=== PATIENT | female | born 1945 | race Caucasian/White ===

== ENCOUNTER 2016-11-28 12:50 | Outpatient (CLI) | payer MEDICARE, OTHER ==
[~2016-11-28 12:50] MED LIST: ASP81CT PO; CALC-771 PO; HYDR-3454 PO; MULT-930 PO; OMG1KC PO; PRV20T PO
--- OUTSIDE RECORDS SUMMARY | 2016-11-28 13:52 | XMS REPORT | Continuity of Care Document ---
Author Author [facility] Organization [facility] Address Unknown Phone Unavailable Allergies Active Description Code Type Severity Reaction Onset Reported/Identified Relationship to Patient Clinical Status Yes No Known Drug Allergies [id number] Drug Allergy Unknown N/ A 08/12/2012 Medications Problems Date Dx Coded Attending Type Code Diagnosis Diagnosed By 08/12/2012 Ot 272.4 HYPERLIPIDEMIA NEC/NOS 08/12/2012 Ot 733.90 BONE CARTILAGE DIS NOS 08/12/2012 Ot 735.2 HALLUX RIGIDUS 08/12/2012 Ot V58.69 OTH MED,LT,CURRENT USE 08/18/2014 Ot V76.12 08/18/2014 Ot V76.12 08/18/2014 Ot 735.2 08/18/2014 Ot V72.83 08/18/2014 Ot V74.8 08/18/2014 RACQUEL MICHAELS MD Ot V76.12 09/09/2014 RACQUEL MICHAELS MD Ot V76.12 09/09/2014 Ot V76.12 09/09/2014 Ot V76.12 09/09/2014 Ot 735.2 09/09/2014 Ot V72.83 09/09/2014 Ot V74.8 09/09/2014 RACQUEL MICHAELS MD Ot V76.12 09/09/2014 RACQUEL MICHAELS MD Ot V76.12 10/01/2014 RACQUEL MICHAELS MD Ot V76.12 10/01/2014 RACQUEL MICHAELS MD Ot V76.12 10/01/2014 RACQUEL MICHAESL MD Ot V76.12 10/07/2015 CATHY GOMEZ APRN Ot Z12.31 09/14/2016 Ot V76.12 OTH SCREEN MAMMO-MALIGN NEOPLASM OF MIKEY 09/14/2016 Ot V76.12 OTH SCREEN MAMMO-MALIGN NEOPLASM OF MIKEY 09/14/2016 Ot 735.2 HALLUX RIGIDUS 09/14/2016 Ot V72.83 EXAM PRE-OPERATIVE NEC 09/14/2016 Ot V74.8 SCREEN-BACTERIAL DIS NEC 09/14/2016 RACQUEL MICHAELS MD Ot V76.12 OTH SCREEN MAMMO-MALIGN NEOPLASM OF MIKEY 09/14/2016 RACQUEL MICHAELS MD Ot V76.12 OTH SCREEN MAMMO-MALIGN NEOPLASM OF MIKEY 09/14/2016 CATHY GOMEZ VISUAL AID EXPERT Ot Z12.31 ENCNTR SCREEN MAMMOGRAM FOR MALIGNANT NE 09/14/2016 CATHY GOMEZ VISUAL AID EXPERT Ot Z12.31 ENCNTR SCREEN MAMMOGRAM FOR MALIGNANT NE 09/14/2016 CATHY GOMEZ VISUAL AID EXPERT Ot Z12.31 ENCNTR SCREEN MAMMOGRAM FOR MALIGNANT NE 09/15/2016 CATHY GOMEZ VISUAL AID EXPERT Ot Z12.31 ENCNTR SCREEN MAMMOGRAM FOR MALIGNANT NE 09/15/2016 CATHY GOMEZ VISUAL AID EXPERT Ot Z12.31 ENCNTR SCREEN MAMMOGRAM FOR MALIGNANT NE 10/05/2016 CATHY GOMEZ VISUAL AID EXPERT Ot Z12.31 ENCNTR SCREEN MAMMOGRAM FOR MALIGNANT NE Procedures Results Encounters ACCT No. Visit Date/Time Discharge Status Pt. Type Provider Facility Loc./Unit Complaint [id number] 09/07/2014 09:52:00 2013 23:59:59 CLS Outpatient RACQUEL MICHAELS MD [facility] RAD ROUTINE [id number] 09/04/2013 09:27:00 2012 23:59:59 CLS Outpatient RACQUEL MICHAELS MD [facility] RAD SCREENING [id number] 09/14/2016 10:49:00 ACT Outpatient CATHY GOMEZ APRN [facility] RAD SCREENING [id number] 09/14/2015 10:31:00 ACT Outpatient CATHY GOMEZ APRN [facility] RAD SCREENING [id number] 09/02/2012 09:33:00 Document Registration [id number] 08/12/2012 06:19:00 Document Registration [id number] 08/07/2012 12:15:00 Document Registration [id number] 08/08/2011 08:35:00 Document Registration
== END 2016-11-28 13:55 | disposition home or self-care (01) ==
LOC: SLEEP 12:50
PROVIDERS: ATTEND Family Medicine
DX: I10 Essential (primary) hypertension (principal); G47.36 Sleep related hypoventilation in conditions classified elsewhere

== ENCOUNTER 2017-01-30 19:50 | Outpatient (CLI) | payer MEDICARE, OTHER | END 2017-01-31 04:55 | disposition home or self-care (01) | LOC: SLEEP 19:50 | PROVIDERS: ATTEND Nurse Practitioner Family | DX: G47.33 Obstructive sleep apnea (adult) (pediatric) (principal); I10 Essential (primary) hypertension | CPT/HCPCS: 95811 ==

== ENCOUNTER → 2017-09-18 | Outpatient (CLI) | payer MEDICARE ==
--- NOTE | 2017-09-18 15:26 | Diagnostic Imaging Report ---
INDICATION: Screening. The current study was also evaluated with a Computer Aided Detection (CAD) system. Comparison made with prior examination from 09/14/2016, 09/14/15 and 09/07/2014. FINDINGS: There is moderately dense fibroglandular tissue bilaterally. There is unchanged nodular density in the upper outer right breast. There a few benign type calcifications. There is no new dominant mass lesion or suspicious calcification identified. The skin, nipples and axilla are unremarkable. IMPRESSION: Category 2 benign. ACR BI-RADS Category 2: Benign findings. Result letter will be mailed to the patient. Note: At least 10% of breast cancer is not imaged by mammography. Dictated by: Dictated on workstation # [id number]
== END ==
LOC: RAD 10:01
PROVIDERS: ATTEND Family Medicine
DX: Z12.31 Encounter for screening mammogram for malignant neoplasm of breast (principal)
CPT/HCPCS: 77067

== ENCOUNTER 2017-12-17 12:36 | Outpatient (CLI) | payer MEDICARE ==
[~2017-12-17] VITALS: Ht 154.9 cm; Wt 66.3 kg
[2017-12-17] MEDS ORDERED: MULT-1029 PO (12:54)
[2017-12-17] MEDS ORDERED: GLUC-144 PO (12:54)
[2017-12-17] MEDS ORDERED: PRAV20TA3 PO (12:54)
[2017-12-17] MEDS ORDERED: TRIA1TAB3 PO (12:54)
[2017-12-17] MEDS ORDERED: MV-M1TAB38 PO (12:54)
[2017-12-17] MEDS ORDERED: OMEG1CAP24 PO (12:54)
[2017-12-17 12:56] VITALS: BP 123/74
[2017-12-17 13:29] LABS: BASOPHILS # (AUTO) 0.1 10^3/uL (0.0-0.1); BASOPHILS % (AUTO) 1 % (0-10); EOSINOPHILS # (AUTO) 0.1 10^3/uL (0.0-0.3); EOSINOPHILS % (AUTO) 2 % (0-10); HEMATOCRIT 42 % (35-52); HEMOGLOBIN 13.9 G/DL (11.5-16.0); LYMPHOCYTES # (AUTO) 2.2 X 10^3 (1.0-4.0); LYMPHOCYTES % (AUTO) 23 % (12-44); MEAN CORPUSCULAR HEMOGLOBIN 30 PG (25-34); MEAN CORPUSCULAR HGB CONC 33 G/DL (32-36); MEAN CORPUSCULAR VOLUME 90 FL (80-99); MONOCYTES # (AUTO) 0.6 X 10^3 (0.0-1.0); MONOCYTES % (AUTO) 7 % (0-12); NEUTROPHILS # (AUTO) 6.3 X 10^3 (1.8-7.8); NEUTROPHILS % (AUTO) 68 % (42-75); PLATELET COUNT 240 10^3/uL (130-400); RED BLOOD COUNT 4.71 10^6/uL (4.35-5.85); RED CELL DISTRIBUTION WIDTH 13.5 % (10.0-14.5); WHITE BLOOD COUNT 9.2 10^3/uL (4.3-11.0)
[2017-12-17 13:50] LABS: CALCIUM 9.8 MG/DL (8.5-10.1); CREATININE SERUM 1.05 MG/DL (0.60-1.30); POTASSIUM 4.2 MMOL/L (3.6-5.0)
== END 2017-12-17 14:59 | disposition home or self-care (01) ==
LOC: PREOP 12:36
PROVIDERS: ATTEND Otolaryngology Otolaryngology/Facial Plastic Surgery
DX: Z01.810 Encounter for preprocedural cardiovascular examination (principal); Z01.812 Encounter for preprocedural laboratory examination; Z11.2 Encounter for screening for other bacterial diseases; C44.311 Basal cell carcinoma of skin of nose
CPT/HCPCS: 36415; 80048; 85025; 87081; 93005

== ENCOUNTER 2017-12-28 06:49 | Day surgery (SDC) | payer MEDICARE ==
[~2017-12-28] VITALS: Ht 154.9 cm; Wt 66.3 kg
[~2017-12-28 06:49] MED LIST changes: +GLUC-144 PO; +MULT-1029 PO; +MV-M1TAB38 PO; +OMEG1CAP24 PO; +PRAV20TA3 PO; +TRIA1TAB3 PO
[2017-12-28] MEDS ORDERED: BSS 15 ML ONE (07:34)
[2017-12-28] MEDS ORDERED: LIDOCAINE/EPI 1%-1:200,000 (XYLOCAINE) 10 ML VIAL ONE (07:34)
[2017-12-28] MEDS ORDERED: MUPIROCIN 2% OINT 22 GM (BACTROBAN) TUBE ONE (07:34)
[2017-12-28] MEDS: LACTATED RINGERS 1,000 ML IV PRN ×2 (07:34→09:44)
[2017-12-28 07:35] VITALS: BP 116/69
[2017-12-28] MEDS ORDERED: MIDAZOLAM 2 MG/2 ML (VERSED) VIAL ONE (08:38)
[2017-12-28] MEDS ORDERED: fentaNYL INJECTION 100 MCG/2 ML AMP ONE (08:38)
[2017-12-28] MEDS ORDERED: proPOfol 200 MG/20 ML (DIPRIVAN) VIAL IV ONE (08:43)
[2017-12-28] MEDS ORDERED: LIDOCAINE PF 2% 5 ML (XYLOCAINE) VIAL ONE (08:43)
[2017-12-28] MEDS ORDERED: DEXAMETHASONE 10 MG/ML (DECADRON) 1 ML VIAL ONE (08:43)
[2017-12-28] MEDS ORDERED: ONDANSETRON 4 MG/2 ML (SDV) Z0FRAN ONE (08:43)
--- NOTE | 2017-12-28 08:50 | Progress Note-Pre Operative ---
Pre-Operative Progress Note H&P Reviewed The H&P was reviewed, patient examined and no changes noted. Date Seen by Provider: Dec 28, 2017 Time Seen by Provider: 08: Date H&P Reviewed: Dec 28, 2017 Time H&P Reviewed: : Pre-Operative Diagnosis: Skin Cancer nasal tip VENKAT HULL MD Dec 28, 2017 8:50 am
[2017-12-28] MEDS ORDERED: SEVOFLURANE (ULTANE) 15 ML INHAL SOLN ONE (09:41)
--- NOTE | 2017-12-28 09:50 | Progress Note-Post Operative ---
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 Specimen(s) collected/removed Frozen Section Nose-basal cell VENKAT HULL MD Dec 28, 2017 9:50 am
[2017-12-28] MEDS ORDERED: PHENYLEPHRINE 100 MCG/ML 10 ML (ANESTHESIA) SYR ONE (09:52)
[2017-12-28] MEDS ORDERED: HYDROcodone/APAP 5 MG/325 MG (LORTAB) TAB PO PRN (10:00)
[2017-12-28] MEDS ORDERED: ACETAMINOPHEN 325 MG TABLET PO PRN (10:00)
[2017-12-28] MEDS ORDERED: ONDANSETRON 4 MG/2 ML (SDV) Z0FRAN IVP PRN (10:15)
[2017-12-28] MEDS ORDERED: HYDROmorphone 2 MG/ML VIAL (DILAUDID) IVP PRN (10:15)
[2017-12-28 10:50] VITALS: BP 118/62
[2017-12-28] MEDS ORDERED: HYDR-3812 PO (11:03)
[2017-12-28 11:20] VITALS: BP 136/48
--- NOTE | 2017-12-28 11:40 | Anesthesia-General Post-Op ---
General Patient Condition Mental Status/LOC: Same as Preop Cardiovascular: Satisfactory Nausea/Vomiting: Absent Respiratory: Satisfactory Pain: Controlled Complications: Absent Post Op Complications Complications None Follow Up Care/Instructions Patient Instructions None needed. Anesthesia/Patient Condition Patient Condition Patient is doing well, no complaints, stable vital signs, no apparent adverse anesthesia problems. No complications reported per nursing. SUE HAY CRNA Dec 28, 2017 11:40
[2017-12-28 11:50] VITALS: BP 119/66
[2017-12-28 12:15] VITALS: BP 119/66
--- OUTSIDE RECORDS SUMMARY | 2017-12-30 03:54 | XMS REPORT | CCD ---
Author Author [facility] Organization [facility] Address [address] [place] [address] Phone Care Team Providers Care [employer] Systems Administrator Name Role Phone PP Unavailable CCM Unavailable Summary Purpose Interface Exchange Insurance Providers Payer name Policy type / Coverage type Covered libertarian ID Effective Begin Date Effective End Date WPS Medicare Part B [id number] Unknown [facility] [id number] Unknown Family history Father Diagnosis Age At Onset Unknown Brother Diagnosis Age At Onset Diabetes mellitus Type 2 Unknown Mother Diagnosis Age At Onset car accident Unknown Social History Social History Element Codes Description Effective Dates Marital status Unknown for 16 years - for 16 years, then remarried 05/02/[address]: 732958981 Never smoker 05/02/[address]: 888122 Currently drinks alcohol 05/02/2016 Frequency of drinks SNOMED CT: 077695477 1-4 drinks per week 1 per week 05/02/2016 Has the patient ever used illegal drugs? Unknown Has never used illegal drugs 05/02/2016 Number of children Unknown 0 05/04/2015 Allergies, Adverse Reactions, Alerts Allergies, Adverse Reactions, Alerts data not found Past Medical History Illness Codes Condition Status Onset Date Resolved Date Essential (primary) hypertension ICD-9: 401.9 ICD-10: I10 Active 05/03/2015 Unknown Iron deficiency ICD-9 : 280.9 ICD-10: E61.1 Active 08/29/2017 Unknown Mixed hyperlipidemia ICD-9: 272.4 ICD-10: E78.2 Active 05/03/2015 Unknown Obstructive sleep apnea (adult) (pediatric) ICD-9: 327.23 ICD-10: G47.33 Active 02/27/2017 Unknown Cellulitis of face ICD -9: 682.0 ICD-10: L03.211 Active 02/02/2017 Unknown Other insomnia ICD-9: 327.09 ICD-10: G47.09 Active 11/22/2016 Unknown Acute laryngopharyngitis ICD-9: 465.0 ICD-10: J06.0 Active 07/27/2016 Unknown Cough ICD-9: 786.2 ICD-10: R05 Active 07/27/2016 Unknown Acute bronchitis, unspecified ICD-9: 466.0 ICD-10: J20.9 Active 07/02/2016 Unknown Snoring ICD-9: 786.09 ICD-10: R06.83 Active 05/01/2016 Unknown Encounter for immunization ICD-9: V05.9 ICD-10: Z23 Active 11/01/2015 Unknown Tick bite ICD-9: 919.4 Active 05/19/2015 Unknown Hyperlipidemia Unknown Active 05/04/2015 Unknown Hypertension Unknown Active 05/04/2015 Unknown ENCNTR LONG-RX USE NEC ICD-9: V58.69 Active 05/03/2015 Unknown ESSENTIAL HYPERTENSION ICD-9: 401.9 Active 05/03/2015 Unknown HYPERLIPIDEMIA ICD-9: 272.4 Active 05/03/2015 Unknown Problems Condition Codes Effective Dates Condition Status Essential (primary) hypertension ICD-9: 401.9 ICD-10: I10 05/03/2015 Active Iron deficiency ICD-9 : 280.9 ICD-10: E61.1 08/29/2017 Active Mixed hyperlipidemia ICD-9: 272.4 ICD-10: E78.2 05/03/2015 Active Obstructive sleep apnea (adult) (pediatric) ICD-9: 327.23 ICD-10: G47.33 02/27/2017 Active Cellulitis of face ICD -9: 682.0 ICD-10: L03.211 02/02/2017 Active Other insomnia ICD-9: 327.09 ICD-10: G47.09 11/22/2016 Active Acute laryngopharyngitis ICD-9: 465.0 ICD-10: J06.0 07/27/2016 Active Cough ICD-9: 786.2 ICD-10: R05 07/27/2016 Active Acute bronchitis, unspecified ICD-9: 466.0 ICD-10: J20.9 07/02/2016 Active Snoring ICD-9: 786.09 ICD-10: R06.83 05/01/2016 Active Encounter for immunization ICD-9: V05.9 ICD-10: Z23 11/01/2015 Active Tick bite ICD-9: 919.4 05/19/2015 Active Hyperlipidemia Unknown 05/04/2015 Active Hypertension Unknown 05/04/2015 Active ENCNTR LONG-RX USE NEC ICD-9: V58.69 05/03/2015 Active ESSENTIAL HYPERTENSION ICD-9: 401.9 05/03/2015 Active HYPERLIPIDEMIA ICD-9: 272.4 05/03/2015 Active Medications Medication Codes Instructions Start Date Stop Date Status Fill Instructions Xanax 0.25 mg tablet RxNorm: 681985 1/2 - 1 Tablet(s) PO QHS as needed 10/30/2017 12/28/2017 Active Maxzide-25mg 37.5 mg-25 mg tablet RxNorm: 09059 Tablet(s) TAKE 1 TABLET BY MOUTH DAILY 10/10/2017 10/04/2018 Active acyclovir 5 % topical ointment RxNorm: 305085 1 Application TOP QID as needed cold sores 08/29/2017 12/26/2017 Active amoxicillin 500 mg capsule RxNorm: 960876 1 Capsule(s) PO TID 07/03/2017 07/09/2017 Inactive Maxzide-25mg 37.5 mg-25 mg tablet RxNorm: 19169 TAKE 1 TABLET BY MOUTH DAILY 06/04/2017 10/09/2017 Inactive Bactrim DS 800 mg-160 mg tablet RxNorm: 108394 1 Tablet(s) PO BID 05/14/2017 05/23/2017 Inactive Xanax 0.25 mg tablet RxNorm: 801104 1/2 - 1 Tablet(s) PO QHS 10/29/2017 Inactive pravastatin 20 mg tablet RxNorm: 825684 TAKE 1 TABLET BY MOUTH DAILY 02/28/2017 02/22/2018 Active mupirocin 2 % topical ointment RxNorm: 447762 1 Application TOP BID 02/02/2017 No Stop Date Active Bactrim DS 800 mg-160 mg tablet RxNorm: 116852 1 Tablet(s) PO BID 02/02/2017 02/11/2017 Inactive Xanax 0.25 mg tablet RxNorm: 787146 1/2 - 1 Tablet(s) PO QHS 10/29/2017 Inactive Xanax 0.25 mg tablet RxNorm: 024892 1/2 - 1 Tablet(s) PO QHS 05/13/2017 Inactive trazodone 50 mg tablet RxNorm: 634680 1 Tablet(s) PO QPM 201510/22/2017 Inactive Maxzide-25mg 37.5 mg-25 mg tablet RxNorm: 90843 Tablet(s) 1 Tablet, 1 time per Day 08/29/2016 05/25/2017 Inactive amoxicillin 500 mg capsule RxNorm: 583782 1 Capsule(s) PO TID 07/28/2016 08/03/2016 Inactive cetirizine 10 mg tablet RxNorm: 3003717 1 Tablet(s) PO daily 08/26/2016 Inactive Zithromax Z-Elías 250 mg tablet RxNorm: 616632 1 Tablet(s) PO UD 07/03/2016 07/07/2016 Inactive zpack Kenalog 40 mg/mL suspension for injection RxNorm: 7368251 Milliliter(s) Inj 07/03/2016 07/03/2016 Inactive pravastatin 20 mg tablet RxNorm: 730387 TAKE 1 TABLET BY MOUTH DAILY 05/31/2016 02/24/2017 Inactive trazodone 50 mg tablet RxNorm: 110577 1 Tablet(s) PO QPM 201506/30/2016 Inactive Maxzide-25mg 37.5 mg-25 mg tablet RxNorm: 19161 1 Tablet, 1 time per Day 12/06/2015 08/28/2016 Inactive trazodone 50 mg tablet RxNorm: 135243 1 Tablet(s) PO QPM 201503/02/2016 Inactive Maxzide-25mg 37.5 mg-25 mg tablet RxNorm: 09546 1 Tablet(s) PO daily 05/04/2015 12/05/2015 Inactive trazodone 50 mg tablet RxNorm: 057332 1/2 Tablet(s) PO QPM may increase up to a full pill if needed 05/04/2015 10/21/2015 Inactive pravastatin 20 mg tablet RxNorm: 268007 1 Tablet(s) PO daily 04/27/2016 Inactive pravastatin 20 mg tablet RxNorm: 357716 1 Tablet(s) PO daily 03/02/2015 Inactive pravastatin 20 mg tablet RxNorm: 207825 1 Tablet(s) PO daily 05/03/2015 Inactive Eye Vitamin and Minerals oral RxNorm: 2837 oral No Start Date Active Centrum Silver tablet RxNorm: 1 Tablet(s) PO daily No Start Date Active [place] 3 Fish Oil oral RxNorm: 5573804 oral No Start Date Active Osteo Bi-Flex oral RxNorm: 2364147 oral No Start Date Active zolpidem 5 mg tablet RxNorm: 596012 1 Tablet(s) PO QHS as needed No Start Date 05/03/2015 Inactive Iron (ferrous sulfate) oral RxNorm: 32725 oral No Start Date 08/28/2017 Inactive Maxzide-25mg oral RxNorm: 36349 oral No Start Date 05/03/2015 Inactive Medication Administered Medication Codes Instructions Start Date Status Kenalog 40 mg/mL suspension for injection RxNorm: 2963064 Milliliter 07/03/2016 No longer Active Immunizations Vaccine Codes Date Status Pneumococcal (Adult) CVX: 133 11/02/2015 completed PPD Unknown 05/20/2015 completed Influenza CVX: 141 06/17/2014 completed Pneumococcal CVX: 33 08/24/2010 completed Zoster CVX: 121 07/23/2008 completed Tetanus, Diptheria, Pertussis CVX: 113 completed Tetanus, Diptheria, Pertussis CVX: 113 completed Tetanus/Diptheria CVX: 113 05/05/2008 completed Assessments Condition Codes Effective Dates Mixed hyperlipidemia ICD-10: E78.2 ICD-9: 272.4 08/29/2017 Essential (primary) hypertension ICD-10: I10 ICD-9: 401.9 08/29/2017 Iron deficiency ICD-10: E61.1 ICD-9: 280.9 08/29/2017 Obstructive sleep apnea (adult) (pediatric) ICD-10: G47.33 ICD-9: 327.23 08/29/2017 Cellulitis of face ICD-10: L03.211 ICD-9: 682.0 05/14/2017 Other insomnia ICD-10: G47.09 ICD-9: 327.09 11/22/2016 Cough ICD-10: R05 ICD-9: 786.2 07/28/2016 Acute laryngopharyngitis ICD-10: J06.0 ICD-9: 465.0 07/28/2016 Acute bronchitis, unspecified ICD-10: J20.9 ICD-9: 466.0 07/03/2016 Snoring ICD-10: R06.83 ICD-9: 786.09 05/02/2016 Encounter for immunization ICD-10: Z23 ICD-9: V05.9 11/02/2015 Tick bite ICD-9: 919.4 05/20/2015 ESSENTIAL HYPERTENSION ICD-9: 401.9 05/04 HYPERLIPIDEMIA ICD-9: 272.4 05/04/2015 ENCNTR LONG-RX USE NEC ICD-9: V58.69 Reason For Visit Reason For Visit Effective Dates Notes hyperlipidemia 08/29/2017 rash 05/14/2017 hyperlipidemia 02/27/2017 rash 02/02/2017 insomnia 11/22/2016 hyperlipidemia 08/29/2016 cough 07/28/2016 cough 07/03/2016 hyperlipidemia 05/02/2016 hyperlipidemia 11/02/2015 blood pressure followup 05/04/2015 Results Observation Observation Code Item Item Code Result Date Comp Metabolic Tqm295 NA 140 mEq/L 08/29/2017 Comp Metabolic Ymm340 K 4.2 mEq/L 08/29/2017 Comp Metabolic Gwd749 CL 100 mEq/L 08/29/2017 Comp Metabolic Oiw887 CO2 31.0 mEq/L 08/29/2017 Comp Metabolic Bvo105 ANION GAP 13 08/29/2017 Comp Metabolic Jmc047 GLUCOSE 95 mg/dL 08/29/2017 Comp Metabolic Ouz385 Creat 1.1 mg/dL 08/29/2017 Comp Metabolic Ect837 eGFR 50 ml/min/1.73m2 08/29/2017 Comp Metabolic Rlv267 BUN 26 mg/dL 08/29/2017 Comp Metabolic Hji972 B/C Ratio 22.8 Ratio 08/29/2017 Comp Metabolic Wcx170 CALCIUM 9.8 mg/dL 08/29/2017 Comp Metabolic Xfv713 ALK PHOS 45 U/L 08/29/2017 Comp Metabolic Cgb224 AST(SGOT) 21 U/L 08/29/2017 Comp Metabolic Csp836 ALT(SGPT) 18 U/L 08/29/2017 Comp Metabolic Woe706 BILI T 0.5 mg/dL 08/29/2017 Comp Metabolic Fsu398 ALBUMIN 4.3 g/dL 08/29/2017 Comp Metabolic Qfu388 TPRO 6.7 g/dL 08/29/2017 Comp Metabolic Jva290 GLOB 2.4 g/dL 08/29/2017 Comp Metabolic Fnv589 A/G Ratio 1.8 Ratio 08/29/2017 Comp Metabolic Cxy283 Osmo 284 mOsmo 08/29/2017 Cbc With Differential Ord2 WBC 8.31 K/ul 08/29/2017 Cbc With Differential Ord2 RBC 4.20 M/ul 08/29/2017 Cbc With Differential Ord2 HGB 12.3 g/dl 08/29/2017 Cbc With Differential Ord2 Neut% 62.3 % 08/29/2017 Cbc With Differential Ord2 HCT 38.2 % 08/29/2017 Cbc With Differential Ord2 MCV 91.0 fl 08/29/2017 Cbc With Differential Ord2 Lymph% 27.9 % 08/29/2017 Cbc With Differential Ord2 [place]% 7.0 % 08/29/2017 Cbc With Differential Ord2 MCH 29.3 pg 08/29/2017 Cbc With Differential Ord2 MCHC 32.2 pg 08/29/2017 Cbc With Differential Ord2 Eos% 2.2 % 08/29/2017 Cbc With Differential Ord2 Baso% 0.6 % 08/29/2017 Cbc With Differential Ord2 PLT 246 K/ul 08/29/2017 Cbc With Differential Ord2 RDW 13.6 % 08/29/2017 Cbc With Differential Ord2 Neut ABS# 5.18 K/ul 08/29/2017 Cbc With Differential Ord2 Lymph ABS# 2.32 K/ul 08/29/2017 Cbc With Differential Ord2 [place] ABS# 0.6 K/ul 08/29/2017 Cbc With Differential Ord2 Eos ABS# 0.2 K/ul 08/29/2017 Cbc With Differential Ord2 Baso ABS# 0.1 K/ul 08/29/2017 Lipid Ord30 CHOL 161 mg/dL 08/29/2017 Lipid Ord30 HDL 45.0 mg/dl 08/29/2017 Lipid Ord30 TRIG 198 mg/dL 08/29/2017 Lipid Ord30 LDL 76 mg/dL 08/29/2017 Lipid Ord30 C/HDL 3.6 Ratio 08/29/2017 Tibc Ord40 Iron 95 ug/dl 08/29/2017 Tibc Ord40 UIBC 227 ug/dL 08/29/2017 Tibc Ord40 TIBC 322 ug/dL 08/29/2017 Tibc Ord40 Fe-%Sat 29.5 % 08/29/2017 Cbc With Differential Ord2 WBC 7.77 K/ul 03/01/2017 Cbc With Differential Ord2 RBC 4.10 M/ul 03/01/2017 Cbc With Differential Ord2 HGB 12.3 g/dl 03/01/2017 Cbc With Differential Ord2 HCT 37.8 % 03/01/2017 Cbc With Differential Ord2 Neut% 61.5 % 03/01/2017 Cbc With Differential Ord2 Lymph% 27.2 % 03/01/2017 Cbc With Differential Ord2 MCV 92.2 fl 03/01/2017 Cbc With Differential Ord2 MCH 30.0 pg 03/01/2017 Cbc With Differential Ord2 [place]% 8.0 % 03/01/2017 Cbc With Differential Ord2 Eos% 2.8 % 03/01/2017 Cbc With Differential Ord2 MCHC 32.5 pg 03/01/2017 Cbc With Differential Ord2 PLT 227 K/ul 03/01/2017 Cbc With Differential Ord2 Baso% 0.5 % 03/01/2017 Cbc With Differential Ord2 Neut ABS# 4.78 K/ul 03/01/2017 Cbc With Differential Ord2 RDW 14.1 % 03/01/2017 Cbc With Differential Ord2 Lymph ABS# 2.11 K/ul 03/01/2017 Cbc With Differential Ord2 [place] ABS# 0.6 K/ul 03/01/2017 Cbc With Differential Ord2 Eos ABS# 0.2 K/ul 03/01/2017 Cbc With Differential Ord2 Baso ABS# 0.0 K/ul 03/01/2017 Tibc Ord40 Iron 69 ug/dl 02/27/2017 Tibc Ord40 UIBC 283 ug/dL 02/27/2017 Tibc Ord40 TIBC 352 ug/dL 02/27/2017 Tibc Ord40 Fe-%Sat 19.6 % 02/27/2017 Ferritin Ord22 FERRITIN 89.1 ng/mL 02/27/2017 Comp Metabolic Uaf841 NA 137 mEq/L 08/29/2016 Comp Metabolic Xcn260 K 4.0 mEq/L 08/29/2016 Comp Metabolic Cem827 CL 100 mEq/L 08/29/2016 Comp Metabolic Nqz294 CO2 32.0 mEq/L 08/29/2016 Comp Metabolic Kak455 ANION GAP 9 08/29/2016 Comp Metabolic Vnd441 GLUCOSE 98 mg/dL 08/29/2016 Comp Metabolic Duu625 Creat 1.0 mg/dL 08/29/2016 Comp Metabolic Pif603 eGFR 55 ml/min/1.73m2 08/29/2016 Comp Metabolic Emv599 BUN 19 mg/dL 08/29/2016 Comp Metabolic Taf326 B/C Ratio 18.3 Ratio 08/29/2016 Comp Metabolic Gad879 CALCIUM 10.0 mg/dL 08/29/2016 Comp Metabolic Bia543 ALK PHOS 51 U/L 08/29/2016 Comp Metabolic Mnm472 AST(SGOT) 21 U/L 08/29/2016 Comp Metabolic Ody243 ALT(SGPT) 16 U/L 08/29/2016 Comp Metabolic Qpq509 BILI T 0.5 mg/dL 08/29/2016 Comp Metabolic Xso782 ALBUMIN 4.5 g/dL 08/29/2016 Comp Metabolic Vxm038 TPRO 7.3 g/dL 08/29/2016 Comp Metabolic Vzm657 GLOB 2.8 g/dL 08/29/2016 Comp Metabolic Oht795 A/G Ratio 1.6 Ratio 08/29/2016 Comp Metabolic Fwm354 Osmo 276 mOsmo 08/29/2016 Lipid Ord30 CHOL 172 mg/dL 08/29/2016 Lipid Ord30 HDL 51.0 mg/dl 08/29/2016 Lipid Ord30 TRIG 176 mg/dL 08/29/2016 Lipid Ord30 LDL 86 mg/dL 08/29/2016 Lipid Ord30 C/HDL 3.4 Ratio 08/29/2016 Cbc With Differential Ord2 WBC 8.42 K/ul 08/29/2016 Cbc With Differential Ord2 RBC 4.42 M/ul 08/29/2016 Cbc With Differential Ord2 HGB 13.1 g/dl 08/29/2016 Cbc With Differential Ord2 Neut% 62.0 % 08/29/2016 Cbc With Differential Ord2 HCT 39.7 % 08/29/2016 Cbc With Differential Ord2 Lymph% 27.4 % 08/29/2016 Cbc With Differential Ord2 MCV 89.8 fl 08/29/2016 Cbc With Differential Ord2 [place]% 7.8 % 08/29/2016 Cbc With Differential Ord2 MCH 29.6 pg 08/29/2016 Cbc With Differential Ord2 MCHC 33.0 pg 08/29/2016 Cbc With Differential Ord2 Eos% 2.3 % 08/29/2016 Cbc With Differential Ord2 PLT 247 K/ul 08/29/2016 Cbc With Differential Ord2 Baso% 0.5 % 08/29/2016 Cbc With Differential Ord2 Neut ABS# 5.22 K/ul 08/29/2016 Cbc With Differential Ord2 RDW 14.3 % 08/29/2016 Cbc With Differential Ord2 Lymph ABS# 2.31 K/ul 08/29/2016 Cbc With Differential Ord2 [place] ABS# 0.7 K/ul 08/29/2016 Cbc With Differential Ord2 Eos ABS# 0.2 K/ul 08/29/2016 Cbc With Differential Ord2 Baso ABS# 0.0 K/ul 08/29/2016 Tsh Ord6 hTSH II 3.34 uIU/mL 08/29/2016 Comp Metabolic Fyq288 NA 136 mEq/L 05/02/2016 Comp Metabolic Qyx571 K 4.0 mEq/L 05/02/2016 Comp Metabolic Yhk594 CL 97 mEq/L 05/02/2016 Comp Metabolic Kki971 CO2 31.0 mEq/L 05/02/2016 Comp Metabolic Hrb377 ANION GAP 12 05/02/2016 Comp Metabolic Fsj286 GLUCOSE 97 mg/dL 05/02/2016 Comp Metabolic Bvc094 Creat 1.0 mg/dL 05/02/2016 Comp Metabolic Xox274 eGFR 61 ml/min/1.73m2 05/02/2016 Comp Metabolic Djt190 BUN 24 mg/dL 05/02/2016 Comp Metabolic Emk256 B/C Ratio 25.0 Ratio 05/02/2016 Comp Metabolic Cpv224 CALCIUM 9.6 mg/dL 05/02/2016 Comp Metabolic Tto174 ALK PHOS 55 U/L 05/02/2016 Comp Metabolic Wcm398 AST(SGOT) 18 U/L 05/02/2016 Comp Metabolic Qpu798 ALT(SGPT) 20 U/L 05/02/2016 Comp Metabolic Xcx496 BILI T 0.5 mg/dL 05/02/2016 Comp Metabolic Dwe927 ALBUMIN 4.5 g/dL 05/02/2016 Comp Metabolic Afi403 TPRO 7.4 g/dL 05/02/2016 Comp Metabolic Uha078 GLOB 2.9 g/dL 05/02/2016 Comp Metabolic Mro853 A/G Ratio 1.6 Ratio 05/02/2016 Comp Metabolic Ixq929 Osmo 276 mOsmo 05/02/2016 Cbc With Differential Ord2 WBC 7.84 K/ul 05/02/2016 Cbc With Differential Ord2 RBC 4.53 M/ul 05/02/2016 Cbc With Differential Ord2 HGB 13.3 g/dl 05/02/2016 Cbc With Differential Ord2 Neut% 63.2 % 05/02/2016 Cbc With Differential Ord2 HCT 41.0 % 05/02/2016 Cbc With Differential Ord2 Lymph% 25.9 % 05/02/2016 Cbc With Differential Ord2 MCV 90.5 fl 05/02/2016 Cbc With Differential Ord2 [place]% 8.4 % 05/02/2016 Cbc With Differential Ord2 MCH 29.4 pg 05/02/2016 Cbc With Differential Ord2 MCHC 32.4 pg 05/02/2016 Cbc With Differential Ord2 Eos% 1.9 % 05/02/2016 Cbc With Differential Ord2 PLT 259 K/ul 05/02/2016 Cbc With Differential Ord2 Baso% 0.6 % 05/02/2016 Cbc With Differential Ord2 Neut ABS# 4.95 K/ul 05/02/2016 Cbc With Differential Ord2 RDW 14.1 % 05/02/2016 Cbc With Differential Ord2 Lymph ABS# 2.03 K/ul 05/02/2016 Cbc With Differential Ord2 [place] ABS# 0.7 K/ul 05/02/2016 Cbc With Differential Ord2 Eos ABS# 0.2 K/ul 05/02/2016 Cbc With Differential Ord2 Baso ABS# 0.1 K/ul 05/02/2016 Tsh Ord6 hTSH II 2.46 uIU/mL 05/02/2016 Lipid Ord30 CHOL 164 mg/dL 05/02/2016 Lipid Ord30 HDL 40.0 mg/dl 05/02/2016 Lipid Ord30 TRIG 185 mg/dL 05/02/2016 Lipid Ord30 LDL 87 mg/dL 05/02/2016 Lipid Ord30 C/HDL 4.1 Ratio 05/02/2016 Cbc With Differential Ord2 WBC 8.46 K/ul 11/02/2015 Cbc With Differential Ord2 RBC 4.55 M/ul 11/02/2015 Cbc With Differential Ord2 HGB 13.2 g/dl 11/02/2015 Cbc With Differential Ord2 Neut% 62.2 % 11/02/2015 Cbc With Differential Ord2 HCT 41.2 % 11/02/2015 Cbc With Differential Ord2 Lymph% 25.5 % 11/02/2015 Cbc With Differential Ord2 MCV 90.5 fl 11/02/2015 Cbc With Differential Ord2 [place]% 9.0 % 11/02/2015 Cbc With Differential Ord2 MCH 29.0 pg 11/02/2015 Cbc With Differential Ord2 Eos% 2.7 % 11/02/2015 Cbc With Differential Ord2 MCHC 32.0 pg 11/02/2015 Cbc With Differential Ord2 PLT 264 K/ul 11/02/2015 Cbc With Differential Ord2 Baso% 0.6 % 11/02/2015 Cbc With Differential Ord2 Neut ABS# 5.26 K/ul 11/02/2015 Cbc With Differential Ord2 RDW 13.8 % 11/02/2015 Cbc With Differential Ord2 Lymph ABS# 2.16 K/ul 11/02/2015 Cbc With Differential Ord2 [place] ABS# 0.8 K/ul 11/02/2015 Cbc With Differential Ord2 Eos ABS# 0.2 K/ul 11/02/2015 Cbc With Differential Ord2 Baso ABS# 0.1 K/ul 11/02/2015 Cbc With Differential Ord2 New Analyzer Notice Please note new ref ranges starting 09-29-2015 due to implemntation of new five part differential hematolgy analyzer. 11/02/2015 Comp Metabolic Ywj488 NA 137 mEq/L 11/02/2015 Comp Metabolic Eqi627 K 3.9 mEq/L 11/02/2015 Comp Metabolic Ohu268 CL 96 mEq/L 11/02/2015 Comp Metabolic Tvc318 CO2 34.0 mEq/L 11/02/2015 Comp Metabolic Kiz196 ANION GAP 11 11/02/2015 Comp Metabolic Xvk089 GLUCOSE 97 mg/dL 11/02/2015 Comp Metabolic Gqp576 Creat 1.1 mg/dL 11/02/2015 Comp Metabolic Eyt595 eGFR 52 ml/min/1.73m2 11/02/2015 Comp Metabolic Epi123 BUN 29 mg/dL 11/02/2015 Comp Metabolic Spo617 B/C Ratio 26.6 Ratio 11/02/2015 Comp Metabolic Ddn448 CALCIUM 9.8 mg/dL 11/02/2015 Comp Metabolic Ifb953 ALK PHOS 56 U/L 11/02/2015 Comp Metabolic Ehr526 AST(SGOT) 16 U/L 11/02/2015 Comp Metabolic Jyw620 ALT(SGPT) 13 U/L 11/02/2015 Comp Metabolic Pbm099 BILI T 0.4 mg/dL 11/02/2015 Comp Metabolic Yth742 ALBUMIN 4.4 g/dL 11/02/2015 Comp Metabolic Dbl365 TPRO 7.1 g/dL 11/02/2015 Comp Metabolic Xac645 GLOB 2.7 g/dL 11/02/2015 Comp Metabolic Ief128 A/G Ratio 1.6 Ratio 11/02/2015 Comp Metabolic Kps118 Osmo 280 mOsmo 11/02/2015 Lipid Ord30 CHOL 197 mg/dL 11/02/2015 Lipid Ord30 HDL 43.0 mg/dl 11/02/2015 Lipid Ord30 TRIG 247 mg/dL 11/02/2015 Lipid Ord30 LDL 105 mg/dL 11/02/2015 Lipid Ord30 C/HDL 4.6 Ratio 11/02/2015 Comp Metabolic Jfl915 NA 134 mEq/L 05/04/2015 Comp Metabolic Lhq441 K 3.8 mEq/L 05/04/2015 Comp Metabolic Hhl510 CL 97 mEq/L 05/04/2015 Comp Metabolic Miv998 CO2 31.0 mEq/L 05/04/2015 Comp Metabolic Qgh291 ANION GAP 10 05/04/2015 Comp Metabolic Vgy376 GLUCOSE 88 mg/dL 05/04/2015 Comp Metabolic Utr479 Creat 1.0 mg/dL 05/04/2015 Comp Metabolic Kvn818 eGFR 58 ml/min/1.73m2 05/04/2015 Comp Metabolic Obx274 BUN 19 mg/dL 05/04/2015 Comp Metabolic Jlo475 B/C Ratio 19.0 Ratio 05/04/2015 Comp Metabolic Dde179 CALCIUM 9.5 mg/dL 05/04/2015 Comp Metabolic Wzw619 ALK PHOS 60 U/L 05/04/2015 Comp Metabolic Obc256 AST(SGOT) 17 U/L 05/04/2015 Comp Metabolic Czg881 ALT(SGPT) 14 U/L 05/04/2015 Comp Metabolic Sap767 BILI T 0.5 mg/dL 05/04/2015 Comp Metabolic Uys717 ALBUMIN 4.5 g/dL 05/04/2015 Comp Metabolic Ptc592 TPRO 7.1 g/dL 05/04/2015 Comp Metabolic Vsa811 GLOB 2.6 g/dL 05/04/2015 Comp Metabolic Tzr214 A/G Ratio 1.7 Ratio 05/04/2015 Comp Metabolic Fqn379 Osmo 270 mOsmo 05/04/2015 Free T4 Arh928 FREE T4 0.81 ng/dL 05/04/2015 Cbc With Differential Ord2 WBC 9.7 K/uL 05/04/2015 Cbc With Differential Ord2 LYM 2.4 K/uL 05/04/2015 Cbc With Differential Ord2 LYM% 24.8 % 05/04/2015 Cbc With Differential Ord2 NEUT/GRAN 6.7 K/uL 05/04/2015 Cbc With Differential Ord2 NEUT/GRAN % 68.7 % 05/04/2015 Cbc With Differential Ord2 MID 0.6 K/uL 05/04/2015 Cbc With Differential Ord2 MID% 6.5 % 05/04/2015 Cbc With Differential Ord2 RBC 4.36 M/uL 05/04/2015 Cbc With Differential Ord2 HGB 12.7 g/dL 05/04/2015 Cbc With Differential Ord2 HCT 38.9 % 05/04/2015 Cbc With Differential Ord2 MCV 89 fL 05/04/2015 Cbc With Differential Ord2 MCH 29 pg 05/04/2015 Cbc With Differential Ord2 MCHC 33 g/dL 05/04/2015 Cbc With Differential Ord2 PLT 267 K/uL 05/04/2015 Cbc With Differential Ord2 RDW 14.6 % 05/04/2015 Tsh Ord6 hTSH II 2.35 uIU/mL 05/04/2015 Lipid Ord30 CHOL 167 mg/dL 05/04/2015 Lipid Ord30 HDL 45.0 mg/dl 05/04/2015 Lipid Ord30 TRIG 179 mg/dL 05/04/2015 Lipid Ord30 LDL 86 mg/dL 05/04/2015 Lipid Ord30 C/HDL 3.7 Ratio 05/04/2015 Review of Systems System Result Effective Dates Constitutional No recent illness 2016 Constitutional No chills 08/29/2017 Constitutional fatigue 08/29/2017 Constitutional No fever 08/29/2017 Constitutional No insomnia 08/29/2017 Constitutional No malaise 08/29/2017 Eyes No blindness 08/29/2017 Eyes No vision change 08/29/2017 Ears/Nose/Throat/Neck No dental pain Ears/Nose/Throat/Neck No dizziness 2016 Ears/Nose/Throat/Neck No dysphagia 2016 Ears/Nose/Throat/Neck No headache 2016 Ears/Nose/Throat/Neck No hearing loss Ears/Nose/Throat/Neck No nasal allergies 08/29/2017 Ears/Nose/Throat/Neck No sore throat Ears/Nose/Throat/Neck No postnasal drip 08/29/2017 Ears/Nose/Throat/Neck No sinus congestion 08/29/2017 Cardiovascular No chest pain/pressure Cardiovascular No dyspnea 08/29/2017 Cardiovascular No edema 08/29/2017 Cardiovascular No exercise intolerance Cardiovascular No fatigue 08/29/2017 Cardiovascular No near-syncope/dizziness 08/29/2017 Cardiovascular No palpitations 2016 Respiratory No chest congestion 2016 Respiratory No chest tightness 2016 Respiratory No cough 08/29/2017 Respiratory daytime hypersomnolence 08/29 Respiratory No dyspnea 08/29/2017 Respiratory No pedal edema 08/29/2017 Respiratory snoring 08/29/2017 Gastrointestinal No abdominal pain 2016 Gastrointestinal No constipation 2016 Gastrointestinal No diarrhea 08/29/2017 Gastrointestinal No gastroesophageal reflux 08/29/2017 Gastrointestinal No nausea 08/29/2017 Gastrointestinal No vomiting 08/29/2017 Genitourinary/Nephrology No dysuria 08/29 Genitourinary/Nephrology No nocturia Genitourinary/Nephrology No urinary incontinence 08/29/2017 Musculoskeletal No stiffness 08/29/2017 Musculoskeletal No swelling 08/29/2017 Musculoskeletal No muscle weakness 2016 Musculoskeletal No myalgias 08/29/2017 Dermatologic No rash 08/29/2017 Dermatologic No sores 08/29/2017 Dermatologic No scar 08/29/2017 Neurologic No alteration of consciousness 08/29/2017 Neurologic No dizziness 08/29/2017 Neurologic No headache 08/29/2017 Neurologic No neck pain 08/29/2017 Neurologic No syncope 08/29/2017 Psychiatric No anxiety 08/29/2017 Psychiatric No depression 08/29/2017 Constitutional No recent illness 2016 Constitutional No chills 05/14/2017 Constitutional No diaphoresis 05/14/2017 Constitutional No fever 05/14/2017 Eyes No eye erythema 05/14/2017 Ears/Nose/Throat/Neck No nasal allergies 05/14/2017 Ears/Nose/Throat/Neck No nasal discharge 05/14/2017 Cardiovascular No chest pain/pressure Respiratory No cough 05/14/2017 Respiratory No dyspnea 05/14/2017 Dermatologic erythema 05/14/2017 Neurologic No alteration of consciousness 05/14/2017 Neurologic No mental status change 2016 Constitutional No recent illness 2016 Constitutional No chills 02/27/2017 Constitutional fatigue 02/27/2017 Constitutional No fever 02/27/2017 Constitutional No insomnia 02/27/2017 Constitutional No malaise 02/27/2017 Eyes No blindness 02/27/2017 Eyes No vision change 02/27/2017 Ears/Nose/Throat/Neck No dental pain Ears/Nose/Throat/Neck No dizziness 2016 Ears/Nose/Throat/Neck No dysphagia 2016 Ears/Nose/Throat/Neck No headache 2016 Ears/Nose/Throat/Neck No hearing loss Ears/Nose/Throat/Neck No nasal allergies 02/27/2017 Ears/Nose/Throat/Neck No sore throat Ears/Nose/Throat/Neck No postnasal drip 02/27/2017 Ears/Nose/Throat/Neck No sinus congestion 02/27/2017 Cardiovascular No chest pain/pressure Cardiovascular No dyspnea 02/27/2017 Cardiovascular No edema 02/27/2017 Cardiovascular No exercise intolerance Cardiovascular No fatigue 02/27/2017 Cardiovascular No near-syncope/dizziness 02/27/2017 Cardiovascular No palpitations 2016 Respiratory No chest congestion 2016 Respiratory No chest tightness 2016 Respiratory No cough 02/27/2017 Respiratory daytime hypersomnolence 02/27 Respiratory No dyspnea 02/27/2017 Respiratory No pedal edema 02/27/2017 Respiratory snoring 02/27/2017 Gastrointestinal No abdominal pain 2016 Gastrointestinal No constipation 2016 Gastrointestinal No diarrhea 02/27/2017 Gastrointestinal No gastroesophageal reflux 02/27/2017 Gastrointestinal No nausea 02/27/2017 Gastrointestinal No vomiting 02/27/2017 Genitourinary/Nephrology No dysuria 02/27 Genitourinary/Nephrology No nocturia Genitourinary/Nephrology No urinary incontinence 02/27/2017 Musculoskeletal No stiffness 02/27/2017 Musculoskeletal No swelling 02/27/2017 Musculoskeletal No muscle weakness 2016 Musculoskeletal No myalgias 02/27/2017 Dermatologic No rash 02/27/2017 Dermatologic No sores 02/27/2017 Dermatologic No scar 02/27/2017 Neurologic No alteration of consciousness 02/27/2017 Neurologic No dizziness 02/27/2017 Neurologic No headache 02/27/2017 Neurologic No neck pain 02/27/2017 Neurologic No syncope 02/27/2017 Psychiatric No anxiety 02/27/2017 Psychiatric No depression 02/27/2017 Constitutional No recent illness 2016 Constitutional No chills 02/02/2017 Constitutional No diaphoresis 02/02/2017 Constitutional No fever 02/02/2017 Eyes No eye erythema 02/02/2017 Ears/Nose/Throat/Neck No nasal discharge 02/02/2017 Ears/Nose/Throat/Neck No nasal allergies 02/02/2017 Cardiovascular No chest pain/pressure Respiratory No cough 02/02/2017 Respiratory No dyspnea 02/02/2017 Dermatologic erythema 02/02/2017 Neurologic No alteration of consciousness 02/02/2017 Neurologic No mental status change 2016 Constitutional No recent illness 2016 Constitutional No chills 11/22/2016 Constitutional No diaphoresis 11/22/2016 Constitutional No fever 11/22/2016 Eyes No eye erythema 11/22/2016 Ears/Nose/Throat/Neck No nasal discharge 11/22/2016 Ears/Nose/Throat/Neck snoring 11/22/2016 Cardiovascular No chest pain/pressure 04/2017 Respiratory No cough 11/22/2016 Respiratory No dyspnea 11/22/2016 Neurologic No alteration of consciousness 11/22/2016 Neurologic No mental status change 2016 Constitutional No recent illness 2015 Constitutional No chills 08/29/2016 Constitutional fatigue 08/29/2016 Constitutional No fever 08/29/2016 Constitutional No insomnia 08/29/2016 Constitutional No malaise 08/29/2016 Eyes No blindness 08/29/2016 Eyes No vision change 08/29/2016 Ears/Nose/Throat/Neck No dental pain Ears/Nose/Throat/Neck No dizziness 2015 Ears/Nose/Throat/Neck No dysphagia 2015 Ears/Nose/Throat/Neck No headache 2015 Ears/Nose/Throat/Neck No hearing loss Ears/Nose/Throat/Neck No nasal allergies 08/29/2016 Ears/Nose/Throat/Neck No sore throat Ears/Nose/Throat/Neck No postnasal drip 08/29/2016 Ears/Nose/Throat/Neck No sinus congestion 08/29/2016 Cardiovascular No chest pain/pressure Cardiovascular No dyspnea 08/29/2016 Cardiovascular No edema 08/29/2016 Cardiovascular No exercise intolerance Cardiovascular No fatigue 08/29/2016 Cardiovascular No near-syncope/dizziness 08/29/2016 Cardiovascular No palpitations 2015 Respiratory No chest congestion 2015 Respiratory No chest tightness 2015 Respiratory No cough 08/29/2016 Respiratory daytime hypersomnolence 08/29 Respiratory No dyspnea 08/29/2016 Respiratory No pedal edema 08/29/2016 Respiratory snoring 08/29/2016 Gastrointestinal No abdominal pain 2015 Gastrointestinal No constipation 2015 Gastrointestinal No diarrhea 08/29/2016 Gastrointestinal No gastroesophageal reflux 08/29/2016 Gastrointestinal No nausea 08/29/2016 Gastrointestinal No vomiting 08/29/2016 Genitourinary/Nephrology No dysuria 08/29 Genitourinary/Nephrology No nocturia Genitourinary/Nephrology No urinary incontinence 08/29/2016 Musculoskeletal No stiffness 08/29/2016 Musculoskeletal No swelling 08/29/2016 Musculoskeletal No muscle weakness 2015 Musculoskeletal No myalgias 08/29/2016 Dermatologic No rash 08/29/2016 Dermatologic No sores 08/29/2016 Dermatologic No scar 08/29/2016 Neurologic No alteration of consciousness 08/29/2016 Neurologic No dizziness 08/29/2016 Neurologic No headache 08/29/2016 Neurologic No neck pain 08/29/2016 Neurologic No syncope 08/29/2016 Psychiatric No anxiety 08/29/2016 Psychiatric No depression 08/29/2016 Constitutional recent illness 07/28/2016 Constitutional No fever 07/28/2016 Eyes No eye erythema 07/28/2016 Eyes No eye discharge 07/28/2016 Eyes No vision change 07/28/2016 Cardiovascular dyspnea 07/28/2016 Cardiovascular No fatigue 07/28/2016 Respiratory cough 07/28/2016 Respiratory dyspnea 07/28/2016 Gastrointestinal No hemorrhoids 2015 Gastrointestinal No constipation 2015 Gastrointestinal No diarrhea 07/28/2016 Musculoskeletal No joint complaint 2015 Dermatologic No rash 07/28/2016 Dermatologic No sores 07/28/2016 Neurologic No alteration of consciousness 07/28/2016 Neurologic No mental status change 2015 Ears/Nose/Throat/Neck nasal allergies 07/2016 Ears/Nose/Throat/Neck nasal discharge 07/2016 Ears/Nose/Throat/Neck postnasal drip 07/2016 Ears/Nose/Throat/Neck sinus congestion Gastrointestinal No vomiting 07/28/2016 Constitutional night sweats 07/03/2016 Constitutional chills 07/03/2016 Constitutional No fever 07/03/2016 Constitutional No fatigue 07/03/2016 Eyes No vision change 07/03/2016 Eyes No blindness 07/03/2016 Eyes No eye discharge 07/03/2016 Constitutional No recent illness 2015 Constitutional No anorexia 07/03/2016 Constitutional No diaphoresis 07/03/2016 Constitutional No insomnia 07/03/2016 Constitutional No malaise 07/03/2016 Ears/Nose/Throat/Neck No dizziness 2015 Ears/Nose/Throat/Neck headache 2015 Ears/Nose/Throat/Neck No dysphagia 2015 Cardiovascular chest pain/pressure 2015 Cardiovascular dyspnea 07/03/2016 Cardiovascular No arrhythmia 07/03/2016 Cardiovascular No edema 07/03/2016 Cardiovascular No fatigue 07/03/2016 Respiratory No asthma 07/03/2016 Respiratory No productive sputum 2015 Respiratory No cigarette smoking 2015 Respiratory chest tightness 07/03/2016 Respiratory dyspnea 07/03/2016 Respiratory cough 07/03/2016 Gastrointestinal No hemorrhoids 2015 Gastrointestinal No constipation 2015 Gastrointestinal No diarrhea 07/03/2016 Genitourinary/Nephrology No dysuria 07/03 Genitourinary/Nephrology No flank pain Genitourinary/Nephrology No anuria/oliguria 07/03/2016 Musculoskeletal No stiffness 07/03/2016 Musculoskeletal No swelling 07/03/2016 Musculoskeletal No back pain 07/03/2016 Musculoskeletal No bone pain 07/03/2016 Musculoskeletal No joint complaint 2015 Musculoskeletal No muscle weakness 2015 Dermatologic No rash 07/03/2016 Dermatologic No sores 07/03/2016 Neurologic No alteration of consciousness 07/03/2016 Neurologic No dizziness 07/03/2016 Neurologic No mental status change 2015 Psychiatric No anxiety 07/03/2016 Psychiatric No depression 07/03/2016 Endocrine No dry or coarse skin 2015 Endocrine No hair loss 07/03/2016 Hematologic/Lymphatic No petechiae 2015 Constitutional No recent illness 2015 Constitutional No chills 05/02/2016 Constitutional fatigue 05/02/2016 Constitutional No fever 05/02/2016 Constitutional No insomnia 05/02/2016 Constitutional No malaise 05/02/2016 Eyes No blindness 05/02/2016 Eyes No vision change 05/02/2016 Ears/Nose/Throat/Neck No dental pain Ears/Nose/Throat/Neck No dizziness 2015 Ears/Nose/Throat/Neck No dysphagia 2015 Ears/Nose/Throat/Neck No headache 2015 Ears/Nose/Throat/Neck No hearing loss Ears/Nose/Throat/Neck No nasal allergies 05/02/2016 Ears/Nose/Throat/Neck No sore throat Ears/Nose/Throat/Neck No postnasal drip 05/02/2016 Ears/Nose/Throat/Neck No sinus congestion 05/02/2016 Cardiovascular No chest pain/pressure Cardiovascular No dyspnea 05/02/2016 Cardiovascular No edema 05/02/2016 Cardiovascular No exercise intolerance Cardiovascular No fatigue 05/02/2016 Cardiovascular No near-syncope/dizziness 05/02/2016 Cardiovascular No palpitations 2015 Respiratory No chest congestion 2015 Respiratory No chest tightness 2015 Respiratory No cough 05/02/2016 Respiratory No dyspnea 05/02/2016 Respiratory No pedal edema 05/02/2016 Gastrointestinal No abdominal pain 2015 Gastrointestinal No constipation 2015 Gastrointestinal No diarrhea 05/02/2016 Gastrointestinal No gastroesophageal reflux 05/02/2016 Gastrointestinal No nausea 05/02/2016 Gastrointestinal No vomiting 05/02/2016 Genitourinary/Nephrology No dysuria 05/02 Genitourinary/Nephrology No nocturia Genitourinary/Nephrology No urinary incontinence 05/02/2016 Musculoskeletal No stiffness 05/02/2016 Musculoskeletal No swelling 05/02/2016 Musculoskeletal No muscle weakness 2015 Musculoskeletal No myalgias 05/02/2016 Dermatologic No rash 05/02/2016 Dermatologic No sores 05/02/2016 Dermatologic No scar 05/02/2016 Neurologic No alteration of consciousness 05/02/2016 Neurologic No dizziness 05/02/2016 Neurologic No headache 05/02/2016 Neurologic No neck pain 05/02/2016 Neurologic No syncope 05/02/2016 Psychiatric No anxiety 05/02/2016 Psychiatric No depression 05/02/2016 Respiratory daytime hypersomnolence 05/02 Respiratory snoring 05/02/2016 Constitutional No recent illness 2015 Constitutional No chills 11/02/2015 Constitutional No fatigue 11/02/2015 Constitutional No fever 11/02/2015 Ears/Nose/Throat/Neck No dizziness 2015 Ears/Nose/Throat/Neck No headache 2015 Cardiovascular No chest pain/pressure Cardiovascular No near-syncope/dizziness 11/02/2015 Cardiovascular No palpitations 2015 Respiratory No chest congestion 2015 Respiratory No cough 11/02/2015 Gastrointestinal No abdominal pain 2015 Gastrointestinal No constipation 2015 Gastrointestinal No diarrhea 11/02/2015 Gastrointestinal No nausea 11/02/2015 Gastrointestinal No vomiting 11/02/2015 Genitourinary/Nephrology No dysuria 11/02 Musculoskeletal No stiffness 11/02/2015 Musculoskeletal No swelling 11/02/2015 Musculoskeletal No muscle weakness 2015 Musculoskeletal No myalgias 11/02/2015 Dermatologic No rash 11/02/2015 Dermatologic No scar 11/02/2015 Neurologic No alteration of consciousness 11/02/2015 Psychiatric No anxiety 11/02/2015 Psychiatric No depression 11/02/2015 Eyes No blindness 11/02/2015 Eyes No vision change 11/02/2015 Constitutional No insomnia 11/02/2015 Constitutional No malaise 11/02/2015 Ears/Nose/Throat/Neck No dental pain Ears/Nose/Throat/Neck No dysphagia 2015 Ears/Nose/Throat/Neck No hearing loss Ears/Nose/Throat/Neck No nasal allergies 11/02/2015 Ears/Nose/Throat/Neck No sore throat Ears/Nose/Throat/Neck No postnasal drip 11/02/2015 Ears/Nose/Throat/Neck No sinus congestion 11/02/2015 Cardiovascular No dyspnea 11/02/2015 Cardiovascular No edema 11/02/2015 Cardiovascular No exercise intolerance Cardiovascular No fatigue 11/02/2015 Respiratory No chest tightness 2015 Respiratory No dyspnea 11/02/2015 Respiratory No pedal edema 11/02/2015 Gastrointestinal No gastroesophageal reflux 11/02/2015 Genitourinary/Nephrology No nocturia Genitourinary/Nephrology No urinary incontinence 11/02/2015 Dermatologic No sores 11/02/2015 Neurologic No dizziness 11/02/2015 Neurologic No headache 11/02/2015 Neurologic No neck pain 11/02/2015 Neurologic No syncope 11/02/2015 Constitutional No chills 05/04/2015 Constitutional No fatigue 05/04/2015 Constitutional No fever 05/04/2015 Constitutional No recent illness 2014 Ears/Nose/Throat/Neck No dizziness 2014 Ears/Nose/Throat/Neck No headache 2014 Cardiovascular No chest pain/pressure Cardiovascular No near-syncope/dizziness 05/04/2015 Cardiovascular No palpitations 2014 Respiratory No chest congestion 2014 Respiratory No cough 05/04/2015 Gastrointestinal No abdominal pain 2014 Gastrointestinal No constipation 2014 Gastrointestinal No diarrhea 05/04/2015 Gastrointestinal No nausea 05/04/2015 Gastrointestinal No vomiting 05/04/2015 Genitourinary/Nephrology No dysuria 05/04 Neurologic No alteration of consciousness 05/04/2015 Psychiatric No anxiety 05/04/2015 Psychiatric No depression 05/04/2015 Dermatologic No rash 05/04/2015 Dermatologic No scar 05/04/2015 Musculoskeletal No stiffness 05/04/2015 Musculoskeletal No swelling 05/04/2015 Musculoskeletal No muscle weakness 2014 Musculoskeletal No myalgias 05/04/2015 Physical Exam Exam Name System Name Item Name Status Result Effective Dates Notes Full Exam - General 1994 Constitutional general appearance Development: well developed 08/29/2017 None Full Exam - General 1994 Constitutional general appearance Development: appears stated age 1208/29/2017 None Full Exam - General 1994 Constitutional general appearance Hygiene/Attention to Grooming: good hygiene 08/29/2017 None Full Exam - General 1994 Eyes conjunctiva /eyelids Overall: conjunctiva clear 08/29/2017 None Full Exam - General 1994 Eyes conjunctiva /eyelids Overall: cornea clear 08/29/2017 None Full Exam - General 1994 Eyes conjunctiva /eyelids Overall: eyelids normal 08/29/2017 None Full Exam - General 1994 Eyes pupils and irises Overall: pupils equal, round, reactive to light and accomodation 08/29/2017 None Full Exam - General 1994 Ears/Nose/Throat otoscopic exam Overall: external auditory canals clear 08/29/2017 None Full Exam - General 1994 Ears/Nose/Throat otoscopic exam Overall: tympanic membranes clear 08/29/2017 None Full Exam - General 1994 Ears/Nose/Throat lips/teeth/gingiva Overall: benign lips 08/29/2017 None Full Exam - General 1994 Ears/Nose/Throat lips/teeth/gingiva Overall: normal dentition 08/29/2017 None Full Exam - General 1994 Ears/Nose/Throat oral cavity/pharynx/larynx Overall: oral mucosa clear 08/29/2017 None Full Exam - General 1994 Ears/Nose/Throat oral cavity/pharynx/larynx Overall: oropharyngeal mucosa clear 08/29/2017 None Full Exam - General 1994 Ears/Nose/Throat oral cavity/pharynx/larynx Overall: hypopharynx benign 08/29/2017 None Full Exam - General 1994 Ears/Nose/Throat oral cavity/pharynx/larynx Overall: no masses 08/29/2017 None Full Exam - General 1994 Respiratory auscultation Overall: breath sounds clear bilaterally 08/29/2017 None Full Exam - General 1994 Respiratory respiratory effort/rhythm Overall: no retractions 08/29/2017 None Full Exam - General 1994 Respiratory respiratory effort/rhythm Overall: normal rate 08/29/2017 None Full Exam - General 1994 Cardiovascular extremities Overall: no clubbing 08/29/2017 None Full Exam - General 1994 Cardiovascular auscultation of heart Overall: regular rate 08/29/2017 None Full Exam - General 1994 Cardiovascular auscultation of heart Overall: normal heart sounds 08/29/2017 None Full Exam - General 1994 Abdomen abdominal exam Overall: no tenderness 08/29/2017 None Full Exam - General 1994 Abdomen abdominal exam Overall: normal bowel sounds 08/29/2017 None Full Exam - General 1994 Lymphatic neck nodes Overall: anterior cervical chain benign 08/29/2017 None Full Exam - General 1994 Musculoskeletal spine, ribs and pelvis Overall: good posture 08/29/2017 None Full Exam - General 1994 Musculoskeletal head and neck Overall: head atraumatic 08/29/2017 None Full Exam - General 1994 Musculoskeletal head and neck Overall: cervical spine benign 08/29/2017 None Full Exam - General 1994 Neurologic cranial nerves Overall: crainial nerves 2 - 12 grossly intact 08/29/2017 None Full Exam - General 1994 Psychiatric orientation/consciousness Overall: oriented to person, place and time 08/29/2017 None Full Exam - General 1994 Psychiatric mood and affect Overall: normal mood and affect 08/29/2017 None Full Exam - Dermatology Constitutional general appearance Overall: well nourished 05/14/2017 None Full Exam - Dermatology Constitutional general appearance Overall: well developed 05/14/2017 None Full Exam - Dermatology Constitutional general appearance Overall: in no acute distress 05/14/2017 None Full Exam - Dermatology Eyes conjunctiva/ eyelids Overall: clear conjunctiva bilaterally 05/14/2017 None Full Exam - Dermatology Ears/Nose/Throat lips/teeth/gingiva Overall: benign lips 05/14/2017 None Full Exam - Dermatology Ears/Nose/Throat oropharynx Overall: clear oral mucosa 05/14/2017 None Full Exam - Dermatology Respiratory respiratory effort/rhythm Overall: no retractions 05/14/2017 None Full Exam - Dermatology Respiratory respiratory effort/rhythm Overall: normal rate 05/14/2017 None Full Exam - Dermatology Integument insp & palp - head/face Location: on the right cheek 05/14/2017 None Full Exam - Dermatology Integument insp & palp - head/face Color: erythematous 05/14/2017 mild Full Exam - Dermatology Psychiatric orientation Overall: oriented to person, place and time 05/14/2017 None Full Exam - Dermatology Psychiatric mood and affect Overall: normal mood and affect 05/14/2017 None Full Exam - Dermatology Eyes conjunctiva/ eyelids Overall: normal eyelids 05/14/2017 None Full Exam - Dermatology Respiratory auscultation Overall: breath sounds clear bilaterally 05/14/2017 None Full Exam - Dermatology Integument insp & palp - head/face Location: on the right upper eyelid 05/14/2017 None Full Exam - Dermatology Integument insp & palp - head/face Lesion: patch 05/14/2017 None Full Exam - General 1994 Constitutional general appearance Development: well developed 02/27/2017 None Full Exam - General 1994 Constitutional general appearance Development: appears stated age 0602/27/2017 None Full Exam - General 1994 Constitutional general appearance Hygiene/Attention to Grooming: good hygiene 02/27/2017 None Full Exam - General 1994 Eyes conjunctiva /eyelids Overall: conjunctiva clear 02/27/2017 None Full Exam - General 1994 Eyes conjunctiva /eyelids Overall: cornea clear 02/27/2017 None Full Exam - General 1994 Eyes conjunctiva /eyelids Overall: eyelids normal 02/27/2017 None Full Exam - General 1994 Eyes pupils and irises Overall: pupils equal, round, reactive to light and accomodation 02/27/2017 None Full Exam - General 1994 Ears/Nose/Throat otoscopic exam Overall: external auditory canals clear 02/27/2017 None Full Exam - General 1994 Ears/Nose/Throat otoscopic exam Overall: tympanic membranes clear 02/27/2017 None Full Exam - General 1994 Ears/Nose/Throat lips/teeth/gingiva Overall: benign lips 02/27/2017 None Full Exam - General 1994 Ears/Nose/Throat lips/teeth/gingiva Overall: normal dentition 02/27/2017 None Full Exam - General 1994 Ears/Nose/Throat oral cavity/pharynx/larynx Overall: oral mucosa clear 02/27/2017 None Full Exam - General 1994 Ears/Nose/Throat oral cavity/pharynx/larynx Overall: oropharyngeal mucosa clear 02/27/2017 None Full Exam - General 1994 Ears/Nose/Throat oral cavity/pharynx/larynx Overall: hypopharynx benign 02/27/2017 None Full Exam - General 1994 Ears/Nose/Throat oral cavity/pharynx/larynx Overall: no masses 02/27/2017 None Full Exam - General 1994 Respiratory auscultation Overall: breath sounds clear bilaterally 02/27/2017 None Full Exam - General 1994 Respiratory respiratory effort/rhythm Overall: no retractions 02/27/2017 None Full Exam - General 1994 Respiratory respiratory effort/rhythm Overall: normal rate 02/27/2017 None Full Exam - General 1994 Cardiovascular extremities Overall: no clubbing 02/27/2017 None Full Exam - General 1994 Cardiovascular auscultation of heart Overall: regular rate 02/27/2017 None Full Exam - General 1994 Cardiovascular auscultation of heart Overall: normal heart sounds 02/27/2017 None Full Exam - General 1994 Abdomen abdominal exam Overall: no tenderness 02/27/2017 None Full Exam - General 1994 Abdomen abdominal exam Overall: normal bowel sounds 02/27/2017 None Full Exam - General 1994 Lymphatic neck nodes Overall: anterior cervical chain benign 02/27/2017 None Full Exam - General 1994 Musculoskeletal spine, ribs and pelvis Overall: spine benign 02/27/2017 None Full Exam - General 1994 Musculoskeletal spine, ribs and pelvis Overall: sacroiliac joint benign 02/27/2017 None Full Exam - General 1994 Musculoskeletal spine, ribs and pelvis Overall: good posture 02/27/2017 None Full Exam - General 1994 Musculoskeletal head and neck Overall: head atraumatic 02/27/2017 None Full Exam - General 1994 Musculoskeletal head and neck Overall: cervical spine benign 02/27/2017 None Full Exam - General 1994 Integument inspection of skin Overall: few scattered moles, no gross abnormalities 02/27/2017 None Full Exam - General 1994 Neurologic deep tendon reflexes Overall: deep tendon reflexes intact 02/27/2017 None Full Exam - General 1994 Neurologic cranial nerves Overall: crainial nerves 2 - 12 grossly intact 02/27/2017 None Full Exam - General 1994 Psychiatric orientation/consciousness Overall: oriented to person, place and time 02/27/2017 None Full Exam - General 1994 Psychiatric mood and affect Overall: normal mood and affect 02/27/2017 None Full Exam - Dermatology Constitutional general appearance Overall: well nourished 02/02/2017 None Full Exam - Dermatology Constitutional general appearance Overall: well developed 02/02/2017 None Full Exam - Dermatology Constitutional general appearance Overall: in no acute distress 02/02/2017 None Full Exam - Dermatology Eyes conjunctiva/ eyelids Overall: clear conjunctiva bilaterally 02/02/2017 None Full Exam - Dermatology Ears/Nose/Throat lips/teeth/gingiva Overall: benign lips 02/02/2017 None Full Exam - Dermatology Ears/Nose/Throat oropharynx Overall: clear oral mucosa 02/02/2017 None Full Exam - Dermatology Respiratory respiratory effort/rhythm Overall: no retractions 02/02/2017 None Full Exam - Dermatology Respiratory respiratory effort/rhythm Overall: normal rate 02/02/2017 None Full Exam - Dermatology Integument insp & palp - head/face Location: on the right cheek 02/02/2017 None Full Exam - Dermatology Integument insp & palp - head/face Color: erythematous 02/02/2017 None Full Exam - Dermatology Integument insp & palp - head/face Appearance: thick 02/02/2017 None Full Exam - Dermatology Integument insp & palp - head/face Appearance: crusted 02/02/2017 None Full Exam - Dermatology Psychiatric orientation Overall: oriented to person, place and time 02/02/2017 None Full Exam - Dermatology Psychiatric mood and affect Overall: normal mood and affect 02/02/2017 None Full Exam - General 1994 Constitutional general appearance Overall: well developed 11/22/2016 None Full Exam - General 1994 Constitutional general appearance Overall: in no acute distress 11/22/2016 None Full Exam - General 1994 Constitutional general appearance Overall: well nourished 11/22/2016 None Full Exam - General 1994 Eyes conjunctiva /eyelids Overall: conjunctiva clear 11/22/2016 None Full Exam - General 1994 Eyes conjunctiva /eyelids Overall: eyelids normal 11/22/2016 None Full Exam - General 1994 Ears/Nose/Throat lips/teeth/gingiva Overall: benign lips 11/22/2016 None Full Exam - General 1994 Ears/Nose/Throat oral cavity/pharynx/larynx Overall: oral mucosa clear 11/22/2016 None Full Exam - General 1994 Respiratory respiratory effort/rhythm Overall: no retractions 11/22/2016 None Full Exam - General 1994 Respiratory respiratory effort/rhythm Overall: normal rate 11/22/2016 None Full Exam - General 1994 Neurologic cranial nerves Overall: crainial nerves 2 - 12 grossly intact 11/22/2016 None Full Exam - General 1994 Psychiatric orientation/consciousness Overall: oriented to person, place and time 11/22/2016 None Full Exam - General 1994 Psychiatric mood and affect Overall: normal mood and affect 11/22/2016 None Full Exam - General 1994 Psychiatric appearance Overall: well-groomed, good eye contact 11/22/2016 None Full Exam - General 1994 Constitutional general appearance Development: well developed 08/29/2016 None Full Exam - General 1994 Constitutional general appearance Development: appears stated age 1208/29/2016 None Full Exam - General 1994 Constitutional general appearance Hygiene/Attention to Grooming: good hygiene 08/29/2016 None Full Exam - General 1994 Eyes conjunctiva /eyelids Overall: conjunctiva clear 08/29/2016 None Full Exam - General 1994 Eyes conjunctiva /eyelids Overall: cornea clear 08/29/2016 None Full Exam - General 1994 Eyes conjunctiva /eyelids Overall: eyelids normal 08/29/2016 None Full Exam - General 1994 Eyes pupils and irises Overall: pupils equal, round, reactive to light and accomodation 08/29/2016 None Full Exam - General 1994 Ears/Nose/Throat otoscopic exam Overall: external auditory canals clear 08/29/2016 None Full Exam - General 1994 Ears/Nose/Throat otoscopic exam Overall: tympanic membranes clear 08/29/2016 None Full Exam - General 1994 Ears/Nose/Throat lips/teeth/gingiva Overall: benign lips 08/29/2016 None Full Exam - General 1994 Ears/Nose/Throat lips/teeth/gingiva Overall: normal dentition 08/29/2016 None Full Exam - General 1994 Ears/Nose/Throat oral cavity/pharynx/larynx Overall: oral mucosa clear 08/29/2016 None Full Exam - General 1994 Ears/Nose/Throat oral cavity/pharynx/larynx Overall: oropharyngeal mucosa clear 08/29/2016 None Full Exam - General 1994 Ears/Nose/Throat oral cavity/pharynx/larynx Overall: hypopharynx benign 08/29/2016 None Full Exam - General 1994 Ears/Nose/Throat oral cavity/pharynx/larynx Overall: no masses 08/29/2016 None Full Exam - General 1994 Respiratory auscultation Overall: breath sounds clear bilaterally 08/29/2016 None Full Exam - General 1994 Respiratory respiratory effort/rhythm Overall: no retractions 08/29/2016 None Full Exam - General 1994 Respiratory respiratory effort/rhythm Overall: normal rate 08/29/2016 None Full Exam - General 1994 Cardiovascular extremities Overall: no clubbing 08/29/2016 None Full Exam - General 1994 Cardiovascular auscultation of heart Overall: regular rate 08/29/2016 None Full Exam - General 1994 Cardiovascular auscultation of heart Overall: normal heart sounds 08/29/2016 None Full Exam - General 1994 Abdomen abdominal exam Overall: no tenderness 08/29/2016 None Full Exam - General 1994 Abdomen abdominal exam Overall: normal bowel sounds 08/29/2016 None Full Exam - General 1994 Lymphatic neck nodes Overall: anterior cervical chain benign 08/29/2016 None Full Exam - General 1994 Musculoskeletal spine, ribs and pelvis Overall: spine benign 08/29/2016 None Full Exam - General 1994 Musculoskeletal spine, ribs and pelvis Overall: sacroiliac joint benign 08/29/2016 None Full Exam - General 1994 Musculoskeletal spine, ribs and pelvis Overall: good posture 08/29/2016 None Full Exam - General 1994 Musculoskeletal head and neck Overall: head atraumatic 08/29/2016 None Full Exam - General 1994 Musculoskeletal head and neck Overall: cervical spine benign 08/29/2016 None Full Exam - General 1994 Integument inspection of skin Overall: few scattered moles, no gross abnormalities 08/29/2016 None Full Exam - General 1994 Neurologic deep tendon reflexes Overall: deep tendon reflexes intact 08/29/2016 None Full Exam - General 1994 Neurologic cranial nerves Overall: crainial nerves 2 - 12 grossly intact 08/29/2016 None Full Exam - General 1994 Psychiatric orientation/consciousness Overall: oriented to person, place and time 08/29/2016 None Full Exam - General 1994 Psychiatric mood and affect Overall: normal mood and affect 08/29/2016 None Full Exam - General 1994 Eyes conjunctiva /eyelids Overall: conjunctiva clear 07/28/2016 None Full Exam - General 1994 Eyes conjunctiva /eyelids Overall: cornea clear 07/28/2016 None Full Exam - General 1994 Eyes conjunctiva /eyelids Overall: eyelids normal 07/28/2016 None Full Exam - General 1994 Eyes pupils and irises Overall: pupils equal, round, reactive to light and accomodation 07/28/2016 None Full Exam - General 1994 Ears/Nose/Throat lips/teeth/gingiva Overall: benign lips 07/28/2016 None Full Exam - General 1994 Ears/Nose/Throat lips/teeth/gingiva Overall: normal dentition 07/28/2016 None Full Exam - General 1994 Ears/Nose/Throat oral cavity/pharynx/larynx Overall: oral mucosa clear 07/28/2016 None Full Exam - General 1994 Respiratory auscultation Overall: breath sounds clear bilaterally 07/28/2016 None Full Exam - General 1994 Respiratory respiratory effort/rhythm Overall: no retractions 07/28/2016 None Full Exam - General 1994 Respiratory respiratory effort/rhythm Overall: normal rate 07/28/2016 None Full Exam - General 1994 Cardiovascular auscultation of heart Overall: regular rate 07/28/2016 None Full Exam - General 1994 Cardiovascular auscultation of heart Overall: normal heart sounds 07/28/2016 None Full Exam - General 1994 Lymphatic neck nodes Overall: anterior cervical chain benign 07/28/2016 None Full Exam - General 1994 Lymphatic neck nodes Overall: posterior cervical chain benign 07/28/2016 None Full Exam - General 1994 Psychiatric orientation/consciousness Overall: oriented to person, place and time 07/28/2016 None Full Exam - General 1994 Constitutional general appearance Overall: well developed 07/28/2016 None Full Exam - General 1994 Constitutional general appearance Overall: in no acute distress 07/28/2016 None Full Exam - General 1994 Constitutional general appearance Overall: well nourished 07/28/2016 None Full Exam - General 1994 Ears/Nose/Throat otoscopic exam Overall: external auditory canals clear 07/28/2016 None Full Exam - General 1994 Ears/Nose/Throat otoscopic exam Tympanic membrane: air- fluid level 07/28/2016 None Full Exam - General 1994 Ears/Nose/Throat oral cavity/pharynx/larynx Posterior Pharynx: clear post nasal drainage 07/28/2016 None Full Exam - General 1994 Psychiatric mood and affect Overall: normal mood and affect 07/28/2016 None Full Exam - General 1994 Constitutional general appearance Development: well developed 07/03/2016 None Full Exam - General 1994 Constitutional general appearance Development: appears stated age 1007/03/2016 None Full Exam - General 1994 Eyes conjunctiva /eyelids Overall: conjunctiva clear 07/03/2016 None Full Exam - General 1994 Eyes conjunctiva /eyelids Overall: cornea clear 07/03/2016 None Full Exam - General 1994 Eyes conjunctiva /eyelids Overall: eyelids normal 07/03/2016 None Full Exam - General 1994 Eyes pupils and irises Overall: pupils equal, round, reactive to light and accomodation 07/03/2016 None Full Exam - General 1994 Ears/Nose/Throat external ear Overall: normal appearance 07/03/2016 None Full Exam - General 1994 Ears/Nose/Throat external ear Overall: no masses 07/03/2016 None Full Exam - General 1994 Ears/Nose/Throat external nose Overall: benign appearance 07/03/2016 None Full Exam - General 1994 Ears/Nose/Throat otoscopic exam Overall: tympanic membranes clear 07/03/2016 None Full Exam - General 1994 Ears/Nose/Throat lips/teeth/gingiva Overall: benign lips 07/03/2016 None Full Exam - General 1994 Ears/Nose/Throat lips/teeth/gingiva Overall: normal dentition 07/03/2016 None Full Exam - General 1994 Ears/Nose/Throat oral cavity/pharynx/larynx Overall: oral mucosa clear 07/03/2016 None Full Exam - General 1994 Respiratory auscultation Overall: breath sounds clear bilaterally 07/03/2016 None Full Exam - General 1994 Respiratory respiratory effort/rhythm Overall: no retractions 07/03/2016 None Full Exam - General 1994 Respiratory respiratory effort/rhythm Overall: normal rate 07/03/2016 None Full Exam - General 1994 Cardiovascular auscultation of heart Overall: regular rate 07/03/2016 None Full Exam - General 1994 Cardiovascular auscultation of heart Overall: normal heart sounds 07/03/2016 None Full Exam - General 1994 Abdomen abdominal exam Overall: normal bowel sounds 07/03/2016 None Full Exam - General 1994 Abdomen abdominal exam Overall: no tenderness 07/03/2016 None Full Exam - General 1994 Neurologic mental status Overall: alert 07/03/2016 None Full Exam - General 1994 Neurologic mental status Overall: oriented 07/03/2016 None Full Exam - General 1994 Psychiatric orientation/consciousness Overall: oriented to person, place and time 07/03/2016 None Full Exam - General 1994 Integument inspection of skin Overall: no rash, lesions 07/03/2016 None Full Exam - General 1994 Lymphatic neck nodes Overall: anterior cervical chain benign 07/03/2016 None Full Exam - General 1994 Lymphatic neck nodes Overall: posterior cervical chain benign 07/03/2016 None Full Exam - General 1994 Constitutional general appearance Development: well developed 05/02/2016 None Full Exam - General 1994 Constitutional general appearance Development: appears stated age 0805/02/2016 None Full Exam - General 1994 Constitutional general appearance Hygiene/Attention to Grooming: good hygiene 05/02/2016 None Full Exam - General 1994 Eyes conjunctiva /eyelids Overall: conjunctiva clear 05/02/2016 None Full Exam - General 1994 Eyes conjunctiva /eyelids Overall: cornea clear 05/02/2016 None Full Exam - General 1994 Eyes conjunctiva /eyelids Overall: eyelids normal 05/02/2016 None Full Exam - General 1994 Eyes pupils and irises Overall: pupils equal, round, reactive to light and accomodation 05/02/2016 None Full Exam - General 1994 Ears/Nose/Throat otoscopic exam Overall: external auditory canals clear 05/02/2016 None Full Exam - General 1994 Ears/Nose/Throat otoscopic exam Overall: tympanic membranes clear 05/02/2016 None Full Exam - General 1994 Ears/Nose/Throat lips/teeth/gingiva Overall: benign lips 05/02/2016 None Full Exam - General 1994 Ears/Nose/Throat lips/teeth/gingiva Overall: normal dentition 05/02/2016 None Full Exam - General 1994 Ears/Nose/Throat oral cavity/pharynx/larynx Overall: oral mucosa clear 05/02/2016 None Full Exam - General 1994 Ears/Nose/Throat oral cavity/pharynx/larynx Overall: oropharyngeal mucosa clear 05/02/2016 None Full Exam - General 1994 Ears/Nose/Throat oral cavity/pharynx/larynx Overall: hypopharynx benign 05/02/2016 None Full Exam - General 1994 Ears/Nose/Throat oral cavity/pharynx/larynx Overall: no masses 05/02/2016 None Full Exam - General 1994 Respiratory auscultation Overall: breath sounds clear bilaterally 05/02/2016 None Full Exam - General 1994 Respiratory respiratory effort/rhythm Overall: no retractions 05/02/2016 None Full Exam - General 1994 Respiratory respiratory effort/rhythm Overall: normal rate 05/02/2016 None Full Exam - General 1994 Cardiovascular extremities Overall: no clubbing 05/02/2016 None Full Exam - General 1994 Cardiovascular auscultation of heart Overall: regular rate 05/02/2016 None Full Exam - General 1994 Cardiovascular auscultation of heart Overall: normal heart sounds 05/02/2016 None Full Exam - General 1994 Abdomen abdominal exam Overall: no tenderness 05/02/2016 None Full Exam - General 1994 Abdomen abdominal exam Overall: normal bowel sounds 05/02/2016 None Full Exam - General 1994 Lymphatic neck nodes Overall: anterior cervical chain benign 05/02/2016 None Full Exam - General 1994 Musculoskeletal spine, ribs and pelvis Overall: spine benign 05/02/2016 None Full Exam - General 1994 Musculoskeletal spine, ribs and pelvis Overall: sacroiliac joint benign 05/02/2016 None Full Exam - General 1994 Musculoskeletal spine, ribs and pelvis Overall: good posture 05/02/2016 None Full Exam - General 1994 Musculoskeletal head and neck Overall: head atraumatic 05/02/2016 None Full Exam - General 1994 Musculoskeletal head and neck Overall: cervical spine benign 05/02/2016 None Full Exam - General 1994 Integument inspection of skin Overall: few scattered moles, no gross abnormalities 05/02/2016 None Full Exam - General 1994 Neurologic deep tendon reflexes Overall: deep tendon reflexes intact 05/02/2016 None Full Exam - General 1994 Neurologic cranial nerves Overall: crainial nerves 2 - 12 grossly intact 05/02/2016 None Full Exam - General 1994 Psychiatric orientation/consciousness Overall: oriented to person, place and time 05/02/2016 None Full Exam - General 1994 Psychiatric mood and affect Overall: normal mood and affect 05/02/2016 None Full Exam - General 1994 Constitutional general appearance Development: well developed 11/02/2015 None Full Exam - General 1994 Constitutional general appearance Development: appears stated age 0211/02/2015 None Full Exam - General 1994 Constitutional general appearance Hygiene/Attention to Grooming: good hygiene 11/02/2015 None Full Exam - General 1994 Eyes conjunctiva /eyelids Overall: conjunctiva clear 11/02/2015 None Full Exam - General 1994 Eyes conjunctiva /eyelids Overall: cornea clear 11/02/2015 None Full Exam - General 1994 Eyes conjunctiva /eyelids Overall: eyelids normal 11/02/2015 None Full Exam - General 1994 Eyes pupils and irises Overall: pupils equal, round, reactive to light and accomodation 11/02/2015 None Full Exam - General 1994 Ears/Nose/Throat otoscopic exam Overall: external auditory canals clear 11/02/2015 None Full Exam - General 1994 Ears/Nose/Throat otoscopic exam Overall: tympanic membranes clear 11/02/2015 None Full Exam - General 1994 Ears/Nose/Throat lips/teeth/gingiva Overall: benign lips 11/02/2015 None Full Exam - General 1994 Ears/Nose/Throat lips/teeth/gingiva Overall: normal dentition 11/02/2015 None Full Exam - General 1994 Ears/Nose/Throat oral cavity/pharynx/larynx Overall: oral mucosa clear 11/02/2015 None Full Exam - General 1994 Ears/Nose/Throat oral cavity/pharynx/larynx Overall: oropharyngeal mucosa clear 11/02/2015 None Full Exam - General 1994 Ears/Nose/Throat oral cavity/pharynx/larynx Overall: hypopharynx benign 11/02/2015 None Full Exam - General 1994 Ears/Nose/Throat oral cavity/pharynx/larynx Overall: no masses 11/02/2015 None Full Exam - General 1994 Respiratory auscultation Overall: breath sounds clear bilaterally 11/02/2015 None Full Exam - General 1994 Respiratory respiratory effort/rhythm Overall: no retractions 11/02/2015 None Full Exam - General 1994 Respiratory respiratory effort/rhythm Overall: normal rate 11/02/2015 None Full Exam - General 1994 Cardiovascular extremities Overall: no clubbing 11/02/2015 None Full Exam - General 1994 Cardiovascular auscultation of heart Overall: regular rate 11/02/2015 None Full Exam - General 1994 Cardiovascular auscultation of heart Overall: normal heart sounds 11/02/2015 None Full Exam - General 1994 Abdomen abdominal exam Overall: no tenderness 11/02/2015 None Full Exam - General 1994 Abdomen abdominal exam Overall: normal bowel sounds 11/02/2015 None Full Exam - General 1994 Lymphatic neck nodes Overall: anterior cervical chain benign 11/02/2015 None Full Exam - General 1994 Lymphatic neck nodes Overall: posterior cervical chain benign 11/02/2015 None Full Exam - General 1994 Musculoskeletal spine, ribs and pelvis Overall: spine benign 11/02/2015 None Full Exam - General 1994 Musculoskeletal spine, ribs and pelvis Overall: sacroiliac joint benign 11/02/2015 None Full Exam - General 1994 Musculoskeletal spine, ribs and pelvis Overall: good posture 11/02/2015 None Full Exam - General 1994 Musculoskeletal head and neck Overall: head atraumatic 11/02/2015 None Full Exam - General 1994 Musculoskeletal head and neck Overall: cervical spine benign 11/02/2015 None Full Exam - General 1994 Integument inspection of skin Overall: few scattered moles, no gross abnormalities 11/02/2015 None Full Exam - General 1994 Neurologic deep tendon reflexes Overall: deep tendon reflexes intact 11/02/2015 None Full Exam - General 1994 Neurologic cranial nerves Overall: crainial nerves 2 - 12 grossly intact 11/02/2015 None Full Exam - General 1994 Psychiatric orientation/consciousness Overall: oriented to person, place and time 11/02/2015 None Full Exam - General 1994 Psychiatric mood and affect Overall: normal mood and affect 11/02/2015 None Full Exam - Cardiology Constitutional general appearance Overall: well nourished 05/04/2015 None Full Exam - Cardiology Constitutional general appearance Overall: well developed 05/04/2015 None Full Exam - Cardiology Constitutional general appearance Overall: in no acute distress 05/04/2015 None Full Exam - Cardiology Eyes conjunctiva/ eyelids Overall: conjunctiva clear 05/04/2015 None Full Exam - Cardiology Ears/Nose/Throat oral mucosa Overall: oral mucosa clear 05/04/2015 None Full Exam - Cardiology Respiratory respiratory effort/rhythm Overall: no retractions 05/04/2015 None Full Exam - Cardiology Respiratory respiratory effort/rhythm Overall: normal rate 05/04/2015 None Full Exam - Cardiology Respiratory auscultation Overall: breath sounds clear bilaterally 05/04/2015 None Full Exam - Cardiology Cardiovascular auscultation of heart Overall: regular rate 05/04/2015 None Full Exam - Cardiology Cardiovascular auscultation of heart Overall: normal heart sounds 05/04/2015 None Full Exam - Cardiology Cardiovascular auscultation of heart Overall: no murmurs 05/04/2015 None Full Exam - Cardiology Cardiovascular extremities Overall: without clubbing, cyanosis, or edema 05/04/2015 None Full Exam - Cardiology Abdomen abdominal exam Overall: normal bowel sounds 05/04/2015 None Full Exam - Cardiology Neurologic deep tendon reflexes Overall: deep tendon reflexes intact 05/04/2015 None Full Exam - Cardiology Neurologic cranial nerves Overall: cranial nerves 1- 12 intact 05/04/2015 None Full Exam - Cardiology Psychiatric orientation/consciousness Overall: oriented to person, place and time 05/04/2015 None Full Exam - Cardiology Musculoskeletal back Overall: good posture 05/04/2015 None Full Exam - Cardiology Musculoskeletal back Overall: spine benign 05/04/2015 None Procedures Procedure Codes Date TRIAMCINOLONE ACET INJ NOS CPT-4: J3301 07/03/2016 PNEUMOCOCCAL VACC [address]: 56334108 CPT-4: 21694 11/02/2015 IMMUNIZATION ADMIN CPT -4: 90154 11/02/2015 Vital Signs Date Vital 08/29/2017 Blood Pressure 1: 126/78 Code : 8480-6 BMI: 26.3 Code : 40259-2 Heart Rate 1 : 80 bpm Height: 5'2" SpO2: 97% Weight: 144 lbs 05/14/2017 Blood Pressure 1: 128/70 Code : 8480-6 BMI: 26.5 Code : 50243-8 Heart Rate 1 : 84 bpm Height: 5'2" SpO2: 97% Weight: 145 lbs 02/27/2017 Blood Pressure 1: 130/82 Code : 8480-6 BMI: 26.3 Code : 48711-6 Heart Rate 1 : 82 bpm Height: 5'2" SpO2: 96% Weight: 144 lbs 02/02/2017 Blood Pressure 1: 142/76 Code : 8480-6 BMI: 26.3 Code : 17807-9 Heart Rate 1 : 80 bpm Height: 5'2" SpO2: 97% Weight: 144 lbs 11/22/2016 Blood Pressure 1: 134/72 Code : 8480-6 BMI: 27.1 Code : 01301-9 Heart Rate 1 : 76 bpm Height: 5'2" SpO2: 97% Weight: 148 lbs 08/29/2016 Blood Pressure 1: 120/80 Code : 8480-6 BMI: 26.0 Code : 11155-8 Heart Rate 1 : 74 bpm Height: 5'2" SpO2: 97% Weight: 142 lbs 07/28/2016 Blood Pressure 1: 134/72 Code : 8480-6 BMI: 25.7 Code : 35899-7 Heart Rate 1 : 81 bpm Height: 5'2" SpO2: 98% Temperature: 37.1 (C) / 98.7 (F) Weight: 140 lbs 8 oz 07/03/2016 Blood Pressure 1: 136/80 Code : 8480-6 Heart Rate 1: 86 bpm SpO2: 98% Temperature: 36.7 (C) / 98.0 (F) 05/02/2016 Blood Pressure 1: 124/78 Code : 8480-6 BMI: 26.3 Code : 71778-5 Heart Rate 1 : 74 bpm Height: 5'2" SpO2: 98% Weight: 144 lbs 11/02/2015 Blood Pressure 1: 118/78 Code : 8480-6 BMI: 26.5 Code : 54054-6 Heart Rate 1 : 79 bpm Height: 5'2" SpO2: 98% Weight: 145 lbs 05/04/2015 Blood Pressure 1: 132/64 Code : 8480-6 BMI: 25.2 Code : 06215-6 Heart Rate 1 : 75 bpm Height: 5'2" SpO2: 97% Weight: 138 lbs Functional Status No Functional Status data History of Present Illness Symptom Name Status Result Effective Date Notes hyperlipidemia Onset and Resolution gradual in onset 08/29/2017 None hyperlipidemia Onset of Symptom during adulthood 08/29/2017 None hyperlipidemia Alleviating Factors medication 08/29/2017 None hyperlipidemia Exacerbating Factors diet 08/29/2017 None hypertension Quality chronic 08/29/2017 None hypertension Onset and Resolution ongoing 08/29/2017 None hypertension Blood Pressure Values patient checking blood pressure at home - did not bring in readings 08/29/2017 None hypertension Alleviating Factors medication 08/29/2017 None hypertension Pertinent Findings Denies dizziness 08/29/2017 None hypertension Pertinent Findings Denies dyspnea 08/29/2017 None hypertension Pertinent Findings Denies edema 08/29/2017 None hypertension Quality primary hypertension 08/29/2017 None hypertension Onset of Symptom during adulthood 08/29/2017 None hyperlipidemia Significant Medications statin 08/29/2017 None hypertension Quality stable 08/29/2017 None rash Location-Major on the head 05/14/2017 right cheek and eyebrow rash Color red 2016 None rash Onset and Resolution sudden in onset 05/14/2017 None rash Onset of Symptom 2 days ago 05/14/2017 None rash Pertinent Findings eye irritation 05/14/2017 None rash Pertinent Findings itching 05/14/2017 None rash Pertinent Findings pain 05/14/2017 None hyperlipidemia Onset and Resolution gradual in onset 02/27/2017 None hyperlipidemia Onset and Resolution ongoing 02/27/2017 None hyperlipidemia Onset of Symptom during adulthood 02/27/2017 None hyperlipidemia Alleviating Factors medication 02/27/2017 None hyperlipidemia Exacerbating Factors diet 02/27/2017 None hypertension Quality chronic 02/27/2017 None hypertension Onset and Resolution ongoing 02/27/2017 None hypertension Blood Pressure Values patient checking blood pressure at home - did not bring in readings 02/27/2017 None hypertension Alleviating Factors medication 02/27/2017 None hypertension Pertinent Findings Denies dizziness 02/27/2017 None hypertension Pertinent Findings Denies dyspnea 02/27/2017 None hypertension Pertinent Findings Denies edema 02/27/2017 None rash Location-Head/Neck on the right zoroastrian 02/02/2017 None rash Color red 2016 None rash Onset and Resolution sudden in onset 02/02/2017 None rash Onset of Symptom 1 week ago 02/02/2017 None rash Pertinent Findings eye irritation 02/02/2017 None rash Pertinent Findings tenderness 02/02/2017 None insomnia Quality chronic 11/22/2016 None insomnia Quality worsening 11/22/2016 None insomnia Onset and Resolution ongoing 11/22/2016 None insomnia Severity moderate 11/22/2016 None insomnia Alleviating Factors medication 11/22/2016 None insomnia Pertinent Findings Denies dyspnea 11/22/2016 None hyperlipidemia Onset and Resolution gradual in onset 08/29/2016 None hyperlipidemia Onset and Resolution ongoing 08/29/2016 None hyperlipidemia Onset of Symptom during adulthood 08/29/2016 None hyperlipidemia Alleviating Factors medication 08/29/2016 None hyperlipidemia Exacerbating Factors diet 08/29/2016 None hypertension Quality chronic 08/29/2016 None hypertension Onset and Resolution ongoing 08/29/2016 None hypertension Alleviating Factors medication 08/29/2016 None hypertension Pertinent Findings Denies dizziness 08/29/2016 None hypertension Pertinent Findings Denies dyspnea 08/29/2016 None hypertension Pertinent Findings Denies edema 08/29/2016 None snoring Quality intermittent 08/29/2016 None snoring Onset and Resolution ongoing 08/29/2016 None snoring Onset of Symptom 1 years ago 08/29/2016 None snoring Limitation on Activities awakens bed partner 08/29/2016 None hypertension Blood Pressure Values patient checking blood pressure at home - did not bring in readings 08/29/2016 None snoring Quality improving 08/29/2016 None cough Location in the throat 07/28/2016 None cough Quality worsening 07/28/2016 None cough Onset and Resolution ongoing 07/28/2016 None cough Onset of Symptom 1 weeks ago 07/28/2016 None cough Limitation on Activities moderately limits activities 07/28/2016 None cough Frequency of Episodes decreasing 07/28/2016 None cough Triggers no known associated factors 07/28/2016 None cough Pertinent Findings chest discomfort 07/28/2016 None cough Pertinent Findings dyspnea 07/28/2016 None cough Location in the throat 07/03/2016 None cough Quality worsening 07/03/2016 None cough Onset and Resolution ongoing 07/03/2016 None cough Onset of Symptom 1 weeks ago 07/03/2016 None cough Pertinent Findings chest discomfort 07/03/2016 None cough Pertinent Findings dyspnea 07/03/2016 None cough Limitation on Activities moderately limits activities 07/03/2016 None cough Frequency of Episodes decreasing 07/03/2016 None cough Triggers no known associated factors 07/03/2016 None hyperlipidemia Onset and Resolution ongoing 05/02/2016 None hyperlipidemia Alleviating Factors medication 05/02/2016 None hypertension Quality chronic 05/02/2016 None hypertension Onset and Resolution ongoing 05/02/2016 None hypertension Blood Pressure Values not checking blood pressure at home 05/02/2016 None hypertension Alleviating Factors medication 05/02/2016 None hypertension Pertinent Findings Denies dizziness 05/02/2016 None hypertension Pertinent Findings Denies dyspnea 05/02/2016 None hypertension Pertinent Findings Denies edema 05/02/2016 None hyperlipidemia Onset of Symptom during adulthood 05/02/2016 None hyperlipidemia Onset and Resolution gradual in onset 05/02/2016 None hyperlipidemia Exacerbating Factors diet 05/02/2016 None snoring Location on the nose 05/02/2016 None snoring Onset and Resolution ongoing 05/02/2016 None snoring Quality intermittent 05/02/2016 None snoring Onset of Symptom 1 years ago 05/02/2016 None snoring Limitation on Activities awakens bed partner 05/02/2016 None hypertension Onset and Resolution ongoing 11/02/2015 None hypertension Blood Pressure Values not checking blood pressure at home 11/02/2015 None hypertension Alleviating Factors medication 11/02/2015 None hypertension Pertinent Findings dizziness 11/02/2015 -vertigo last Sunday morning- comes and goes hypertension Pertinent Findings Denies dyspnea 11/02/2015 None hypertension Pertinent Findings Denies edema 11/02/2015 None hyperlipidemia Onset and Resolution ongoing 11/02/2015 None hyperlipidemia Alleviating Factors medication 11/02/2015 None hypertension Quality chronic 11/02/2015 None blood pressure followup Alleviating Factors diet changes 05/04/2015 None blood pressure followup Alleviating Factors exercise 05/04/2015 None blood pressure followup Alleviating Factors medication 05/04/2015 None blood pressure followup Blood Pressure Values not checking blood pressure at home 05/04/2015 None blood pressure followup Frequency of Episodes unchanged 05/04/2015 None blood pressure followup Onset and Resolution ongoing 05/04/2015 None blood pressure followup Onset of Symptom during adulthood 05/04/2015 None blood pressure followup Quality chronic 05/04/2015 None blood pressure followup Triggers stress 05/04/2015 None Advance Directives No Advance Directive data Encounters Encounter Performer Location Codes Date ([id number]) 91574 EST. PATIENT, LEVEL IV Diagnosis: Obstructive sleep apnea (adult) (pediatric)[ICD10: G47.33] Diagnosis: Iron deficiency[ICD10: E61.1] Diagnosis: Mixed hyperlipidemia[ICD10: E78.2] Diagnosis: Essential (primary) hypertension[ICD10: I10] Aparna Dunn MD, [facility] CPT-4: 56814 08/29/2017 69303 EST. PATIENT, LEVEL III Diagnosis: Cellulitis of face[ICD10: L03.211] Loretta Dunn MD, [facility] CPT-4: 54192 05/14/2017 [id number]) [id number] EST. PATIENT, LEVEL IV Diagnosis: Essential (primary) hypertension[ICD10: I10] Diagnosis: Mixed hyperlipidemia[ICD10: E78.2] Diagnosis: Obstructive sleep apnea (adult) (pediatric)[ICD10: G47.33] Aparna Dunn MD , [facility] CPT-4: 60955 02/27/2017 34581 EST. PATIENT, LEVEL III Diagnosis: Cellulitis of face[ICD10: L03.211] [facility] CPT-4: 41554 02/02/2017 29974 EST. PATIENT, LEVEL III Diagnosis: Other insomnia[ICD10: G47.09] Loretta Dunn MD, [facility] CPT-4 : 81002 11/22/2016 ([id number]) 61624 EST. PATIENT, LEVEL IV Diagnosis: Essential (primary) hypertension[ICD10: I10] Diagnosis: Mixed hyperlipidemia[ICD10: E78.2] Aparna Dunn MD, [facility] CPT-4: 58642 08/29/2016 61671 EST. PATIENT, LEVEL IV Diagnosis: Acute laryngopharyngitis[ICD10: J06.0] Diagnosis: Cough[ICD10: R05] Loretta Dunn MD, [facility] CPT-4: 06547 07/28/2016 ([id number]) 33483 EST. PATIENT, LEVEL III Diagnosis: Cough[ICD10: R05] Diagnosis: Acute bronchitis, unspecified[ICD10: J20.9] Judy Dunn MD, [facility] CPT-4: 55239 07/03/2016 ([id number]) 39642 EST. PATIENT, LEVEL IV Diagnosis: Essential (primary) hypertension[ICD10: I10] Diagnosis: Mixed hyperlipidemia[ICD10: E78.2] Diagnosis: Snoring[ICD10: R06.83] Aparna Dunn MD, [facility] CPT-4: 70209 05/02/2016 ([id number]) 66498 EST. PATIENT, LEVEL IV Diagnosis: Essential (primary) hypertension[ICD10: I10] Diagnosis: Mixed hyperlipidemia[ICD10: E78.2] Diagnosis: Encounter for immunization[ICD10: Z23] Aparna Dunn MD, [facility] CPT-4: 09640 11/02/2015 ([id number]) Miscellaneous no charge Diagnosis: Tick bite[ICD9: 919.4] Aparna Dunn MD, [facility] CPT-4: 35583 05/20/2015 ([id number]) OFFICE VISIT, NEW - LEVEL 4 Diagnosis: ESSENTIAL HYPERTENSION[ICD9: 401.9] Diagnosis: ENCNTR LONG-RX USE NEC[ICD9: V58.69] Diagnosis: HYPERLIPIDEMIA[ICD9: 272.4] [facility] CPT- 4: 15419 05/04/2015 Plan of Care Planned Activity Notes Codes Status Date Visit Plan: Hypertension - well controlled - continue with current medications, continue with no added salt diet. Pt has been encouraged to exercise daily. The pt has been advised to call the office if there are any acute concerns about change in blood pressure readings at home. Hyperlipidemia - pt has been counseled about appropriate diet, exercise, and need for low fat food choices. I have discussed the need for the patient to take medications as prescribed. If the patient has negative side effects from the medication, they are to CALL the office and not abruptly discontinue the medication without discussion with a practitioner in the office. We will check labs in 3-6 months for follow up on the patient's chronic medical problem and to assure normal liver response to medications. Iron deficiency - check iron panel hx of cold sores - refilled acyclovir 08/29/2017 Appointment: Aparna Dunn WPtel: [phone] [facility] (15 min) Moderate 08/29/2017 Patient Education: Patient Medication Summary Completed 08/29/2017 Patient Education: Hypertension Completed 08/29/2017 Care Plan: Iron Pending 08/29/2017 Care Plan: Iron And Tibc Pending 08/29/2017 Visit Plan: Cellulitis - The patient was instructed in appropriate wound care. The patient was instructed to use the antibiotic as per RX. The patient is to call for any change in symptoms, increase in size of the lesion, increase in pain. 05/14/2017 Appointment[phone] ([facility] min) Complex 05/14/2017 Patient Education: Patient Medication Summary Completed 05/14/2017 Visit Plan: Hypertension - well controlled - continue with current medications, continue with no added salt diet. Pt has been encouraged to exercise daily. The pt has been advised to call the office if there are any acute concerns about change in blood pressure readings at home. Sleep apnea - CPAP 5cm h2o pressure Hyperlipidemia - pt has been counseled about appropriate diet, exercise, and need for low fat food choices. I have discussed the need for the patient to take medications as prescribed. If the patient has negative side effects from the medication, they are to CALL the office and not abruptly discontinue the medication without discussion with a practitioner in the office. We will check labs in 3-6 months for follow up on the patient's chronic medical problem and to assure normal liver response to medications. 02/27/2017 Appointment: Aparna Dunn WPtel: [phone] [phone] (15 min) Moderate 02/27/2017 Patient Education: Patient Medication Summary Completed 02/27/2017 Patient Education: Hypertension Completed 02/27/2017 Visit Plan: Cellulitis - The patient was instructed in appropriate wound care. The patient was instructed to use the antibiotic ointment as per RX. The patient is to call for any change in symptoms, increase in size of the lesion, increase in pain. 02/02/2017 Appointment: [phone] ([facility] min) Complex 02/02/2017 Patient Education: Patient Medication Summary Completed 02/02/2017 Visit Plan: Insomnia - Pt has been advised to increase the light in the house during the day, and start dimming the lights during the evening hours. Pt has been advised to cut out caffeine after 5pm. Daytime napping worsens night time insomnia. 11/22/2016 Appointment: [phone] (15 min) Moderate 11/22/2016 Patient Education: Patient Medication Summary Completed 11/22/2016 Visit Plan: Hypertension - well controlled - continue with current medications, continue with no added salt diet. Pt has been encouraged to exercise daily. The pt has been advised to call the office if there are any acute concerns about change in blood pressure readings at home. Hyperlipidemia - pt has been counseled about appropriate diet, exercise, and need for low fat food choices. I have discussed the need for the patient to take medications as prescribed. If the patient has negative side effects from the medication, they are to CALL the office and not abruptly discontinue the medication without discussion with a practitioner in the office. We will check labs in 3-6 months for follow up on the patient's chronic medical problem and to assure normal liver response to medications. 08/29/2016 Appointment: [phone] (15 min) Moderate 08/29/2016 Patient Education: Patient Medication Summary Completed 08/29/2016 Visit Plan: Allergies - chronic - recommended pt to use allergy medication as prescribed. Pt has been counseled as to the appropriate use of the medication. Pt to call if allergy symptoms are not controlled with the medication. If using nasal spray, instructions as follows: Nasal spray- use twice daily, one spray per nostril twice daily, after 30 minutes, rinse out nose with saline spray.. Use opposite hand per nostril to spray in the nasal steroid allergy spray. URI - Pt advised to increase fluids, vitamin C. Discussed natural and expected course of this diagnosis and need to alert me if symptoms do not follow expected course, or if any worse. RX sent to patient's pharmacy. 07/28/2016 Appointment: Judy Felix WPtel: [phone] (10 min) Simple 07/28/2016 Patient Education: Patient Medication Summary Completed 07/28/2016 Visit Plan: Bronchitis - acute case of bronchitis identified. Pt has been given antibiotics, breathing treatments as appropriate, and pt has been instructed to call if symptoms are not improved, or if symptoms acutely worsen. Kenalog injection today in the office-RX for zpack sent to patient's pharmacy and instructed to take only if symptoms do not resolve or worsen as discussed. Patient verbalized understanding of plan. 07/03/2016 Appointment: Judy Felix WPtel: [phone] (10 min) Simple 07/03/2016 Patient Education: Patient Medication Summary Completed 07/03/2016 Visit Plan: Hypertension - well controlled - continue with current medications, continue with no added salt diet. Pt has been encouraged to exercise daily. The pt has been advised to call the office if there are any acute concerns about change in blood pressure readings at home. schedule for sleep study in home Hyperlipidemia - pt has been counseled about appropriate diet, exercise, and need for low fat food choices. I have discussed the need for the patient to take medications as prescribed. If the patient has negative side effects from the medication, they are to CALL the office and not abruptly discontinue the medication without discussion with a practitioner in the office. We will check labs in 3-6 months for follow up on the patient's chronic medical problem and to assure normal liver response to medications. 05/02/2016 Appointment: Aparna Dunn WPtel: [phone] [phone] (15 min) Moderate 05/02/2016 Patient Education: Patient Medication Summary Completed 05/02/2016 Visit Plan: Hypertension - well controlled - continue with current medications, continue with no added salt diet. Pt has been encouraged to exercise daily. The pt has been advised to call the office if there are any acute concerns about change in blood pressure readings at home. Hyperlipidemia - pt has been counseled about appropriate diet, exercise, and need for low fat food choices. I have discussed the need for the patient to take medications as prescribed. If the patient has negative side effects from the medication, they are to CALL the office and not abruptly discontinue the medication without discussion with a practitioner in the office. We will check labs in 3-6 months for follow up on the patient's chronic medical problem and to assure normal liver response to medications. prevnar 13 shot today 11/02/2015 Appointment: Aparna Dunn WPtel: [phone] [phone] (30 min) Complex 11/02/2015 Patient Education: Patient Medication Summary Completed 11/02/2015 Patient Education: Hypertension Completed 11/02/2015 Appointment: Nurse Visit 05/20/2015 Patient Education: Patient Medication Summary Completed 05/20/2015 Visit Plan: Hypertension - well controlled - continue with current medications, continue with no added salt diet. Pt has been encouraged to exercise daily. The pt has been advised to call the office if there are any acute concerns about change in blood pressure readings at home. Hyperlipidemia - pt has been counseled about appropriate diet, exercise, and need for low fat food choices. I have discussed the need for the patient to take medications as prescribed. If the patient has negative side effects from the medication, they are to CALL the office and not abruptly discontinue the medication without discussion with a practitioner in the office. We will check labs in 3-6 months for follow up on the patient's chronic medical problem and to assure normal liver response to medications. 05/04/2015 Appointment: Aparna Dunn WPtel: [phone] [facility] [place] ([place]) New Patient 05/04/2015 Patient Education: Patient Medication Summary Completed 05/04/2015 Patient Education: Hypertension Completed 05/04/2015 Instructions Comment . Hypertension - well controlled - continue with current medications, continue with no added salt diet. Pt has been encouraged to exercise daily. The pt has been advised to call the office if there are any acute concerns about change in blood pressure readings at home. schedule for sleep study in home Hyperlipidemia - pt has been counseled about appropriate diet, exercise, and need for low fat food choices. I have discussed the need for the patient to take medications as prescribed. If the patient has negative side effects from the medication, they are to CALL the office and not abruptly discontinue the medication without discussion with a practitioner in the office. We will check labs in 3-6 months for follow up on the patient's chronic medical problem and to assure normal liver response to medications. . Hypertension - well controlled - continue with current medications, continue with no added salt diet. Pt has been encouraged to exercise daily. The pt has been advised to call the office if there are any acute concerns about change in blood pressure readings at home. Sleep apnea - CPAP 5cm h2o pressure Hyperlipidemia - pt has been counseled about appropriate diet, exercise, and need for low fat food choices. I have discussed the need for the patient to take medications as prescribed. If the patient has negative side effects from the medication, they are to CALL the office and not abruptly discontinue the medication without discussion with a practitioner in the office. We will check labs in 3-6 months for follow up on the patient's chronic medical problem and to assure normal liver response to medications. Kenalog injection Start z-pack if no improvement . Bronchitis - acute case of bronchitis identified. Pt has been given antibiotics, breathing treatments as appropriate, and pt has been instructed to call if symptoms are not improved, or if symptoms acutely worsen. Kenalog injection today in the office-RX for zpack sent to patient's pharmacy and instructed to take only if symptoms do not resolve or worsen as discussed. Patient verbalized understanding of plan. . Allergies - chronic - recommended pt to use allergy medication as prescribed. Pt has been counseled as to the appropriate use of the medication. Pt to call if allergy symptoms are not controlled with the medication. If using nasal spray, instructions as follows: Nasal spray- use twice daily, one spray per nostril twice daily, after 30 minutes, rinse out nose with saline spray.. Use opposite hand per nostril to spray in the nasal steroid allergy spray. URI - Pt advised to increase fluids, vitamin C. Discussed natural and expected course of this diagnosis and need to alert me if symptoms do not follow expected course, or if any worse. RX sent to patient's pharmacy. . Insomnia - Pt has been advised to increase the light in the house during the day, and start dimming the lights during the evening hours. Pt has been advised to cut out caffeine after 5pm. Daytime napping worsens night time insomnia. Monitor your blood pressure at home and record. Bring in your readings to your next appointment, or as directed. Call for chest pain, shortness of breath, headaches, or other concerns. . Hypertension - well controlled - continue with current medications, continue with no added salt diet. Pt has been encouraged to exercise daily. The pt has been advised to call the office if there are any acute concerns about change in blood pressure readings at home. Hyperlipidemia - pt has been counseled about appropriate diet, exercise, and need for low fat food choices. I have discussed the need for the patient to take medications as prescribed. If the patient has negative side effects from the medication, they are to CALL the office and not abruptly discontinue the medication without discussion with a practitioner in the office. We will check labs in 3-6 months for follow up on the patient's chronic medical problem and to assure normal liver response to medications. . Hypertension - well controlled - continue with current medications, continue with no added salt diet. Pt has been encouraged to exercise daily. The pt has been advised to call the office if there are any acute concerns about change in blood pressure readings at home. Hyperlipidemia - pt has been counseled about appropriate diet, exercise, and need for low fat food choices. I have discussed the need for the patient to take medications as prescribed. If the patient has negative side effects from the medication, they are to CALL the office and not abruptly discontinue the medication without discussion with a practitioner in the office. We will check labs in 3-6 months for follow up on the patient's chronic medical problem and to assure normal liver response to medications. prevnar 13 shot today will refill xanax Continue bactrim - if no improvement return to clinic on Sunday for re- evaluation Ice to the area follow up with your eye doctor. let me know if you are not getting better, or with any changes, questions, or concerns. . Cellulitis - The patient was instructed in appropriate wound care. The patient was instructed to use the antibiotic as per RX. The patient is to call for any change in symptoms, increase in size of the lesion, increase in pain. . Cellulitis - The patient was instructed in appropriate wound care. The patient was instructed to use the antibiotic ointment as per RX. The patient is to call for any change in symptoms, increase in size of the lesion, increase in pain. . Hypertension - well controlled - continue with current medications, continue with no added salt diet. Pt has been encouraged to exercise daily. The pt has been advised to call the office if there are any acute concerns about change in blood pressure readings at home. Hyperlipidemia - pt has been counseled about appropriate diet, exercise, and need for low fat food choices. I have discussed the need for the patient to take medications as prescribed. If the patient has negative side effects from the medication, they are to CALL the office and not abruptly discontinue the medication without discussion with a practitioner in the office. We will check labs in 3-6 months for follow up on the patient's chronic medical problem and to assure normal liver response to medications. . Hypertension - well controlled - continue with current medications, continue with no added salt diet. Pt has been encouraged to exercise daily. The pt has been advised to call the office if there are any acute concerns about change in blood pressure readings at home. Hyperlipidemia - pt has been counseled about appropriate diet, exercise, and need for low fat food choices. I have discussed the need for the patient to take medications as prescribed. If the patient has negative side effects from the medication, they are to CALL the office and not abruptly discontinue the medication without discussion with a practitioner in the office. We will check labs in 3-6 months for follow up on the patient's chronic medical problem and to assure normal liver response to medications. Iron deficiency - check iron panel hx of cold sores - refilled acyclovir
--- OUTSIDE RECORDS SUMMARY | 2017-12-30 03:55 | XMS REPORT | CCD ---
Author Author [facility]na Dunn Organization [facility] Address [address] [place] [address] Phone Care Team Providers Care [employer] Name Role Phone PP Unavailable CCM Unavailable Summary Purpose Interface Exchange Insurance Providers Payer name Policy type / Coverage type Covered green party ID Effective Begin Date Effective End Date WPS Medicare Part B [id number] Unknown [facility] [id number] Unknown Family history Father Diagnosis Age At Onset Unknown Brother Diagnosis Age At Onset Diabetes mellitus Type 2 Unknown Mother Diagnosis Age At Onset car accident Unknown Social History Social History Element Codes Description Effective Dates Marital status Unknown for 16 years - for 16 years, then remarried 05/02/[address]: 857245220 Never smoker 05/02/[address]: 616155 Currently drinks alcohol 05/02/2016 Frequency of drinks SNOMED CT: 115886788 1-4 drinks per week 1 per week [...] Start Date Stop Date Status Fill Instructions Maxzide-25mg 37.5 mg-25 mg tablet RxNorm: 74363 Tablet(s) TAKE 1 TABLET BY MOUTH DAILY 10/10/2017 10/04/2018 Active acyclovir 5 % topical ointment RxNorm: 740902 1 Application TOP QID as needed cold sores 08/29/2017 12/26/2017 Active amoxicillin 500 mg capsule RxNorm: 888528 1 Capsule(s) PO TID 07/03/2017 07/09/2017 Inactive Maxzide-25mg 37.5 mg-25 mg tablet RxNorm: 38316 TAKE 1 TABLET BY MOUTH DAILY 06/04/2017 10/09/2017 Inactive Xanax 0.25 mg tablet RxNorm: 971440 1/2 - 1 Tablet(s) PO QHS No Stop Date Active Bactrim DS 800 mg-160 mg tablet RxNorm: 388478 1 Tablet(s) PO BID 05/14/2017 05/23/2017 Inactive pravastatin 20 mg tablet RxNorm: 828004 TAKE 1 TABLET BY MOUTH DAILY 02/28/2017 02/22/2018 Active mupirocin 2 % topical ointment RxNorm: 284903 1 Application TOP BID 02/02/2017 No Stop Date Active Bactrim DS 800 mg-160 mg tablet RxNorm: 864951 1 Tablet(s) PO BID 02/02/2017 02/11/2017 Inactive Xanax 0.25 mg tablet RxNorm: 143624 1/2 - 1 Tablet(s) PO QHS 03/24/2017 Inactive Xanax 0.25 mg tablet RxNorm: 977026 1/2 - 1 Tablet(s) PO QHS 05/13/2017 Inactive trazodone 50 mg tablet RxNorm: 137742 1 Tablet(s) PO QPM 201510/22/2017 Active Maxzide-25mg 37.5 mg-25 mg tablet RxNorm: 55729 Tablet(s) 1 Tablet, 1 time per Day 08/29/2016 05/25/2017 Inactive amoxicillin 500 mg capsule RxNorm: 767919 1 Capsule(s) PO TID 07/28/2016 08/03/2016 Inactive cetirizine 10 mg tablet RxNorm: 4105659 1 Tablet(s) PO daily 08/26/2016 Inactive Zithromax Z-Elías 250 mg tablet RxNorm: 721484 1 Tablet(s) PO UD 07/03/2016 07/07/2016 Inactive zpack Kenalog 40 mg/mL suspension for injection RxNorm: 5626353 Milliliter(s) Inj 07/03/2016 07/03/2016 Inactive pravastatin 20 mg tablet RxNorm: 440403 TAKE 1 TABLET BY MOUTH DAILY 05/31/2016 02/24/2017 Inactive trazodone 50 mg tablet RxNorm: 994401 1 Tablet(s) PO QPM 201506/30/2016 Inactive Maxzide-25mg 37.5 mg-25 mg tablet RxNorm: 84175 1 Tablet, 1 time per Day 12/06/2015 08/28/2016 Inactive trazodone 50 mg tablet RxNorm: 043003 1 Tablet(s) PO QPM 201503/02/2016 Inactive Maxzide-25mg 37.5 mg-25 mg tablet RxNorm: 18823 1 Tablet(s) PO daily 05/04/2015 12/05/2015 Inactive trazodone 50 mg tablet RxNorm: 065727 1/2 Tablet(s) PO QPM may increase up to a full pill if needed 05/04/2015 10/21/2015 Inactive pravastatin 20 mg tablet RxNorm: 326374 1 Tablet(s) PO daily 04/27/2016 Inactive pravastatin 20 mg tablet RxNorm: 847170 1 Tablet(s) PO daily 03/02/2015 Inactive pravastatin 20 mg tablet RxNorm: 380755 1 Tablet(s) PO daily 05/03/2015 Inactive Eye Vitamin and Minerals oral RxNorm: 2837 oral No Start Date Active Centrum Silver tablet RxNorm: 1 Tablet(s) PO daily No Start Date Active [place] 3 Fish Oil oral RxNorm: 2623917 oral No Start Date Active Osteo Bi-Flex oral RxNorm: 7563542 oral No Start Date Active zolpidem 5 mg tablet RxNorm: 120397 1 Tablet(s) PO QHS as needed No Start Date 05/03/2015 Inactive Iron (ferrous sulfate) oral RxNorm: 77981 oral No Start Date 08/28/2017 Inactive Maxzide-25mg oral RxNorm: 19422 oral No Start Date 05/03/2015 Inactive Medication Administered Medication Codes Instructions Start Date Status Kenalog 40 mg/mL suspension for injection RxNorm: 0901654 Milliliter 07/03/2016 No longer Active Immunizations Vaccine Codes Date Status Pneumococcal (Adult) CVX: 133 11/02/2015 completed PPD Unknown 05/20/2015 completed Influenza CVX: 141 06/17/2014 completed Pneumococcal CVX: 33 08/24/2010 completed Zoster CVX: 121 07/23/2008 completed Tetanus, Diptheria, Pertussis CVX: 113 completed Tetanus, Diptheria, Pertussis CVX: 113 completed Tetanus/Diptheria CVX: 113 05/05/2008 completed Assessments Condition Codes Effective Dates Obstructive sleep apnea (adult) (pediatric) ICD-10: G47.33 ICD-9: 327.23 08/29/2017 Iron deficiency ICD-10: E61.1 ICD-9: 280.9 08/29/2017 Mixed hyperlipidemia ICD-10: E78.2 ICD-9: 272.4 08/29/2017 Essential (primary) hypertension ICD-10: I10 ICD-9: 401.9 08/29/2017 Cellulitis of face ICD-10: L03.211 ICD-9: 682.0 05/14/2017 Other insomnia ICD-10: G47.09 ICD-9: 327.09 11/22/2016 Acute laryngopharyngitis ICD-10: J06.0 ICD-9: 465.0 07/28/2016 Cough ICD-10: R05 ICD-9: 786.2 07/28/2016 Acute bronchitis, unspecified ICD-10: J20.9 ICD-9: [...] Observation Code Item Item Code Result Date Lipid Ord30 CHOL 161 mg/dL 08/29/2017 Lipid Ord30 HDL 45.0 mg/dl 08/29/2017 Lipid Ord30 TRIG 198 mg/dL 08/29/2017 Lipid Ord30 LDL 76 mg/dL 08/29/2017 Lipid Ord30 C/HDL 3.6 Ratio 08/29/2017 Comp Metabolic Jhx753 NA 140 mEq/L 08/29/2017 Comp Metabolic Tvo267 K 4.2 mEq/L 08/29/2017 Comp Metabolic Odu008 CL 100 mEq/L 08/29/2017 Comp Metabolic Lmt691 CO2 31.0 mEq/L 08/29/2017 Comp Metabolic Edv061 ANION GAP 13 08/29/2017 Comp Metabolic Pll499 GLUCOSE 95 mg/dL 08/29/2017 Comp Metabolic Nvl383 Creat 1.1 mg/dL 08/29/2017 Comp Metabolic Ydz644 eGFR 50 ml/min/1.73m2 08/29/2017 Comp Metabolic Awl490 BUN 26 mg/dL 08/29/2017 Comp Metabolic Owk846 B/C Ratio 22.8 Ratio 08/29/2017 Comp Metabolic Bsg551 CALCIUM 9.8 mg/dL 08/29/2017 Comp Metabolic Lsh036 ALK PHOS 45 U/L 08/29/2017 Comp Metabolic Lga091 AST(SGOT) 21 U/L 08/29/2017 Comp Metabolic Njn117 ALT(SGPT) 18 U/L 08/29/2017 Comp Metabolic Vlp867 BILI T 0.5 mg/dL 08/29/2017 Comp Metabolic Ejh792 ALBUMIN 4.3 g/dL 08/29/2017 Comp Metabolic Jld379 TPRO 6.7 g/dL 08/29/2017 Comp Metabolic Iix424 GLOB 2.4 g/dL 08/29/2017 Comp Metabolic Fnm922 A/G Ratio 1.8 Ratio 08/29/2017 Comp Metabolic Wax722 Osmo 284 mOsmo 08/29/2017 Tibc Ord40 Iron 95 ug/dl 08/29/2017 Tibc Ord40 UIBC 227 ug/dL 08/29/2017 Tibc Ord40 TIBC 322 ug/dL 08/29/2017 Tibc Ord40 Fe-%Sat 29.5 % 08/29/2017 Cbc With Differential Ord2 WBC 8.31 K/ul 08/29/2017 Cbc With Differential Ord2 RBC 4.20 M/ul 08/29/2017 Cbc With Differential Ord2 HGB 12.3 g/dl 08/29/2017 Cbc With Differential Ord2 Neut% 62.3 % 08/29/2017 Cbc With Differential Ord2 HCT 38.2 % 08/29/2017 Cbc With Differential Ord2 MCV 91.0 fl 08/29/2017 Cbc With Differential Ord2 Lymph% 27.9 % 08/29/2017 Cbc With Differential Ord2 [place]% 7.0 % 08/29/2017 Cbc With Differential Ord2 MCH 29.3 pg 08/29/2017 Cbc With Differential Ord2 MCHC 32.2 pg 08/29/2017 Cbc With Differential Ord2 Eos% 2.2 % 08/29/2017 Cbc With Differential Ord2 PLT 246 K/ul 08/29/2017 Cbc With Differential Ord2 Baso% 0.6 % 08/29/2017 Cbc With Differential Ord2 Neut ABS# 5.18 K/ul 08/29/2017 Cbc With Differential Ord2 RDW 13.6 % 08/29/2017 Cbc With Differential Ord2 Lymph ABS# 2.32 K/ul 08/29/2017 Cbc With Differential Ord2 [place] ABS# 0.6 K/ul 08/29/2017 Cbc With Differential Ord2 Eos ABS# 0.2 K/ul 08/29/2017 Cbc With Differential Ord2 Baso ABS# 0.1 K/ul 08/29/2017 Cbc With Differential Ord2 WBC 7.77 K/ul 03/01/2017 Cbc With Differential Ord2 RBC 4.10 M/ul 03/01/2017 Cbc With Differential Ord2 HGB 12.3 g/dl 03/01/2017 Cbc With Differential Ord2 HCT 37.8 % 03/01/2017 Cbc With Differential Ord2 Neut% 61.5 % 03/01/2017 Cbc With Differential Ord2 MCV 92.2 fl 03/01/2017 Cbc With Differential Ord2 Lymph% 27.2 % 03/01/2017 Cbc With Differential Ord2 [place]% 8.0 % 03/01/2017 Cbc With Differential Ord2 MCH 30.0 pg 03/01/2017 Cbc With Differential Ord2 MCHC 32.5 pg 03/01/2017 Cbc With Differential Ord2 Eos% 2.8 % 03/01/2017 Cbc With Differential Ord2 PLT 227 K/ul 03/01/2017 Cbc With Differential Ord2 Baso% 0.5 % 03/01/2017 Cbc With Differential Ord2 Neut ABS# 4.78 K/ul 03/01/2017 Cbc With Differential Ord2 RDW 14.1 % 03/01/2017 Cbc With Differential Ord2 Lymph ABS# 2.11 K/ul 03/01/2017 Cbc With Differential Ord2 [place] ABS# 0.6 K/ul 03/01/2017 Cbc With Differential Ord2 Eos ABS# 0.2 K/ul 03/01/2017 Cbc With Differential Ord2 Baso ABS# 0.0 K/ul 03/01/2017 Ferritin Ord22 FERRITIN 89.1 ng/mL 02/27/2017 Tibc Ord40 Iron 69 ug/dl 02/27/2017 Tibc Ord40 UIBC 283 ug/dL 02/27/2017 Tibc Ord40 TIBC 352 ug/dL 02/27/2017 Tibc Ord40 Fe-%Sat 19.6 % 02/27/2017 Comp Metabolic Kgt225 NA 137 mEq/L 08/29/2016 Comp Metabolic Ejt763 K 4.0 mEq/L 08/29/2016 Comp Metabolic Mms106 CL 100 mEq/L 08/29/2016 Comp Metabolic Oop413 CO2 32.0 mEq/L 08/29/2016 Comp Metabolic Xoy029 ANION GAP 9 08/29/2016 Comp Metabolic Tvt868 GLUCOSE 98 mg/dL 08/29/2016 Comp Metabolic Wji143 Creat 1.0 mg/dL 08/29/2016 Comp Metabolic Wzm957 eGFR 55 ml/min/1.73m2 08/29/2016 Comp Metabolic Qdn237 BUN 19 mg/dL 08/29/2016 Comp Metabolic Umt491 B/C Ratio 18.3 Ratio 08/29/2016 Comp Metabolic Uct304 CALCIUM 10.0 mg/dL 08/29/2016 Comp Metabolic Nlh934 ALK PHOS 51 U/L 08/29/2016 Comp Metabolic Zps033 AST(SGOT) 21 U/L 08/29/2016 Comp Metabolic Bny550 ALT(SGPT) 16 U/L 08/29/2016 Comp Metabolic Xvi940 BILI T 0.5 mg/dL 08/29/2016 Comp Metabolic Iyz034 ALBUMIN 4.5 g/dL 08/29/2016 Comp Metabolic Juv502 TPRO 7.3 g/dL 08/29/2016 Comp Metabolic Raf609 GLOB 2.8 g/dL 08/29/2016 Comp Metabolic Wsl853 A/G Ratio 1.6 Ratio 08/29/2016 Comp Metabolic Ksj920 Osmo 276 mOsmo 08/29/2016 Lipid Ord30 CHOL 172 mg/dL 08/29/2016 Lipid Ord30 HDL 51.0 mg/dl 08/29/2016 Lipid Ord30 TRIG 176 mg/dL 08/29/2016 Lipid Ord30 LDL 86 mg/dL 08/29/2016 Lipid Ord30 C/HDL 3.4 Ratio 08/29/2016 Cbc With Differential Ord2 WBC 8.42 K/ul 08/29/2016 Cbc With Differential Ord2 RBC 4.42 M/ul 08/29/2016 Cbc With Differential Ord2 HGB 13.1 g/dl 08/29/2016 Cbc With Differential Ord2 HCT 39.7 % 08/29/2016 Cbc With Differential Ord2 Neut% 62.0 % 08/29/2016 Cbc With Differential Ord2 Lymph% 27.4 % 08/29/2016 Cbc With Differential Ord2 MCV 89.8 fl 08/29/2016 Cbc With Differential Ord2 MCH 29.6 pg 08/29/2016 Cbc With Differential Ord2 [place]% 7.8 % 08/29/2016 Cbc With Differential Ord2 Eos% 2.3 % 08/29/2016 Cbc With Differential Ord2 MCHC 33.0 pg 08/29/2016 Cbc With Differential Ord2 Baso% 0.5 % 08/29/2016 Cbc With Differential Ord2 PLT 247 K/ul 08/29/2016 Cbc With Differential Ord2 RDW 14.3 % 08/29/2016 Cbc With Differential Ord2 Neut ABS# 5.22 K/ul 08/29/2016 Cbc With Differential Ord2 Lymph ABS# 2.31 K/ul 08/29/2016 Cbc With Differential Ord2 [place] ABS# 0.7 K/ul 08/29/2016 Cbc With Differential Ord2 Eos ABS# 0.2 K/ul 08/29/2016 Cbc With Differential Ord2 Baso ABS# 0.0 K/ul 08/29/2016 Tsh Ord6 hTSH II 3.34 uIU/mL 08/29/2016 Lipid Ord30 CHOL 164 mg/dL 05/02/2016 Lipid Ord30 HDL 40.0 mg/dl 05/02/2016 Lipid Ord30 TRIG 185 mg/dL 05/02/2016 Lipid Ord30 LDL 87 mg/dL 05/02/2016 Lipid Ord30 C/HDL 4.1 Ratio 05/02/2016 Tsh Ord6 hTSH II 2.46 uIU/mL 05/02/2016 Cbc With Differential Ord2 WBC 7.84 K/ul 05/02/2016 Cbc With Differential Ord2 RBC 4.53 M/ul 05/02/2016 Cbc With Differential Ord2 HGB 13.3 g/dl 05/02/2016 Cbc With Differential Ord2 HCT 41.0 % 05/02/2016 Cbc With Differential Ord2 Neut% 63.2 % 05/02/2016 Cbc With Differential Ord2 MCV 90.5 fl 05/02/2016 Cbc With Differential Ord2 Lymph% 25.9 % 05/02/2016 Cbc With Differential Ord2 MCH 29.4 pg 05/02/2016 Cbc With Differential Ord2 [place]% 8.4 % 05/02/2016 Cbc With Differential Ord2 MCHC 32.4 pg 05/02/2016 Cbc With Differential Ord2 Eos% 1.9 % 05/02/2016 Cbc With Differential Ord2 Baso% 0.6 % 05/02/2016 Cbc With Differential Ord2 PLT 259 K/ul 05/02/2016 Cbc With Differential Ord2 RDW 14.1 % 05/02/2016 Cbc With Differential Ord2 Neut ABS# 4.95 K/ul 05/02/2016 Cbc With Differential Ord2 Lymph ABS# 2.03 K/ul 05/02/2016 Cbc With Differential Ord2 [place] ABS# 0.7 K/ul 05/02/2016 Cbc With Differential Ord2 Eos ABS# 0.2 K/ul 05/02/2016 Cbc With Differential Ord2 Baso ABS# 0.1 K/ul 05/02/2016 Comp Metabolic Zxi319 NA 136 mEq/L 05/02/2016 Comp Metabolic Bme908 K 4.0 mEq/L 05/02/2016 Comp Metabolic Cox334 CL 97 mEq/L 05/02/2016 Comp Metabolic Cui946 CO2 31.0 mEq/L 05/02/2016 Comp Metabolic Gil457 ANION GAP 12 05/02/2016 Comp Metabolic Xif504 GLUCOSE 97 mg/dL 05/02/2016 Comp Metabolic Udn452 Creat 1.0 mg/dL 05/02/2016 Comp Metabolic Iow974 eGFR 61 ml/min/1.73m2 05/02/2016 Comp Metabolic Oul248 BUN 24 mg/dL 05/02/2016 Comp Metabolic Mef262 B/C Ratio 25.0 Ratio 05/02/2016 Comp Metabolic Use580 CALCIUM 9.6 mg/dL 05/02/2016 Comp Metabolic Dqe124 ALK PHOS 55 U/L 05/02/2016 Comp Metabolic Asl490 AST(SGOT) 18 U/L 05/02/2016 Comp Metabolic Hme683 ALT(SGPT) 20 U/L 05/02/2016 Comp Metabolic Nyo138 BILI T 0.5 mg/dL 05/02/2016 Comp Metabolic Liz013 ALBUMIN 4.5 g/dL 05/02/2016 Comp Metabolic Gdi944 TPRO 7.4 g/dL 05/02/2016 Comp Metabolic Fkc197 GLOB 2.9 g/dL 05/02/2016 Comp Metabolic Nzp236 A/G Ratio 1.6 Ratio 05/02/2016 Comp Metabolic Evq768 Osmo 276 mOsmo 05/02/2016 Lipid Ord30 CHOL 197 mg/dL 11/02/2015 Lipid Ord30 HDL 43.0 mg/dl 11/02/2015 Lipid Ord30 TRIG 247 mg/dL 11/02/2015 Lipid Ord30 LDL 105 mg/dL 11/02/2015 Lipid Ord30 C/HDL 4.6 Ratio 11/02/2015 Comp Metabolic Nob426 NA 137 mEq/L 11/02/2015 Comp Metabolic Yvq858 K 3.9 mEq/L 11/02/2015 Comp Metabolic Mbl733 CL 96 mEq/L 11/02/2015 Comp Metabolic Aja142 CO2 34.0 mEq/L 11/02/2015 Comp Metabolic Mqp946 ANION GAP 11 11/02/2015 Comp Metabolic Nee278 GLUCOSE 97 mg/dL 11/02/2015 Comp Metabolic Mki130 Creat 1.1 mg/dL 11/02/2015 Comp Metabolic Tlm588 eGFR 52 ml/min/1.73m2 11/02/2015 Comp Metabolic Rsd034 BUN 29 mg/dL 11/02/2015 Comp Metabolic Zfk915 B/C Ratio 26.6 Ratio 11/02/2015 Comp Metabolic Zrh211 CALCIUM 9.8 mg/dL 11/02/2015 Comp Metabolic Vzw358 ALK PHOS 56 U/L 11/02/2015 Comp Metabolic Pzu907 AST(SGOT) 16 U/L 11/02/2015 Comp Metabolic Llj953 ALT(SGPT) 13 U/L 11/02/2015 Comp Metabolic Utf299 BILI T 0.4 mg/dL 11/02/2015 Comp Metabolic Wwm032 ALBUMIN 4.4 g/dL 11/02/2015 Comp Metabolic Aok253 TPRO 7.1 g/dL 11/02/2015 Comp Metabolic Oak694 GLOB 2.7 g/dL 11/02/2015 Comp Metabolic Wrr717 A/G Ratio 1.6 Ratio 11/02/2015 Comp Metabolic Bib103 Osmo 280 mOsmo 11/02/2015 Cbc With Differential Ord2 WBC 8.46 K/ul 11/02/2015 Cbc With Differential Ord2 RBC 4.55 M/ul 11/02/2015 Cbc With Differential Ord2 HGB 13.2 g/dl 11/02/2015 Cbc With Differential Ord2 Neut% 62.2 % 11/02/2015 Cbc With Differential Ord2 HCT 41.2 % 11/02/2015 Cbc With Differential Ord2 Lymph% 25.5 % 11/02/2015 Cbc With Differential Ord2 MCV 90.5 fl 11/02/2015 Cbc With Differential Ord2 MCH 29.0 pg 11/02/2015 Cbc With Differential Ord2 [place]% 9.0 % 11/02/2015 Cbc With Differential Ord2 Eos% 2.7 % 11/02/2015 Cbc With Differential Ord2 MCHC 32.0 pg 11/02/2015 Cbc With Differential Ord2 Baso% 0.6 % 11/02/2015 Cbc With Differential Ord2 PLT 264 K/ul 11/02/2015 Cbc With Differential Ord2 RDW 13.8 % 11/02/2015 Cbc With Differential Ord2 Neut ABS# 5.26 K/ul 11/02/2015 Cbc With Differential Ord2 Lymph ABS# 2.16 K/ul 11/02/2015 Cbc With Differential Ord2 [place] ABS# 0.8 K/ul 11/02/2015 Cbc With Differential Ord2 Eos ABS# 0.2 K/ul 11/02/2015 Cbc With Differential Ord2 Baso ABS# 0.1 K/ul 11/02/2015 Cbc With Differential Ord2 New Analyzer Notice Please note new ref ranges starting 09-29-2015 due to implemntation of new five part differential hematolgy analyzer. 11/02/2015 Tsh Ord6 hTSH II 2.35 uIU/mL 05/04/2015 Cbc With Differential Ord2 WBC 9.7 [...] With Differential Ord2 RDW 14.6 % 05/04/2015 Free T4 Uyr198 FREE T4 0.81 ng/dL 05/04/2015 Comp Metabolic Mwt385 NA 134 mEq/L 05/04/2015 Comp Metabolic Qem293 K 3.8 mEq/L 05/04/2015 Comp Metabolic Wbe557 CL 97 mEq/L 05/04/2015 Comp Metabolic Vfe028 CO2 31.0 mEq/L 05/04/2015 Comp Metabolic Jac975 ANION GAP 10 05/04/2015 Comp Metabolic Xnw076 GLUCOSE 88 mg/dL 05/04/2015 Comp Metabolic Ree207 Creat 1.0 mg/dL 05/04/2015 Comp Metabolic Swt207 eGFR 58 ml/min/1.73m2 05/04/2015 Comp Metabolic Und550 BUN 19 mg/dL 05/04/2015 Comp Metabolic Eju725 B/C Ratio 19.0 Ratio 05/04/2015 Comp Metabolic Bhu064 CALCIUM 9.5 mg/dL 05/04/2015 Comp Metabolic Vfu413 ALK PHOS 60 U/L 05/04/2015 Comp Metabolic Ukf209 AST(SGOT) 17 U/L 05/04/2015 Comp Metabolic Owl511 ALT(SGPT) 14 U/L 05/04/2015 Comp Metabolic Pjf260 BILI T 0.5 mg/dL 05/04/2015 Comp Metabolic Izm009 ALBUMIN 4.5 g/dL 05/04/2015 Comp Metabolic Qiz811 TPRO 7.1 g/dL 05/04/2015 Comp Metabolic Jrf537 GLOB 2.6 g/dL 05/04/2015 Comp Metabolic Ayc827 A/G Ratio 1.7 Ratio 05/04/2015 Comp Metabolic Mrt637 Osmo 270 mOsmo 05/04/2015 Lipid Ord30 CHOL 167 mg/dL 05/04/2015 [...] PNEUMOCOCCAL VACC [address]: 52455830 CPT-4: 48873 11/02/2015 IMMUNIZATION ADMIN CPT -4: 87761 11/02/2015 Vital Signs Date Vital 08/29/2017 Blood Pressure 1: 126/78 Code : 8480-6 BMI: 26.3 Code : 15406-9 Heart Rate 1 : 80 bpm Height: 5'2" SpO2: 97% Weight: 144 lbs 05/14/2017 Blood Pressure 1: 128/70 Code : 8480-6 BMI: 26.5 Code : 35692-6 Heart Rate 1 : 84 bpm Height: 5'2" SpO2: 97% Weight: 145 lbs 02/27/2017 Blood Pressure 1: 130/82 Code : 8480-6 BMI: 26.3 Code : 44842-8 Heart Rate 1 : 82 bpm Height: 5'2" SpO2: 96% Weight: 144 lbs 02/02/2017 Blood Pressure 1: 142/76 Code : 8480-6 BMI: 26.3 Code : 73531-9 Heart Rate 1 : 80 bpm Height: 5'2" SpO2: 97% Weight: 144 lbs 11/22/2016 Blood Pressure 1: 134/72 Code : 8480-6 BMI: 27.1 Code : 53953-0 Heart Rate 1 : 76 bpm Height: 5'2" SpO2: 97% Weight: 148 lbs 08/29/2016 Blood Pressure 1: 120/80 Code : 8480-6 BMI: 26.0 Code : 75509-6 Heart Rate 1 : 74 bpm Height: 5'2" SpO2: 97% Weight: 142 lbs 07/28/2016 Blood Pressure 1: 134/72 Code : 8480-6 BMI: 25.7 Code : 03454-5 Heart Rate 1 : 81 bpm Height: 5'2" SpO2: 98% Temperature: 37.1 (C) / 98.7 (F) Weight: 140 lbs 8 oz 07/03/2016 Blood Pressure 1: 136/80 Code : 8480-6 Heart Rate 1: 86 bpm SpO2: 98% Temperature: 36.7 (C) / 98.0 (F) 05/02/2016 Blood Pressure 1: 124/78 Code : 8480-6 BMI: 26.3 Code : 14957-8 Heart Rate 1 : 74 bpm Height: 5'2" SpO2: 98% Weight: 144 lbs 11/02/2015 Blood Pressure 1: 118/78 Code : 8480-6 BMI: 26.5 Code : 88792-8 Heart Rate 1 : 79 bpm Height: 5'2" SpO2: 98% Weight: 145 lbs 05/04/2015 Blood Pressure 1: 132/64 Code : 8480-6 BMI: 25.2 Code : 13363-9 Heart Rate 1 : 75 bpm Height: [...] 02/27/2017 None rash Location-Head/Neck on the right religion 02/02/2017 None rash Color red 2016 None [...] data Encounters Encounter Performer Location Codes Date ([id number]) [id number] EST. PATIENT, LEVEL IV Diagnosis: Obstructive sleep apnea (adult) (pediatric)[ICD10: G47.33] Diagnosis: Iron deficiency[ICD10: E61.1] Diagnosis: Mixed hyperlipidemia[ICD10: E78.2] Diagnosis: Essential (primary) hypertension[ICD10: I10] Aparna Dunn MD, [facility] CPT-4: 09539 08/29/2017 [id number] EST. PATIENT, LEVEL III Diagnosis: Cellulitis of face[ICD10: L03.211] Loretta Dunn MD, [facility] CPT-4: 60853 05/14/2017 ([id number]) 71298 EST. PATIENT, LEVEL IV Diagnosis: Essential (primary) hypertension[ICD10: I10] Diagnosis: Mixed hyperlipidemia[ICD10: E78.2] Diagnosis: Obstructive sleep apnea (adult) (pediatric)[ICD10: G47.33] Aparna Dunn MD , [facility] CPT-4: 94091 02/27/2017 [id number] EST. PATIENT, LEVEL III Diagnosis: Cellulitis of face[ICD10: L03.211] Loretta Dunn MD, [facility] CPT-4: 09288 02/02/2017 [id number] EST. PATIENT, LEVEL III Diagnosis: Other insomnia[ICD10: G47.09] Loretta Dunn MD, [facility] CPT-4 : 84805 11/22/2016 ([id number]) 36953 EST. PATIENT, LEVEL IV Diagnosis: Essential (primary) hypertension[ICD10: I10] Diagnosis: Mixed hyperlipidemia[ICD10: E78.2] Aparna Dunn MD, [facility] CPT-4: 14476 08/29/2016 [id number] EST. PATIENT, LEVEL IV Diagnosis: Acute laryngopharyngitis[ICD10: J06.0] Diagnosis: Cough[ICD10: R05] Loretta Dunn MD, [facility] CPT-4: 42706 07/28/2016 ([id number]) 75835 EST. PATIENT, LEVEL III Diagnosis: Cough[ICD10: R05] Diagnosis: Acute bronchitis, unspecified[ICD10: J20.9] Judy Dunn MD, [facility] CPT-4: 19696 07/03/2016 ([id number]) 11309 EST. PATIENT, LEVEL IV Diagnosis: Essential (primary) hypertension[ICD10: I10] Diagnosis: Mixed hyperlipidemia[ICD10: E78.2] Diagnosis: Snoring[ICD10: R06.83] Aparna Dunn MD, [facility] CPT-4: 36782 05/02/2016 ([id number]) 90136 EST. PATIENT, LEVEL IV Diagnosis: Essential (primary) hypertension[ICD10: I10] Diagnosis: Mixed hyperlipidemia[ICD10: E78.2] Diagnosis: Encounter for immunization[ICD10: Z23] Aparna Dunn MD, [facility] CPT-4: 85257 11/02/2015 ([id number]) Miscellaneous no charge Diagnosis: Tick bite[ICD9: 919.4] Aparna Dunn MD, [facility] CPT-4: 60734 05/20/2015 ([id number]) OFFICE VISIT, NEW - LEVEL 4 Diagnosis: ESSENTIAL HYPERTENSION[ICD9: 401.9] Diagnosis: ENCNTR LONG-RX USE NEC[ICD9: V58.69] Diagnosis: HYPERLIPIDEMIA[ICD9: 272.4] Aparna Dunn MD, [facility] CPT- 4: 08332 05/04/2015 Plan of Care Planned Activity Notes Codes Status Date Appointment: Aparna Dunn WPtel: [address] [place], [place] [phone] (15 min) Moderate 08/29/2017 Patient Education: Patient Medication Summary Completed 08/29/2017 Patient Education: Hypertension Completed 08/29/2017 Care Plan: Iron Pending 08/29/2017 Care Plan: Iron And Tibc Pending 08/29/2017 [facility]ment[facility] [phone] [facility] [place] (30 min) Complex 05/14/2017 Patient Education: Patient Medication Summary Completed 05/14/2017 Appointment: Aparna Dunn WPtel: [phone] [facility] [place] (15 min) Moderate 02/27/2017 Patient Education: Patient Medication Summary Completed 02/27/2017 Patient Education: Hypertension Completed 02/27/2017 Appointment: [facility] [phone] [facility] [place] (30 min) Complex 02/02/2017 Patient Education: Patient Medication Summary Completed 02/02/2017 Appointment: Loretta Fountain WPtel: [phone] [facility] [place] (15 min) Moderate 11/22/2016 Patient Education: Patient Medication Summary Completed 11/22/2016 [facility] [phone] [facility] [place] ([facility] min) Moderate 08/29/2016 Patient Education: Patient Medication Summary Completed 08/29/2016 Appointment: Judy [facility] [phone] [phone] [place] (10 min) Simple 07/28/2016 Patient Education: Patient Medication Summary Completed 07/28/2016 Appointment: [facility] [phone] [phone] [place] (10 min) Simple 07/03/2016 Patient Education: Patient Medication Summary Completed 07/03/2016 [facility] [phone] [facility] [place] (15 min) Moderate 05/02/2016 Patient Education: Patient Medication Summary Completed 05/02/2016 [id number] ([facility] min) Complex 11/02/2015 Patient Education: Patient Medication Summary Completed 11/02/2015 Patient Education: Hypertension Completed 11/02/2015 Appointment: Nurse Visit 05/20/2015 Patient Education: Patient Medication Summary Completed 05/20/2015 App[facility]ment: [id number] [place] ([place] New Patient 05/04/2015 Patient Education: Patient Medication Summary Completed 05/04/2015 Patient Education: Hypertension Completed 05/04/2015 Instructions No Instructions
--- OUTSIDE RECORDS SUMMARY | 2017-12-30 03:56 | XMS REPORT | Continuity of Care Document ---
Author Author [facility] Organization [facility] Address Unknown Phone Unavailable Allergies Active Description Code Type Severity Reaction Onset Reported/Identified Relationship to Patient Clinical Status Yes No Known Drug Allergies [id number] Drug Allergy Unknown N/A 12/17/2017 Medications There is no data. Problems Date Dx Coded Attending Type Code Diagnosis Diagnosed By 08/12/2012 Ot 272.4 HYPERLIPIDEMIA NEC/NOS 08/12/2012 Ot 733.90 BONE CARTILAGE DIS NOS 08/12/2012 Ot 735.2 HALLUX RIGIDUS 08/12/2012 Ot V58.69 OTH MED,LT, CURRENT USE 08/18/2014 Ot V76.12 08/18/2014 Ot V76.12 [...] V76.12 10/01/2014 RACQUEL MICHAELS MD Ot V76.12 10/07/2015 CATHY GOMEZ APRN Ot Z12.31 09/14/2016 Ot V76.12 OTH SCREEN MAMMO-MALIGN NEOPLASM OF MI[place] 09/14/2016 Ot V76.12 OTH SCREEN MAMMO-MALIGN NEOPLASM OF MI[place] 09/14/2016 Ot 735.2 HALLUX RIGIDUS 09/14/2016 Ot V72.83 EXAM PRE- OPERATIVE NEC 09/14/2016 Ot V74.8 SCREEN- BACTERIAL DIS NEC 09/14/2016 XENIA HAN, RACQUEL Moses Ot V76.12 OTH SCREEN MAMMO-MALIGN NEOPLASM OF [place] 09/14/2016 RACQUEL MICHAELS MD Ot V76.12 OTH SCREEN MAMMO-MALIGN NEOPLASM OF [place] 09/14/2016 CATHY GOMEZ WHITE LEAD GRINDER Ot Z12.31 ENCNTR SCREEN MAMMOGRAM FOR MALIGNANT NE 09/14/2016 CATHY GOMEZ WHITE LEAD GRINDER Ot Z12.31 ENCNTR SCREEN MAMMOGRAM FOR MALIGNANT NE 09/14/2016 CATHY GOMEZ WHITE LEAD GRINDER Ot Z12.31 ENCNTR SCREEN MAMMOGRAM FOR MALIGNANT NE 09/15/2016 CATHY GOMEZ WHITE LEAD GRINDER Ot Z12.31 ENCNTR SCREEN MAMMOGRAM FOR MALIGNANT NE 09/15/2016 CATHY GOMEZ WHITE LEAD GRINDER Ot Z12.31 ENCNTR SCREEN MAMMOGRAM FOR MALIGNANT NE 10/05/2016 CATHY GOMEZ WHITE LEAD GRINDER Ot Z12.31 ENCNTR SCREEN MAMMOGRAM FOR MALIGNANT NE 11/28/2016 JONNIE BHATT MD Ot G47.9 SLEEP DISORDER, UNSPECIFIED 11/28/2016 JONNIE BHATT MD Ot G47.33 OBSTRUCTIVE SLEEP APNEA (ADULT) (PEDIATR 11/28/2016 JONNIE BHATT MD Ot G47.36 SLEEP RELATED HYPOVENTILATION IN CONDITI 11/28/2016 JONNIE BHATT MD Ot I10 ESSENTIAL (PRIMARY) HYPERTENSION 11/28/2016 JONNIE BHATT MD Ot G47.36 SLEEP RELATED HYPOVENTILATION IN CONDITI 11/28/2016 JONNIE BHATT MD Ot I10 ESSENTIAL (PRIMARY) HYPERTENSION 01/31/2017 REED LICONA Ot G47.33 OBSTRUCTIVE SLEEP APNEA (ADULT) (PEDIATR 01/31/2017 REED LICONA Ot I10 ESSENTIAL (PRIMARY) HYPERTENSION 02/02/2017 JONNIE BHATT MD Ot G47.33 OBSTRUCTIVE SLEEP APNEA (ADULT) (PEDIATR 02/02/2017 JONNIE BHATT MD Ot I10 ESSENTIAL (PRIMARY) HYPERTENSION 08/06/2017 JONNIE BHATT MD Ot Z12.31 ENCNTR SCREEN MAMMOGRAM FOR MALIGNANT NE 09/11/2017 MILLER HAN, JONNIE Bloom Ot Z12.31 ENCNTR SCREEN MAMMOGRAM FOR MALIGNANT NE 09/12/2017 MILLER HAN, JONNIE Bloom Ot Z12.31 ENCNTR SCREEN MAMMOGRAM FOR MALIGNANT NE 09/12/2017 Ot V76.12 OTH SCREEN MAMMO-MALIGN NEOPLASM OF MIKEY 09/12/2017 Ot 735.2 HALLUX RIGIDUS 09/12/2017 Ot V72.83 EXAM PRE- OPERATIVE NEC 09/12/2017 Ot V74.8 SCREEN- BACTERIAL DIS NEC 09/12/2017 XENIA HAN, RACQUEL Moses Ot V76.12 OTH SCREEN MAMMO-MALIGN NEOPLASM OF MI[place] 09/12/2017 XENIA HAN, RACQUEL Moses Ot V76.12 OTH SCREEN MAMMO-MALIGN NEOPLASM OF [place] 09/12/2017 CATHY GOMEZ WHITE LEAD GRINDER Ot Z12.31 ENCNTR SCREEN MAMMOGRAM FOR MALIGNANT NE 09/12/2017 CATHY GOMEZ WHITE LEAD GRINDER Ot Z12.31 ENCNTR SCREEN MAMMOGRAM FOR MALIGNANT NE 09/12/2017 MILLER HAN, JONNIE Bloom Ot Z12.31 ENCNTR SCREEN MAMMOGRAM FOR MALIGNANT NE 09/12/2017 MILLER HAN, JONNIE Bloom Ot Z12.31 ENCNTR SCREEN MAMMOGRAM FOR MALIGNANT NE 09/18/2017 MILLER HAN, JONNIE Bloom Ot Z12.31 ENCNTR SCREEN MAMMOGRAM FOR MALIGNANT NE 10/16/2017 JONNIE BHATT MD Ot Z12.31 ENCNTR SCREEN MAMMOGRAM FOR MALIGNANT NE 12/17/2017 Ot V76.12 OTH SCREEN MAMMO-MALIGN NEOPLASM OF MIKEY 12/17/2017 Ot 735.2 HALLUX RIGIDUS 12/17/2017 Ot V72.83 EXAM PRE- OPERATIVE NEC 12/17/2017 Ot V74.8 SCREEN- BACTERIAL DIS NEC 12/17/2017 XENIA HAN, RACQUEL Moses Ot V76.12 OTH SCREEN MAMMO-MALIGN NEOPLASM OF MIKEY 12/17/2017 RACQUEL MICHAELS MD Ot V76.12 OTH SCREEN MAMMO-MALIGN NEOPLASM OF MIKEY 12/17/2017 CATHY GOMEZ WHITE LEAD GRINDER Ot Z12.31 ENCNTR SCREEN MAMMOGRAM FOR MALIGNANT NE 12/17/2017 CATHY GOMEZ WHITE LEAD GRINDER Ot Z12.31 ENCNTR SCREEN MAMMOGRAM FOR MALIGNANT NE 12/17/2017 JONNIE BHATT MD Ot Z12.31 ENCNTR SCREEN MAMMOGRAM FOR MALIGNANT NE 12/17/2017 KURTIS HAN, VENKAT P Ot C44.311 BASAL CELL CARCINOMA OF SKIN OF NOSE 12/17/2017 VENKAT HULL MD P Ot Z01.810 ENCOUNTER FOR PREPROCEDURAL CARDIOVASCUL 12/17/2017 VENKAT HULL MD Ot Z01.812 ENCOUNTER FOR PREPROCEDURAL LABORATORY E 12/17/2017 VENKAT HULL MD P Ot Z11.2 ENCOUNTER FOR SCREENING FOR OTHER BACTER 12/18/2017 VENKAT HULL MD P Ot C44.311 BASAL CELL CARCINOMA OF SKIN OF NOSE 12/18/2017 VENKAT HULL MD P Ot Z01.810 ENCOUNTER FOR PREPROCEDURAL CARDIOVASCUL 12/18/2017 VENKAT HULL MD P Ot Z01.812 ENCOUNTER FOR PREPROCEDURAL LABORATORY E 12/18/2017 VENKAT HULL MD P Ot Z11.2 ENCOUNTER FOR SCREENING FOR OTHER BACTER 12/28/2017 Ot V76.12 OTH SCREEN MAMMO-MALIGN NEOPLASM OF MIKEY 12/28/2017 Ot 735.2 HALLUX RIGIDUS 12/28/2017 Ot V72.83 EXAM PRE- OPERATIVE NEC 12/28/2017 Ot V74.8 SCREEN- BACTERIAL DIS NEC 12/28/2017 XENIA HAN, RACQUEL Moses Ot V76.12 OTH SCREEN MAMMO-MALIGN NEOPLASM OF MIKEY 12/28/2017 RACQUEL MICHAELS MD Ot V76.12 OTH SCREEN MAMMO-MALIGN NEOPLASM OF MIKEY 12/28/2017 CATHY GOMEZ WHITE LEAD GRINDER Ot Z12.31 ENCNTR SCREEN MAMMOGRAM FOR MALIGNANT NE 12/28/2017 CATHY GOMEZ WHITE LEAD GRINDER Ot Z12.31 ENCNTR SCREEN MAMMOGRAM FOR MALIGNANT NE 12/28/2017 JONNIE BHATT MD Ot Z12.31 ENCNTR SCREEN MAMMOGRAM FOR MALIGNANT NE Procedures There is no data. Results Test Result Range Methicillin resistant Staphylococcus aureus (MRSA) screening culture - 13:10 Methicillin resistant Staphylococcus aureus (MRSA) screening culture NEG NRG Complete blood count (CBC) with automated white blood cell (WBC) differential - 12/17/17 13:15 Blood leukocytes automated count (number/volume) 9.2 10*3/uL 4.3-11.0 Blood erythrocytes automated count (number/volume) 4.71 10*6/uL 4.35-5.85 Venous blood hemoglobin measurement (mass/volume) 13.9 g/dL 11.5-16.0 Blood hematocrit (volume fraction) 42 % 35-52 Automated erythrocyte mean corpuscular volume 90 [foz_us] 80-99 Automated erythrocyte mean corpuscular hemoglobin (mass per erythrocyte) 30 pg 25-34 Automated erythrocyte mean corpuscular hemoglobin concentration measurement ( mass/volume) 33 g/dL 32-36 Automated erythrocyte distribution width ratio 13.5 % 10.0-14.5 Automated blood platelet count (count/volume) 240 10*3/uL 130-400 Automated blood platelet mean volume measurement 11.0 [foz_us] 7.4-10.4 Automated blood neutrophils/100 leukocytes 68 % 42-75 Automated blood lymphocytes/100 leukocytes 23 % 12-44 Blood monocytes/100 leukocytes 7 % 0-12 Automated blood eosinophils/100 leukocytes 2 % 0-10 Automated blood basophils/100 leukocytes 1 % 0-10 Blood neutrophils automated count (number/volume) 6.3 10*3 1.8-7.8 Blood lymphocytes automated count (number/volume) 2.2 10*3 1.0-4.0 Blood monocytes automated count (number/volume) 0.6 10*3 0.0-1.0 Automated eosinophil count 0.1 10*3/uL 0.0-0.3 Automated blood basophil count (count/volume) 0.1 10*3/uL 0.0-0.1 Whole blood basic metabolic panel - 12/17/17 13:15 Serum or plasma sodium measurement (moles/volume) 137 mmol/L 135-145 Serum or plasma potassium measurement (moles/volume) 4.2 mmol/L 3.6-5.0 Serum or plasma chloride measurement (moles/volume) 100 mmol/L 98-107 Carbon dioxide 29 mmol/L 21-32 Serum or plasma anion gap determination (moles/volume) 8 mmol/L 5-14 Serum or plasma urea nitrogen measurement (mass/volume) 20 mg/dL 7-18 Serum or plasma creatinine measurement (mass/volume) 1.05 mg/dL 0.60-1.30 Serum or plasma urea nitrogen/creatinine mass ratio 19 NRG Serum or plasma creatinine measurement with calculation of estimated glomerular filtration rate 51 NRG Serum or plasma glucose measurement (mass/volume) 100 mg/dL 70-105 Serum or plasma calcium measurement (mass/volume) 9.8 mg/dL 8.5-10.1 Encounters ACCT No. Visit Date/Time Discharge Status Pt. Type Provider Facility Loc./Unit Complaint [id number] 12/28/2017 06:49:00 12/28/2017 12:15:00 DIS Outpatient VENKAT HULL MD [facility] SDC BASAL CELL NASAL TIP [id number] 12/17/2017 12:36:00 12/17/2017 14:59:00 DIS Outpatient VENKAT HULL MD [facility] PREOP EXCISION NOSE LESION WITH SKIN GRAFT FROM LEFT NEC [id number] 09/18/2017 10:01:00 09/18/2017 23:59:59 CLS Outpatient JONNIE BHATT MD [facility] RAD SCREENING [id number] 01/30/2017 19:50:00 01/31/2017 04:55:00 DIS Outpatient REED LICONA DEMI CHEF [facility] SLEEP URIAH [id number] 11/28/2016 12:50:00 11/28/2016 13:55:00 DIS Outpatient JONNIE BHATT MD [facility] SLEEP SNORING, [id number] 09/14/2016 10:49:00 09/14/2016 23:59:59 CLS Outpatient CATHY GOMEZ APRN [facility] RAD SCREENING [id number] 09/14/2015 10:31:00 09/14/2015 23:59:59 CLS Outpatient CATHY GOMEZ APRN [facility] RAD SCREENING [id number] 09/07/2014 09:52:00 09/07/2014 23:59:59 CLS Outpatient RACQUEL MICHAELS MD [facility] RAD ROUTINE [id number] 09/04/2013 09:27:00 09/04/2013 23:59:59 CLS Outpatient RACQUEL MICHAELS MD [facility] RAD SCREENING [id number] 09/02/2012 09:33:00 Document Registration [id number] 08/12/2012 06:19:00 Document Registration [id number] 08/07/2012 12:15:00 Document Registration [id number] 08/08/2011 08:35:00 Document Registration [id number] 06/07/2017 08:01:34 06/07/2017 23:59:59 [facility] Outpatient
== END 2017-12-28 12:15 | disposition home or self-care (01) ==
LOC: SDC 06:49
PROVIDERS: ATTEND Otolaryngology Otolaryngology/Facial Plastic Surgery
DX: C44.311 Basal cell carcinoma of skin of nose (principal); I10 Essential (primary) hypertension; E78.00 Pure hypercholesterolemia, unspecified; Z79.899 Other long term (current) drug therapy
CPT/HCPCS: 88305; 88331

== ENCOUNTER → 2018-09-23 | Outpatient (CLI) | payer MEDICARE ==
[~2018-09-23] MED LIST changes: +HYDR-3812 PO
--- NOTE | 2018-09-23 13:19 | Diagnostic Imaging Report ---
INDICATION: Routine screening. COMPARISON: 09/18/2017 and 09/14/2016. TECHNIQUE: 2D and 3D bilateral screening mammography was performed with CAD. FINDINGS: Both breasts remain heterogeneously dense, limiting the sensitivity of mammography. Circumscribed nodular densities in both breasts are stable and again most consistent with benign etiologies. No new mass or malignant appearing microcalcifications are seen. The axillae are unremarkable. IMPRESSION: No mammographic features suspicious for malignancy are identified. ACR BI-RADS Category 2: Benign findings. Result letter will be mailed to the patient. Note: At least 10% of breast cancer is not imaged by mammography. Dictated by: Dictated on workstation # [id number]
== END ==
LOC: RAD 09:45
PROVIDERS: ATTEND Nurse Practitioner Family
DX: Z12.31 Encounter for screening mammogram for malignant neoplasm of breast (principal)
CPT/HCPCS: 77067

== ENCOUNTER 2019-03-17 05:50 | Outpatient (CLI) | payer MEDICARE ==
[~2019-03-17] VITALS: Ht 154.9 cm; Wt 66.3 kg
== END 2019-03-17 13:25 | disposition home or self-care (01) ==
LOC: PREOP 05:50
PROVIDERS: ATTEND Surgery
DX: Z01.818 Encounter for other preprocedural examination (principal)

== ENCOUNTER 2019-03-24 09:55 | Day surgery (SDC) | payer MEDICARE ==
[~2019-03-24] VITALS: Ht 154.9 cm; Wt 66.3 kg
[2019-03-24] MEDS ORDERED: LACTATED RINGERS 1,000 ML IV ONE (10:00)
--- OUTSIDE RECORDS SUMMARY | 2019-03-24 10:02 | XMS REPORT | CCD ---
Author Author [facility] Organization [facility] Address [address] [place] [address] Phone Care Team Providers Care Service Desk Lead Name Role Phone PP Unavailable CCM Unavailable Summary Purpose Interface Exchange Insurance Providers Payer name Policy type / Coverage type Covered green party ID Effective Begin Date Effective End Date WPS Medicare Part B [id number] 2017 Unknown AARP [id number] 2017 Unknown Family history Father Diagnosis Age At Onset Unknown Brother Diagnosis Age At Onset Diabetes mellitus Type 2 Unknown Mother Diagnosis Age At Onset car accident Unknown Social History Social History Element Codes Description Effective Dates Marital status Unknown for 16 years - for 16 years, then remarried 05/02/[address]: 640268980 Never smoker 05/02/[address]: 224750 Currently drinks alcohol 05/02/2016 Frequency of drinks SNOMED CT: 959863816 1- 4 drinks per week 1 per week 05/02/2016 Has the patient ever used illegal drugs? Unknown Has never used illegal drugs 05/02/2016 Number of children Unknown 0 05/04/2015 Allergies, Adverse Reactions, Alerts Substance Reaction Codes Entered Date Inactivated Date Status * NO KNOWN DRUG ALLERGIES Unknown 05/04/2015 No Inactive Date Active Past Medical History Illness Codes Condition Status Onset Date Resolved Date Mixed hyperlipidemia ICD- 9: 272.2 ICD-10: E78.2 Active 02/25/2019 Unknown Obstructive sleep apnea (adult) (pediatric) ICD-9: 327.23 ICD-10: G47.33 Active 02/27/2017 Unknown Encounter for screening mammogram for malignant neoplasm of breast ICD-9: V76.10 ICD-10: Z12.31 Active 09/24/2018 Unknown Encounter for immunization ICD-9: V03.82 ICD-10: Z23 Active 08/27/2018 Unknown Essential (primary) hypertension ICD-9: 401.9 ICD-10: I10 Active 05/03/2015 Unknown Mixed hyperlipidemia ICD- 9: 272.4 ICD-10: E78.2 Active 05/03/2015 Unknown Acute recurrent frontal sinusitis ICD-9: 461.1 ICD-10: J01.11 Active 02/26/2018 Unknown Cough ICD-9: 786.2 ICD-10: R05 Active 07/27/2016 Unknown Acute laryngopharyngitis ICD-9: 465.0 ICD-10: J06.0 Active 07/27/2016 Unknown Other allergic rhinitis ICD-9: 477.8 ICD-10: J30.89 Active 02/13/2018 Unknown Iron deficiency ICD-9: 280.9 ICD-10: E61.1 Active 08/29/2017 Unknown Cellulitis of face ICD- 9: 682.0 ICD-10: L03.211 Active 02/02/2017 Unknown Other insomnia ICD-9: 327.09 ICD-10: G47.09 Active 11/22/2016 Unknown Acute bronchitis, unspecified ICD-9: 466.0 ICD-10: [...] Problems Condition Codes Effective Dates Condition Status Mixed hyperlipidemia ICD- 9: 272.2 ICD-10: E78.2 02/25/2019 Active Obstructive sleep apnea (adult) (pediatric) ICD-9: 327.23 ICD-10: G47.33 02/27/2017 Active Encounter for screening mammogram for malignant neoplasm of breast ICD-9: V76.10 ICD-10: Z12.31 09/24/2018 Active Encounter for immunization ICD-9: V03.82 ICD-10: Z23 08/27/2018 Active Essential (primary) hypertension ICD-9: 401.9 ICD-10: I10 05/03/2015 Active Mixed hyperlipidemia ICD- 9: 272.4 ICD-10: E78.2 05/03/2015 Active Acute recurrent frontal sinusitis ICD-9: 461.1 ICD-10: J01.11 02/26/2018 Active Cough ICD-9: 786.2 ICD-10: R05 07/27/2016 Active Acute laryngopharyngitis ICD-9: 465.0 ICD-10: J06.0 07/27/2016 Active Other allergic rhinitis ICD-9: 477.8 ICD-10: J30.89 02/13/2018 Active Iron deficiency ICD-9: 280.9 ICD-10: E61.1 08/29/2017 Active Cellulitis of face ICD- 9: 682.0 ICD-10: L03.211 02/02/2017 Active Other insomnia ICD-9: 327.09 ICD-10: G47.09 11/22/2016 Active Acute bronchitis, unspecified ICD-9: 466.0 ICD-10: [...] Fill Instructions Xanax 0.25 mg tablet RxNorm: 667668 1/2 - 1 Tablet(s) PO QHS as needed 01/15/2019 03/15/2019 Active Maxzide-25mg 37.5 mg-25 mg tablet RxNorm: 93184 Tablet(s) TAKE 1 TABLET BY MOUTH DAILY 12/04/2018 11/28/2019 Active Xanax 0.25 mg tablet RxNorm: 641679 1/2 - 1 Tablet(s) PO QHS as needed 05/10/2018 07/08/2018 Inactive pravastatin 20 mg tablet RxNorm: 414269 Tablet(s) TAKE 1 TABLET BY MOUTH DAILY 03/27/2018 03/21/2019 Active Diflucan 150 mg tablet RxNorm: 078210 1 Tablet(s) PO daily 03/06/2018 03/10/2018 Inactive Diflucan 150 mg tablet RxNorm: 238624 1 Tablet(s) PO daily 03/06/2018 03/05/2018 Inactive ceftriaxone 500 mg solution for injection RxNorm: 6960025 1 Inj 02/26/2018 02/26/2018 Inactive cefdinir 300 mg capsule RxNorm: 762498 1 Capsule(s) PO BID 02/26/2018 03/04/2018 Inactive Kenalog 40 mg/mL suspension for injection RxNorm: 6060796 1 Milliliter(s) Inj 02/13/2018 02/13/2018 Inactive Zithromax Z-Elías 250 mg tablet RxNorm: 652896 1 Tablet(s) PO UD 02/04/2018 02/08/2018 Inactive zpack as directed Xanax 0.25 mg tablet RxNorm: 855717 1/2 - 1 Tablet(s) PO QHS as needed 10/30/2017 12/28/2017 Inactive Maxzide-25mg 37.5 mg-25 mg tablet RxNorm: 26418 Tablet(s) TAKE 1 TABLET BY MOUTH DAILY 10/10/2017 10/04/2018 Inactive acyclovir 5 % topical ointment RxNorm: 628785 1 Application TOP QID as needed cold sores 08/29/2017 12/26/2017 Inactive amoxicillin 500 mg capsule RxNorm: 151960 1 Capsule(s) PO TID 07/03/2017 07/09/2017 Inactive Maxzide-25mg 37.5 mg-25 mg tablet RxNorm: 62435 TAKE 1 TABLET BY MOUTH DAILY 06/04/2017 10/09/2017 Inactive Bactrim DS 800 mg-160 mg tablet RxNorm: 695783 1 Tablet(s) PO BID 05/14/2017 05/23/2017 Inactive Xanax 0.25 mg tablet RxNorm: 944961 1/2 - 1 Tablet(s) PO QHS 05/14/2017 10/29/2017 Inactive pravastatin 20 mg tablet RxNorm: 298374 TAKE 1 TABLET BY MOUTH DAILY 02/28/2017 02/22/2018 Inactive mupirocin 2 % topical ointment RxNorm: 205504 1 Application TOP BID 02/02/2017 No Stop Date Active Bactrim DS 800 mg-160 mg tablet RxNorm: 288365 1 Tablet(s) PO BID 02/02/2017 02/11/2017 Inactive Xanax 0.25 mg tablet RxNorm: 433896 1/2 - 1 Tablet(s) PO QHS 12/25/2016 10/29/2017 Inactive Xanax 0.25 mg tablet RxNorm: 715709 1/2 - 1 Tablet(s) PO QHS 11/22/2016 05/13/2017 Inactive trazodone 50 mg tablet RxNorm: 514388 1 Tablet(s) PO QPM 08/29/2016 10/22/2017 Inactive Maxzide-25mg 37.5 mg-25 mg tablet RxNorm: 52525 Tablet(s) 1 Tablet, 1 time per Day 08/29/2016 05/25/2017 Inactive amoxicillin 500 mg capsule RxNorm: 461052 1 Capsule(s) PO TID 07/28/2016 08/03/2016 Inactive cetirizine 10 mg tablet RxNorm: 9287080 1 Tablet(s) PO daily 07/28/2016 08/26/2016 Inactive Zithromax Z-Elías 250 mg tablet RxNorm: 648249 1 Tablet(s) PO UD 07/03/2016 07/07/2016 Inactive zpack Kenalog 40 mg/mL suspension for injection RxNorm: 4305018 Milliliter(s) Inj 07/03/2016 07/03/2016 Inactive pravastatin 20 mg tablet RxNorm: 052584 TAKE 1 TABLET BY MOUTH DAILY 05/31/2016 02/24/2017 Inactive trazodone 50 mg tablet RxNorm: 383871 1 Tablet(s) PO QPM 03/03/2016 06/30/2016 Inactive Maxzide-25mg 37.5 mg-25 mg tablet RxNorm: 60908 1 Tablet, 1 time per Day 12/06/2015 08/28/2016 Inactive trazodone 50 mg tablet RxNorm: 627047 1 Tablet(s) PO QPM 10/22/2015 03/02/2016 Inactive Maxzide-25mg 37.5 mg-25 mg tablet RxNorm: 35891 1 Tablet(s) PO daily 05/04/2015 12/05/2015 Inactive trazodone 50 mg tablet RxNorm: 944481 1/2 Tablet(s) PO QPM may increase up to a full pill if needed 05/04/2015 10/21/2015 Inactive pravastatin 20 mg tablet RxNorm: 574477 1 Tablet(s) PO daily 05/04/2015 04/27/2016 Inactive pravastatin 20 mg tablet RxNorm: 005362 1 Tablet(s) PO daily 03/03/2015 03/02/2015 Inactive pravastatin 20 mg tablet RxNorm: 980214 1 Tablet(s) PO daily 03/03/2015 05/03/2015 Inactive Eye Vitamin and Minerals oral RxNorm: 2837 oral No Start Date Active Centrum Silver tablet RxNorm: 1 Tablet(s) PO daily No Start Date Active [place] 3 Fish Oil oral RxNorm: 8797125 oral No Start Date Active Osteo Bi-Flex oral RxNorm: 3896185 oral No Start Date Active zolpidem 5 mg tablet RxNorm: 622061 1 Tablet(s) PO QHS as needed No Start Date 05/03/2015 Inactive Iron (ferrous sulfate) oral RxNorm: 02723 oral No Start Date 08/28/2017 Inactive Maxzide-25mg oral RxNorm: 57700 oral No Start Date 05/03/2015 Inactive Medication Administered Medication Codes Instructions Start Date Status ceftriaxone 500 mg solution for injection RxNorm: 4855700 1 02/26/2018 No longer Active Kenalog 40 mg/mL suspension for injection RxNorm: 3581430 1Milliliter 02/13/2018 No longer Active Kenalog 40 mg/mL suspension for injection RxNorm: 7495961 Milliliter 07/03/2016 No longer Active Immunizations Vaccine Codes Date Status SHINGARIX CVX: 121 02/17/2019 completed Pneumococcal (Adult) CVX: 33 08/27/2018 completed Influenza CVX: 141 07/12/2018 completed Pneumococcal (Adult) CVX: 133 11/02/2015 completed PPD Unknown 05/20/2015 completed Influenza CVX: 141 06/17/2014 completed Pneumococcal CVX: 33 08/24/2010 completed Zoster CVX: 121 07/23/2008 completed Tetanus, Diptheria, Pertussis CVX: 113 05/05/2008 completed Tetanus, Diptheria, Pertussis CVX: 113 05/05/2008 completed Tetanus/Diptheria CVX: 113 05/05/2008 completed Assessments Condition Codes Effective Dates Mixed hyperlipidemia ICD-10: E78.2 ICD-9: 272.2 02/25/2019 Encounter for screening mammogram for malignant neoplasm of breast ICD-10: Z12.31 ICD-9: V76.10 09/24/2018 Essential (primary) hypertension ICD-10: I10 ICD-9: 401.9 08/27/2018 Encounter for immunization ICD-10: Z23 ICD-9: V03.82 08/27/2018 Mixed hyperlipidemia ICD-10: E78.2 ICD-9: 272.4 08/27/2018 Acute recurrent frontal sinusitis ICD-10: J01.11 ICD-9: 461.1 02/26/2018 Cough ICD-10: R05 ICD-9: 786.2 02/26/2018 Acute laryngopharyngitis ICD-10: J06.0 ICD-9: 465.0 02/13/2018 Other allergic rhinitis ICD-10: J30.89 ICD-9: 477.8 02/13/2018 Obstructive sleep apnea (adult) (pediatric) ICD-10: G47.33 ICD-9: 327.23 08/29/2017 Iron deficiency ICD-10: E61.1 ICD-9: 280.9 08/29/2017 Cellulitis of face ICD-10: L03.211 ICD-9: 682.0 05/14/2017 Other insomnia ICD-10: G47.09 ICD-9: 327.09 11/22/2016 Acute bronchitis, unspecified ICD-10: J20.9 ICD-9: 466.0 07/03/2016 Snoring ICD-10: R06.83 ICD-9: 786.09 05/02/2016 Encounter for immunization ICD-10: Z23 ICD-9: V05.9 11/02/2015 Tick bite ICD-9: 919.4 05/20/2015 ESSENTIAL HYPERTENSION ICD-9: 401.9 05/04/2015 HYPERLIPIDEMIA ICD-9: 272.4 05/04/2015 ENCNTR LONG-RX USE NEC ICD-9: V58.69 05/04/2015 Reason For Visit Reason For Visit Effective Dates Notes hyperlipidemia 02/25/2019 hyperlipidemia 08/27/2018 hyperlipidemia 02/26/2018 cough 02/13/2018 hyperlipidemia 08/29/2017 rash 05/14/2017 hyperlipidemia 02/27/2017 rash 02/02/2017 insomnia 11/22/2016 hyperlipidemia 08/29/2016 cough 07/28/2016 cough 07/03/2016 hyperlipidemia 05/02/2016 hyperlipidemia 11/02/2015 blood pressure followup 05/04/2015 Results Observation Observation Code Item Item Code Result Date Lipid Ord30 CHOL 171 mg/dL 02/25/2019 Lipid Ord30 HDL 38.0 mg/dl 02/25/2019 Lipid Ord30 TRIG 271 mg/dL 02/25/2019 Lipid Ord30 LDL 79 mg/dL 02/25/2019 Lipid Ord30 C/HDL 4.5 Ratio 02/25/2019 Tsh Ord6 TSH (3rd IS) 2.79 uIU/mL 02/19/2019 Cbc With Differential Ord2 WBC 7.91 K/ul 02/19/2019 Cbc With Differential Ord2 RBC 4.44 M/ul 02/19/2019 Cbc With Differential Ord2 HGB 13.1 g/dl 02/19/2019 Cbc With Differential Ord2 HCT 40.4 % 02/19/2019 Cbc With Differential Ord2 Neut% 62.4 % 02/19/2019 Cbc With Differential Ord2 MCV 91.0 fl 02/19/2019 Cbc With Differential Ord2 Lymph% 23.6 % 02/19/2019 Cbc With Differential Ord2 Morton% 10.7 % 02/19/2019 Cbc With Differential Ord2 MCH 29.5 pg 02/19/2019 Cbc With Differential Ord2 Eos% 2.7 % 02/19/2019 Cbc With Differential Ord2 MCHC 32.4 pg 02/19/2019 Cbc With Differential Ord2 Baso% 0.6 % 02/19/2019 Cbc With Differential Ord2 PLT 230 K/ul 02/19/2019 Cbc With Differential Ord2 RDW 13.9 % 02/19/2019 Cbc With Differential Ord2 Neut ABS# 4.93 K/ul 02/19/2019 Cbc With Differential Ord2 Lymph ABS# 1.87 K/ul 02/19/2019 Cbc With Differential Ord2 Morton ABS# 0.9 K/ul 02/19/2019 Cbc With Differential Ord2 Eos ABS# 0.2 K/ul 02/19/2019 Cbc With Differential Ord2 Baso ABS# 0.1 K/ul 02/19/2019 Comp Metabolic Krg607 NA 137 mEq/L 02/19/2019 Comp Metabolic Kpz160 K 3.4 mEq/L 02/19/2019 Comp Metabolic Mbg380 CL 97 mEq/L 02/19/2019 Comp Metabolic Xyb841 CO2 30.0 mEq/L 02/19/2019 Comp Metabolic Bbs547 ANION GAP 13 02/19/2019 Comp Metabolic Izq629 GLUCOSE 112 mg/dL 02/19/2019 Comp Metabolic Tqz543 Creat 1.3 mg/dL 02/19/2019 Comp Metabolic Rnl033 eGFR 42 ml/min/1.73m2 02/19/2019 Comp Metabolic Roi868 BUN 21 mg/dL 02/19/2019 Comp Metabolic Lfr507 B/C Ratio 16.0 Ratio 02/19/2019 Comp Metabolic Vpn902 CALCIUM 9.0 mg/dL 02/19/2019 Comp Metabolic Hut062 ALK PHOS 51 U/L 02/19/2019 Comp Metabolic Quw043 AST(SGOT) 17 U/L 02/19/2019 Comp Metabolic Fbv901 ALT(SGPT) 16 U/L 02/19/2019 Comp Metabolic Epw811 BILI T 0.4 mg/dL 02/19/2019 Comp Metabolic Pdr607 ALBUMIN 4.5 g/dL 02/19/2019 Comp Metabolic Gbi715 TPRO 6.9 g/dL 02/19/2019 Comp Metabolic Vyk684 GLOB 2.4 g/dL 02/19/2019 Comp Metabolic Wvm072 A/G Ratio 1.9 Ratio 02/19/2019 Comp Metabolic Glu292 Osmo 278 mOsmo 02/19/2019 Comp Metabolic Myo841 NA 140 mEq/L 08/20/2018 Comp Metabolic Btk677 K 3.7 mEq/L 08/20/2018 Comp Metabolic Vbr136 CL 99 mEq/L 08/20/2018 Comp Metabolic Tuf359 CO2 30.0 mEq/L 08/20/2018 Comp Metabolic Trn742 ANION GAP 15 08/20/2018 Comp Metabolic Jaa085 GLUCOSE 101 mg/dL 08/20/2018 Comp Metabolic Feo156 Creat 1.0 mg/dL 08/20/2018 Comp Metabolic Niq827 eGFR 56 ml/min/1.73m2 08/20/2018 Comp Metabolic Ebm319 BUN 20 mg/dL 08/20/2018 Comp Metabolic Ecu644 B/C Ratio 19.6 Ratio 08/20/2018 Comp Metabolic Ubw503 CALCIUM 9.9 mg/dL 08/20/2018 Comp Metabolic Cro265 ALK PHOS 50 U/L 08/20/2018 Comp Metabolic Hth727 AST(SGOT) 16 U/L 08/20/2018 Comp Metabolic Vih455 ALT(SGPT) 17 U/L 08/20/2018 Comp Metabolic Zdo695 BILI T 0.5 mg/dL 08/20/2018 Comp Metabolic Abd080 ALBUMIN 4.2 g/dL 08/20/2018 Comp Metabolic Uxd916 TPRO 6.4 g/dL 08/20/2018 Comp Metabolic Qtj280 GLOB 2.2 g/dL 08/20/2018 Comp Metabolic Eub841 A/G Ratio 2.0 Ratio 08/20/2018 Comp Metabolic Lpg724 Osmo 282 mOsmo 08/20/2018 Cbc With Differential Ord2 WBC 8.97 K/ul 08/20/2018 Cbc With Differential Ord2 RBC 4.37 M/ul 08/20/2018 Cbc With Differential Ord2 HGB 12.9 g/dl 08/20/2018 Cbc With Differential Ord2 HCT 39.5 % 08/20/2018 Cbc With Differential Ord2 Neut% 65.4 % 08/20/2018 Cbc With Differential Ord2 MCV 90.4 fl 08/20/2018 Cbc With Differential Ord2 Lymph% 24.4 % 08/20/2018 Cbc With Differential Ord2 MCH 29.5 pg 08/20/2018 Cbc With Differential Ord2 Morton% 7.2 % 08/20/2018 Cbc With Differential Ord2 MCHC 32.7 pg 08/20/2018 Cbc With Differential Ord2 Eos% 2.3 % 08/20/2018 Cbc With Differential Ord2 PLT 241 K/ul 08/20/2018 Cbc With Differential Ord2 Baso% 0.7 % 08/20/2018 Cbc With Differential Ord2 RDW 13.3 % 08/20/2018 Cbc With Differential Ord2 Neut ABS# 5.86 K/ul 08/20/2018 Cbc With Differential Ord2 Lymph ABS# 2.19 K/ul 08/20/2018 Cbc With Differential Ord2 Morton ABS# 0.7 K/ul 08/20/2018 Cbc With Differential Ord2 Eos ABS# 0.2 K/ul 08/20/2018 Cbc With Differential Ord2 Baso ABS# 0.1 K/ul 08/20/2018 Lipid Ord30 CHOL 146 mg/dL 08/20/2018 Lipid Ord30 HDL 43.0 mg/dl 08/20/2018 Lipid Ord30 TRIG 166 mg/dL 08/20/2018 Lipid Ord30 LDL 70 mg/dL 08/20/2018 Lipid Ord30 C/HDL 3.4 Ratio 08/20/2018 Tsh Ord6 TSH (3rd IS) 2.19 uIU/mL 08/20/2018 Lipid Ord30 CHOL 161 mg/dL 08/29/2017 Lipid Ord30 HDL 45.0 mg/dl 08/29/2017 Lipid Ord30 TRIG 198 mg/dL 08/29/2017 Lipid Ord30 LDL 76 mg/dL 08/29/2017 Lipid Ord30 C/HDL 3.6 Ratio 08/29/2017 Comp Metabolic Idx758 NA 140 mEq/L 08/29/2017 Comp Metabolic Cst373 K 4.2 mEq/L 08/29/2017 Comp Metabolic Xaj856 CL 100 mEq/L 08/29/2017 Comp Metabolic Wsx926 CO2 31.0 mEq/L 08/29/2017 Comp Metabolic Kuk340 ANION GAP 13 08/29/2017 Comp Metabolic Qtp098 GLUCOSE 95 mg/dL 08/29/2017 Comp Metabolic Xvw214 Creat 1.1 mg/dL 08/29/2017 Comp Metabolic Xky314 eGFR 50 ml/min/1.73m2 08/29/2017 Comp Metabolic Wko261 BUN 26 mg/dL 08/29/2017 Comp Metabolic Duk596 B/C Ratio 22.8 Ratio 08/29/2017 Comp Metabolic Tsk322 CALCIUM 9.8 mg/dL 08/29/2017 Comp Metabolic Mfp959 ALK PHOS 45 U/L 08/29/2017 Comp Metabolic Ual188 AST(SGOT) 21 U/L 08/29/2017 Comp Metabolic Xds387 ALT(SGPT) 18 U/L 08/29/2017 Comp Metabolic Whs619 BILI T 0.5 mg/dL 08/29/2017 Comp Metabolic Bma381 ALBUMIN 4.3 g/dL 08/29/2017 Comp Metabolic Smg498 TPRO 6.7 g/dL 08/29/2017 Comp Metabolic Kaw072 GLOB 2.4 g/dL 08/29/2017 Comp Metabolic Rkv768 A/G Ratio 1.8 Ratio 08/29/2017 Comp Metabolic Oey360 Osmo 284 mOsmo 08/29/2017 Tibc Ord40 Iron 95 ug/dl 08/29/2017 Tibc Ord40 UIBC 227 ug/dL 08/29/2017 Tibc Ord40 TIBC 322 ug/dL 08/29/2017 Tibc Ord40 Fe-%Sat 29.5 % 08/29/2017 Cbc With Differential Ord2 WBC 8.31 K/ul 08/29/2017 Cbc With Differential Ord2 RBC 4.20 M/ul 08/29/2017 Cbc With Differential Ord2 HGB 12.3 g/dl 08/29/2017 Cbc With Differential Ord2 HCT 38.2 % 08/29/2017 Cbc With Differential Ord2 Neut% 62.3 % 08/29/2017 Cbc With Differential Ord2 MCV 91.0 fl 08/29/2017 Cbc With Differential Ord2 Lymph% 27.9 % 08/29/2017 Cbc With Differential Ord2 MCH 29.3 pg 08/29/2017 Cbc With Differential Ord2 Morton% 7.0 % 08/29/2017 Cbc With Differential Ord2 MCHC 32.2 pg 08/29/2017 Cbc With Differential Ord2 Eos% 2.2 % 08/29/2017 Cbc With Differential Ord2 PLT 246 K/ul 08/29/2017 Cbc With Differential Ord2 Baso% 0.6 % 08/29/2017 Cbc With Differential Ord2 RDW 13.6 % 08/29/2017 Cbc With Differential Ord2 Neut ABS# 5.18 K/ul 08/29/2017 Cbc With Differential Ord2 Lymph ABS# 2.32 K/ul 08/29/2017 Cbc With Differential Ord2 [place] ABS# 0.6 K/ul 08/29/2017 Cbc With Differential [...] 27.2 % 03/01/2017 Cbc With Differential Ord2 MCH 30.0 pg 03/01/2017 Cbc With Differential Ord2 Morton% 8.0 % 03/01/2017 Cbc With Differential Ord2 MCHC 32.5 pg 03/01/2017 Cbc With Differential Ord2 Eos% 2.8 % 03/01/2017 Cbc With Differential Ord2 PLT 227 K/ul 03/01/2017 Cbc With Differential Ord2 Baso% 0.5 % 03/01/2017 Cbc With Differential Ord2 RDW 14.1 % 03/01/2017 Cbc With Differential Ord2 Neut ABS# 4.78 K/ul 03/01/2017 Cbc With Differential Ord2 Lymph ABS# 2.11 K/ul 03/01/2017 Cbc With Differential Ord2 [place] ABS# 0.6 K/ul 03/01/2017 Cbc With Differential Ord2 Eos ABS# 0.2 K/ul 03/01/2017 Cbc With Differential Ord2 Baso ABS# 0.0 K/ul 03/01/2017 Ferritin Ord22 FERRITIN 89.1 ng/mL 02/27/2017 Tibc Ord40 Iron 69 ug/dl 02/27/2017 Tibc Ord40 UIBC 283 ug/dL 02/27/2017 Tibc Ord40 TIBC 352 ug/dL 02/27/2017 Tibc Ord40 Fe-%Sat 19.6 % 02/27/2017 Comp Metabolic Phz016 NA 137 mEq/L 08/29/2016 Comp Metabolic Fmm207 K 4.0 mEq/L 08/29/2016 Comp Metabolic Gea281 CL 100 mEq/L 08/29/2016 Comp Metabolic Wsy528 CO2 32.0 mEq/L 08/29/2016 Comp Metabolic Tgw784 ANION GAP 9 08/29/2016 Comp Metabolic Urt492 GLUCOSE 98 mg/dL 08/29/2016 Comp Metabolic Xts038 Creat 1.0 mg/dL 08/29/2016 Comp Metabolic Ybm968 eGFR 55 ml/min/1.73m2 08/29/2016 Comp Metabolic Dqy731 BUN 19 mg/dL 08/29/2016 Comp Metabolic Utb846 B/C Ratio 18.3 Ratio 08/29/2016 Comp Metabolic Uac802 CALCIUM 10.0 mg/dL 08/29/2016 Comp Metabolic Ugb911 ALK PHOS 51 U/L 08/29/2016 Comp Metabolic Kkh793 AST(SGOT) 21 U/L 08/29/2016 Comp Metabolic Ggj376 ALT(SGPT) 16 U/L 08/29/2016 Comp Metabolic Ygr846 BILI T 0.5 mg/dL 08/29/2016 Comp Metabolic Reh561 ALBUMIN 4.5 g/dL 08/29/2016 Comp Metabolic Rzr979 TPRO 7.3 g/dL 08/29/2016 Comp Metabolic Xcu727 GLOB 2.8 g/dL 08/29/2016 Comp Metabolic Lgl212 A/G Ratio 1.6 Ratio 08/29/2016 Comp Metabolic Rri984 Osmo 276 mOsmo 08/29/2016 Lipid Ord30 CHOL [...] 62.0 % 08/29/2016 Cbc With Differential Ord2 MCV 89.8 fl 08/29/2016 Cbc With Differential Ord2 Lymph% 27.4 % 08/29/2016 Cbc With Differential Ord2 MCH 29.6 pg 08/29/2016 Cbc With Differential Ord2 Morton% 7.8 % 08/29/2016 Cbc With Differential Ord2 MCHC 33.0 pg 08/29/2016 Cbc With Differential Ord2 Eos% 2.3 % 08/29/2016 Cbc With Differential Ord2 PLT 247 K/ul 08/29/2016 Cbc With Differential Ord2 Baso% 0.5 % 08/29/2016 Cbc With Differential Ord2 RDW 14.3 % 08/29/2016 Cbc With Differential Ord2 Neut ABS# 5.22 K/ul 08/29/2016 Cbc With Differential Ord2 Lymph ABS# 2.31 K/ul 08/29/2016 Cbc With Differential Ord2 [place] ABS# 0.7 K/ul 08/29/2016 Cbc With Differential [...] 29.4 pg 05/02/2016 Cbc With Differential Ord2 Morton% 8.4 % 05/02/2016 Cbc With Differential Ord2 MCHC 32.4 pg 05/02/2016 Cbc With Differential Ord2 Eos% 1.9 % 05/02/2016 Cbc With Differential Ord2 PLT 259 K/ul 05/02/2016 Cbc With Differential Ord2 Baso% 0.6 % 05/02/2016 Cbc With Differential Ord2 RDW 14.1 % 05/02/2016 Cbc With Differential Ord2 Neut ABS# 4.95 K/ul 05/02/2016 Cbc With Differential Ord2 Lymph ABS# 2.03 K/ul 05/02/2016 Cbc With Differential Ord2 [place] ABS# 0.7 K/ul 05/02/2016 Cbc With Differential Ord2 Eos ABS# 0.2 K/ul 05/02/2016 Cbc With Differential Ord2 Baso ABS# 0.1 K/ul 05/02/2016 Comp Metabolic Wnq535 NA 136 mEq/L 05/02/2016 Comp Metabolic Wdx540 K 4.0 mEq/L 05/02/2016 Comp Metabolic Tqp139 CL 97 mEq/L 05/02/2016 Comp Metabolic Osu321 CO2 31.0 mEq/L 05/02/2016 Comp Metabolic Xes738 ANION GAP 12 05/02/2016 Comp Metabolic Okr419 GLUCOSE 97 mg/dL 05/02/2016 Comp Metabolic Wkp556 Creat 1.0 mg/dL 05/02/2016 Comp Metabolic Qez128 eGFR 61 ml/min/1.73m2 05/02/2016 Comp Metabolic Cyg171 BUN 24 mg/dL 05/02/2016 Comp Metabolic Tnv116 B/C Ratio 25.0 Ratio 05/02/2016 Comp Metabolic Xrt968 CALCIUM 9.6 mg/dL 05/02/2016 Comp Metabolic Xrc586 ALK PHOS 55 U/L 05/02/2016 Comp Metabolic Dlv604 AST(SGOT) 18 U/L 05/02/2016 Comp Metabolic Nnj560 ALT(SGPT) 20 U/L 05/02/2016 Comp Metabolic Ovr729 BILI T 0.5 mg/dL 05/02/2016 Comp Metabolic Ckw191 ALBUMIN 4.5 g/dL 05/02/2016 Comp Metabolic Nvm575 TPRO 7.4 g/dL 05/02/2016 Comp Metabolic Set534 GLOB 2.9 g/dL 05/02/2016 Comp Metabolic Try233 A/G Ratio 1.6 Ratio 05/02/2016 Comp Metabolic Gag342 Osmo 276 mOsmo 05/02/2016 Lipid Ord30 CHOL 197 mg/dL 11/02/2015 Lipid Ord30 HDL 43.0 mg/dl 11/02/2015 Lipid Ord30 TRIG 247 mg/dL 11/02/2015 Lipid Ord30 LDL 105 mg/dL 11/02/2015 Lipid Ord30 C/HDL 4.6 Ratio 11/02/2015 Comp Metabolic Tob310 NA 137 mEq/L 11/02/2015 Comp Metabolic Pwc827 K 3.9 mEq/L 11/02/2015 Comp Metabolic Sqt773 CL 96 mEq/L 11/02/2015 Comp Metabolic Lhx675 CO2 34.0 mEq/L 11/02/2015 Comp Metabolic Jaz081 ANION GAP 11 11/02/2015 Comp Metabolic Sir881 GLUCOSE 97 mg/dL 11/02/2015 Comp Metabolic Exb850 Creat 1.1 mg/dL 11/02/2015 Comp Metabolic Oba005 eGFR 52 ml/min/1.73m2 11/02/2015 Comp Metabolic Qiv110 BUN 29 mg/dL 11/02/2015 Comp Metabolic Omb407 B/C Ratio 26.6 Ratio 11/02/2015 Comp Metabolic Klz973 CALCIUM 9.8 mg/dL 11/02/2015 Comp Metabolic Hqa158 ALK PHOS 56 U/L 11/02/2015 Comp Metabolic Ljq813 AST(SGOT) 16 U/L 11/02/2015 Comp Metabolic Dwq082 ALT(SGPT) 13 U/L 11/02/2015 Comp Metabolic Cev540 BILI T 0.4 mg/dL 11/02/2015 Comp Metabolic Iam330 ALBUMIN 4.4 g/dL 11/02/2015 Comp Metabolic Vrf263 TPRO 7.1 g/dL 11/02/2015 Comp Metabolic Yru423 GLOB 2.7 g/dL 11/02/2015 Comp Metabolic Pnc758 A/G Ratio 1.6 Ratio 11/02/2015 Comp Metabolic Ibi431 Osmo 280 mOsmo 11/02/2015 Cbc With Differential Ord2 WBC 8.46 K/ul 11/02/2015 Cbc With Differential Ord2 RBC 4.55 M/ul 11/02/2015 Cbc With Differential Ord2 HGB 13.2 g/dl 11/02/2015 Cbc With Differential Ord2 HCT 41.2 % 11/02/2015 Cbc With Differential Ord2 Neut% 62.2 % 11/02/2015 Cbc With Differential Ord2 MCV 90.5 fl 11/02/2015 Cbc With Differential Ord2 Lymph% 25.5 % 11/02/2015 Cbc With Differential Ord2 MCH 29.0 pg 11/02/2015 Cbc With Differential Ord2 Morton% 9.0 % 11/02/2015 Cbc With Differential Ord2 MCHC 32.0 pg 11/02/2015 Cbc With Differential Ord2 Eos% 2.7 % 11/02/2015 Cbc With Differential Ord2 PLT 264 K/ul 11/02/2015 Cbc With Differential Ord2 Baso% 0.6 % 11/02/2015 Cbc With Differential Ord2 RDW 13.8 % 11/02/2015 Cbc With Differential Ord2 Neut ABS# 5.26 K/ul 11/02/2015 Cbc With Differential Ord2 Lymph ABS# 2.16 K/ul 11/02/2015 Cbc With Differential Ord2 Morton ABS# 0.8 K/ul 11/02/2015 Cbc With Differential [...] Ord2 RDW 14.6 % 05/04/2015 Free T4 Ewr554 FREE T4 0.81 ng/dL 05/04/2015 Comp Metabolic Zyu673 NA 134 mEq/L 05/04/2015 Comp Metabolic Buy956 K 3.8 mEq/L 05/04/2015 Comp Metabolic Sxb010 CL 97 mEq/L 05/04/2015 Comp Metabolic Mkj209 CO2 31.0 mEq/L 05/04/2015 Comp Metabolic Cuz849 ANION GAP 10 05/04/2015 Comp Metabolic Vmn407 GLUCOSE 88 mg/dL 05/04/2015 Comp Metabolic Kzl848 Creat 1.0 mg/dL 05/04/2015 Comp Metabolic Ihh708 eGFR 58 ml/min/1.73m2 05/04/2015 Comp Metabolic Ibq582 BUN 19 mg/dL 05/04/2015 Comp Metabolic Yju977 B/C Ratio 19.0 Ratio 05/04/2015 Comp Metabolic Dhf704 CALCIUM 9.5 mg/dL 05/04/2015 Comp Metabolic Nga740 ALK PHOS 60 U/L 05/04/2015 Comp Metabolic Frk078 AST(SGOT) 17 U/L 05/04/2015 Comp Metabolic Sxj239 ALT(SGPT) 14 U/L 05/04/2015 Comp Metabolic [id number] BILI T 0.5 mg/dL 05/04/2015 Comp Metabolic [id number] ALBUMIN 4.5 g/dL 05/04/2015 Comp Metabolic Uee792 TPRO 7.1 g/dL 05/04/2015 Comp Metabolic Cew209 GLOB 2.6 g/dL 05/04/2015 Comp Metabolic Kye107 A/G Ratio 1.7 Ratio 05/04/2015 Comp Metabolic Vvo123 Osmo 270 mOsmo 05/04/2015 Lipid Ord30 CHOL 167 mg/dL 05/04/2015 Lipid Ord30 HDL 45.0 mg/dl 05/04/2015 Lipid Ord30 TRIG 179 mg/dL 05/04/2015 Lipid Ord30 LDL 86 mg/dL 05/04/2015 Lipid Ord30 C/HDL 3.7 Ratio 05/04/2015 Review of Systems System Result Effective Dates Constitutional No recent illness 02/25/2019 Constitutional No chills 02/25/2019 Constitutional No fatigue 02/25/2019 Constitutional No fever 02/25/2019 Constitutional No insomnia 02/25/2019 Constitutional No malaise 02/25/2019 Eyes No blindness 02/25/2019 Eyes No vision change 02/25/2019 Ears/Nose/Throat/Neck No dental pain 02/25/2019 Ears/Nose/Throat/Neck No dizziness 02/25/2019 Ears/Nose/Throat/Neck No dysphagia 02/25/2019 Ears/Nose/Throat/Neck No headache 02/25/2019 Ears/Nose/Throat/Neck No hearing loss 02/25/2019 Ears/Nose/Throat/Neck No nasal allergies 02/25/2019 Ears/Nose/Throat/Neck No sore throat 02/25/2019 Ears/Nose/Throat/Neck No postnasal drip 02/25/2019 Ears/Nose/Throat/Neck No sinus congestion 02/25/2019 Cardiovascular No chest pain/pressure 02/25/2019 Cardiovascular No dyspnea 02/25/2019 Cardiovascular No edema 02/25/2019 Cardiovascular No exercise intolerance 02/25/2019 Cardiovascular No fatigue 02/25/2019 Cardiovascular No near-syncope/dizziness 02/25/2019 Cardiovascular No palpitations 02/25/2019 Respiratory No chest congestion 02/25/2019 Respiratory No chest tightness 02/25/2019 Respiratory No cough 02/25/2019 Respiratory No daytime hypersomnolence 02/25/2019 Respiratory No dyspnea 02/25/2019 Respiratory No pedal edema 02/25/2019 Respiratory snoring 02/25/2019 Gastrointestinal No abdominal pain 02/25/2019 Gastrointestinal No constipation 02/25/2019 Gastrointestinal No diarrhea 02/25/2019 Gastrointestinal No gastroesophageal reflux 02/25/2019 Gastrointestinal No nausea 02/25/2019 Gastrointestinal No vomiting 02/25/2019 Genitourinary/Nephrology No dysuria 02/25/2019 Genitourinary/Nephrology No nocturia 02/25/2019 Genitourinary/Nephrology No urinary incontinence 02/25/2019 Musculoskeletal No stiffness 02/25/2019 Musculoskeletal No swelling 02/25/2019 Musculoskeletal No muscle weakness 02/25/2019 Musculoskeletal No myalgias 02/25/2019 Dermatologic No rash 02/25/2019 Dermatologic No sores 02/25/2019 Dermatologic No scar 02/25/2019 Neurologic No alteration of consciousness 02/25/2019 Neurologic No dizziness 02/25/2019 Neurologic No headache 02/25/2019 Neurologic No neck pain 02/25/2019 Neurologic No syncope 02/25/2019 Psychiatric No anxiety 02/25/2019 Psychiatric No depression 02/25/2019 Constitutional No chills 08/27/2018 Constitutional No diaphoresis 08/27/2018 Constitutional fatigue 08/27/2018 Constitutional No fever 08/27/2018 Constitutional No insomnia 08/27/2018 Constitutional No malaise 08/27/2018 Eyes No blindness 08/27/2018 Eyes No vision change 08/27/2018 Ears/Nose/Throat/Neck No dental pain 08/27/2018 Ears/Nose/Throat/Neck No dizziness 08/27/2018 Ears/Nose/Throat/Neck No dysphagia 08/27/2018 Ears/Nose/Throat/Neck No headache 08/27/2018 Ears/Nose/Throat/Neck No hearing loss 08/27/2018 Ears/Nose/Throat/Neck nasal allergies 08/27/2018 Ears/Nose/Throat/Neck No sore throat 08/27/2018 Ears/Nose/Throat/Neck No sinus congestion 08/27/2018 Cardiovascular No chest pain/pressure 08/27/2018 Cardiovascular No dyspnea 08/27/2018 Cardiovascular No edema 08/27/2018 Cardiovascular No exercise intolerance 08/27/2018 Cardiovascular No fatigue 08/27/2018 Cardiovascular No near-syncope/dizziness 08/27/2018 Cardiovascular No palpitations 08/27/2018 Respiratory No chest congestion 08/27/2018 Respiratory No chest tightness 08/27/2018 Respiratory cough 08/27/2018 Respiratory daytime hypersomnolence 08/27/2018 Respiratory No dyspnea 08/27/2018 Respiratory No pedal edema 08/27/2018 Gastrointestinal No abdominal pain 08/27/2018 Gastrointestinal No constipation 08/27/2018 Gastrointestinal No diarrhea 08/27/2018 Gastrointestinal No gastroesophageal reflux 08/27/2018 Gastrointestinal No nausea 08/27/2018 Gastrointestinal No vomiting 08/27/2018 Genitourinary/Nephrology No dysuria 08/27/2018 Genitourinary/Nephrology No nocturia 08/27/2018 Genitourinary/Nephrology No urinary incontinence 08/27/2018 Musculoskeletal No stiffness 08/27/2018 Musculoskeletal No swelling 08/27/2018 Musculoskeletal No muscle weakness 08/27/2018 Musculoskeletal No myalgias 08/27/2018 Dermatologic No rash 08/27/2018 Dermatologic No sores 08/27/2018 Dermatologic No scar 08/27/2018 Neurologic No alteration of consciousness 08/27/2018 Neurologic No dizziness 08/27/2018 Neurologic No headache 08/27/2018 Neurologic No mental status change 08/27/2018 Neurologic No neck pain 08/27/2018 Neurologic No syncope 08/27/2018 Psychiatric No anxiety 08/27/2018 Psychiatric No depression 08/27/2018 Constitutional No chills 02/26/2018 Constitutional No diaphoresis 02/26/2018 Constitutional No fever 02/26/2018 Eyes No blindness 02/26/2018 Ears/Nose/Throat/Neck nasal allergies 02/26/2018 Ears/Nose/Throat/Neck nasal discharge 02/26/2018 Ears/Nose/Throat/Neck postnasal drip 02/26/2018 Ears/Nose/Throat/Neck No sinus congestion 02/26/2018 Ears/Nose/Throat/Neck No sore throat 02/26/2018 Cardiovascular No chest pain/pressure 02/26/2018 Cardiovascular No dyspnea 02/26/2018 Respiratory No chest congestion 02/26/2018 Respiratory cough 02/26/2018 Respiratory No dyspnea 02/26/2018 Gastrointestinal No abdominal pain 02/26/2018 Gastrointestinal No constipation 02/26/2018 Gastrointestinal No diarrhea 02/26/2018 Gastrointestinal No nausea 02/26/2018 Gastrointestinal No vomiting 02/26/2018 Dermatologic No rash 02/26/2018 Neurologic No alteration of consciousness 02/26/2018 Neurologic No mental status change 02/26/2018 Constitutional fatigue 02/26/2018 Constitutional No insomnia 02/26/2018 Constitutional No malaise 02/26/2018 Eyes No vision change 02/26/2018 Ears/Nose/Throat/Neck No dental pain 02/26/2018 Ears/Nose/Throat/Neck No dizziness 02/26/2018 Ears/Nose/Throat/Neck No dysphagia 02/26/2018 Ears/Nose/Throat/Neck No headache 02/26/2018 Ears/Nose/Throat/Neck No hearing loss 02/26/2018 Cardiovascular No edema 02/26/2018 Cardiovascular No exercise intolerance 02/26/2018 Cardiovascular No fatigue 02/26/2018 Cardiovascular No near-syncope/dizziness 02/26/2018 Cardiovascular No palpitations 02/26/2018 Respiratory No chest tightness 02/26/2018 Respiratory daytime hypersomnolence 02/26/2018 Respiratory No pedal edema 02/26/2018 Respiratory snoring 02/26/2018 Gastrointestinal No gastroesophageal reflux 02/26/2018 Genitourinary/Nephrology No dysuria 02/26/2018 Genitourinary/Nephrology No nocturia 02/26/2018 Genitourinary/Nephrology No urinary incontinence 02/26/2018 Musculoskeletal No stiffness 02/26/2018 Musculoskeletal No swelling 02/26/2018 Musculoskeletal No muscle weakness 02/26/2018 Musculoskeletal No myalgias 02/26/2018 Dermatologic No sores 02/26/2018 Dermatologic No scar 02/26/2018 Neurologic No dizziness 02/26/2018 Neurologic No headache 02/26/2018 Neurologic No neck pain 02/26/2018 Neurologic No syncope 02/26/2018 Psychiatric No anxiety 02/26/2018 Psychiatric No depression 02/26/2018 Constitutional recent illness 02/26/2018 Constitutional recent illness 02/13/2018 Constitutional No chills 02/13/2018 Constitutional No diaphoresis 02/13/2018 Constitutional No fever 02/13/2018 Eyes No eye erythema 02/13/2018 Ears/Nose/Throat/Neck nasal allergies 02/13/2018 Ears/Nose/Throat/Neck nasal discharge 02/13/2018 Ears/Nose/Throat/Neck postnasal drip 02/13/2018 Ears/Nose/Throat/Neck No sinus congestion 02/13/2018 Ears/Nose/Throat/Neck No sore throat 02/13/2018 Cardiovascular No chest pain/pressure 02/13/2018 Cardiovascular No dyspnea 02/13/2018 Respiratory No chest congestion 02/13/2018 Respiratory cough 02/13/2018 Respiratory No dyspnea 02/13/2018 Gastrointestinal No abdominal pain 02/13/2018 Gastrointestinal No constipation 02/13/2018 Gastrointestinal No diarrhea 02/13/2018 Gastrointestinal No nausea 02/13/2018 Gastrointestinal No vomiting 02/13/2018 Dermatologic No rash 02/13/2018 Neurologic No alteration of consciousness 02/13/2018 Neurologic No mental status change 02/13/2018 Constitutional No recent illness 08/29/2017 Constitutional No chills 08/29/2017 Constitutional fatigue 08/29/2017 Constitutional No fever 08/29/2017 Constitutional No insomnia 08/29/2017 Constitutional No malaise 08/29/2017 Eyes No blindness 08/29/2017 Eyes No vision change 08/29/2017 Ears/Nose/Throat/Neck No dental pain 08/29/2017 Ears/Nose/Throat/Neck No dizziness 08/29/2017 Ears/Nose/Throat/Neck No dysphagia 08/29/2017 Ears/Nose/Throat/Neck No headache 08/29/2017 Ears/Nose/Throat/Neck No hearing loss 08/29/2017 Ears/Nose/Throat/Neck No nasal allergies 08/29/2017 Ears/Nose/Throat/Neck No sore throat 08/29/2017 Ears/Nose/Throat/Neck No postnasal drip 08/29/2017 Ears/Nose/Throat/Neck No sinus congestion 08/29/2017 Cardiovascular No chest pain/pressure 08/29/2017 Cardiovascular No dyspnea 08/29/2017 Cardiovascular No edema 08/29/2017 Cardiovascular No exercise intolerance 08/29/2017 Cardiovascular No fatigue 08/29/2017 Cardiovascular No near-syncope/dizziness 08/29/2017 Cardiovascular No palpitations 08/29/2017 Respiratory No chest congestion 08/29/2017 Respiratory No chest tightness 08/29/2017 Respiratory No cough 08/29/2017 Respiratory daytime hypersomnolence 08/29/2017 Respiratory No dyspnea 08/29/2017 Respiratory No pedal edema 08/29/2017 Respiratory snoring 08/29/2017 Gastrointestinal No abdominal pain 08/29/2017 Gastrointestinal No constipation 08/29/2017 Gastrointestinal No diarrhea 08/29/2017 Gastrointestinal No gastroesophageal reflux 08/29/2017 Gastrointestinal No nausea 08/29/2017 Gastrointestinal No vomiting 08/29/2017 Genitourinary/Nephrology No dysuria 08/29/2017 Genitourinary/Nephrology No nocturia 08/29/2017 Genitourinary/Nephrology No urinary incontinence 08/29/2017 Musculoskeletal No stiffness 08/29/2017 Musculoskeletal No swelling 08/29/2017 Musculoskeletal No muscle weakness 08/29/2017 Musculoskeletal No myalgias 08/29/2017 Dermatologic No rash 08/29/2017 Dermatologic No sores 08/29/2017 Dermatologic No scar 08/29/2017 Neurologic No alteration of consciousness 08/29/2017 Neurologic No dizziness 08/29/2017 Neurologic No headache 08/29/2017 Neurologic No neck pain 08/29/2017 Neurologic No syncope 08/29/2017 Psychiatric No anxiety 08/29/2017 Psychiatric No depression 08/29/2017 Constitutional No recent illness 05/14/2017 Constitutional No chills 05/14/2017 Constitutional No diaphoresis 05/14/2017 Constitutional No fever 05/14/2017 Eyes No eye erythema 05/14/2017 Ears/Nose/Throat/Neck No nasal allergies 05/14/2017 Ears/Nose/Throat/Neck No nasal discharge 05/14/2017 Cardiovascular No chest pain/pressure 05/14/2017 Respiratory No cough 05/14/2017 Respiratory No dyspnea 05/14/2017 Dermatologic erythema 05/14/2017 Neurologic No alteration of consciousness 05/14/2017 Neurologic No mental status change 05/14/2017 Constitutional No recent illness 02/27/2017 Constitutional No chills 02/27/2017 Constitutional fatigue 02/27/2017 Constitutional No fever 02/27/2017 Constitutional No insomnia 02/27/2017 Constitutional No malaise 02/27/2017 Eyes No blindness 02/27/2017 Eyes No vision change 02/27/2017 Ears/Nose/Throat/Neck No dental pain 02/27/2017 Ears/Nose/Throat/Neck No dizziness 02/27/2017 Ears/Nose/Throat/Neck No dysphagia 02/27/2017 Ears/Nose/Throat/Neck No headache 02/27/2017 Ears/Nose/Throat/Neck No hearing loss 02/27/2017 Ears/Nose/Throat/Neck No nasal allergies 02/27/2017 Ears/Nose/Throat/Neck No sore throat 02/27/2017 Ears/Nose/Throat/Neck No postnasal drip 02/27/2017 Ears/Nose/Throat/Neck No sinus congestion 02/27/2017 Cardiovascular No chest pain/pressure 02/27/2017 Cardiovascular No dyspnea 02/27/2017 Cardiovascular No edema 02/27/2017 Cardiovascular No exercise intolerance 02/27/2017 Cardiovascular No fatigue 02/27/2017 Cardiovascular No near-syncope/dizziness 02/27/2017 Cardiovascular No palpitations 02/27/2017 Respiratory No chest congestion 02/27/2017 Respiratory No chest tightness 02/27/2017 Respiratory No cough 02/27/2017 Respiratory daytime hypersomnolence 02/27/2017 Respiratory No dyspnea 02/27/2017 Respiratory No pedal edema 02/27/2017 Respiratory snoring 02/27/2017 Gastrointestinal No abdominal pain 02/27/2017 Gastrointestinal No constipation 02/27/2017 Gastrointestinal No diarrhea 02/27/2017 Gastrointestinal No gastroesophageal reflux 02/27/2017 Gastrointestinal No nausea 02/27/2017 Gastrointestinal No vomiting 02/27/2017 Genitourinary/Nephrology No dysuria 02/27/2017 Genitourinary/Nephrology No nocturia 02/27/2017 Genitourinary/Nephrology No urinary incontinence 02/27/2017 Musculoskeletal No stiffness 02/27/2017 Musculoskeletal No swelling 02/27/2017 Musculoskeletal No muscle weakness 02/27/2017 Musculoskeletal No myalgias 02/27/2017 Dermatologic No rash 02/27/2017 Dermatologic No sores 02/27/2017 Dermatologic No scar 02/27/2017 Neurologic No alteration of consciousness 02/27/2017 Neurologic No dizziness 02/27/2017 Neurologic No headache 02/27/2017 Neurologic No neck pain 02/27/2017 Neurologic No syncope 02/27/2017 Psychiatric No anxiety 02/27/2017 Psychiatric No depression 02/27/2017 Constitutional No recent illness 02/02/2017 Constitutional No chills 02/02/2017 Constitutional No diaphoresis 02/02/2017 Constitutional No fever 02/02/2017 Eyes No eye erythema 02/02/2017 Ears/Nose/Throat/Neck No nasal discharge 02/02/2017 Ears/Nose/Throat/Neck No nasal allergies 02/02/2017 Cardiovascular No chest pain/pressure 02/02/2017 Respiratory No cough 02/02/2017 Respiratory No dyspnea 02/02/2017 Dermatologic erythema 02/02/2017 Neurologic No alteration of consciousness 02/02/2017 Neurologic No mental status change 02/02/2017 Constitutional No recent illness 11/22/2016 Constitutional No chills 11/22/2016 Constitutional No diaphoresis 11/22/2016 Constitutional No fever 11/22/2016 Eyes No eye erythema 11/22/2016 Ears/Nose/Throat/Neck No nasal discharge 11/22/2016 Ears/Nose/Throat/Neck snoring 11/22/2016 Cardiovascular No chest pain/pressure 11/22/2016 Respiratory No cough 11/22/2016 Respiratory No dyspnea 11/22/2016 Neurologic No alteration of consciousness 11/22/2016 Neurologic No mental status change 11/22/2016 Constitutional No recent illness 08/29/2016 Constitutional No chills 08/29/2016 Constitutional fatigue 08/29/2016 Constitutional No fever 08/29/2016 Constitutional No insomnia 08/29/2016 Constitutional No malaise 08/29/2016 Eyes No blindness 08/29/2016 Eyes No vision change 08/29/2016 Ears/Nose/Throat/Neck No dental pain 08/29/2016 Ears/Nose/Throat/Neck No dizziness 08/29/2016 Ears/Nose/Throat/Neck No dysphagia 08/29/2016 Ears/Nose/Throat/Neck No headache 08/29/2016 Ears/Nose/Throat/Neck No hearing loss 08/29/2016 Ears/Nose/Throat/Neck No nasal allergies 08/29/2016 Ears/Nose/Throat/Neck No sore throat 08/29/2016 Ears/Nose/Throat/Neck No postnasal drip 08/29/2016 Ears/Nose/Throat/Neck No sinus congestion 08/29/2016 Cardiovascular No chest pain/pressure 08/29/2016 Cardiovascular No dyspnea 08/29/2016 Cardiovascular No edema 08/29/2016 Cardiovascular No exercise intolerance 08/29/2016 Cardiovascular No fatigue 08/29/2016 Cardiovascular No near-syncope/dizziness 08/29/2016 Cardiovascular No palpitations 08/29/2016 Respiratory No chest congestion 08/29/2016 Respiratory No chest tightness 08/29/2016 Respiratory No cough 08/29/2016 Respiratory daytime hypersomnolence 08/29/2016 Respiratory No dyspnea 08/29/2016 Respiratory No pedal edema 08/29/2016 Respiratory snoring 08/29/2016 Gastrointestinal No abdominal pain 08/29/2016 Gastrointestinal No constipation 08/29/2016 Gastrointestinal No diarrhea 08/29/2016 Gastrointestinal No gastroesophageal reflux 08/29/2016 Gastrointestinal No nausea 08/29/2016 Gastrointestinal No vomiting 08/29/2016 Genitourinary/Nephrology No dysuria 08/29/2016 Genitourinary/Nephrology No nocturia 08/29/2016 Genitourinary/Nephrology No urinary incontinence 08/29/2016 Musculoskeletal No stiffness 08/29/2016 Musculoskeletal No swelling 08/29/2016 Musculoskeletal No muscle weakness 08/29/2016 Musculoskeletal No myalgias 08/29/2016 Dermatologic No rash [...] 07/28/2016 Respiratory dyspnea 07/28/2016 Gastrointestinal No hemorrhoids 07/28/2016 Gastrointestinal No constipation 07/28/2016 Gastrointestinal No diarrhea 07/28/2016 Musculoskeletal No joint complaint 07/28/2016 Dermatologic No rash 07/28/2016 Dermatologic No sores 07/28/2016 Neurologic No alteration of consciousness 07/28/2016 Neurologic No mental status change 07/28/2016 Ears/Nose/Throat/Neck nasal allergies 07/28/2016 Ears/Nose/Throat/Neck nasal discharge 07/28/2016 Ears/Nose/Throat/Neck postnasal drip 07/28/2016 Ears/Nose/Throat/Neck sinus congestion 07/28/2016 Gastrointestinal No vomiting 07/28/2016 Constitutional night sweats 07/03/2016 Constitutional chills 07/03/2016 Constitutional No fever 07/03/2016 Constitutional No fatigue 07/03/2016 Eyes No vision change 07/03/2016 Eyes No blindness 07/03/2016 Eyes No eye discharge 07/03/2016 Constitutional No recent illness 07/03/2016 Constitutional No anorexia 07/03/2016 Constitutional No diaphoresis 07/03/2016 Constitutional No insomnia 07/03/2016 Constitutional No malaise 07/03/2016 Ears/Nose/Throat/Neck No dizziness 07/03/2016 Ears/Nose/Throat/Neck headache 07/03/2016 Ears/Nose/Throat/Neck No dysphagia 07/03/2016 Cardiovascular chest pain/pressure 07/03/2016 Cardiovascular dyspnea 07/03/2016 Cardiovascular No arrhythmia 07/03/2016 Cardiovascular No edema 07/03/2016 Cardiovascular No fatigue 07/03/2016 Respiratory No asthma 07/03/2016 Respiratory No productive sputum 07/03/2016 Respiratory No cigarette smoking 07/03/2016 Respiratory chest tightness 07/03/2016 Respiratory dyspnea 07/03/2016 Respiratory cough 07/03/2016 Gastrointestinal No hemorrhoids 07/03/2016 Gastrointestinal No constipation 07/03/2016 Gastrointestinal No diarrhea 07/03/2016 Genitourinary/Nephrology No dysuria 07/03/2016 Genitourinary/Nephrology No flank pain 07/03/2016 Genitourinary/Nephrology No anuria/oliguria 07/03/2016 Musculoskeletal No stiffness 07/03/2016 Musculoskeletal No swelling 07/03/2016 Musculoskeletal No back pain 07/03/2016 Musculoskeletal No bone pain 07/03/2016 Musculoskeletal No joint complaint 07/03/2016 Musculoskeletal No muscle weakness 07/03/2016 Dermatologic No rash 07/03/2016 Dermatologic No sores 07/03/2016 Neurologic No alteration of consciousness 07/03/2016 Neurologic No dizziness 07/03/2016 Neurologic No mental status change 07/03/2016 Psychiatric No anxiety 07/03/2016 Psychiatric No depression 07/03/2016 Endocrine No dry or coarse skin 07/03/2016 Endocrine No hair loss 07/03/2016 Hematologic/Lymphatic No petechiae 07/03/2016 Constitutional No recent illness 05/02/2016 Constitutional No chills 05/02/2016 Constitutional fatigue 05/02/2016 Constitutional No fever 05/02/2016 Constitutional No insomnia 05/02/2016 Constitutional No malaise 05/02/2016 Eyes No blindness 05/02/2016 Eyes No vision change 05/02/2016 Ears/Nose/Throat/Neck No dental pain 05/02/2016 Ears/Nose/Throat/Neck No dizziness 05/02/2016 Ears/Nose/Throat/Neck No dysphagia 05/02/2016 Ears/Nose/Throat/Neck No headache 05/02/2016 Ears/Nose/Throat/Neck No hearing loss 05/02/2016 Ears/Nose/Throat/Neck No nasal allergies 05/02/2016 Ears/Nose/Throat/Neck No sore throat 05/02/2016 Ears/Nose/Throat/Neck No postnasal drip 05/02/2016 Ears/Nose/Throat/Neck No sinus congestion 05/02/2016 Cardiovascular No chest pain/pressure 05/02/2016 Cardiovascular No dyspnea 05/02/2016 Cardiovascular No edema 05/02/2016 Cardiovascular No exercise intolerance 05/02/2016 Cardiovascular No fatigue 05/02/2016 Cardiovascular No near-syncope/dizziness 05/02/2016 Cardiovascular No palpitations 05/02/2016 Respiratory No chest congestion 05/02/2016 Respiratory No chest tightness 05/02/2016 Respiratory No cough 05/02/2016 Respiratory No dyspnea 05/02/2016 Respiratory No pedal edema 05/02/2016 Gastrointestinal No abdominal pain 05/02/2016 Gastrointestinal No constipation 05/02/2016 Gastrointestinal No diarrhea 05/02/2016 Gastrointestinal No gastroesophageal reflux 05/02/2016 Gastrointestinal No nausea 05/02/2016 Gastrointestinal No vomiting 05/02/2016 Genitourinary/Nephrology No dysuria 05/02/2016 Genitourinary/Nephrology No nocturia 05/02/2016 Genitourinary/Nephrology No urinary incontinence 05/02/2016 Musculoskeletal No stiffness 05/02/2016 Musculoskeletal No swelling 05/02/2016 Musculoskeletal No muscle weakness 05/02/2016 Musculoskeletal No myalgias 05/02/2016 Dermatologic No rash 05/02/2016 Dermatologic No sores 05/02/2016 Dermatologic No scar 05/02/2016 Neurologic No alteration of consciousness 05/02/2016 Neurologic No dizziness 05/02/2016 Neurologic No headache 05/02/2016 Neurologic No neck pain 05/02/2016 Neurologic No syncope 05/02/2016 Psychiatric No anxiety 05/02/2016 Psychiatric No depression 05/02/2016 Respiratory daytime hypersomnolence 05/02/2016 Respiratory snoring 05/02/2016 Constitutional No recent illness 11/02/2015 Constitutional No chills 11/02/2015 Constitutional No fatigue 11/02/2015 Constitutional No fever 11/02/2015 Ears/Nose/Throat/Neck No dizziness 11/02/2015 Ears/Nose/Throat/Neck No headache 11/02/2015 Cardiovascular No chest pain/pressure 11/02/2015 Cardiovascular No near-syncope/dizziness 11/02/2015 Cardiovascular No palpitations 11/02/2015 Respiratory No chest congestion 11/02/2015 Respiratory No cough 11/02/2015 Gastrointestinal No abdominal pain 11/02/2015 Gastrointestinal No constipation 11/02/2015 Gastrointestinal No diarrhea 11/02/2015 Gastrointestinal No nausea 11/02/2015 Gastrointestinal No vomiting 11/02/2015 Genitourinary/Nephrology No dysuria 11/02/2015 Musculoskeletal No stiffness 11/02/2015 Musculoskeletal No swelling 11/02/2015 Musculoskeletal No muscle weakness 11/02/2015 Musculoskeletal No myalgias 11/02/2015 Dermatologic No rash 11/02/2015 Dermatologic No scar 11/02/2015 Neurologic No alteration of consciousness 11/02/2015 Psychiatric No anxiety 11/02/2015 Psychiatric No depression 11/02/2015 Eyes No blindness 11/02/2015 Eyes No vision change 11/02/2015 Constitutional No insomnia 11/02/2015 Constitutional No malaise 11/02/2015 Ears/Nose/Throat/Neck No dental pain 11/02/2015 Ears/Nose/Throat/Neck No dysphagia 11/02/2015 Ears/Nose/Throat/Neck No hearing loss 11/02/2015 Ears/Nose/Throat/Neck No nasal allergies 11/02/2015 Ears/Nose/Throat/Neck No sore throat 11/02/2015 Ears/Nose/Throat/Neck No postnasal drip 11/02/2015 Ears/Nose/Throat/Neck No sinus congestion 11/02/2015 Cardiovascular No dyspnea 11/02/2015 Cardiovascular No edema 11/02/2015 Cardiovascular No exercise intolerance 11/02/2015 Cardiovascular No fatigue 11/02/2015 Respiratory No chest tightness 11/02/2015 Respiratory No dyspnea 11/02/2015 Respiratory No pedal edema 11/02/2015 Gastrointestinal No gastroesophageal reflux 11/02/2015 Genitourinary/Nephrology No nocturia 11/02/2015 Genitourinary/Nephrology No urinary incontinence 11/02/2015 Dermatologic No sores 11/02/2015 Neurologic No dizziness 11/02/2015 Neurologic No headache 11/02/2015 Neurologic No neck pain 11/02/2015 Neurologic No syncope 11/02/2015 Constitutional No chills 05/04/2015 Constitutional No fatigue 05/04/2015 Constitutional No fever 05/04/2015 Constitutional No recent illness 05/04/2015 Ears/Nose/Throat/Neck No dizziness 05/04/2015 Ears/Nose/Throat/Neck No headache 05/04/2015 Cardiovascular No chest pain/pressure 05/04/2015 Cardiovascular No near-syncope/dizziness 05/04/2015 Cardiovascular No palpitations 05/04/2015 Respiratory No chest congestion 05/04/2015 Respiratory No cough 05/04/2015 Gastrointestinal No abdominal pain 05/04/2015 Gastrointestinal No constipation 05/04/2015 Gastrointestinal No diarrhea 05/04/2015 Gastrointestinal No nausea 05/04/2015 Gastrointestinal No vomiting 05/04/2015 Genitourinary/Nephrology No dysuria 05/04/2015 Neurologic No alteration of consciousness 05/04/2015 Psychiatric No anxiety 05/04/2015 Psychiatric No depression 05/04/2015 Dermatologic No rash 05/04/2015 Dermatologic No scar 05/04/2015 Musculoskeletal No stiffness 05/04/2015 Musculoskeletal No swelling 05/04/2015 Musculoskeletal No muscle weakness 05/04/2015 Musculoskeletal No myalgias 05/04/2015 Physical Exam Exam Name System Name Item Name Status Result Effective Dates Notes Full Exam - General 1994 Constitutional general appearance Development: well developed 02/25/2019 None Full Exam - General 1994 Constitutional general appearance Development: appears stated age 0602/25/2019 None Full Exam - General 1994 Constitutional general appearance Hygiene/Attention to Grooming: good hygiene 02/25/2019 None Full Exam - General 1994 Eyes conjunctiva/eyelids Overall: conjunctiva clear 02/25/2019 None Full Exam - General 1994 Eyes conjunctiva/eyelids Overall: cornea clear 02/25/2019 None Full Exam - General 1994 Eyes conjunctiva/eyelids Overall: eyelids normal 02/25/2019 None Full Exam - General 1994 Eyes pupils and irises Overall: pupils equal, round, reactive to light and accomodation 02/25/2019 None Full Exam - General 1994 Ears/Nose/Throat otoscopic exam Overall: external auditory canals clear 02/25/2019 None Full Exam - General 1994 Ears/Nose/Throat otoscopic exam Overall: tympanic membranes clear 02/25/2019 None Full Exam - General 1994 Ears/Nose/Throat lips/teeth/gingiva Overall: benign lips 02/25/2019 None Full Exam - General 1994 Ears/Nose/Throat lips/teeth/gingiva Overall: normal dentition 02/25/2019 None Full Exam - General 1994 Ears/Nose/Throat oral cavity/pharynx/larynx Overall: oral mucosa clear 02/25/2019 None Full Exam - General 1994 Ears/Nose/Throat oral cavity/pharynx/larynx Overall: oropharyngeal mucosa clear 02/25/2019 None Full Exam - General 1994 Ears/Nose/Throat oral cavity/pharynx/larynx Overall: hypopharynx benign 02/25/2019 None Full Exam - General 1994 Ears/Nose/Throat oral cavity/pharynx/larynx Overall: no masses 02/25/2019 None Full Exam - General 1994 Respiratory auscultation Overall: breath sounds clear bilaterally 02/25/2019 None Full Exam - General 1994 Respiratory respiratory effort/rhythm Overall: no retractions 02/25/2019 None Full Exam - General 1994 Respiratory respiratory effort/rhythm Overall: normal rate 02/25/2019 None Full Exam - General 1994 Cardiovascular extremities Overall: no clubbing 02/25/2019 None Full Exam - General 1994 Cardiovascular auscultation of heart Overall: regular rate 02/25/2019 None Full Exam - General 1994 Cardiovascular auscultation of heart Overall: normal heart sounds 02/25/2019 None Full Exam - General 1994 Abdomen abdominal exam Overall: no tenderness 02/25/2019 None Full Exam - General 1994 Abdomen abdominal exam Overall: normal bowel sounds 02/25/2019 None Full Exam - General 1994 Lymphatic neck nodes Overall: anterior cervical chain benign 02/25/2019 None Full Exam - General 1994 Musculoskeletal spine, ribs and pelvis Overall: good posture 02/25/2019 None Full Exam - General 1994 Musculoskeletal head and neck Overall: head atraumatic 02/25/2019 None Full Exam - General 1994 Musculoskeletal head and neck Overall: cervical spine benign 02/25/2019 None Full Exam - General 1994 Neurologic cranial nerves Overall: crainial nerves 2 - 12 grossly intact 02/25/2019 None Full Exam - General 1994 Psychiatric orientation/consciousness Overall: oriented to person, place and time 02/25/2019 None Full Exam - General 1994 Psychiatric mood and affect Overall: normal mood and affect 02/25/2019 None Full Exam - General 1994 Constitutional general appearance Development: well developed 08/27/2018 None Full Exam - General 1994 Constitutional general appearance Development: appears stated age 1208/27/2018 None Full Exam - General 1994 Constitutional general appearance Hygiene/Attention to Grooming: good hygiene 08/27/2018 None Full Exam - General 1994 Eyes conjunctiva/eyelids Overall: conjunctiva clear 08/27/2018 None Full Exam - General 1994 Eyes conjunctiva/eyelids Overall: cornea clear 08/27/2018 None Full Exam - General 1994 Eyes conjunctiva/eyelids Overall: eyelids normal 08/27/2018 None Full Exam - General 1994 Eyes pupils and irises Overall: pupils equal, round, reactive to light and accomodation 08/27/2018 None Full Exam - General 1994 Ears/Nose/Throat otoscopic exam Overall: external auditory canals clear 08/27/2018 None Full Exam - General 1994 Ears/Nose/Throat otoscopic exam Overall: tympanic membranes clear 08/27/2018 TTPover bialteral sinus cavities Full Exam - General 1994 Ears/Nose/Throat lips/teeth/gingiva Overall: benign lips 08/27/2018 None Full Exam - General 1995 Ears/Nose/Throat lips/teeth/gingiva Overall: normal dentition 08/27/2018 None Full Exam - General 1994 Ears/Nose/Throat oral cavity/pharynx/larynx Overall: oral mucosa clear 08/27/2018 None Full Exam - General 1994 Ears/Nose/Throat oral cavity/pharynx/larynx Overall: oropharyngeal mucosa clear 08/27/2018 None Full Exam - General 1994 Ears/Nose/Throat oral cavity/pharynx/larynx Overall: hypopharynx benign 08/27/2018 None Full Exam - General 1994 Ears/Nose/Throat oral cavity/pharynx/larynx Overall: no masses 08/27/2018 None Full Exam - General 1994 Respiratory auscultation Overall: breath sounds clear bilaterally 08/27/2018 None Full Exam - General 1994 Respiratory respiratory effort/rhythm Overall: no retractions 08/27/2018 None Full Exam - General 1994 Respiratory respiratory effort/rhythm Overall: normal rate 08/27/2018 None Full Exam - General 1994 Cardiovascular extremities Overall: no clubbing 08/27/2018 None Full Exam - General 1994 Cardiovascular auscultation of heart Overall: regular rate 08/27/2018 None Full Exam - General 1994 Cardiovascular auscultation of heart Overall: normal heart sounds 08/27/2018 None Full Exam - General 1994 Abdomen abdominal exam Overall: no tenderness 08/27/2018 None Full Exam - General 1994 Abdomen abdominal exam Overall: normal bowel sounds 08/27/2018 None Full Exam - General 1994 Lymphatic neck nodes Overall: anterior cervical chain benign 08/27/2018 None Full Exam - General 1994 Musculoskeletal spine, ribs and pelvis Overall: good posture 08/27/2018 None Full Exam - General 1994 Musculoskeletal head and neck Overall: head atraumatic 08/27/2018 None Full Exam - General 1994 Musculoskeletal head and neck Overall: cervical spine benign 08/27/2018 None Full Exam - General 1994 Neurologic cranial nerves Overall: crainial nerves 2 - 12 grossly intact 08/27/2018 None Full Exam - General 1994 Psychiatric orientation/consciousness Overall: oriented to person, place and time 08/27/2018 None Full Exam - General 1994 Psychiatric mood and affect Overall: normal mood and affect 08/27/2018 None Full Exam - General 1994 Constitutional general appearance Development: well developed 02/26/2018 None Full Exam - General 1994 Constitutional general appearance Development: appears stated age 0602/26/2018 None Full Exam - General 1994 Constitutional general appearance Hygiene/Attention to Grooming: good hygiene 02/26/2018 None Full Exam - General 1994 Eyes conjunctiva/eyelids Overall: conjunctiva clear 02/26/2018 None Full Exam - General 1994 Eyes conjunctiva/eyelids Overall: cornea clear 02/26/2018 None Full Exam - General 1994 Eyes conjunctiva/eyelids Overall: eyelids normal 02/26/2018 None Full Exam - General 1994 Eyes pupils and irises Overall: pupils equal, round, reactive to light and accomodation 02/26/2018 None Full Exam - General 1994 Ears/Nose/Throat otoscopic exam Overall: external auditory canals clear 02/26/2018 None Full Exam - General 1994 Ears/Nose/Throat otoscopic exam Overall: tympanic membranes clear 02/26/2018 TTPover bialteral sinus cavities Full Exam - General 1994 Ears/Nose/Throat lips/teeth/gingiva Overall: benign lips 02/26/2018 None Full Exam - General 1994 Ears/Nose/Throat lips/teeth/gingiva Overall: normal dentition 02/26/2018 None Full Exam - General 1994 Ears/Nose/Throat oral cavity/pharynx/larynx Overall: oral mucosa clear 02/26/2018 None Full Exam - General 1994 Ears/Nose/Throat oral cavity/pharynx/larynx Overall: oropharyngeal mucosa clear 02/26/2018 None Full Exam - General 1994 Ears/Nose/Throat oral cavity/pharynx/larynx Overall: hypopharynx benign 02/26/2018 None Full Exam - General 1994 Ears/Nose/Throat oral cavity/pharynx/larynx Overall: no masses 02/26/2018 None Full Exam - General 1994 Respiratory auscultation Overall: breath sounds clear bilaterally 02/26/2018 None Full Exam - General 1994 Respiratory respiratory effort/rhythm Overall: no retractions 02/26/2018 None Full Exam - General 1994 Respiratory respiratory effort/rhythm Overall: normal rate 02/26/2018 None Full Exam - General 1994 Cardiovascular extremities Overall: no clubbing 02/26/2018 None Full Exam - General 1994 Cardiovascular auscultation of heart Overall: regular rate 02/26/2018 None Full Exam - General 1994 Cardiovascular auscultation of heart Overall: normal heart sounds 02/26/2018 None Full Exam - General 1994 Abdomen abdominal exam Overall: no tenderness 02/26/2018 None Full Exam - General 1994 Abdomen abdominal exam Overall: normal bowel sounds 02/26/2018 None Full Exam - General 1994 Lymphatic neck nodes Overall: anterior cervical chain benign 02/26/2018 None Full Exam - General 1994 Musculoskeletal spine, ribs and pelvis Overall: good posture 02/26/2018 None Full Exam - General 1994 Musculoskeletal head and neck Overall: head atraumatic 02/26/2018 None Full Exam - General 1994 Musculoskeletal head and neck Overall: cervical spine benign 02/26/2018 None Full Exam - General 1994 Neurologic cranial nerves Overall: crainial nerves 2 - 12 grossly intact 02/26/2018 None Full Exam - General 1994 Psychiatric orientation/consciousness Overall: oriented to person, place and time 02/26/2018 None Full Exam - General 1994 Psychiatric mood and affect Overall: normal mood and affect 02/26/2018 None Full Exam - ENT Constitutional general appearance Overall: well nourished 02/13/2018 None Full Exam - ENT Constitutional general appearance Overall: well developed 02/13/2018 None Full Exam - ENT Constitutional general appearance Overall: in no acute distress 02/13/2018 None Full Exam - ENT Ears/Nose/Throat otoscopic exam Overall: external auditory canals normal 02/13/2018 None Full Exam - ENT Ears/Nose/Throat otoscopic exam Left tympanic membrane: air-fluid level 02/13/2018 None Full Exam - ENT Ears/Nose/Throat otoscopic exam Right tympanic membrane: air-fluid level 02/13/2018 None Full Exam - ENT Ears/Nose/Throat nasal mucosa, septum, turbinates Drainage: clear 02/13/2018 None Full Exam - ENT Ears/Nose/Throat nasal mucosa, septum, turbinates Drainage: yellow 02/13/2018 None Full Exam - ENT Ears/Nose/Throat lips/teeth/gingiva Overall: benign lips 02/13/2018 None Full Exam - ENT Ears/Nose/Throat oropharynx Posterior Pharynx: clear post nasal drainage 02/13/2018 None Full Exam - ENT Face and Head palpation Left maxillary sinus: tender 02/13/2018 None Full Exam - ENT Face and Head palpation Right maxillary sinus: tender 02/13/2018 None Full Exam - ENT Respiratory inspection Overall: no retractions 02/13/2018 None Full Exam - ENT Respiratory inspection Overall: normal rate 02/13/2018 None Full Exam - ENT Respiratory auscultation Overall: breath sounds clear bilaterally 02/13/2018 None Full Exam - ENT Cardiovascular auscultation of heart Overall: regular rate 02/13/2018 None Full Exam - ENT Cardiovascular auscultation of heart Overall: normal heart sounds 02/13/2018 None Full Exam - ENT Lymphatic palpation of lymph nodes Overall: anterior cervical chain benign 02/13/2018 None Full Exam - ENT Lymphatic palpation of lymph nodes Overall: posterior cervical chain benign 02/13/2018 None Full Exam - ENT Neurologic mood and affect Overall: normal mood 02/13/2018 None Full Exam - ENT Neurologic mood and affect Overall: normal affect 02/13/2018 None Full Exam - ENT Neurologic orientation Overall: oriented to person, place and time 02/13/2018 None Full Exam - General 1994 Constitutional general appearance Development: well developed 08/29/2017 None Full Exam - General 1994 Constitutional general appearance Development: appears stated age 1208/29/2017 None Full Exam - General 1994 Constitutional general appearance Hygiene/Attention to Grooming: good hygiene 08/29/2017 None Full Exam - General 1994 Eyes conjunctiva/eyelids Overall: conjunctiva clear 08/29/2017 None Full Exam - General 1994 Eyes conjunctiva/eyelids Overall: cornea clear 08/29/2017 None Full Exam - General 1994 Eyes conjunctiva/eyelids Overall: eyelids normal 08/29/2017 None Full Exam [...] 05/14/2017 None Full Exam - Dermatology Eyes conjunctiva/eyelids Overall: clear conjunctiva bilaterally 05/14/2017 None Full [...] 05/14/2017 None Full Exam - Dermatology Eyes conjunctiva/eyelids Overall: normal eyelids 05/14/2017 None Full Exam [...] None Full Exam - General 1994 Eyes conjunctiva/eyelids Overall: conjunctiva clear 02/27/2017 None Full Exam - General 1994 Eyes conjunctiva/eyelids Overall: cornea clear 02/27/2017 None Full Exam - General 1994 Eyes conjunctiva/eyelids Overall: eyelids normal 02/27/2017 None Full Exam [...] 02/02/2017 None Full Exam - Dermatology Eyes conjunctiva/eyelids Overall: clear conjunctiva bilaterally 02/02/2017 None Full [...] None Full Exam - General 1994 Eyes conjunctiva/eyelids Overall: conjunctiva clear 11/22/2016 None Full Exam - General 1994 Eyes conjunctiva/eyelids Overall: eyelids normal 11/22/2016 None Full Exam [...] None Full Exam - General 1994 Eyes conjunctiva/eyelids Overall: conjunctiva clear 08/29/2016 None Full Exam - General 1994 Eyes conjunctiva/eyelids Overall: cornea clear 08/29/2016 None Full Exam - General 1994 Eyes conjunctiva/eyelids Overall: eyelids normal 08/29/2016 None Full Exam [...] None Full Exam - General 1994 Eyes conjunctiva/eyelids Overall: conjunctiva clear 07/28/2016 None Full Exam - General 1994 Eyes conjunctiva/eyelids Overall: cornea clear 07/28/2016 None Full Exam - General 1994 Eyes conjunctiva/eyelids Overall: eyelids normal 07/28/2016 None Full Exam [...] General 1994 Ears/Nose/Throat otoscopic exam Tympanic membrane: air-fluid level 07/28/2016 None Full Exam - General [...] None Full Exam - General 1994 Eyes conjunctiva/eyelids Overall: conjunctiva clear 07/03/2016 None Full Exam - General 1994 Eyes conjunctiva/eyelids Overall: cornea clear 07/03/2016 None Full Exam - General 1994 Eyes conjunctiva/eyelids Overall: eyelids normal 07/03/2016 None Full Exam [...] None Full Exam - General 1994 Eyes conjunctiva/eyelids Overall: conjunctiva clear 05/02/2016 None Full Exam - General 1994 Eyes conjunctiva/eyelids Overall: cornea clear 05/02/2016 None Full Exam - General 1994 Eyes conjunctiva/eyelids Overall: eyelids normal 05/02/2016 None Full Exam [...] None Full Exam - General 1994 Eyes conjunctiva/eyelids Overall: conjunctiva clear 11/02/2015 None Full Exam - General 1994 Eyes conjunctiva/eyelids Overall: cornea clear 11/02/2015 None Full Exam - General 1994 Eyes conjunctiva/eyelids Overall: eyelids normal 11/02/2015 None Full Exam [...] 05/04/2015 None Full Exam - Cardiology Eyes conjunctiva/eyelids Overall: conjunctiva clear 05/04/2015 None Full Exam [...] Cardiology Neurologic cranial nerves Overall: cranial nerves 1-12 intact 05/04/2015 None Full Exam - Cardiology Psychiatric orientation/consciousness Overall: oriented to person, place and time 05/04/2015 None Full Exam - Cardiology Musculoskeletal back Overall: good posture 05/04/2015 None Full Exam - Cardiology Musculoskeletal back Overall: spine benign 05/04/2015 None Procedures Procedure Codes Date ADMIN PNEUMOCOCCAL VACCINE SNOMED CT: 49345002 CPT-4: G0009 08/27/2018 Pneumococcal Polysaccharide Vaccine, 23-Valent, Ad CPT-4: 61936 08/27/2018 ROCEPHIN, PER 250 MG CPT- 4: J0696 02/26/2018 THER/PROPH/DIAG INJ SC/IM CPT-4: 20263 02/26/2018 TRIAMCINOLONE ACET INJ NOS CPT-4: J3301 02/13/2018 THER/PROPH/DIAG INJ SC/IM CPT-4: 35006 02/13/2018 TRIAMCINOLONE ACET INJ NOS CPT-4: J3301 07/03/2016 PNEUMOCOCCAL VACC [address]: 12602673 CPT-4: 73028 11/02/2015 IMMUNIZATION ADMIN CPT- 4: 92004 11/02/2015 Vital Signs Date Vital 02/25/2019 Blood Pressure 1: 106/60 Code: 8480-6 BMI: 25.8 Code: 81079-6 Heart Rate 1: 75 bpm Height: 5'2" SpO2: 96% Weight: 141 lbs 08/27/2018 Blood Pressure 1: 146/82 Code: 8480-6 BMI: 25.8 Code: 20389-9 Heart Rate 1: 67 bpm Height: 5'2" SpO2: 97% Weight: 141 lbs 02/26/2018 Blood Pressure 1: 132/80 Code: 8480-6 BMI: 25.8 Code: 22177-6 Heart Rate 1: 76 bpm Height: 5'2" SpO2: 97% Temperature: 36.9 (C) / 98.4 (F) Weight: 141 lbs 02/13/2018 Blood Pressure 1: 130/78 Code: 8480-6 BMI: 26.3 Code: 92964-3 Heart Rate 1: 80 bpm Height: 5'2" SpO2: 93% Temperature: 36.9 (C) / 98.4 (F) Weight: 144 lbs 08/29/2017 Blood Pressure 1: 126/78 Code: 8480-6 BMI: 26.3 Code: 45561-0 Heart Rate 1: 80 bpm Height: 5'2" SpO2: 97% Weight: 144 lbs 05/14/2017 Blood Pressure 1: 128/70 Code: 8480-6 BMI: 26.5 Code: 14939-5 Heart Rate 1: 84 bpm Height: 5'2" SpO2: 97% Weight: 145 lbs 02/27/2017 Blood Pressure 1: 130/82 Code: 8480-6 BMI: 26.3 Code: 94825-2 Heart Rate 1: 82 bpm Height: 5'2" SpO2: 96% Weight: 144 lbs 02/02/2017 Blood Pressure 1: 142/76 Code: 8480-6 BMI: 26.3 Code: 03017-3 Heart Rate 1: 80 bpm Height: 5'2" SpO2: 97% Weight: 144 lbs 11/22/2016 Blood Pressure 1: 134/72 Code: 8480-6 BMI: 27.1 Code: 82311-7 Heart Rate 1: 76 bpm Height: 5'2" SpO2: 97% Weight: 148 lbs 08/29/2016 Blood Pressure 1: 120/80 Code: 8480-6 BMI: 26.0 Code: 46439-5 Heart Rate 1: 74 bpm Height: 5'2" SpO2: 97% Weight: 142 lbs 07/28/2016 Blood Pressure 1: 134/72 Code: 8480-6 BMI: 25.7 Code: 11116-6 Heart Rate 1: 81 bpm Height: 5'2" SpO2: 98% Temperature: 37.1 (C) / 98.7 (F) Weight: 140 lbs 8 oz 07/03/2016 Blood Pressure 1: 136/80 Code: 8480-6 Heart Rate 1: 86 bpm SpO2: 98% Temperature: 36.7 (C) / 98.0 (F) 05/02/2016 Blood Pressure 1: 124/78 Code: 8480-6 BMI: 26.3 Code: 64545-3 Heart Rate 1: 74 bpm Height: 5'2" SpO2: 98% Weight: 144 lbs 11/02/2015 Blood Pressure 1: 118/78 Code: 8480-6 BMI: 26.5 Code: 60256-1 Heart Rate 1: 79 bpm Height: 5'2" SpO2: 98% Weight: 145 lbs 05/04/2015 Blood Pressure 1: 132/64 Code: 8480-6 BMI: 25.2 Code: 38118-4 Heart Rate 1: 75 bpm Height: 5'2" SpO2: 97% Weight: 138 lbs Functional Status No Functional Status data History of Present Illness Symptom Name Status Result Effective Date Notes Onset and Resolution gradual in onset 02/25/2019 None Onset of Symptom during adulthood 02/25/2019 None Significant Medications statin 02/25/2019 None Alleviating Factors medication 02/25/2019 None Exacerbating Factors diet 02/25/2019 None Quality chronic 02/25/2019 None Quality primary hypertension 02/25/2019 None Quality stable 02/25/2019 None Onset and Resolution ongoing 02/25/2019 None Onset of Symptom during adulthood 02/25/2019 None Blood Pressure Values patient checking blood pressure at home - did not bring in readings 02/25/2019 None Alleviating Factors medication 02/25/2019 None Pertinent Findings Denies dizziness 02/25/2019 None Pertinent Findings Denies dyspnea 02/25/2019 None Pertinent Findings Denies edema 02/25/2019 None Onset and Resolution gradual in onset 08/27/2018 None Onset of Symptom during adulthood 08/27/2018 None Significant Medications statin 08/27/2018 None Alleviating Factors medication 08/27/2018 None Exacerbating Factors diet 08/27/2018 None Quality chronic 08/27/2018 None Quality primary hypertension 08/27/2018 None Quality stable 08/27/2018 None Onset and Resolution ongoing 08/27/2018 None Onset of Symptom during adulthood 08/27/2018 None Blood Pressure Values patient checking blood pressure at home - did not bring in readings 08/27/2018 None Alleviating Factors medication 08/27/2018 None Pertinent Findings Denies dizziness 08/27/2018 None Pertinent Findings Denies dyspnea 08/27/2018 None Pertinent Findings Denies edema 08/27/2018 None Location in the throat 08/27/2018 None Onset of Symptom 4 weeks ago 08/27/2018 None Pertinent Findings chest discomfort 08/27/2018 None Pertinent Findings Denies dyspnea 08/27/2018 None Pertinent Findings Denies fever 08/27/2018 None Onset and Resolution resolved 08/27/2018 None hyperlipidemia Onset and Resolution gradual in onset 02/26/2018 None hyperlipidemia Onset of Symptom during adulthood 02/26/2018 None hyperlipidemia Significant Medications statin 02/26/2018 None hyperlipidemia Alleviating Factors medication 02/26/2018 None hyperlipidemia Exacerbating Factors diet 02/26/2018 None hypertension Quality chronic 02/26/2018 None hypertension Quality primary hypertension 02/26/2018 None hypertension Quality stable 02/26/2018 None hypertension Onset and Resolution ongoing 02/26/2018 None hypertension Onset of Symptom during adulthood 02/26/2018 None hypertension Blood Pressure Values patient checking blood pressure at home - did not bring in readings 02/26/2018 None hypertension Alleviating Factors medication 02/26/2018 None hypertension Pertinent Findings Denies dizziness 02/26/2018 None hypertension Pertinent Findings Denies dyspnea 02/26/2018 None hypertension Pertinent Findings Denies edema 02/26/2018 None cough Location in the throat 02/26/2018 None cough Quality interrupts sleep 02/26/2018 None cough Onset and Resolution sudden in onset 02/26/2018 None cough Onset of Symptom 4 weeks ago 02/26/2018 None cough Pertinent Findings chest discomfort 02/26/2018 None cough Pertinent Findings Denies dyspnea 02/26/2018 None cough Pertinent Findings Denies fever 02/26/2018 None cough Location in the lung 02/13/2018 None cough Quality acute 02/13/2018 None cough Quality dry 02/13/2018 None cough Onset and Resolution ongoing 02/13/2018 None cough Onset of Symptom 2 weeks ago 02/13/2018 None cough Limitation on Activities does not limit activities 02/13/2018 None cough Triggers no known associated factors 02/13/2018 None cough Pertinent Findings chest discomfort 02/13/2018 None cough Pertinent Findings Denies chills 02/13/2018 None cough Pertinent Findings Denies dyspnea 02/13/2018 None cough Pertinent Findings Denies family history of allergies 02/13/2018 None cough Pertinent Findings Denies fever 02/13/2018 None cough Pertinent Findings hoarseness 02/13/2018 None cough Pertinent Findings Denies muscle aches 02/13/2018 None cough Pertinent Findings Denies nasal congestion 02/13/2018 None cough Pertinent Findings Denies post nasal drip 02/13/2018 None cough Pertinent Findings Denies sputum production 02/13/2018 None cough Pertinent Findings Denies weakness 02/13/2018 None hyperlipidemia Onset and Resolution gradual in [...] right cheek and eyebrow rash Color red 05/14/2017 None rash Onset and Resolution sudden in [...] 02/27/2017 None rash Location-Head/Neck on the right hoahaoism 02/02/2017 None rash Color red 02/02/2017 None rash Onset and Resolution sudden in [...] data Encounters Encounter Performer Location Codes Date [id number]) [id number] EST. PATIENT, LEVEL IV Diagnosis: Mixed hyperlipidemia[ICD10: E78.2] Aparna Dunn MD, [facility] CPT- 4: 86939 02/25/2019 [id number]) [id number] EST. PATIENT, LEVEL IV Diagnosis: Essential (primary) hypertension[ICD10: I10] Diagnosis: Mixed hyperlipidemia[ICD10: E78.2] Diagnosis: Encounter for immunization[ICD10: Z23] [facility] CPT-4: 60072 08/27/[id number]) [id number] EST. PATIENT, LEVEL IV Diagnosis: Essential (primary) hypertension[ICD10: I10] Diagnosis: Mixed hyperlipidemia[ICD10: E78.2] Diagnosis: Cough[ICD10: R05] Diagnosis: Acute recurrent frontal sinusitis[ICD10: J01.11] [facility] CPT-4: 72451 02/26/2018 [id number] EST. PATIENT, LEVEL IV Diagnosis: Other allergic rhinitis[ICD10: J30.89] Diagnosis: Acute laryngopharyngitis[ICD10: J06.0] [facility] CPT- 4: 88142 02/13/2018 ([id number]) [id number] EST. PATIENT, LEVEL IV Diagnosis: Obstructive sleep apnea (adult) (pediatric)[ICD10: G47.33] Diagnosis: Iron deficiency[ICD10: E61.1] Diagnosis: Mixed hyperlipidemia[ICD10: E78.2] Diagnosis: Essential (primary) hypertension[ICD10: I10] Aparna Dunn MD, [facility] CPT-4: 42106 08/29/2017 74445 EST. PATIENT, LEVEL III Diagnosis: Cellulitis of face[ICD10: L03.211] Loretta Dunn MD, [facility] CPT-4: 59724 05/14/2017 ([id number]) 80721 EST. PATIENT, LEVEL IV Diagnosis: Essential (primary) hypertension[ICD10: I10] Diagnosis: Mixed hyperlipidemia[ICD10: E78.2] Diagnosis: Obstructive sleep apnea (adult) (pediatric)[ICD10: G47.33] Aparna Dunn MD, [facility] CPT-4: 94170 02/27/2017 [id number] EST. PATIENT, LEVEL III Diagnosis: Cellulitis of face[ICD10: L03.211] Loretta Dunn MD, [facility] CPT-4: 04737 02/02/2017 [id number] EST. PATIENT, LEVEL III Diagnosis: Other insomnia[ICD10: G47.09] Loretta Dunn MD, [facility] CPT-4: 65821 11/22/2016 ([id number]) 25459 EST. PATIENT, LEVEL IV Diagnosis: Essential (primary) hypertension[ICD10: I10] Diagnosis: Mixed hyperlipidemia[ICD10: E78.2] Aparna Dunn MD, [facility] CPT- 4: 74246 08/29/2016 33764 EST. PATIENT, LEVEL IV Diagnosis: Acute laryngopharyngitis[ICD10: J06.0] Diagnosis: Cough[ICD10: R05] Loretta Dunn MD, [facility] CPT-4: 79022 07/28/2016 ([id number]) 59446 EST. PATIENT, LEVEL III Diagnosis: Cough[ICD10: R05] Diagnosis: Acute bronchitis, unspecified[ICD10: J20.9] Judy Dunn MD, [facility] CPT-4: 99040 07/03/2016 ([id number]) 68104 EST. PATIENT, LEVEL IV Diagnosis: Essential (primary) hypertension[ICD10: I10] Diagnosis: Mixed hyperlipidemia[ICD10: E78.2] Diagnosis: Snoring[ICD10: R06.83] Aparna Dunn MD, [facility] CPT-4: 25787 05/02/2016 ([id number]) 39095 EST. PATIENT, LEVEL IV Diagnosis: Essential (primary) hypertension[ICD10: I10] Diagnosis: Mixed hyperlipidemia[ICD10: E78.2] Diagnosis: Encounter for immunization[ICD10: Z23] [facility] CPT-4: 60239 11/02/2015 ([id number]) Miscellaneous no charge Diagnosis: Tick bite[ICD9: 919.4] [facility] CPT-4: 10421 05/20/2015 ([id number]) OFFICE VISIT, NEW - LEVEL 4 Diagnosis: ESSENTIAL HYPERTENSION[ICD9: 401.9] Diagnosis: ENCNTR LONG-RX USE NEC[ICD9: V58.69] Diagnosis: HYPERLIPIDEMIA[ICD9: 272.4] [facility] CPT-4: 83484 05/04/2015 Plan of Care Planned Activity Notes Codes Status Date Visit Plan: Hyperlipidemia - pt has been counseled about [...] to assure normal liver response to medications. referral to dr. kwok for colonoscopy 02/25/2019 Patient Education: Patient Medication Summary Completed 02/25/2019 Patient Education: Cholesterol Management Completed 02/25/2019 Patient Education: Patient Medication Summary Completed 09/24/2018 Care Plan: SCREENINGMAMMOGRAPHYDIGITAL LOINC : 46345-4 Pending 09/24/2018 Visit Plan: Hypertension - well controlled - [...] to assure normal liver response to medications. pneumovax shot today 08/27/2018 Appointment: Aparna Dunn WPtel: [phone] [facility] (15 min) Moderate 08/27/2018 Patient Education: Patient Medication Summary Completed 08/27/2018 Patient Education: Hypertension Completed 08/27/2018 Visit Plan: Hypertension - well controlled - [...] to assure normal liver response to medications. Sinusitis - Pt has acute infection - pain in face, maxillary region, Pt informed to use decongestant, RX given to patient, sinus rinses also recommended. Call if symptoms do not show improvement. 02/26/2018 App[facility]ment: [facility] [phone] [facility] (15 min) Moderate 02/26/2018 Patient Education: Patient Medication Summary Completed 02/26/2018 Visit Plan: Allergies - chronic - recommended [...] any worse. RX sent to patient's pharmacy. 02/13/2018 Appointment: Loretta Fountain WPtel: [phone] [facility] (30 min) Complex 02/13/2018 Patient Education: Patient Medication Summary Completed 02/13/2018 Visit Plan: Hypertension - well controlled - [...] refilled acyclovir 08/29/2017 Appointment: [facility]par[facility] Dunn [facility]Ptel[facility] [phone] [facility] (15 min) Moderate 08/29/2017 Patient Education: Patient [...] in pain. 05/14/2017 [phone] ([facility] Complex 05/14/2017 Patient [...] to medications. 02/27/2017 Appointment: Aparna Dunn [facility]Ptel: [facility] [facility] [address] (15 min) Moderate 02/27/2017 Patient Education: Patient [...] in pain. 02/02/2017 Appointment: [facility] Fountain [facility]Ptel[facility] ([facility] min) Complex 02/02/2017 Patient Education: Patient Medication Summary Completed 02/02/2017 Visit Plan: Insomnia - Pt has been advised to increase the light in the house during the day, and start dimming the lights during the evening hours. Pt has been advised to cut out caffeine after 5pm. Daytime napping worsens night time insomnia. 11/22/2016 Appointment: L[facility] Fountain [facility]Ptel[facility] ([facility] min) Moderate 11/22/2016 Patient [...] to medications. 08/29/2016 Appointment: Aparna Dunn WPtel: [phone] [facility] (15 min) Moderate 08/29/2016 Patient Education: Patient [...] patient's pharmacy. 07/28/2016 Appointment: Judy Felix WPtel: [phone] [phone] (10 min) Simple 07/28/2016 Patient Education: Patient [...] of plan. 07/03/2016 Appointment: Judy Felix WPtel: [phone] [phone] [place] (10 min) Simple 07/03/2016 Patient Education: [...] to medications. 05/02/2016 Appointment: Aparna Dunn WPtel: [phone] [facility] [place] (15 min) Moderate 05/02/2016 Patient [...] shot today 11/02/2015 Appointment: Aparna Dunn WPtel[facility] [phone] [facility] [place] (30 min) Complex 11/02/2015 Patient Education: Patient [...] to medications. 05/04/2015 Appointment: Aparna Dunn WPtel: [address] [place], [place] [address] [place] ([place]) New Patient 05/04/2015 Patient Education: Patient Medication Summary Completed 05/04/2015 Patient Education: Hypertension Completed 05/04/2015 Instructions Comment start on vitamin b12 dissolving tablets - 2000mcg daily shingarix - the new shingles vaccine - it is a two part shot - and you need to ask the pharmacy how much it costs. . Hypertension - well controlled - continue [...] to assure normal liver response to medications. pneumovax shot today . Hypertension - well controlled - continue [...] response to medications. prevnar 13 shot today . Hyperlipidemia - pt has been counseled about [...] to assure normal liver response to medications. referral to dr. kwok for colonoscopy will refill xanax Continue bactrim - if no improvement return to clinic on Sunday for re-evaluation Ice to the area follow up with [...] size of the lesion, increase in pain. Zyrtec (cetirizine) over the counter as needed. Allergies - chronic - recommended pt to [...] any worse. RX sent to patient's pharmacy. get labs one week before appt in August . Hypertension - well controlled - continue [...] to assure normal liver response to medications. Sinusitis - Pt has acute infection - pain in face, maxillary region, Pt informed to use decongestant, RX given to patient, sinus rinses also recommended. Call if symptoms do not show improvement. . Hypertension - well controlled - continue [...]
--- OUTSIDE RECORDS SUMMARY | 2019-03-24 10:04 | XMS REPORT | CCD ---
Author Author [facility]na [facility] Organization [facility] Address [address] [place] [address] Phone Care Team Providers Care [facility] [employer] Name Role Phone PP Unavailable CCM Unavailable Summary Purpose Interface Exchange Insurance Providers Payer name Policy type / Coverage type Covered alliance party ID Effective Begin Date Effective End Date WPS Medicare Part B [id number] 2017 Unknown AARP [id number] 2017 Unknown Family history Father Diagnosis Age At Onset Unknown Brother Diagnosis Age At Onset Diabetes mellitus Type 2 Unknown Mother Diagnosis Age At Onset car accident Unknown Social History Social History Element Codes Description Effective Dates Marital status Unknown for 16 years - for 16 years, then remarried 05/02/[address]: 908440453 Never smoker 05/02/[address]: 690659 Currently drinks alcohol 05/02/2016 Frequency of drinks SNOMED CT: 775365959 1- 4 drinks per week 1 per week 05/02/2016 Has the patient ever used illegal drugs? Unknown Has never used illegal drugs 05/02/2016 Number of children Unknown 0 05/04/2015 Allergies, Adverse Reactions, Alerts Substance Reaction Codes Entered Date Inactivated Date Status * NO KNOWN DRUG ALLERGIES Unknown 05/04/2015 No Inactive Date Active Past Medical History Illness Codes Condition Status Onset Date Resolved Date Encounter for screening mammogram for malignant neoplasm [...] ICD-9: 280.9 ICD-10: E61.1 Active 08/29/2017 Unknown Obstructive sleep apnea (adult) (pediatric) ICD-9: 327.23 ICD-10: G47.33 Active 02/27/2017 Unknown Cellulitis of face ICD- 9: 682.0 [...] Problems Condition Codes Effective Dates Condition Status Encounter for screening mammogram for malignant neoplasm [...] deficiency ICD-9: 280.9 ICD-10: E61.1 08/29/2017 Active Obstructive sleep apnea (adult) (pediatric) ICD-9: 327.23 ICD-10: G47.33 02/27/2017 Active Cellulitis of face ICD- 9: 682.0 [...] Fill Instructions Xanax 0.25 mg tablet RxNorm: 633256 1/2 - 1 Tablet(s) PO QHS as needed 01/15/2019 03/15/2019 Active Maxzide-25mg 37.5 mg-25 mg tablet RxNorm: 06092 Tablet(s) TAKE 1 TABLET BY MOUTH DAILY 12/04/2018 11/28/2019 Active Xanax 0.25 mg tablet RxNorm: 542531 1/2 - 1 Tablet(s) PO QHS as needed 05/10/2018 07/08/2018 Inactive pravastatin 20 mg tablet RxNorm: 581020 Tablet(s) TAKE 1 TABLET BY MOUTH DAILY 03/27/2018 03/21/2019 Active Diflucan 150 mg tablet RxNorm: 478777 1 Tablet(s) PO daily 03/06/2018 03/10/2018 Inactive Diflucan 150 mg tablet RxNorm: 418668 1 Tablet(s) PO daily 03/06/2018 03/05/2018 Inactive ceftriaxone 500 mg solution for injection RxNorm: 7136347 1 Inj 02/26/2018 02/26/2018 Inactive cefdinir 300 mg capsule RxNorm: 874968 1 Capsule(s) PO BID 02/26/2018 03/04/2018 Inactive Kenalog 40 mg/mL suspension for injection RxNorm: 4997372 1 Milliliter(s) Inj 02/13/2018 02/13/2018 Inactive Zithromax Z-Elías 250 mg tablet RxNorm: 272741 1 Tablet(s) PO UD 02/04/2018 02/08/2018 Inactive zpack as directed Xanax 0.25 mg tablet RxNorm: 112365 1/2 - 1 Tablet(s) PO QHS as needed 10/30/2017 12/28/2017 Inactive Maxzide-25mg 37.5 mg-25 mg tablet RxNorm: 15639 Tablet(s) TAKE 1 TABLET BY MOUTH DAILY 10/10/2017 10/04/2018 Inactive acyclovir 5 % topical ointment RxNorm: 392941 1 Application TOP QID as needed cold sores 08/29/2017 12/26/2017 Inactive amoxicillin 500 mg capsule RxNorm: 799446 1 Capsule(s) PO TID 07/03/2017 07/09/2017 Inactive Maxzide-25mg 37.5 mg-25 mg tablet RxNorm: 24767 TAKE 1 TABLET BY MOUTH DAILY 06/04/2017 10/09/2017 Inactive Bactrim DS 800 mg-160 mg tablet RxNorm: 596214 1 Tablet(s) PO BID 05/14/2017 05/23/2017 Inactive Xanax 0.25 mg tablet RxNorm: 185655 1/2 - 1 Tablet(s) PO QHS 05/14/2017 10/29/2017 Inactive pravastatin 20 mg tablet RxNorm: 911060 TAKE 1 TABLET BY MOUTH DAILY 02/28/2017 02/22/2018 Inactive mupirocin 2 % topical ointment RxNorm: 466678 1 Application TOP BID 02/02/2017 No Stop Date Active Bactrim DS 800 mg-160 mg tablet RxNorm: 153109 1 Tablet(s) PO BID 02/02/2017 02/11/2017 Inactive Xanax 0.25 mg tablet RxNorm: 278160 1/2 - 1 Tablet(s) PO QHS 12/25/2016 10/29/2017 Inactive Xanax 0.25 mg tablet RxNorm: 447575 1/2 - 1 Tablet(s) PO QHS 11/22/2016 05/13/2017 Inactive trazodone 50 mg tablet RxNorm: 849362 1 Tablet(s) PO QPM 08/29/2016 10/22/2017 Inactive Maxzide-25mg 37.5 mg-25 mg tablet RxNorm: 59061 Tablet(s) 1 Tablet, 1 time per Day 08/29/2016 05/25/2017 Inactive amoxicillin 500 mg capsule RxNorm: 534454 1 Capsule(s) PO TID 07/28/2016 08/03/2016 Inactive cetirizine 10 mg tablet RxNorm: 3434039 1 Tablet(s) PO daily 07/28/2016 08/26/2016 Inactive Zithromax Z-Elías 250 mg tablet RxNorm: 575369 1 Tablet(s) PO UD 07/03/2016 07/07/2016 Inactive zpack Kenalog 40 mg/mL suspension for injection RxNorm: 5639241 Milliliter(s) Inj 07/03/2016 07/03/2016 Inactive pravastatin 20 mg tablet RxNorm: 282808 TAKE 1 TABLET BY MOUTH DAILY 05/31/2016 02/24/2017 Inactive trazodone 50 mg tablet RxNorm: 350181 1 Tablet(s) PO QPM 03/03/2016 06/30/2016 Inactive Maxzide-25mg 37.5 mg-25 mg tablet RxNorm: 26341 1 Tablet, 1 time per Day 12/06/2015 08/28/2016 Inactive trazodone 50 mg tablet RxNorm: 815942 1 Tablet(s) PO QPM 10/22/2015 03/02/2016 Inactive Maxzide-25mg 37.5 mg-25 mg tablet RxNorm: 88007 1 Tablet(s) PO daily 05/04/2015 12/05/2015 Inactive trazodone 50 mg tablet RxNorm: 903353 1/2 Tablet(s) PO QPM may increase up to a full pill if needed 05/04/2015 10/21/2015 Inactive pravastatin 20 mg tablet RxNorm: 009986 1 Tablet(s) PO daily 05/04/2015 04/27/2016 Inactive pravastatin 20 mg tablet RxNorm: 886402 1 Tablet(s) PO daily 03/03/2015 03/02/2015 Inactive pravastatin 20 mg tablet RxNorm: 587509 1 Tablet(s) PO daily 03/03/2015 05/03/2015 Inactive Eye Vitamin and Minerals oral RxNorm: 2837 oral No Start Date Active Centrum Silver tablet RxNorm: 1 Tablet(s) PO daily No Start Date Active Freedom 3 Fish Oil oral RxNorm: 2373479 oral No Start Date Active Osteo Bi-Flex oral RxNorm: 7472512 oral No Start Date Active zolpidem 5 mg tablet RxNorm: 437739 1 Tablet(s) PO QHS as needed No Start Date 05/03/2015 Inactive Iron (ferrous sulfate) oral RxNorm: 62521 oral No Start Date 08/28/2017 Inactive Maxzide-25mg oral RxNorm: 13094 oral No Start Date 05/03/2015 Inactive Medication Administered Medication Codes Instructions Start Date Status ceftriaxone 500 mg solution for injection RxNorm: 2879676 1 02/26/2018 No longer Active Kenalog 40 mg/mL suspension for injection RxNorm: 3138194 1Milliliter 02/13/2018 No longer Active Kenalog 40 mg/mL suspension for injection RxNorm: 4129076 Milliliter 07/03/2016 No longer Active Immunizations Vaccine Codes Date Status Pneumococcal (Adult) CVX: 33 08/27/2018 completed Influenza CVX: 141 07/12/2018 completed Pneumococcal (Adult) CVX: 133 11/02/2015 completed PPD Unknown 05/20/2015 completed Influenza CVX: 141 06/17/2014 completed Pneumococcal CVX: 33 08/24/2010 completed Zoster CVX: 121 07/23/2008 completed Tetanus, Diptheria, Pertussis CVX: 113 05/05/2008 completed Tetanus, Diptheria, Pertussis CVX: 113 05/05/2008 completed Tetanus/Diptheria CVX: 113 05/05/2008 completed Assessments Condition Codes Effective Dates Encounter for screening mammogram for malignant neoplasm [...] Reason For Visit Effective Dates Notes hyperlipidemia 08/27/2018 hyperlipidemia 02/26/2018 cough 02/13/2018 hyperlipidemia 08/29/2017 rash 05/14/2017 hyperlipidemia 02/27/2017 rash 02/02/2017 insomnia 11/22/2016 hyperlipidemia 08/29/2016 cough 07/28/2016 cough 07/03/2016 hyperlipidemia 05/02/2016 hyperlipidemia 11/02/2015 blood pressure followup 05/04/2015 Results Observation Observation Code Item Item Code Result Date Tsh Ord6 TSH (3rd IS) 2.79 uIU/mL [...] 23.6 % 02/19/2019 Cbc With Differential Ord2 Dixie% 10.7 % 02/19/2019 Cbc With Differential Ord2 MCH 29.5 pg 02/19/2019 Cbc With Differential Ord2 Eos% 2.7 % 02/19/2019 Cbc With Differential Ord2 MCHC 32.4 pg 02/19/2019 Cbc With Differential Ord2 PLT 230 K/ul 02/19/2019 Cbc With Differential Ord2 Baso% 0.6 % 02/19/2019 Cbc With Differential Ord2 RDW 13.9 % 02/19/2019 Cbc With Differential Ord2 Neut ABS# 4.93 K/ul 02/19/2019 Cbc With Differential Ord2 Lymph ABS# 1.87 K/ul 02/19/2019 Cbc With Differential Ord2 Dixie ABS# 0.9 K/ul 02/19/2019 Cbc With Differential Ord2 Eos ABS# 0.2 K/ul 02/19/2019 Cbc With Differential Ord2 Baso ABS# 0.1 K/ul 02/19/2019 Comp Metabolic Lvl549 NA 137 mEq/L 02/19/2019 Comp Metabolic Ghf291 K 3.4 mEq/L 02/19/2019 Comp Metabolic Bgm465 CL 97 mEq/L 02/19/2019 Comp Metabolic Lnu160 CO2 30.0 mEq/L 02/19/2019 Comp Metabolic Pgh240 ANION GAP 13 02/19/2019 Comp Metabolic Trb740 GLUCOSE 112 mg/dL 02/19/2019 Comp Metabolic Dpu045 Creat 1.3 mg/dL 02/19/2019 Comp Metabolic Duw173 eGFR 42 ml/min/1.73m2 02/19/2019 Comp Metabolic Jqi900 BUN 21 mg/dL 02/19/2019 Comp Metabolic Ykg968 B/C Ratio 16.0 Ratio 02/19/2019 Comp Metabolic Jzl042 CALCIUM 9.0 mg/dL 02/19/2019 Comp Metabolic Zgw144 ALK PHOS 51 U/L 02/19/2019 Comp Metabolic Hpd665 AST(SGOT) 17 U/L 02/19/2019 Comp Metabolic Kgb385 ALT(SGPT) 16 U/L 02/19/2019 Comp Metabolic Qco716 BILI T 0.4 mg/dL 02/19/2019 Comp Metabolic Eat585 ALBUMIN 4.5 g/dL 02/19/2019 Comp Metabolic Dox841 TPRO 6.9 g/dL 02/19/2019 Comp Metabolic Fgf491 GLOB 2.4 g/dL 02/19/2019 Comp Metabolic Uuh241 A/G Ratio 1.9 Ratio 02/19/2019 Comp Metabolic Yzl988 Osmo 278 mOsmo 02/19/2019 Comp Metabolic Hhs436 NA 140 mEq/L 08/20/2018 Comp Metabolic Mjn493 K 3.7 mEq/L 08/20/2018 Comp Metabolic Fom139 CL 99 mEq/L 08/20/2018 Comp Metabolic Pnr763 CO2 30.0 mEq/L 08/20/2018 Comp Metabolic Ktv548 ANION GAP 15 08/20/2018 Comp Metabolic Krq680 GLUCOSE 101 mg/dL 08/20/2018 Comp Metabolic Vfr255 Creat 1.0 mg/dL 08/20/2018 Comp Metabolic Jqc736 eGFR 56 ml/min/1.73m2 08/20/2018 Comp Metabolic Kbu041 BUN 20 mg/dL 08/20/2018 Comp Metabolic Etz584 B/C Ratio 19.6 Ratio 08/20/2018 Comp Metabolic Wul868 CALCIUM 9.9 mg/dL 08/20/2018 Comp Metabolic Awl746 ALK PHOS 50 U/L 08/20/2018 Comp Metabolic Ytf909 AST(SGOT) 16 U/L 08/20/2018 Comp Metabolic Lhg717 ALT(SGPT) 17 U/L 08/20/2018 Comp Metabolic Inv962 BILI T 0.5 mg/dL 08/20/2018 Comp Metabolic Hze259 ALBUMIN 4.2 g/dL 08/20/2018 Comp Metabolic Bue727 TPRO 6.4 g/dL 08/20/2018 Comp Metabolic Ypb645 GLOB 2.2 g/dL 08/20/2018 Comp Metabolic Sww793 A/G Ratio 2.0 Ratio 08/20/2018 Comp Metabolic Xjc434 Osmo 282 mOsmo 08/20/2018 Cbc With Differential [...] 29.5 pg 08/20/2018 Cbc With Differential Ord2 Dixie% 7.2 % 08/20/2018 Cbc With Differential Ord2 [...] 2.19 K/ul 08/20/2018 Cbc With Differential Ord2 Dixie ABS# 0.7 K/ul 08/20/2018 Cbc With Differential [...] Ord30 C/HDL 3.6 Ratio 08/29/2017 Comp Metabolic Cxx189 NA 140 mEq/L 08/29/2017 Comp Metabolic Nht335 K 4.2 mEq/L 08/29/2017 Comp Metabolic Bni912 CL 100 mEq/L 08/29/2017 Comp Metabolic Qbf716 CO2 31.0 mEq/L 08/29/2017 Comp Metabolic Wiv448 ANION GAP 13 08/29/2017 Comp Metabolic Pur272 GLUCOSE 95 mg/dL 08/29/2017 Comp Metabolic Gah813 Creat 1.1 mg/dL 08/29/2017 Comp Metabolic Uiz885 eGFR 50 ml/min/1.73m2 08/29/2017 Comp Metabolic Olt685 BUN 26 mg/dL 08/29/2017 Comp Metabolic Rmq371 B/C Ratio 22.8 Ratio 08/29/2017 Comp Metabolic Rqw051 CALCIUM 9.8 mg/dL 08/29/2017 Comp Metabolic Yol387 ALK PHOS 45 U/L 08/29/2017 Comp Metabolic Fkk379 AST(SGOT) 21 U/L 08/29/2017 Comp Metabolic Yxu692 ALT(SGPT) 18 U/L 08/29/2017 Comp Metabolic Fld771 BILI T 0.5 mg/dL 08/29/2017 Comp Metabolic Ebk687 ALBUMIN 4.3 g/dL 08/29/2017 Comp Metabolic Oss336 TPRO 6.7 g/dL 08/29/2017 Comp Metabolic Gwi780 GLOB 2.4 g/dL 08/29/2017 Comp Metabolic Ozu002 A/G Ratio 1.8 Ratio 08/29/2017 Comp Metabolic Kfm472 Osmo 284 mOsmo 08/29/2017 Tibc Ord40 Iron [...] 29.3 pg 08/29/2017 Cbc With Differential Ord2 Dixie% 7.0 % 08/29/2017 Cbc With Differential Ord2 [...] 2.32 K/ul 08/29/2017 Cbc With Differential Ord2 Dixie ABS# 0.6 K/ul 08/29/2017 Cbc With Differential [...] 30.0 pg 03/01/2017 Cbc With Differential Ord2 Dixie% 8.0 % 03/01/2017 Cbc With Differential Ord2 [...] 2.11 K/ul 03/01/2017 Cbc With Differential Ord2 Dixie ABS# 0.6 K/ul 03/01/2017 Cbc With Differential Ord2 Eos ABS# 0.2 K/ul 03/01/2017 Cbc With Differential Ord2 Baso ABS# 0.0 K/ul 03/01/2017 Ferritin Ord22 FERRITIN 89.1 ng/mL 02/27/2017 Tibc Ord40 Iron 69 ug/dl 02/27/2017 Tibc Ord40 UIBC 283 ug/dL 02/27/2017 Tibc Ord40 TIBC 352 ug/dL 02/27/2017 Tibc Ord40 Fe-%Sat 19.6 % 02/27/2017 Comp Metabolic Hly849 NA 137 mEq/L 08/29/2016 Comp Metabolic Ddk926 K 4.0 mEq/L 08/29/2016 Comp Metabolic Ydr023 CL 100 mEq/L 08/29/2016 Comp Metabolic Nia772 CO2 32.0 mEq/L 08/29/2016 Comp Metabolic Rnp955 ANION GAP 9 08/29/2016 Comp Metabolic Jla875 GLUCOSE 98 mg/dL 08/29/2016 Comp Metabolic Hqs168 Creat 1.0 mg/dL 08/29/2016 Comp Metabolic Qgd546 eGFR 55 ml/min/1.73m2 08/29/2016 Comp Metabolic Jya289 BUN 19 mg/dL 08/29/2016 Comp Metabolic Ily462 B/C Ratio 18.3 Ratio 08/29/2016 Comp Metabolic Vci280 CALCIUM 10.0 mg/dL 08/29/2016 Comp Metabolic Lhg333 ALK PHOS 51 U/L 08/29/2016 Comp Metabolic Mit856 AST(SGOT) 21 U/L 08/29/2016 Comp Metabolic Lvu261 ALT(SGPT) 16 U/L 08/29/2016 Comp Metabolic Bqr572 BILI T 0.5 mg/dL 08/29/2016 Comp Metabolic Mpn788 ALBUMIN 4.5 g/dL 08/29/2016 Comp Metabolic Ywu997 TPRO 7.3 g/dL 08/29/2016 Comp Metabolic Pyx222 GLOB 2.8 g/dL 08/29/2016 Comp Metabolic Bla094 A/G Ratio 1.6 Ratio 08/29/2016 Comp Metabolic Ofw061 Osmo 276 mOsmo 08/29/2016 Lipid Ord30 CHOL [...] 29.6 pg 08/29/2016 Cbc With Differential Ord2 Dixie% 7.8 % 08/29/2016 Cbc With Differential Ord2 [...] 2.31 K/ul 08/29/2016 Cbc With Differential Ord2 Dixie ABS# 0.7 K/ul 08/29/2016 Cbc With Differential [...] 29.4 pg 05/02/2016 Cbc With Differential Ord2 Dixie% 8.4 % 05/02/2016 Cbc With Differential Ord2 [...] 2.03 K/ul 05/02/2016 Cbc With Differential Ord2 Dixie ABS# 0.7 K/ul 05/02/2016 Cbc With Differential Ord2 Eos ABS# 0.2 K/ul 05/02/2016 Cbc With Differential Ord2 Baso ABS# 0.1 K/ul 05/02/2016 Comp Metabolic Ted894 NA 136 mEq/L 05/02/2016 Comp Metabolic Met146 K 4.0 mEq/L 05/02/2016 Comp Metabolic Ehh365 CL 97 mEq/L 05/02/2016 Comp Metabolic Vwe650 CO2 31.0 mEq/L 05/02/2016 Comp Metabolic Mki851 ANION GAP 12 05/02/2016 Comp Metabolic Dhl405 GLUCOSE 97 mg/dL 05/02/2016 Comp Metabolic Zvl659 Creat 1.0 mg/dL 05/02/2016 Comp Metabolic Gfu202 eGFR 61 ml/min/1.73m2 05/02/2016 Comp Metabolic Vjo342 BUN 24 mg/dL 05/02/2016 Comp Metabolic Vjm194 B/C Ratio 25.0 Ratio 05/02/2016 Comp Metabolic Ttq561 CALCIUM 9.6 mg/dL 05/02/2016 Comp Metabolic Wcw433 ALK PHOS 55 U/L 05/02/2016 Comp Metabolic Zuq153 AST(SGOT) 18 U/L 05/02/2016 Comp Metabolic Apn083 ALT(SGPT) 20 U/L 05/02/2016 Comp Metabolic Yoc842 BILI T 0.5 mg/dL 05/02/2016 Comp Metabolic Gfy667 ALBUMIN 4.5 g/dL 05/02/2016 Comp Metabolic Vcn993 TPRO 7.4 g/dL 05/02/2016 Comp Metabolic Ulk252 GLOB 2.9 g/dL 05/02/2016 Comp Metabolic Qip088 A/G Ratio 1.6 Ratio 05/02/2016 Comp Metabolic Fea176 Osmo 276 mOsmo 05/02/2016 Lipid Ord30 CHOL 197 mg/dL 11/02/2015 Lipid Ord30 HDL 43.0 mg/dl 11/02/2015 Lipid Ord30 TRIG 247 mg/dL 11/02/2015 Lipid Ord30 LDL 105 mg/dL 11/02/2015 Lipid Ord30 C/HDL 4.6 Ratio 11/02/2015 Comp Metabolic Rzu869 NA 137 mEq/L 11/02/2015 Comp Metabolic Puj366 K 3.9 mEq/L 11/02/2015 Comp Metabolic Gdp331 CL 96 mEq/L 11/02/2015 Comp Metabolic Nwq956 CO2 34.0 mEq/L 11/02/2015 Comp Metabolic Yog432 ANION GAP 11 11/02/2015 Comp Metabolic Yzu996 GLUCOSE 97 mg/dL 11/02/2015 Comp Metabolic Rhz330 Creat 1.1 mg/dL 11/02/2015 Comp Metabolic Byr082 eGFR 52 ml/min/1.73m2 11/02/2015 Comp Metabolic Iwo272 BUN 29 mg/dL 11/02/2015 Comp Metabolic Xcz965 B/C Ratio 26.6 Ratio 11/02/2015 Comp Metabolic Nlh208 CALCIUM 9.8 mg/dL 11/02/2015 Comp Metabolic Les051 ALK PHOS 56 U/L 11/02/2015 Comp Metabolic Gcf691 AST(SGOT) 16 U/L 11/02/2015 Comp Metabolic Tts153 ALT(SGPT) 13 U/L 11/02/2015 Comp Metabolic Sgr116 BILI T 0.4 mg/dL 11/02/2015 Comp Metabolic Yau226 ALBUMIN 4.4 g/dL 11/02/2015 Comp Metabolic Mod663 TPRO 7.1 g/dL 11/02/2015 Comp Metabolic Cqm798 GLOB 2.7 g/dL 11/02/2015 Comp Metabolic Cun160 A/G Ratio 1.6 Ratio 11/02/2015 Comp Metabolic Las282 Osmo 280 mOsmo 11/02/2015 Cbc With Differential [...] 29.0 pg 11/02/2015 Cbc With Differential Ord2 Dixie% 9.0 % 11/02/2015 Cbc With Differential Ord2 [...] 2.16 K/ul 11/02/2015 Cbc With Differential Ord2 Dixie ABS# 0.8 K/ul 11/02/2015 Cbc With Differential [...] Ord2 RDW 14.6 % 05/04/2015 Free T4 Hvy832 FREE T4 0.81 ng/dL 05/04/2015 Comp Metabolic Nbm345 NA 134 mEq/L 05/04/2015 Comp Metabolic Lpf850 K 3.8 mEq/L 05/04/2015 Comp Metabolic Nbv353 CL 97 mEq/L 05/04/2015 Comp Metabolic Qhg627 CO2 31.0 mEq/L 05/04/2015 Comp Metabolic Klt817 ANION GAP 10 05/04/2015 Comp Metabolic Lol286 GLUCOSE 88 mg/dL 05/04/2015 Comp Metabolic Rcq094 Creat 1.0 mg/dL 05/04/2015 Comp Metabolic Ebt361 eGFR 58 ml/min/1.73m2 05/04/2015 Comp Metabolic Wvm387 BUN 19 mg/dL 05/04/2015 Comp Metabolic Btr857 B/C Ratio 19.0 Ratio 05/04/2015 Comp Metabolic Aws521 CALCIUM 9.5 mg/dL 05/04/2015 Comp Metabolic Qux916 ALK PHOS 60 U/L 05/04/2015 Comp Metabolic Akz785 AST(SGOT) 17 U/L 05/04/2015 Comp Metabolic Njp103 ALT(SGPT) 14 U/L 05/04/2015 Comp Metabolic Vsn827 BILI T 0.5 mg/dL 05/04/2015 Comp Metabolic Wll004 ALBUMIN 4.5 g/dL 05/04/2015 Comp Metabolic Ddz003 TPRO 7.1 g/dL 05/04/2015 Comp Metabolic Cpp640 GLOB 2.6 g/dL 05/04/2015 Comp Metabolic Gep441 A/G Ratio 1.7 Ratio 05/04/2015 Comp Metabolic Vfy951 Osmo 270 mOsmo 05/04/2015 Lipid Ord30 CHOL 167 mg/dL 05/04/2015 Lipid Ord30 HDL 45.0 mg/dl 05/04/2015 Lipid Ord30 TRIG 179 mg/dL 05/04/2015 Lipid Ord30 LDL 86 mg/dL 05/04/2015 Lipid Ord30 C/HDL 3.7 Ratio 05/04/2015 Review of Systems System Result Effective Dates Constitutional No chills 08/27/2018 Constitutional No diaphoresis [...] lips 08/27/2018 None Full Exam - General 1994 Ears/Nose/Throat lips/teeth/gingiva Overall: normal dentition 08/27/2018 None [...] Codes Date ADMIN PNEUMOCOCCAL VACCINE SNOMED CT: 98826099 CPT-4: G0009 08/27/2018 Pneumococcal Polysaccharide Vaccine, 23-Valent, Ad CPT-4: 84608 08/27/2018 ROCEPHIN, PER 250 MG CPT- 4: J0696 02/26/2018 THER/PROPH/DIAG INJ SC/IM CPT-4: 35278 02/26/2018 TRIAMCINOLONE ACET INJ NOS CPT-4: J3301 02/13/2018 THER/PROPH/DIAG INJ SC/IM CPT-4: 83059 02/13/2018 TRIAMCINOLONE ACET INJ NOS CPT-4: J3301 07/03/2016 PNEUMOCOCCAL VACC [address]: 97830184 CPT-4: 42229 11/02/2015 IMMUNIZATION ADMIN CPT- 4: 12149 11/02/2015 Vital Signs Date Vital 08/27/2018 Blood Pressure 1: 146/82 Code: 8480-6 BMI: 25.8 Code: 34165-6 Heart Rate 1: 67 bpm Height: 5'2" SpO2: 97% Weight: 141 lbs 02/26/2018 Blood Pressure 1: 132/80 Code: 8480-6 BMI: 25.8 Code: 40251-0 Heart Rate 1: 76 bpm Height: 5'2" SpO2: 97% Temperature: 36.9 (C) / 98.4 (F) Weight: 141 lbs 02/13/2018 Blood Pressure 1: 130/78 Code: 8480-6 BMI: 26.3 Code: 53586-4 Heart Rate 1: 80 bpm Height: 5'2" SpO2: 93% Temperature: 36.9 (C) / 98.4 (F) Weight: 144 lbs 08/29/2017 Blood Pressure 1: 126/78 Code: 8480-6 BMI: 26.3 Code: 35873-9 Heart Rate 1: 80 bpm Height: 5'2" SpO2: 97% Weight: 144 lbs 05/14/2017 Blood Pressure 1: 128/70 Code: 8480-6 BMI: 26.5 Code: 34643-3 Heart Rate 1: 84 bpm Height: 5'2" SpO2: 97% Weight: 145 lbs 02/27/2017 Blood Pressure 1: 130/82 Code: 8480-6 BMI: 26.3 Code: 75076-6 Heart Rate 1: 82 bpm Height: 5'2" SpO2: 96% Weight: 144 lbs 02/02/2017 Blood Pressure 1: 142/76 Code: 8480-6 BMI: 26.3 Code: 02922-2 Heart Rate 1: 80 bpm Height: 5'2" SpO2: 97% Weight: 144 lbs 11/22/2016 Blood Pressure 1: 134/72 Code: 8480-6 BMI: 27.1 Code: 61820-5 Heart Rate 1: 76 bpm Height: 5'2" SpO2: 97% Weight: 148 lbs 08/29/2016 Blood Pressure 1: 120/80 Code: 8480-6 BMI: 26.0 Code: 31811-4 Heart Rate 1: 74 bpm Height: 5'2" SpO2: 97% Weight: 142 lbs 07/28/2016 Blood Pressure 1: 134/72 Code: 8480-6 BMI: 25.7 Code: 94175-1 Heart Rate 1: 81 bpm Height: 5'2" SpO2: 98% Temperature: 37.1 (C) / 98.7 (F) Weight: 140 lbs 8 oz 07/03/2016 Blood Pressure 1: 136/80 Code: 8480-6 Heart Rate 1: 86 bpm SpO2: 98% Temperature: 36.7 (C) / 98.0 (F) 05/02/2016 Blood Pressure 1: 124/78 Code: 8480-6 BMI: 26.3 Code: 21511-7 Heart Rate 1: 74 bpm Height: 5'2" SpO2: 98% Weight: 144 lbs 11/02/2015 Blood Pressure 1: 118/78 Code: 8480-6 BMI: 26.5 Code: 72678-3 Heart Rate 1: 79 bpm Height: 5'2" SpO2: 98% Weight: 145 lbs 05/04/2015 Blood Pressure 1: 132/64 Code: 8480-6 BMI: 25.2 Code: 90250-3 Heart Rate 1: 75 bpm Height: 5'2" SpO2: 97% Weight: 138 lbs Functional Status No Functional Status data History of Present Illness Symptom Name Status Result Effective Date Notes Onset and Resolution gradual in onset 08/27/2018 [...] 02/27/2017 None rash Location-Head/Neck on the right confucianist 02/02/2017 None rash Color red 02/02/2017 None [...] data Encounters Encounter Performer Location Codes Date [id number]) [id number] EST. PATIENT, LEVEL IV Diagnosis: Essential (primary) hypertension[ICD10: I10] Diagnosis: Mixed hyperlipidemia[ICD10: E78.2] Diagnosis: Encounter for immunization[ICD10: Z23] Aparna Dunn MD, [facility] CPT-4: 50983 08/27/2018 ([id number]) [id number] EST. PATIENT, LEVEL IV Diagnosis: Essential (primary) hypertension[ICD10: I10] Diagnosis: Mixed hyperlipidemia[ICD10: E78.2] Diagnosis: Cough[ICD10: R05] Diagnosis: Acute recurrent frontal sinusitis[ICD10: J01.11] Aparna Dunn MD, [facility] CPT-4: 96788 02/26/2018 [id number] EST. PATIENT, LEVEL IV Diagnosis: Other allergic rhinitis[ICD10: J30.89] Diagnosis: Acute laryngopharyngitis[ICD10: J06.0] Loretta Dunn MD, [facility] CPT- 4: 07513 02/13/2018 [id number]) [id number] EST. PATIENT, LEVEL IV Diagnosis: Obstructive sleep apnea (adult) (pediatric)[ICD10: G47.33] Diagnosis: Iron deficiency[ICD10: E61.1] Diagnosis: Mixed hyperlipidemia[ICD10: E78.2] Diagnosis: Essential (primary) hypertension[ICD10: I10] Aparna Dunn MD, [facility] CPT-4: 75988 08/29/2017 [id number] EST. PATIENT, LEVEL III Diagnosis: Cellulitis of face[ICD10: L03.211] Loretta Dunn MD, [facility] CPT-4: 92864 05/14/2017 ([id number]) [id number] EST. PATIENT, LEVEL IV Diagnosis: Essential (primary) hypertension[ICD10: I10] Diagnosis: Mixed hyperlipidemia[ICD10: E78.2] Diagnosis: Obstructive sleep apnea (adult) (pediatric)[ICD10: G47.33] Aparna Dunn MD, [facility] CPT-4: 61174 02/27/2017 [id number] EST. PATIENT, LEVEL III Diagnosis: Cellulitis of face[ICD10: L03.211] Loretta Dunn MD, [facility] CPT-4: 10057 02/02/2017 [id number] EST. PATIENT, LEVEL III Diagnosis: Other insomnia[ICD10: G47.09] Loretta Dunn MD, [facility] CPT-4: 78578 11/22/2016 ([id number]) [id number] EST. PATIENT, LEVEL IV Diagnosis: Essential (primary) hypertension[ICD10: I10] Diagnosis: Mixed hyperlipidemia[ICD10: E78.2] Aparna Dunn MD, [facility] CPT- 4: 99217 08/29/2016 [id number] EST. PATIENT, LEVEL IV Diagnosis: Acute laryngopharyngitis[ICD10: J06.0] Diagnosis: Cough[ICD10: R05] Loretta Dunn MD, [facility] CPT-4: 72958 07/28/2016 ([id number]) 71298 EST. PATIENT, LEVEL III Diagnosis: Cough[ICD10: R05] Diagnosis: Acute bronchitis, unspecified[ICD10: J20.9] Judy Dunn MD, [facility] CPT-4: 60001 07/03/2016 ([id number]) 27451 EST. PATIENT, LEVEL IV Diagnosis: Essential (primary) hypertension[ICD10: I10] Diagnosis: Mixed hyperlipidemia[ICD10: E78.2] Diagnosis: Snoring[ICD10: R06.83] Aparna Dunn MD, [facility] CPT-4: 07404 05/02/2016 ([id number]) 04580 EST. PATIENT, LEVEL IV Diagnosis: Essential (primary) hypertension[ICD10: I10] Diagnosis: Mixed hyperlipidemia[ICD10: E78.2] Diagnosis: Encounter for immunization[ICD10: Z23] Aparna Dunn MD, [facility] CPT-4: 18118 11/02/2015 ([id number]) Miscellaneous no charge Diagnosis: Tick bite[ICD9: 919.4] [facility] CPT-4: 16017 05/20/2015 ([id number]) OFFICE VISIT, NEW - LEVEL 4 Diagnosis: ESSENTIAL HYPERTENSION[ICD9: 401.9] Diagnosis: ENCNTR LONG-RX USE NEC[ICD9: V58.69] Diagnosis: HYPERLIPIDEMIA[ICD9: 272.4] [facility] CPT-4: 80758 05/04/2015 Plan of Care Planned Activity Notes Codes Status Date Patient Education: Patient Medication Summary Completed 09/24/2018 Care Plan: SCREENINGMAMMOGRAPHYDIGITAL LOINC : [id number] Pending 09/24/2018 Visit Plan: Hypertension - well [...] shot today 08/27/2018 Appointment: Aparna Dunn WPtel: [address] [place], [place] [id number] min) Moderate 08/27/2018 Patient Education: Patient [...] improvement. 02/26/2018 [phone] ([facility] min) Moderate 02/26/2018 Patient Education: Patient [...] pharmacy. 02/13/2018 [phone] ([facility] min) Complex 02/13/2018 Patient Education: Patient [...] refilled acyclovir 08/29/2017 App[phone] (15 min) Moderate 08/29/2017 Patient Education: Patient [...] pain. 05/14/2017 App[phone] ([facility] min) Complex 05/14/2017 Patient Education: Patient [...] to medications. 02/27/2017 App[phone] (15 min) Moderate 02/27/2017 Patient Education: Patient [...] in pain. 02/02/2017 Appointment: Loretta Fountain WPtel: [phone] [facility] (30 min) Complex 02/02/2017 Patient Education: Patient Medication Summary Completed 02/02/2017 Visit Plan: Insomnia - Pt has been advised to increase the light in the house during the day, and start dimming the lights during the evening hours. Pt has been advised to cut out caffeine after 5pm. Daytime napping worsens night time insomnia. 11/22/2016 Appointment: Loretta Fountain WPtel: [phone] [phone] (15 min) Moderate 11/22/2016 Patient Education: Patient [...] to medications. 08/29/2016 Appointment: Aparna Dunn WPtel: [phone] [facility] (15 min) Moderate 08/29/2016 Patient Education: Patient [...] pharmacy. 07/28/2016 Appointment: Judy Felix WPtel: [phone] [phone] (10 min) Simple 07/28/2016 Patient Education: Patient [...] plan. 07/03/2016 Appointment: Judy Felix WPtel: [phone] [phone] (10 min) Simple 07/03/2016 Patient Education: Patient [...] medications. 05/02/2016 Appointment: Aparna Dunn WPtel: [phone] [facility] (15 min) Moderate 05/02/2016 Patient Education: Patient [...] today 11/02/2015 Appointment: [phone] [facility] (30 min) Complex 11/02/2015 Patient Education: Patient [...] to medications. 05/04/2015 Appointment: [phone] [facility] [place] New Patient 05/04/2015 Patient Education: [...]
[2019-03-24] MEDS ORDERED: LACTATED RINGERS 1,000 ML IV STA (10:08)
[2019-03-24 10:10] VITALS: BP 124/76
--- OUTSIDE RECORDS SUMMARY | 2019-03-24 10:10 | XMS REPORT | CCD ---
Author Author [facility]na Dunn Organization [facility] Address [address] [place] [address] Phone Care Team Providers Care Compliance Auditor Name Role Phone PP Unavailable CCM Unavailable Summary Purpose Interface Exchange Insurance Providers Payer name Policy type / Coverage type Covered libertarian ID Effective Begin Date Effective End Date WPS Medicare Part B [id number] 2017 Unknown AARP [id number] 2017 Unknown Family history Father Diagnosis Age At Onset Unknown Brother Diagnosis Age At Onset Diabetes mellitus Type 2 Unknown Mother Diagnosis Age At Onset car accident Unknown Social History Social History Element Codes Description Effective Dates Marital status Unknown for 16 years - for 16 years, then remarried 05/02/[address]: 798678864 Never smoker 05/02/[address]: 063361 Currently drinks alcohol 05/02/2016 Frequency of drinks SNOMED CT: 226060200 1- 4 drinks per week 1 per [...] Fill Instructions Xanax 0.25 mg tablet RxNorm: 120721 1/2 - 1 Tablet(s) PO QHS as needed 01/15/2019 03/15/2019 Active Maxzide-25mg 37.5 mg-25 mg tablet RxNorm: 69629 Tablet(s) TAKE 1 TABLET BY MOUTH DAILY 12/04/2018 11/28/2019 Active Xanax 0.25 mg tablet RxNorm: 337453 1/2 - 1 Tablet(s) PO QHS as needed 05/10/2018 07/08/2018 Inactive pravastatin 20 mg tablet RxNorm: 242832 Tablet(s) TAKE 1 TABLET BY MOUTH DAILY 03/27/2018 03/21/2019 Active Diflucan 150 mg tablet RxNorm: 656796 1 Tablet(s) PO daily 03/06/2018 03/10/2018 Inactive Diflucan 150 mg tablet RxNorm: 677379 1 Tablet(s) PO daily 03/06/2018 03/05/2018 Inactive ceftriaxone 500 mg solution for injection RxNorm: 7664078 1 Inj 02/26/2018 02/26/2018 Inactive cefdinir 300 mg capsule RxNorm: 091138 1 Capsule(s) PO BID 02/26/2018 03/04/2018 Inactive Kenalog 40 mg/mL suspension for injection RxNorm: 8384769 1 Milliliter(s) Inj 02/13/2018 02/13/2018 Inactive Zithromax Z-Elías 250 mg tablet RxNorm: 208326 1 Tablet(s) PO UD 02/04/2018 02/08/2018 Inactive zpack as directed Xanax 0.25 mg tablet RxNorm: 139416 1/2 - 1 Tablet(s) PO QHS as needed 10/30/2017 12/28/2017 Inactive Maxzide-25mg 37.5 mg-25 mg tablet RxNorm: 25584 Tablet(s) TAKE 1 TABLET BY MOUTH DAILY 10/10/2017 10/04/2018 Inactive acyclovir 5 % topical ointment RxNorm: 338534 1 Application TOP QID as needed cold sores 08/29/2017 12/26/2017 Inactive amoxicillin 500 mg capsule RxNorm: 307518 1 Capsule(s) PO TID 07/03/2017 07/09/2017 Inactive Maxzide-25mg 37.5 mg-25 mg tablet RxNorm: 67807 TAKE 1 TABLET BY MOUTH DAILY 06/04/2017 10/09/2017 Inactive Bactrim DS 800 mg-160 mg tablet RxNorm: 953836 1 Tablet(s) PO BID 05/14/2017 05/23/2017 Inactive Xanax 0.25 mg tablet RxNorm: 786375 1/2 - 1 Tablet(s) PO QHS 05/14/2017 10/29/2017 Inactive pravastatin 20 mg tablet RxNorm: 496642 TAKE 1 TABLET BY MOUTH DAILY 02/28/2017 02/22/2018 Inactive mupirocin 2 % topical ointment RxNorm: 185454 1 Application TOP BID 02/02/2017 No Stop Date Active Bactrim DS 800 mg-160 mg tablet RxNorm: 508016 1 Tablet(s) PO BID 02/02/2017 02/11/2017 Inactive Xanax 0.25 mg tablet RxNorm: 080758 1/2 - 1 Tablet(s) PO QHS 12/25/2016 10/29/2017 Inactive Xanax 0.25 mg tablet RxNorm: 028271 1/2 - 1 Tablet(s) PO QHS 11/22/2016 05/13/2017 Inactive trazodone 50 mg tablet RxNorm: 685744 1 Tablet(s) PO QPM 08/29/2016 10/22/2017 Inactive Maxzide-25mg 37.5 mg-25 mg tablet RxNorm: 84524 Tablet(s) 1 Tablet, 1 time per Day 08/29/2016 05/25/2017 Inactive amoxicillin 500 mg capsule RxNorm: 011720 1 Capsule(s) PO TID 07/28/2016 08/03/2016 Inactive cetirizine 10 mg tablet RxNorm: 9014773 1 Tablet(s) PO daily 07/28/2016 08/26/2016 Inactive Zithromax Z-Elías 250 mg tablet RxNorm: 395714 1 Tablet(s) PO UD 07/03/2016 07/07/2016 Inactive zpack Kenalog 40 mg/mL suspension for injection RxNorm: 5264113 Milliliter(s) Inj 07/03/2016 07/03/2016 Inactive pravastatin 20 mg tablet RxNorm: 905001 TAKE 1 TABLET BY MOUTH DAILY 05/31/2016 02/24/2017 Inactive trazodone 50 mg tablet RxNorm: 332942 1 Tablet(s) PO QPM 03/03/2016 06/30/2016 Inactive Maxzide-25mg 37.5 mg-25 mg tablet RxNorm: 28511 1 Tablet, 1 time per Day 12/06/2015 08/28/2016 Inactive trazodone 50 mg tablet RxNorm: 576713 1 Tablet(s) PO QPM 10/22/2015 03/02/2016 Inactive Maxzide-25mg 37.5 mg-25 mg tablet RxNorm: 84897 1 Tablet(s) PO daily 05/04/2015 12/05/2015 Inactive trazodone 50 mg tablet RxNorm: 533291 1/2 Tablet(s) PO QPM may increase up to a full pill if needed 05/04/2015 10/21/2015 Inactive pravastatin 20 mg tablet RxNorm: 076682 1 Tablet(s) PO daily 05/04/2015 04/27/2016 Inactive pravastatin 20 mg tablet RxNorm: 637391 1 Tablet(s) PO daily 03/03/2015 03/02/2015 Inactive pravastatin 20 mg tablet RxNorm: 860972 1 Tablet(s) PO daily 03/03/2015 05/03/2015 Inactive Eye Vitamin and Minerals oral RxNorm: 2837 oral No Start Date Active Centrum Silver tablet RxNorm: 1 Tablet(s) PO daily No Start Date Active [place] 3 Fish Oil oral RxNorm: 2374099 oral No Start Date Active Osteo Bi-Flex oral RxNorm: 4718386 oral No Start Date Active zolpidem 5 mg tablet RxNorm: 800048 1 Tablet(s) PO QHS as needed No Start Date 05/03/2015 Inactive Iron (ferrous sulfate) oral RxNorm: 23649 oral No Start Date 08/28/2017 Inactive Maxzide-25mg oral RxNorm: 85447 oral No Start Date 05/03/2015 Inactive Medication Administered Medication Codes Instructions Start Date Status ceftriaxone 500 mg solution for injection RxNorm: 6608965 1 02/26/2018 No longer Active Kenalog 40 mg/mL suspension for injection RxNorm: 5312098 1Milliliter 02/13/2018 No longer Active Kenalog 40 mg/mL suspension for injection RxNorm: 2891233 Milliliter 07/03/2016 No longer Active Immunizations Vaccine [...] Item Item Code Result Date Comp Metabolic Yzn200 NA 140 mEq/L 08/20/2018 Comp Metabolic Hel180 K 3.7 mEq/L 08/20/2018 Comp Metabolic Kwt322 CL 99 mEq/L 08/20/2018 Comp Metabolic Pfm740 CO2 30.0 mEq/L 08/20/2018 Comp Metabolic Brk927 ANION GAP 15 08/20/2018 Comp Metabolic Ozd320 GLUCOSE 101 mg/dL 08/20/2018 Comp Metabolic Cua041 Creat 1.0 mg/dL 08/20/2018 Comp Metabolic Kyf735 eGFR 56 ml/min/1.73m2 08/20/2018 Comp Metabolic Ktf538 BUN 20 mg/dL 08/20/2018 Comp Metabolic Jzo722 B/C Ratio 19.6 Ratio 08/20/2018 Comp Metabolic Txs246 CALCIUM 9.9 mg/dL 08/20/2018 Comp Metabolic Szj171 ALK PHOS 50 U/L 08/20/2018 Comp Metabolic Wgj109 AST(SGOT) 16 U/L 08/20/2018 Comp Metabolic Tcl339 ALT(SGPT) 17 U/L 08/20/2018 Comp Metabolic Ulr708 BILI T 0.5 mg/dL 08/20/2018 Comp Metabolic Qpv062 ALBUMIN 4.2 g/dL 08/20/2018 Comp Metabolic Csv117 TPRO 6.4 g/dL 08/20/2018 Comp Metabolic Edd086 GLOB 2.2 g/dL 08/20/2018 Comp Metabolic Amv999 A/G Ratio 2.0 Ratio 08/20/2018 Comp Metabolic Cyn676 Osmo 282 mOsmo 08/20/2018 Cbc With Differential [...] 29.5 pg 08/20/2018 Cbc With Differential Ord2 [place]% 7.2 % 08/20/2018 Cbc With Differential Ord2 [...] 2.19 K/ul 08/20/2018 Cbc With Differential Ord2 [place] ABS# 0.7 K/ul 08/20/2018 Cbc With Differential [...] Ord30 C/HDL 3.6 Ratio 08/29/2017 Comp Metabolic Zva507 NA 140 mEq/L 08/29/2017 Comp Metabolic Xfc091 K 4.2 mEq/L 08/29/2017 Comp Metabolic Oss579 CL 100 mEq/L 08/29/2017 Comp Metabolic Urt689 CO2 31.0 mEq/L 08/29/2017 Comp Metabolic Exl669 ANION GAP 13 08/29/2017 Comp Metabolic Ase005 GLUCOSE 95 mg/dL 08/29/2017 Comp Metabolic Dgj401 Creat 1.1 mg/dL 08/29/2017 Comp Metabolic Qzo761 eGFR 50 ml/min/1.73m2 08/29/2017 Comp Metabolic Ayx252 BUN 26 mg/dL 08/29/2017 Comp Metabolic Dpl495 B/C Ratio 22.8 Ratio 08/29/2017 Comp Metabolic Gkz981 CALCIUM 9.8 mg/dL 08/29/2017 Comp Metabolic Jeb326 ALK PHOS 45 U/L 08/29/2017 Comp Metabolic Thj050 AST(SGOT) 21 U/L 08/29/2017 Comp Metabolic Xyo512 ALT(SGPT) 18 U/L 08/29/2017 Comp Metabolic Zyo377 BILI T 0.5 mg/dL 08/29/2017 Comp Metabolic Lvj339 ALBUMIN 4.3 g/dL 08/29/2017 Comp Metabolic Fdi596 TPRO 6.7 g/dL 08/29/2017 Comp Metabolic Eml508 GLOB 2.4 g/dL 08/29/2017 Comp Metabolic Vax170 A/G Ratio 1.8 Ratio 08/29/2017 Comp Metabolic Irs033 Osmo 284 mOsmo 08/29/2017 Tibc Ord40 Iron [...] 29.3 pg 08/29/2017 Cbc With Differential Ord2 [place]% 7.0 % 08/29/2017 Cbc With Differential Ord2 [...] 2.32 K/ul 08/29/2017 Cbc With Differential Ord2 [place] ABS# 0.6 K/ul 08/29/2017 Cbc With Differential [...] 30.0 pg 03/01/2017 Cbc With Differential Ord2 [place]% 8.0 % 03/01/2017 Cbc With Differential Ord2 [...] 2.11 K/ul 03/01/2017 Cbc With Differential Ord2 [place] ABS# 0.6 K/ul 03/01/2017 Cbc With Differential Ord2 Eos ABS# 0.2 K/ul 03/01/2017 Cbc With Differential Ord2 Baso ABS# 0.0 K/ul 03/01/2017 Ferritin Ord22 FERRITIN 89.1 ng/mL 02/27/2017 Tibc Ord40 Iron 69 ug/dl 02/27/2017 Tibc Ord40 UIBC 283 ug/dL 02/27/2017 Tibc Ord40 TIBC 352 ug/dL 02/27/2017 Tibc Ord40 Fe-%Sat 19.6 % 02/27/2017 Comp Metabolic Jkx149 NA 137 mEq/L 08/29/2016 Comp Metabolic Rmy914 K 4.0 mEq/L 08/29/2016 Comp Metabolic Bjl552 CL 100 mEq/L 08/29/2016 Comp Metabolic Wff048 CO2 32.0 mEq/L 08/29/2016 Comp Metabolic Pvs519 ANION GAP 9 08/29/2016 Comp Metabolic Adg799 GLUCOSE 98 mg/dL 08/29/2016 Comp Metabolic Lra809 Creat 1.0 mg/dL 08/29/2016 Comp Metabolic Ifi927 eGFR 55 ml/min/1.73m2 08/29/2016 Comp Metabolic Wma045 BUN 19 mg/dL 08/29/2016 Comp Metabolic Pst353 B/C Ratio 18.3 Ratio 08/29/2016 Comp Metabolic Igc758 CALCIUM 10.0 mg/dL 08/29/2016 Comp Metabolic Cxp268 ALK PHOS 51 U/L 08/29/2016 Comp Metabolic Zog259 AST(SGOT) 21 U/L 08/29/2016 Comp Metabolic Sey164 ALT(SGPT) 16 U/L 08/29/2016 Comp Metabolic Inj175 BILI T 0.5 mg/dL 08/29/2016 Comp Metabolic Emo743 ALBUMIN 4.5 g/dL 08/29/2016 Comp Metabolic Zjr110 TPRO 7.3 g/dL 08/29/2016 Comp Metabolic Wnd575 GLOB 2.8 g/dL 08/29/2016 Comp Metabolic Wnl181 A/G Ratio 1.6 Ratio 08/29/2016 Comp Metabolic Zsd901 Osmo 276 mOsmo 08/29/2016 Lipid Ord30 CHOL [...] 29.6 pg 08/29/2016 Cbc With Differential Ord2 [place]% 7.8 % 08/29/2016 Cbc With Differential Ord2 [...] 2.31 K/ul 08/29/2016 Cbc With Differential Ord2 [place] ABS# 0.7 K/ul 08/29/2016 Cbc With Differential [...] 29.4 pg 05/02/2016 Cbc With Differential Ord2 [place]% 8.4 % 05/02/2016 Cbc With Differential Ord2 [...] 2.03 K/ul 05/02/2016 Cbc With Differential Ord2 [place] ABS# 0.7 K/ul 05/02/2016 Cbc With Differential Ord2 Eos ABS# 0.2 K/ul 05/02/2016 Cbc With Differential Ord2 Baso ABS# 0.1 K/ul 05/02/2016 Comp Metabolic Wzq319 NA 136 mEq/L 05/02/2016 Comp Metabolic Jfd938 K 4.0 mEq/L 05/02/2016 Comp Metabolic Xnz160 CL 97 mEq/L 05/02/2016 Comp Metabolic Izq923 CO2 31.0 mEq/L 05/02/2016 Comp Metabolic Zjj640 ANION GAP 12 05/02/2016 Comp Metabolic Nca752 GLUCOSE 97 mg/dL 05/02/2016 Comp Metabolic Rgb070 Creat 1.0 mg/dL 05/02/2016 Comp Metabolic Nbj213 eGFR 61 ml/min/1.73m2 05/02/2016 Comp Metabolic Tnc764 BUN 24 mg/dL 05/02/2016 Comp Metabolic Hdg013 B/C Ratio 25.0 Ratio 05/02/2016 Comp Metabolic Zod419 CALCIUM 9.6 mg/dL 05/02/2016 Comp Metabolic Zzo299 ALK PHOS 55 U/L 05/02/2016 Comp Metabolic Rqe892 AST(SGOT) 18 U/L 05/02/2016 Comp Metabolic Gjf294 ALT(SGPT) 20 U/L 05/02/2016 Comp Metabolic Wok431 BILI T 0.5 mg/dL 05/02/2016 Comp Metabolic Grw439 ALBUMIN 4.5 g/dL 05/02/2016 Comp Metabolic Uoz757 TPRO 7.4 g/dL 05/02/2016 Comp Metabolic Grp709 GLOB 2.9 g/dL 05/02/2016 Comp Metabolic Xun531 A/G Ratio 1.6 Ratio 05/02/2016 Comp Metabolic Wmc559 Osmo 276 mOsmo 05/02/2016 Lipid Ord30 CHOL 197 mg/dL 11/02/2015 Lipid Ord30 HDL 43.0 mg/dl 11/02/2015 Lipid Ord30 TRIG 247 mg/dL 11/02/2015 Lipid Ord30 LDL 105 mg/dL 11/02/2015 Lipid Ord30 C/HDL 4.6 Ratio 11/02/2015 Comp Metabolic Vol740 NA 137 mEq/L 11/02/2015 Comp Metabolic Swv268 K 3.9 mEq/L 11/02/2015 Comp Metabolic Osn199 CL 96 mEq/L 11/02/2015 Comp Metabolic Tyk040 CO2 34.0 mEq/L 11/02/2015 Comp Metabolic Avf681 ANION GAP 11 11/02/2015 Comp Metabolic Jid841 GLUCOSE 97 mg/dL 11/02/2015 Comp Metabolic Gbq743 Creat 1.1 mg/dL 11/02/2015 Comp Metabolic Zts712 eGFR 52 ml/min/1.73m2 11/02/2015 Comp Metabolic Pqr259 BUN 29 mg/dL 11/02/2015 Comp Metabolic Uxa752 B/C Ratio 26.6 Ratio 11/02/2015 Comp Metabolic Kbm574 CALCIUM 9.8 mg/dL 11/02/2015 Comp Metabolic Mnk083 ALK PHOS 56 U/L 11/02/2015 Comp Metabolic Vnv349 AST(SGOT) 16 U/L 11/02/2015 Comp Metabolic Hrg134 ALT(SGPT) 13 U/L 11/02/2015 Comp Metabolic Ren637 BILI T 0.4 mg/dL 11/02/2015 Comp Metabolic Riw057 ALBUMIN 4.4 g/dL 11/02/2015 Comp Metabolic Blm332 TPRO 7.1 g/dL 11/02/2015 Comp Metabolic Wdu901 GLOB 2.7 g/dL 11/02/2015 Comp Metabolic Err352 A/G Ratio 1.6 Ratio 11/02/2015 Comp Metabolic Aiz760 Osmo 280 mOsmo 11/02/2015 Cbc With Differential [...] 29.0 pg 11/02/2015 Cbc With Differential Ord2 [place]% 9.0 % 11/02/2015 Cbc With Differential Ord2 [...] 2.16 K/ul 11/02/2015 Cbc With Differential Ord2 [place] ABS# 0.8 K/ul 11/02/2015 Cbc With Differential [...] Ord2 RDW 14.6 % 05/04/2015 Free T4 Uan717 FREE T4 0.81 ng/dL 05/04/2015 Comp Metabolic Tqg132 NA 134 mEq/L 05/04/2015 Comp Metabolic Cel722 K 3.8 mEq/L 05/04/2015 Comp Metabolic Ayu167 CL 97 mEq/L 05/04/2015 Comp Metabolic Jnk254 CO2 31.0 mEq/L 05/04/2015 Comp Metabolic Arj220 ANION GAP 10 05/04/2015 Comp Metabolic Nwp712 GLUCOSE 88 mg/dL 05/04/2015 Comp Metabolic Juf048 Creat 1.0 mg/dL 05/04/2015 Comp Metabolic Bnu721 eGFR 58 ml/min/1.73m2 05/04/2015 Comp Metabolic Bid363 BUN 19 mg/dL 05/04/2015 Comp Metabolic Djw787 B/C Ratio 19.0 Ratio 05/04/2015 Comp Metabolic Bnr074 CALCIUM 9.5 mg/dL 05/04/2015 Comp Metabolic Bzf064 ALK PHOS 60 U/L 05/04/2015 Comp Metabolic Ndb316 AST(SGOT) 17 U/L 05/04/2015 Comp Metabolic Qrv169 ALT(SGPT) 14 U/L 05/04/2015 Comp Metabolic Opn808 BILI T 0.5 mg/dL 05/04/2015 Comp Metabolic Tgm352 ALBUMIN 4.5 g/dL 05/04/2015 Comp Metabolic Mym180 TPRO 7.1 g/dL 05/04/2015 Comp Metabolic Pby389 GLOB 2.6 g/dL 05/04/2015 Comp Metabolic Vok605 A/G Ratio 1.7 Ratio 05/04/2015 Comp Metabolic Yuv111 Osmo 270 mOsmo 05/04/2015 Lipid Ord30 CHOL [...] Codes Date ADMIN PNEUMOCOCCAL VACCINE SNOMED CT: 29005082 CPT-4: G0009 08/27/2018 Pneumococcal Polysaccharide Vaccine, 23-Valent, Ad CPT-4: 07241 08/27/2018 ROCEPHIN, PER 250 MG CPT- 4: J0696 02/26/2018 THER/PROPH/DIAG INJ SC/IM CPT-4: 70704 02/26/2018 TRIAMCINOLONE ACET INJ NOS CPT-4: J3301 02/13/2018 THER/PROPH/DIAG INJ SC/IM CPT-4: 77404 02/13/2018 TRIAMCINOLONE ACET INJ NOS CPT-4: J3301 07/03/2016 PNEUMOCOCCAL VACC [address]: 48064781 CPT-4: 53203 11/02/2015 IMMUNIZATION ADMIN CPT- 4: 21781 11/02/2015 Vital Signs Date Vital 08/27/2018 Blood Pressure 1: 146/82 Code: 8480-6 BMI: 25.8 Code: 64403-5 Heart Rate 1: 67 bpm Height: 5'2" SpO2: 97% Weight: 141 lbs 02/26/2018 Blood Pressure 1: 132/80 Code: 8480-6 BMI: 25.8 Code: 36071-1 Heart Rate 1: 76 bpm Height: 5'2" SpO2: 97% Temperature: 36.9 (C) / 98.4 (F) Weight: 141 lbs 02/13/2018 Blood Pressure 1: 130/78 Code: 8480-6 BMI: 26.3 Code: 39492-0 Heart Rate 1: 80 bpm Height: 5'2" SpO2: 93% Temperature: 36.9 (C) / 98.4 (F) Weight: 144 lbs 08/29/2017 Blood Pressure 1: 126/78 Code: 8480-6 BMI: 26.3 Code: 66943-7 Heart Rate 1: 80 bpm Height: 5'2" SpO2: 97% Weight: 144 lbs 05/14/2017 Blood Pressure 1: 128/70 Code: 8480-6 BMI: 26.5 Code: 16819-0 Heart Rate 1: 84 bpm Height: 5'2" SpO2: 97% Weight: 145 lbs 02/27/2017 Blood Pressure 1: 130/82 Code: 8480-6 BMI: 26.3 Code: 24625-7 Heart Rate 1: 82 bpm Height: 5'2" SpO2: 96% Weight: 144 lbs 02/02/2017 Blood Pressure 1: 142/76 Code: 8480-6 BMI: 26.3 Code: 06836-9 Heart Rate 1: 80 bpm Height: 5'2" SpO2: 97% Weight: 144 lbs 11/22/2016 Blood Pressure 1: 134/72 Code: 8480-6 BMI: 27.1 Code: 46950-6 Heart Rate 1: 76 bpm Height: 5'2" SpO2: 97% Weight: 148 lbs 08/29/2016 Blood Pressure 1: 120/80 Code: 8480-6 BMI: 26.0 Code: 23954-9 Heart Rate 1: 74 bpm Height: 5'2" SpO2: 97% Weight: 142 lbs 07/28/2016 Blood Pressure 1: 134/72 Code: 8480-6 BMI: 25.7 Code: 73125-3 Heart Rate 1: 81 bpm Height: 5'2" SpO2: 98% Temperature: 37.1 (C) / 98.7 (F) Weight: 140 lbs 8 oz 07/03/2016 Blood Pressure 1: 136/80 Code: 8480-6 Heart Rate 1: 86 bpm SpO2: 98% Temperature: 36.7 (C) / 98.0 (F) 05/02/2016 Blood Pressure 1: 124/78 Code: 8480-6 BMI: 26.3 Code: 90006-7 Heart Rate 1: 74 bpm Height: 5'2" SpO2: 98% Weight: 144 lbs 11/02/2015 Blood Pressure 1: 118/78 Code: 8480-6 BMI: 26.5 Code: 52649-1 Heart Rate 1: 79 bpm Height: 5'2" SpO2: 98% Weight: 145 lbs 05/04/2015 Blood Pressure 1: 132/64 Code: 8480-6 BMI: 25.2 Code: 31551-1 Heart Rate 1: 75 bpm Height: 5'2" [...] 02/27/2017 None rash Location-Head/Neck on the right anabaptism 02/02/2017 None rash Color red 02/02/2017 None [...] data Encounters Encounter Performer Location Codes Date ([id number]) 19931 EST. PATIENT, LEVEL IV Diagnosis: Essential (primary) hypertension[ICD10: I10] Diagnosis: Mixed hyperlipidemia[ICD10: E78.2] Diagnosis: Encounter for immunization[ICD10: Z23] Aparna Dunn MD, [facility] CPT-4: 41957 08/27/2018 ([id number]) 17230 EST. PATIENT, LEVEL IV Diagnosis: Essential (primary) hypertension[ICD10: I10] Diagnosis: Mixed hyperlipidemia[ICD10: E78.2] Diagnosis: Cough[ICD10: R05] Diagnosis: Acute recurrent frontal sinusitis[ICD10: J01.11] Aparna Dunn MD, [facility] CPT-4: 88477 02/26/2018 16450 EST. PATIENT, LEVEL IV Diagnosis: Other allergic rhinitis[ICD10: J30.89] Diagnosis: Acute laryngopharyngitis[ICD10: J06.0] Loretta Dunn MD, [facility] CPT- 4: 16983 02/13/2018 ([id number]) 84839 EST. PATIENT, LEVEL IV Diagnosis: Obstructive sleep apnea (adult) (pediatric)[ICD10: G47.33] Diagnosis: Iron deficiency[ICD10: E61.1] Diagnosis: Mixed hyperlipidemia[ICD10: E78.2] Diagnosis: Essential (primary) hypertension[ICD10: I10] Aparna Dunn MD, [facility] CPT-4: 56312 08/29/2017 30929 EST. PATIENT, LEVEL III Diagnosis: Cellulitis of face[ICD10: L03.211] Loretta Dunn MD, [facility] CPT-4: 60524 05/14/2017 ([id number]) 43871 EST. PATIENT, LEVEL IV Diagnosis: Essential (primary) hypertension[ICD10: I10] Diagnosis: Mixed hyperlipidemia[ICD10: E78.2] Diagnosis: Obstructive sleep apnea (adult) (pediatric)[ICD10: G47.33] Aparna Dunn MD, [facility] CPT-4: 33293 02/27/2017 [id number] EST. PATIENT, LEVEL III Diagnosis: Cellulitis of face[ICD10: L03.211] Loretta Dunn MD, [facility] CPT-4: 04384 02/02/2017 44644 EST. PATIENT, LEVEL III Diagnosis: Other insomnia[ICD10: G47.09] Loretta Dunn MD, [facility] CPT-4: 48346 11/22/2016 ([id number]) 94262 EST. PATIENT, LEVEL IV Diagnosis: Essential (primary) hypertension[ICD10: I10] Diagnosis: Mixed hyperlipidemia[ICD10: E78.2] Aparna Dunn MD, [facility] CPT- 4: 55942 08/29/2016 [id number] EST. PATIENT, LEVEL IV Diagnosis: Acute laryngopharyngitis[ICD10: J06.0] Diagnosis: Cough[ICD10: R05] Loretta Dunn MD, [facility] CPT-4: 08537 07/28/2016 ([id number]) 14407 EST. PATIENT, LEVEL III Diagnosis: Cough[ICD10: R05] Diagnosis: Acute bronchitis, unspecified[ICD10: J20.9] Judy Dunn MD, [facility] CPT-4: 74869 07/03/2016 ([id number]) 61848 EST. PATIENT, LEVEL IV Diagnosis: Essential (primary) hypertension[ICD10: I10] Diagnosis: Mixed hyperlipidemia[ICD10: E78.2] Diagnosis: Snoring[ICD10: R06.83] Aparna Dunn MD, [facility] CPT-4: 97444 05/02/2016 ([id number]) 97565 EST. PATIENT, LEVEL IV Diagnosis: Essential (primary) hypertension[ICD10: I10] Diagnosis: Mixed hyperlipidemia[ICD10: E78.2] Diagnosis: Encounter for immunization[ICD10: Z23] [facility] CPT-4: 06446 11/02/2015 ([id number]) Miscellaneous no charge Diagnosis: Tick bite[ICD9: 919.4] [facility] CPT-4: 10063 05/20/2015 ([id number]) OFFICE VISIT, NEW - LEVEL 4 Diagnosis: ESSENTIAL HYPERTENSION[ICD9: 401.9] Diagnosis: ENCNTR LONG-RX USE NEC[ICD9: V58.69] Diagnosis: HYPERLIPIDEMIA[ICD9: 272.4] [facility] CPT-4: 92047 05/04/2015 Plan of Care Planned Activity Notes Codes Status Date Patient Education: Patient Medication Summary Completed 09/24/2018 Care Plan: SCREENINGMAMMOGRAPHYDIGITAL LOINC : 03367-3 Pending 09/24/2018 Visit Plan: Hypertension - well [...] today 08/27/2018 Appointment: Aparna Dunn WPtel: [phone] [facility] (15 min) Moderate 08/27/2018 Patient Education: Patient [...] improvement. 02/26/2018 [phone] [facility] Moderate 02/26/2018 Patient Education: [...] pharmacy. 02/13/2018 [phone] ([facility] Complex 02/13/2018 Patient Education: Patient [...] acyclovir 08/29/2017 [phone] ([facility]) Moderate 08/29/2017 Patient Education: [...] in pain. 05/14/2017 App[phone] ([facility]) Complex 05/14/2017 Patient Education: Patient [...] to medications. 02/27/2017 Appointment: Aparna Dunn WPtel: [facility] (15 min) Moderate 02/27/2017 Patient Education: Patient [...] in pain. 02/02/2017 Appointment: Loretta Fountain [facility]Ptel[facility] ([facility] Complex 02/02/2017 Patient Education: Patient Medication Summary Completed 02/02/2017 Visit Plan: Insomnia - Pt has been advised to increase the light in the house during the day, and start dimming the lights during the evening hours. Pt has been advised to cut out caffeine after 5pm. Daytime napping worsens night time insomnia. 11/22/2016 Appointment: [phone] ([facility] min) Moderate 11/22/2016 Patient Education: Patient [...] medications. 08/29/2016 Appointment: Aparna Dunn WPtel: [phone] [facility] (15 min) Moderate 08/29/2016 Patient Education: Patient [...] patient's pharmacy. 07/28/2016 Appointment: Judy Felix WPtel: [phone] (10 min) Simple 07/28/2016 Patient Education: Patient [...] of plan. 07/03/2016 App[facility]ment: [phone] [place] (10 min) Simple 07/03/2016 Patient Education: [...] medications. 05/02/2016 App[phone] [place] (15 min) Moderate 05/02/2016 Patient [...] shot today 11/02/2015 App[facility]ment[phone] [place] (30 min) Complex 11/02/2015 Patient [...] to medications. 05/04/2015 Appointment: Apar[facility] Dunn [facility]el[facility] [place] ([place] New Patient 05/04/2015 Patient [...]
--- OUTSIDE RECORDS SUMMARY | 2019-03-24 10:12 | XMS REPORT | CCD ---
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 Name Role Phone PP Unavailable CCM Unavailable Summary Purpose Interface Exchange Insurance Providers Payer name Policy type / Coverage type Covered constitution party ID Effective Begin Date Effective End Date WPS Medicare Part B [id number] Unknown [facility] [id number] Unknown Family history Father Diagnosis Age At Onset Unknown Brother Diagnosis Age At Onset Diabetes mellitus Type 2 Unknown Mother Diagnosis Age At Onset car accident Unknown Social History Social History Element Codes Description Effective Dates Marital status Unknown for 16 years - for 16 years, then remarried 05/02/[address]: 397700452 Never smoker 05/02/[address]: 066111 Currently drinks alcohol 05/02/2016 Frequency of drinks SNOMED CT: 611892388 1- 4 drinks per week 1 per [...] 9: 272.4 ICD-10: E78.2 Active 05/03/2015 Unknown Obstructive [...] ICD- 9: 272.4 ICD-10: E78.2 05/03/2015 Active Obstructive sleep [...] Start Date Stop Date Status Fill Instructions pravastatin 20 mg tablet RxNorm: 295326 TAKE 1 TABLET BY MOUTH DAILY 02/28/2017 02/22/2018 Active mupirocin 2 % topical ointment RxNorm: 857981 1 Application TOP BID 02/02/2017 No Stop Date Active Bactrim DS 800 mg-160 mg tablet RxNorm: 047615 1 Tablet(s) PO BID 02/02/2017 02/11/2017 Inactive Xanax 0.25 mg tablet RxNorm: 538460 1/2 - 1 Tablet(s) PO QHS 12/25/2016 03/24/2017 Active Xanax 0.25 mg tablet RxNorm: 828474 1/2 - 1 Tablet(s) PO QHS 11/22/2016 No Stop Date Active trazodone 50 mg tablet RxNorm: 354867 1 Tablet(s) PO QPM 08/29/2016 10/22/2017 Active Maxzide-25mg 37.5 mg-25 mg tablet RxNorm: 44106 Tablet(s) 1 Tablet, 1 time per Day 08/29/2016 05/25/2017 Active amoxicillin 500 mg capsule RxNorm: 781298 1 Capsule(s) PO TID 07/28/2016 08/03/2016 Inactive cetirizine 10 mg tablet RxNorm: 2834273 1 Tablet(s) PO daily 07/28/2016 08/26/2016 Inactive Zithromax Z-Elías 250 mg tablet RxNorm: 111773 1 Tablet(s) PO UD 07/03/2016 07/07/2016 Inactive zpack Kenalog 40 mg/mL suspension for injection RxNorm: 1767893 Milliliter(s) Inj 07/03/2016 07/03/2016 Inactive pravastatin 20 mg tablet RxNorm: 342195 TAKE 1 TABLET BY MOUTH DAILY 05/31/2016 02/24/2017 Inactive trazodone 50 mg tablet RxNorm: 671366 1 Tablet(s) PO QPM 03/03/2016 06/30/2016 Inactive Maxzide-25mg 37.5 mg-25 mg tablet RxNorm: 64322 1 Tablet, 1 time per Day 12/06/2015 08/28/2016 Inactive trazodone 50 mg tablet RxNorm: 909622 1 Tablet(s) PO QPM 10/22/2015 03/02/2016 Inactive Maxzide-25mg 37.5 mg-25 mg tablet RxNorm: 33056 1 Tablet(s) PO daily 05/04/2015 12/05/2015 Inactive trazodone 50 mg tablet RxNorm: 965800 1/2 Tablet(s) PO QPM may increase up to a full pill if needed 05/04/2015 10/21/2015 Inactive pravastatin 20 mg tablet RxNorm: 013605 1 Tablet(s) PO daily 05/04/2015 04/27/2016 Inactive pravastatin 20 mg tablet RxNorm: 726348 1 Tablet(s) PO daily 03/03/2015 03/02/2015 Inactive pravastatin 20 mg tablet RxNorm: 341310 1 Tablet(s) PO daily 03/03/2015 05/03/2015 Inactive Centrum Silver tablet RxNorm: 1 Tablet(s) PO daily No Start Date Active [place] 3 Fish Oil oral RxNorm: 2293761 oral No Start Date Active Osteo Bi-Flex oral RxNorm: 2240005 oral No Start Date Active zolpidem 5 mg tablet RxNorm: 309741 1 Tablet(s) PO QHS as needed No Start Date 05/03/2015 Inactive Maxzide-25mg oral RxNorm: 33320 oral No Start Date 05/03/2015 Inactive Medication Administered Medication Codes Instructions Start Date Status Kenalog 40 mg/mL suspension for injection RxNorm: 1352395 Milliliter 07/03/2016 No longer Active Immunizations Vaccine [...] Dates Mixed hyperlipidemia ICD-10: E78.2 ICD-9: 272.4 02/27/2017 Essential (primary) hypertension ICD-10: I10 ICD-9: 401.9 02/27/2017 Obstructive sleep apnea (adult) (pediatric) ICD-10: G47.33 ICD-9: 327.23 02/27/2017 Cellulitis of face ICD-10: L03.211 ICD-9: 682.0 02/02/2017 Other insomnia ICD-10: G47.09 ICD-9: 327.09 11/22/2016 [...] Reason For Visit Effective Dates Notes hyperlipidemia 02/27/2017 rash 02/02/2017 insomnia 11/22/2016 hyperlipidemia 08/29/2016 cough 07/28/2016 cough 07/03/2016 hyperlipidemia 05/02/2016 hyperlipidemia 11/02/2015 blood pressure followup 05/04/2015 Results Observation Observation Code Item Item Code Result Date Ferritin Ord22 FERRITIN 89.1 ng/mL 02/27/2017 Tibc Ord40 Iron 69 ug/dl 02/27/2017 Tibc Ord40 UIBC 283 ug/dL 02/27/2017 Tibc Ord40 TIBC 352 ug/dL 02/27/2017 Tibc Ord40 Fe-%Sat 19.6 % 02/27/2017 Comp Metabolic Nsi461 NA 137 mEq/L 08/29/2016 Comp Metabolic Xyx035 K 4.0 mEq/L 08/29/2016 Comp Metabolic Eki510 CL 100 mEq/L 08/29/2016 Comp Metabolic Hlc884 CO2 32.0 mEq/L 08/29/2016 Comp Metabolic Zmo171 ANION GAP 9 08/29/2016 Comp Metabolic Cjm620 GLUCOSE 98 mg/dL 08/29/2016 Comp Metabolic Oau076 Creat 1.0 mg/dL 08/29/2016 Comp Metabolic Wyd559 eGFR 55 ml/min/1.73m2 08/29/2016 Comp Metabolic Wja334 BUN 19 mg/dL 08/29/2016 Comp Metabolic Ehp724 B/C Ratio 18.3 Ratio 08/29/2016 Comp Metabolic Uwd122 CALCIUM 10.0 mg/dL 08/29/2016 Comp Metabolic Fvu885 ALK PHOS 51 U/L 08/29/2016 Comp Metabolic Iwr966 AST(SGOT) 21 U/L 08/29/2016 Comp Metabolic Enl492 ALT(SGPT) 16 U/L 08/29/2016 Comp Metabolic Ecu251 BILI T 0.5 mg/dL 08/29/2016 Comp Metabolic Zam570 ALBUMIN 4.5 g/dL 08/29/2016 Comp Metabolic Wmr671 TPRO 7.3 g/dL 08/29/2016 Comp Metabolic Hfb616 GLOB 2.8 g/dL 08/29/2016 Comp Metabolic Qti263 A/G Ratio 1.6 Ratio 08/29/2016 Comp Metabolic Vsl738 Osmo 276 mOsmo 08/29/2016 Lipid Ord30 CHOL [...] 39.7 % 08/29/2016 Cbc With Differential Ord2 MCV 89.8 fl 08/29/2016 Cbc With Differential Ord2 Lymph% 27.4 % 08/29/2016 Cbc With Differential Ord2 MCH 29.6 pg 08/29/2016 Cbc With Differential Ord2 Williamson% 7.8 % 08/29/2016 Cbc With Differential Ord2 [...] 2.31 K/ul 08/29/2016 Cbc With Differential Ord2 Williamson ABS# 0.7 K/ul 08/29/2016 Cbc With Differential [...] 29.4 pg 05/02/2016 Cbc With Differential Ord2 Williamson% 8.4 % 05/02/2016 Cbc With Differential Ord2 [...] 2.03 K/ul 05/02/2016 Cbc With Differential Ord2 Williamson ABS# 0.7 K/ul 05/02/2016 Cbc With Differential Ord2 Eos ABS# 0.2 K/ul 05/02/2016 Cbc With Differential Ord2 Baso ABS# 0.1 K/ul 05/02/2016 Comp Metabolic Amd723 NA 136 mEq/L 05/02/2016 Comp Metabolic Yff820 K 4.0 mEq/L 05/02/2016 Comp Metabolic Vhn374 CL 97 mEq/L 05/02/2016 Comp Metabolic Fhx053 CO2 31.0 mEq/L 05/02/2016 Comp Metabolic Jve333 ANION GAP 12 05/02/2016 Comp Metabolic Wex151 GLUCOSE 97 mg/dL 05/02/2016 Comp Metabolic Wlo161 Creat 1.0 mg/dL 05/02/2016 Comp Metabolic Xpf555 eGFR 61 ml/min/1.73m2 05/02/2016 Comp Metabolic Vsx223 BUN 24 mg/dL 05/02/2016 Comp Metabolic Vpt497 B/C Ratio 25.0 Ratio 05/02/2016 Comp Metabolic Mnz523 CALCIUM 9.6 mg/dL 05/02/2016 Comp Metabolic Nbk152 ALK PHOS 55 U/L 05/02/2016 Comp Metabolic Gor528 AST(SGOT) 18 U/L 05/02/2016 Comp Metabolic Fpx956 ALT(SGPT) 20 U/L 05/02/2016 Comp Metabolic Faa919 BILI T 0.5 mg/dL 05/02/2016 Comp Metabolic Vor148 ALBUMIN 4.5 g/dL 05/02/2016 Comp Metabolic Zcs813 TPRO 7.4 g/dL 05/02/2016 Comp Metabolic Zry436 GLOB 2.9 g/dL 05/02/2016 Comp Metabolic Iod457 A/G Ratio 1.6 Ratio 05/02/2016 Comp Metabolic Nhb709 Osmo 276 mOsmo 05/02/2016 Lipid Ord30 CHOL 197 mg/dL 11/02/2015 Lipid Ord30 HDL 43.0 mg/dl 11/02/2015 Lipid Ord30 TRIG 247 mg/dL 11/02/2015 Lipid Ord30 LDL 105 mg/dL 11/02/2015 Lipid Ord30 C/HDL 4.6 Ratio 11/02/2015 Comp Metabolic Fgk534 NA 137 mEq/L 11/02/2015 Comp Metabolic Pbl560 K 3.9 mEq/L 11/02/2015 Comp Metabolic Sok960 CL 96 mEq/L 11/02/2015 Comp Metabolic Txf898 CO2 34.0 mEq/L 11/02/2015 Comp Metabolic Nau748 ANION GAP 11 11/02/2015 Comp Metabolic Lqu649 GLUCOSE 97 mg/dL 11/02/2015 Comp Metabolic Iry366 Creat 1.1 mg/dL 11/02/2015 Comp Metabolic Ohw519 eGFR 52 ml/min/1.73m2 11/02/2015 Comp Metabolic Osi598 BUN 29 mg/dL 11/02/2015 Comp Metabolic Koa091 B/C Ratio 26.6 Ratio 11/02/2015 Comp Metabolic Sek023 CALCIUM 9.8 mg/dL 11/02/2015 Comp Metabolic Yjx698 ALK PHOS 56 U/L 11/02/2015 Comp Metabolic Hoo421 AST(SGOT) 16 U/L 11/02/2015 Comp Metabolic Joh988 ALT(SGPT) 13 U/L 11/02/2015 Comp Metabolic Efo660 BILI T 0.4 mg/dL 11/02/2015 Comp Metabolic Fxi699 ALBUMIN 4.4 g/dL 11/02/2015 Comp Metabolic Kra072 TPRO 7.1 g/dL 11/02/2015 Comp Metabolic Ryq030 GLOB 2.7 g/dL 11/02/2015 Comp Metabolic Cfu960 A/G Ratio 1.6 Ratio 11/02/2015 Comp Metabolic Jtr608 Osmo 280 mOsmo 11/02/2015 Cbc With Differential Ord2 WBC 8.46 K/ul 11/02/2015 Cbc With Differential Ord2 RBC 4.55 M/ul 11/02/2015 Cbc With Differential Ord2 HGB 13.2 g/dl 11/02/2015 Cbc With Differential Ord2 HCT 41.2 % 11/02/2015 Cbc With Differential Ord2 Neut% 62.2 % 11/02/2015 Cbc With Differential Ord2 Lymph% 25.5 % 11/02/2015 Cbc With Differential Ord2 MCV 90.5 fl 11/02/2015 Cbc With Differential Ord2 Williamson% 9.0 % 11/02/2015 Cbc With Differential Ord2 [...] 2.16 K/ul 11/02/2015 Cbc With Differential Ord2 Williamson ABS# 0.8 K/ul 11/02/2015 Cbc With Differential [...] Ord2 RDW 14.6 % 05/04/2015 Free T4 Msv446 FREE T4 0.81 ng/dL 05/04/2015 Comp Metabolic Wfu956 NA 134 mEq/L 05/04/2015 Comp Metabolic Zlm349 K 3.8 mEq/L 05/04/2015 Comp Metabolic Tgh597 CL 97 mEq/L 05/04/2015 Comp Metabolic Iul855 CO2 31.0 mEq/L 05/04/2015 Comp Metabolic Kon130 ANION GAP 10 05/04/2015 Comp Metabolic Yys937 GLUCOSE 88 mg/dL 05/04/2015 Comp Metabolic Oaj427 Creat 1.0 mg/dL 05/04/2015 Comp Metabolic Omx142 eGFR 58 ml/min/1.73m2 05/04/2015 Comp Metabolic Aau682 BUN 19 mg/dL 05/04/2015 Comp Metabolic Ndb793 B/C Ratio 19.0 Ratio 05/04/2015 Comp Metabolic Rwh010 CALCIUM 9.5 mg/dL 05/04/2015 Comp Metabolic Qsz891 ALK PHOS 60 U/L 05/04/2015 Comp Metabolic Wjz927 AST(SGOT) 17 U/L 05/04/2015 Comp Metabolic Ghs460 ALT(SGPT) 14 U/L 05/04/2015 Comp Metabolic Hol710 BILI T 0.5 mg/dL 05/04/2015 Comp Metabolic Qcs848 ALBUMIN 4.5 g/dL 05/04/2015 Comp Metabolic Evq395 TPRO 7.1 g/dL 05/04/2015 Comp Metabolic Uej722 GLOB 2.6 g/dL 05/04/2015 Comp Metabolic Sny097 A/G Ratio 1.7 Ratio 05/04/2015 Comp Metabolic Ryu665 Osmo 270 mOsmo 05/04/2015 Lipid Ord30 CHOL 167 mg/dL 05/04/2015 Lipid Ord30 HDL 45.0 mg/dl 05/04/2015 Lipid Ord30 TRIG 179 mg/dL 05/04/2015 Lipid Ord30 LDL 86 mg/dL 05/04/2015 Lipid Ord30 C/HDL 3.7 Ratio 05/04/2015 Review of Systems System Result Effective Dates Constitutional No recent illness 02/27/2017 Constitutional No [...] Codes Date TRIAMCINOLONE ACET INJ NOS CPT-4: A4891Rkgxyyi 07/03/2016 PNEUMOCOCCAL VACC [address]: 72470223 CPT-4: 41234Losrerw 11/02/2015 IMMUNIZATION ADMIN CPT-4: 21495Pqkwbyo 11/02/2015 Vital Signs Date Vital 02/27/2017 Blood Pressure 1: 130/82 Code: 8480-6 BMI: 26.3 Code: 94816-4 Heart Rate 1: 82 bpm Height: 5'2" SpO2: 96% Weight: 144 lbs 02/02/2017 Blood Pressure 1: 142/76 Code: 8480-6 BMI: 26.3 Code: 14515-2 Heart Rate 1: 80 bpm Height: 5'2" SpO2: 97% Weight: 144 lbs 11/22/2016 Blood Pressure 1: 134/72 Code: 8480-6 BMI: 27.1 Code: 67718-3 Heart Rate 1: 76 bpm Height: 5'2" SpO2: 97% Weight: 148 lbs 08/29/2016 Blood Pressure 1: 120/80 Code: 8480-6 BMI: 26.0 Code: 12535-3 Heart Rate 1: 74 bpm Height: 5'2" SpO2: 97% Weight: 142 lbs 07/28/2016 Blood Pressure 1: 134/72 Code: 8480-6 BMI: 25.7 Code: 62854-1 Heart Rate 1: 81 bpm Height: 5'2" SpO2: 98% Temperature: 37.1 (C) / 98.7 (F) Weight: 140 lbs 8 oz 07/03/2016 Blood Pressure 1: 136/80 Code: 8480-6 Heart Rate 1: 86 bpm SpO2: 98% Temperature: 36.7 (C) / 98.0 (F) 05/02/2016 Blood Pressure 1: 124/78 Code: 8480-6 BMI: 26.3 Code: 20176-6 Heart Rate 1: 74 bpm Height: 5'2" SpO2: 98% Weight: 144 lbs 11/02/2015 Blood Pressure 1: 118/78 Code: 8480-6 BMI: 26.5 Code: 92315-7 Heart Rate 1: 79 bpm Height: 5'2" SpO2: 98% Weight: 145 lbs 05/04/2015 Blood Pressure 1: 132/64 Code: 8480-6 BMI: 25.2 Code: 89171-1 Heart Rate 1: 75 bpm Height: 5'2" [...] 02/27/2017 None rash Location-Head/Neck on the right yarsanism 02/02/2017 None rash Color red 02/02/2017 None [...] data Encounters Encounter Performer Location Codes Date ([id number]) [id number] EST. PATIENT, LEVEL IV Diagnosis: Essential (primary) hypertension[ICD10: I10] Diagnosis: Mixed hyperlipidemia[ICD10: E78.2] Diagnosis: Obstructive sleep apnea (adult) (pediatric)[ICD10: G47.33] Aparna Dunn MD, [facility] CPT-4: 44121 02/27/2017 [id number] EST. PATIENT, LEVEL III Diagnosis: Cellulitis of face[ICD10: L03.211] Loretta Dunn MD, [facility] CPT-4: 94813 02/02/2017 37351 EST. PATIENT, LEVEL III Diagnosis: Other insomnia[ICD10: G47.09] Loretta Dunn MD, [facility] CPT-4: 12435 11/22/2016 ([id number]) 16773 EST. PATIENT, LEVEL IV Diagnosis: Essential (primary) hypertension[ICD10: I10] Diagnosis: Mixed hyperlipidemia[ICD10: E78.2] Aparna Dunn MD, [facility] CPT- 4: 64232 08/29/2016 86632 EST. PATIENT, LEVEL IV Diagnosis: Acute laryngopharyngitis[ICD10: J06.0] Diagnosis: Cough[ICD10: R05] Loretta Dunn MD, [facility] CPT-4: 87116 07/28/2016 ([id number]) 66291 EST. PATIENT, LEVEL III Diagnosis: Cough[ICD10: R05] Diagnosis: Acute bronchitis, unspecified[ICD10: J20.9] Judy Dunn MD, [facility] CPT-4: 00224 07/03/2016 ([id number]) 99014 EST. PATIENT, LEVEL IV Diagnosis: Essential (primary) hypertension[ICD10: I10] Diagnosis: Mixed hyperlipidemia[ICD10: E78.2] Diagnosis: Snoring[ICD10: R06.83] Aparna Dunn MD, [facility] CPT-4: 20826 05/02/2016 ([id number]) 40046 EST. PATIENT, LEVEL IV Diagnosis: Essential (primary) hypertension[ICD10: I10] Diagnosis: Mixed hyperlipidemia[ICD10: E78.2] Diagnosis: Encounter for immunization[ICD10: Z23] [facility] CPT-4: 07907 11/02/2015 ([id number]) Miscellaneous no charge Diagnosis: Tick bite[ICD9: 919.4] Aparna Dunn MD, [facility] CPT-4: 54772 05/20/2015 ([id number]) OFFICE VISIT, NEW - LEVEL 4 Diagnosis: ESSENTIAL HYPERTENSION[ICD9: 401.9] Diagnosis: ENCNTR LONG-RX USE NEC[ICD9: V58.69] Diagnosis: HYPERLIPIDEMIA[ICD9: 272.4] [facility] CPT-4: 92715 05/04/2015 Plan of Care Planned Activity Notes Codes Status Date Visit Plan: Hypertension - well controlled - continue with current medications, continue with no added salt diet. Pt has been encouraged to exercise daily.The pt has been advised to call the office if there are any acute concerns about change in blood pressure readings at home.Sleep apnea - CPAP 5cm h2o pressureHyperlipidemia - pt has been counseled about appropriate [...] to medications. 02/27/2017 Appointment: Aparna Dunn WPtel: [address] [place], [place] [phone] (15 min) Moderate 02/27/2017 Patient Education: Patient [...] pain. 02/02/2017 Appointment: Loretta Fountain WPtel: [phone] [facility] (30 min) Complex 02/02/2017 Patient Education: Patient Medication Summary Completed 02/02/2017 Visit Plan: Insomnia - Pt has been advised to increase the light in the house during the day, and start dimming the lights during the evening hours.Pt has been advised to cut out caffeine after 5pm.Daytime napping worsens night time insomnia. 11/22/2016 Appointment: Loretta Fountain WPtel: [phone] [facility] (15 min) Moderate 11/22/2016 Patient Education: Patient Medication Summary Completed 11/22/2016 Visit Plan: Hypertension - well controlled - continue with current medications, continue with no added salt diet. Pt has been encouraged to exercise daily.The pt has been advised to call the office if there are any acute concerns about change in blood pressure readings at home.Hyperlipidemia - pt has been counseled about appropriate [...] medications. 08/29/2016 [phone] [facility] Mod[facility] 08/29/2016 Patient Education: Patient Medication Summary Completed 08/29/2016 Visit Plan: Allergies - chronic - recommended pt to use allergy medication as prescribed. Pt has been counseled as to the appropriate use of the medication. Pt to call if allergy symptoms are not controlled with the medication.If using nasal spray, instructions as follows: Nasal spray- use twice daily, one spray per nostril twice daily, after 30 minutes, rinse out nose with saline spray.. Use opposite hand per nostril to spray in the nasal steroid allergy spray.URI - Pt advised to increase fluids, vitamin C. Discussed natural and expected course of this diagnosis and need to alert me if symptoms do not follow expected course, or if any worse. RX sent to patient's pharmacy. 07/28/2016 Appointment: Judy Felix WPtel: [phone] [phone] (10 min) Simple 07/28/2016 Patient Education: Patient Medication Summary Completed 07/28/2016 Visit Plan: Bronchitis - acute case of bronchitis identified. Pt has been given antibiotics, breathing treatments as appropriate, and pt has been instructed to call if symptoms are not improved, or if symptoms acutely worsen.Kenalog injection today in the office-RX for zpack sent to patient's pharmacy and instructed to take only if symptoms do not resolve or worsen as discussed. Patient verbalized understanding of plan. 07/03/2016 Appointment: Judy Felix WPtel: [phone] [phone] (10 min) Simple 07/03/2016 Patient Education: Patient Medication Summary Completed 07/03/2016 Visit Plan: Hypertension - well controlled - continue with current medications, continue with no added salt diet. Pt has been encouraged to exercise daily.The pt has been advised to call the office if there are any acute concerns about change in blood pressure readings at home.schedule for sleep study in homeHyperlipidemia - pt has been counseled about appropriate [...] medications. 05/02/2016 Appointment: Aparna Dunn WPtel: [phone] [phone] (15 min) Moderate 05/02/2016 Patient Education: Patient Medication Summary Completed 05/02/2016 Visit Plan: Hypertension - well controlled - continue with current medications, continue with no added salt diet. Pt has been encouraged to exercise daily.The pt has been advised to call the office if there are any acute concerns about change in blood pressure readings at home.Hyperlipidemia - pt has been counseled about appropriate [...] and to assure normal liver response to medications.prevnar 13 shot today 11/02/2015 [phone] [facility] ([facility] Complex 11/02/2015 Patient Education: Patient Medication Summary Completed 11/02/2015 Patient Education: Hypertension Completed 11/02/2015 Appointment: Nurse Visit 05/20/2015 Patient Education: Patient Medication Summary Completed 05/20/2015 Visit Plan: Hypertension - well controlled - continue with current medications, continue with no added salt diet. Pt has been encouraged to exercise daily.The pt has been advised to call the office if there are any acute concerns about change in blood pressure readings at home.Hyperlipidemia - pt has been counseled about appropriate [...] medications. 05/04/2015 [facility]ment[phone] [place] [facility] New Patient 05/04/2015 Patient [...] to medications. prevnar 13 shot today . Cellulitis - The patient was instructed [...]
--- OUTSIDE RECORDS SUMMARY | 2019-03-24 10:14 | XMS REPORT | CCD ---
Author Author [facility]na Dunn Organization [facility] Address [address] [place] [address] Phone Care Team Providers Care Private Duty Rn Name Role Phone PP Unavailable CCM Unavailable Summary Purpose Interface Exchange Insurance Providers Payer name Policy type / Coverage type Covered republican ID Effective Begin Date Effective End Date WPS Medicare Part B [id number] Unknown [facility] [id number] Unknown Family history Father Diagnosis Age At Onset Unknown Brother Diagnosis Age At Onset Diabetes mellitus Type 2 Unknown Mother Diagnosis Age At Onset car accident Unknown Social History Social History Element Codes Description Effective Dates Marital status Unknown for 16 years - for 16 years, then remarried 05/02/[address]: 554522770 Never smoker 05/02/[address]: 048214 Currently drinks alcohol 05/02/2016 Frequency of drinks SNOMED CT: 169530587 1- 4 drinks per week 1 per [...] Start Date Stop Date Status Fill Instructions mupirocin 2 % topical ointment RxNorm: 181340 1 Application TOP BID 02/02/2017 No Stop Date Active Bactrim DS 800 mg-160 mg tablet RxNorm: 090697 1 Tablet(s) PO BID 02/02/2017 02/11/2017 Inactive Xanax 0.25 mg tablet RxNorm: 803642 1/2 - 1 Tablet(s) PO QHS 12/25/2016 03/24/2017 Active Xanax 0.25 mg tablet RxNorm: 944781 1/2 - 1 Tablet(s) PO QHS 11/22/2016 No Stop Date Active trazodone 50 mg tablet RxNorm: 802515 1 Tablet(s) PO QPM 08/29/2016 10/22/2017 Active Maxzide-25mg 37.5 mg-25 mg tablet RxNorm: 85628 Tablet(s) 1 Tablet, 1 time per Day 08/29/2016 05/25/2017 Active amoxicillin 500 mg capsule RxNorm: 024130 1 Capsule(s) PO TID 07/28/2016 08/03/2016 Inactive cetirizine 10 mg tablet RxNorm: 2490724 1 Tablet(s) PO daily 07/28/2016 08/26/2016 Inactive Zithromax Z-Elías 250 mg tablet RxNorm: 704631 1 Tablet(s) PO UD 07/03/2016 07/07/2016 Inactive zpack Kenalog 40 mg/mL suspension for injection RxNorm: 7508149 Milliliter(s) Inj 07/03/2016 07/03/2016 Inactive pravastatin 20 mg tablet RxNorm: 623674 TAKE 1 TABLET BY MOUTH DAILY 05/31/2016 02/24/2017 Inactive trazodone 50 mg tablet RxNorm: 673343 1 Tablet(s) PO QPM 03/03/2016 06/30/2016 Inactive Maxzide-25mg 37.5 mg-25 mg tablet RxNorm: 74222 1 Tablet, 1 time per Day 12/06/2015 08/28/2016 Inactive trazodone 50 mg tablet RxNorm: 224811 1 Tablet(s) PO QPM 10/22/2015 03/02/2016 Inactive Maxzide-25mg 37.5 mg-25 mg tablet RxNorm: 05105 1 Tablet(s) PO daily 05/04/2015 12/05/2015 Inactive trazodone 50 mg tablet RxNorm: 020056 1/2 Tablet(s) PO QPM may increase up to a full pill if needed 05/04/2015 10/21/2015 Inactive pravastatin 20 mg tablet RxNorm: 857310 1 Tablet(s) PO daily 05/04/2015 04/27/2016 Inactive pravastatin 20 mg tablet RxNorm: 251201 1 Tablet(s) PO daily 03/03/2015 03/02/2015 Inactive pravastatin 20 mg tablet RxNorm: 839914 1 Tablet(s) PO daily 03/03/2015 05/03/2015 Inactive Centrum Silver tablet RxNorm: 1 Tablet(s) PO daily No Start Date Active [place] 3 Fish Oil oral RxNorm: 3543168 oral No Start Date Active Osteo Bi-Flex oral RxNorm: 9279819 oral No Start Date Active zolpidem 5 mg tablet RxNorm: 627665 1 Tablet(s) PO QHS as needed No Start Date 05/03/2015 Inactive Maxzide-25mg oral RxNorm: 03046 oral No Start Date 05/03/2015 Inactive Medication Administered Medication Codes Instructions Start Date Status Kenalog 40 mg/mL suspension for injection RxNorm: 6149219 Milliliter 07/03/2016 No longer Active Immunizations Vaccine [...] Ord40 Fe-%Sat 19.6 % 02/27/2017 Comp Metabolic Tbq647 NA 137 mEq/L 08/29/2016 Comp Metabolic Lwc587 K 4.0 mEq/L 08/29/2016 Comp Metabolic Awe439 CL 100 mEq/L 08/29/2016 Comp Metabolic Iem617 CO2 32.0 mEq/L 08/29/2016 Comp Metabolic Eeo509 ANION GAP 9 08/29/2016 Comp Metabolic Eip466 GLUCOSE 98 mg/dL 08/29/2016 Comp Metabolic Xsh613 Creat 1.0 mg/dL 08/29/2016 Comp Metabolic Ayg628 eGFR 55 ml/min/1.73m2 08/29/2016 Comp Metabolic Caa145 BUN 19 mg/dL 08/29/2016 Comp Metabolic Iws913 B/C Ratio 18.3 Ratio 08/29/2016 Comp Metabolic Jlx560 CALCIUM 10.0 mg/dL 08/29/2016 Comp Metabolic Yhy081 ALK PHOS 51 U/L 08/29/2016 Comp Metabolic Dzz033 AST(SGOT) 21 U/L 08/29/2016 Comp Metabolic Yqo668 ALT(SGPT) 16 U/L 08/29/2016 Comp Metabolic Yse108 BILI T 0.5 mg/dL 08/29/2016 Comp Metabolic Ncg547 ALBUMIN 4.5 g/dL 08/29/2016 Comp Metabolic Pwl867 TPRO 7.3 g/dL 08/29/2016 Comp Metabolic Tpw236 GLOB 2.8 g/dL 08/29/2016 Comp Metabolic Wld258 A/G Ratio 1.6 Ratio 08/29/2016 Comp Metabolic Nzh120 Osmo 276 mOsmo 08/29/2016 Lipid Ord30 CHOL [...] 89.8 fl 08/29/2016 Cbc With Differential Ord2 Ware% 7.8 % 08/29/2016 Cbc With Differential Ord2 MCH 29.6 pg 08/29/2016 Cbc With Differential Ord2 Eos% 2.3 % 08/29/2016 Cbc With Differential Ord2 MCHC 33.0 pg 08/29/2016 Cbc With Differential Ord2 PLT 247 K/ul 08/29/2016 Cbc With Differential Ord2 Baso% 0.5 % 08/29/2016 Cbc With Differential Ord2 RDW 14.3 % 08/29/2016 Cbc With Differential Ord2 Neut ABS# 5.22 K/ul 08/29/2016 Cbc With Differential Ord2 Lymph ABS# 2.31 K/ul 08/29/2016 Cbc With Differential Ord2 Ware ABS# 0.7 K/ul 08/29/2016 Cbc With Differential [...] 29.4 pg 05/02/2016 Cbc With Differential Ord2 Ware% 8.4 % 05/02/2016 Cbc With Differential Ord2 [...] 2.03 K/ul 05/02/2016 Cbc With Differential Ord2 Ware ABS# 0.7 K/ul 05/02/2016 Cbc With Differential Ord2 Eos ABS# 0.2 K/ul 05/02/2016 Cbc With Differential Ord2 Baso ABS# 0.1 K/ul 05/02/2016 Comp Metabolic Wel839 NA 136 mEq/L 05/02/2016 Comp Metabolic Ign593 K 4.0 mEq/L 05/02/2016 Comp Metabolic Xjt051 CL 97 mEq/L 05/02/2016 Comp Metabolic Uid825 CO2 31.0 mEq/L 05/02/2016 Comp Metabolic Qbc886 ANION GAP 12 05/02/2016 Comp Metabolic Abs186 GLUCOSE 97 mg/dL 05/02/2016 Comp Metabolic Xuc266 Creat 1.0 mg/dL 05/02/2016 Comp Metabolic Psn746 eGFR 61 ml/min/1.73m2 05/02/2016 Comp Metabolic Ybt872 BUN 24 mg/dL 05/02/2016 Comp Metabolic Dko928 B/C Ratio 25.0 Ratio 05/02/2016 Comp Metabolic Qtc815 CALCIUM 9.6 mg/dL 05/02/2016 Comp Metabolic Mxg603 ALK PHOS 55 U/L 05/02/2016 Comp Metabolic Hhg011 AST(SGOT) 18 U/L 05/02/2016 Comp Metabolic Alq823 ALT(SGPT) 20 U/L 05/02/2016 Comp Metabolic Zvo137 BILI T 0.5 mg/dL 05/02/2016 Comp Metabolic Scu022 ALBUMIN 4.5 g/dL 05/02/2016 Comp Metabolic Mhv074 TPRO 7.4 g/dL 05/02/2016 Comp Metabolic Pcu259 GLOB 2.9 g/dL 05/02/2016 Comp Metabolic Ieq408 A/G Ratio 1.6 Ratio 05/02/2016 Comp Metabolic Vjb146 Osmo 276 mOsmo 05/02/2016 Lipid Ord30 CHOL 197 mg/dL 11/02/2015 Lipid Ord30 HDL 43.0 mg/dl 11/02/2015 Lipid Ord30 TRIG 247 mg/dL 11/02/2015 Lipid Ord30 LDL 105 mg/dL 11/02/2015 Lipid Ord30 C/HDL 4.6 Ratio 11/02/2015 Comp Metabolic Fjg676 NA 137 mEq/L 11/02/2015 Comp Metabolic Tog294 K 3.9 mEq/L 11/02/2015 Comp Metabolic Gmb424 CL 96 mEq/L 11/02/2015 Comp Metabolic Hwq394 CO2 34.0 mEq/L 11/02/2015 Comp Metabolic Sxl447 ANION GAP 11 11/02/2015 Comp Metabolic Ogy922 GLUCOSE 97 mg/dL 11/02/2015 Comp Metabolic Xjw637 Creat 1.1 mg/dL 11/02/2015 Comp Metabolic Qiz825 eGFR 52 ml/min/1.73m2 11/02/2015 Comp Metabolic Wue324 BUN 29 mg/dL 11/02/2015 Comp Metabolic Foj194 B/C Ratio 26.6 Ratio 11/02/2015 Comp Metabolic Hbz976 CALCIUM 9.8 mg/dL 11/02/2015 Comp Metabolic Jnh907 ALK PHOS 56 U/L 11/02/2015 Comp Metabolic Vrn047 AST(SGOT) 16 U/L 11/02/2015 Comp Metabolic Dak244 ALT(SGPT) 13 U/L 11/02/2015 Comp Metabolic Zty560 BILI T 0.4 mg/dL 11/02/2015 Comp Metabolic Gbh257 ALBUMIN 4.4 g/dL 11/02/2015 Comp Metabolic Vzc174 TPRO 7.1 g/dL 11/02/2015 Comp Metabolic Yyw068 GLOB 2.7 g/dL 11/02/2015 Comp Metabolic Zjp786 A/G Ratio 1.6 Ratio 11/02/2015 Comp Metabolic Hmv113 Osmo 280 mOsmo 11/02/2015 Cbc With Differential [...] 29.0 pg 11/02/2015 Cbc With Differential Ord2 Ware% 9.0 % 11/02/2015 Cbc With Differential Ord2 [...] 2.16 K/ul 11/02/2015 Cbc With Differential Ord2 Ware ABS# 0.8 K/ul 11/02/2015 Cbc With Differential [...] Ord2 RDW 14.6 % 05/04/2015 Free T4 Qgi126 FREE T4 0.81 ng/dL 05/04/2015 Comp Metabolic Fyk874 NA 134 mEq/L 05/04/2015 Comp Metabolic Qee874 K 3.8 mEq/L 05/04/2015 Comp Metabolic Ngc919 CL 97 mEq/L 05/04/2015 Comp Metabolic Ufx248 CO2 31.0 mEq/L 05/04/2015 Comp Metabolic Iih959 ANION GAP 10 05/04/2015 Comp Metabolic Sku329 GLUCOSE 88 mg/dL 05/04/2015 Comp Metabolic Mvz154 Creat 1.0 mg/dL 05/04/2015 Comp Metabolic Ftj099 eGFR 58 ml/min/1.73m2 05/04/2015 Comp Metabolic Kbn667 BUN 19 mg/dL 05/04/2015 Comp Metabolic Bbl335 B/C Ratio 19.0 Ratio 05/04/2015 Comp Metabolic Ktp070 CALCIUM 9.5 mg/dL 05/04/2015 Comp Metabolic Chb760 ALK PHOS 60 U/L 05/04/2015 Comp Metabolic Zph851 AST(SGOT) 17 U/L 05/04/2015 Comp Metabolic Dze765 ALT(SGPT) 14 U/L 05/04/2015 Comp Metabolic Yva788 BILI T 0.5 mg/dL 05/04/2015 Comp Metabolic Ufu345 ALBUMIN 4.5 g/dL 05/04/2015 Comp Metabolic Mej612 TPRO 7.1 g/dL 05/04/2015 Comp Metabolic Dgo028 GLOB 2.6 g/dL 05/04/2015 Comp Metabolic Vwy804 A/G Ratio 1.7 Ratio 05/04/2015 Comp Metabolic Dkj612 Osmo 270 mOsmo 05/04/2015 Lipid Ord30 CHOL [...] Codes Date TRIAMCINOLONE ACET INJ NOS CPT-4: J4312Srxfazk 07/03/2016 PNEUMOCOCCAL VACC [address]: 71341451 CPT-4: 59679Nneuzjb 11/02/2015 IMMUNIZATION ADMIN CPT-4: 87745Mebkhor 11/02/2015 Vital Signs Date Vital 02/27/2017 Blood Pressure 1: 130/82 Code: 8480-6 BMI: 26.3 Code: 34490-6 Heart Rate 1: 82 bpm Height: 5'2" SpO2: 96% Weight: 144 lbs 02/02/2017 Blood Pressure 1: 142/76 Code: 8480-6 BMI: 26.3 Code: 55510-6 Heart Rate 1: 80 bpm Height: 5'2" SpO2: 97% Weight: 144 lbs 11/22/2016 Blood Pressure 1: 134/72 Code: 8480-6 BMI: 27.1 Code: 82599-9 Heart Rate 1: 76 bpm Height: 5'2" SpO2: 97% Weight: 148 lbs 08/29/2016 Blood Pressure 1: 120/80 Code: 8480-6 BMI: 26.0 Code: 59885-7 Heart Rate 1: 74 bpm Height: 5'2" SpO2: 97% Weight: 142 lbs 07/28/2016 Blood Pressure 1: 134/72 Code: 8480-6 BMI: 25.7 Code: 31811-3 Heart Rate 1: 81 bpm Height: 5'2" SpO2: 98% Temperature: 37.1 (C) / 98.7 (F) Weight: 140 lbs 8 oz 07/03/2016 Blood Pressure 1: 136/80 Code: 8480-6 Heart Rate 1: 86 bpm SpO2: 98% Temperature: 36.7 (C) / 98.0 (F) 05/02/2016 Blood Pressure 1: 124/78 Code: 8480-6 BMI: 26.3 Code: 24594-7 Heart Rate 1: 74 bpm Height: 5'2" SpO2: 98% Weight: 144 lbs 11/02/2015 Blood Pressure 1: 118/78 Code: 8480-6 BMI: 26.5 Code: 65348-3 Heart Rate 1: 79 bpm Height: 5'2" SpO2: 98% Weight: 145 lbs 05/04/2015 Blood Pressure 1: 132/64 Code: 8480-6 BMI: 25.2 Code: 23733-9 Heart Rate 1: 75 bpm Height: 5'2" [...] right religion 02/02/2017 None rash Color red 02/02/2017 None [...] data Encounters Encounter Performer Location Codes Date ([id number]) [id number] EST. PATIENT, LEVEL IV Diagnosis: Essential (primary) hypertension[ICD10: I10] Diagnosis: Mixed hyperlipidemia[ICD10: E78.2] Diagnosis: Obstructive sleep apnea (adult) (pediatric)[ICD10: G47.33] Aparna Dunn MD, [facility] CPT-4: 64640 02/27/2017 [id number] EST. PATIENT, LEVEL III Diagnosis: Cellulitis of face[ICD10: L03.211] Loretta Dunn MD, [facility] CPT-4: 60310 02/02/2017 [id number] EST. PATIENT, LEVEL III Diagnosis: Other insomnia[ICD10: G47.09] Loretta Dunn MD, [facility] CPT-4: 89780 11/22/2016 ([id number]) 41497 EST. PATIENT, LEVEL IV Diagnosis: Essential (primary) hypertension[ICD10: I10] Diagnosis: Mixed hyperlipidemia[ICD10: E78.2] Aparna Dunn MD, [facility] CPT- 4: 92145 08/29/2016 [id number] EST. PATIENT, LEVEL IV Diagnosis: Acute laryngopharyngitis[ICD10: J06.0] Diagnosis: Cough[ICD10: R05] Loretta Dunn MD, [facility] CPT-4: 13252 07/28/2016 ([id number]) 18379 EST. PATIENT, LEVEL III Diagnosis: Cough[ICD10: R05] Diagnosis: Acute bronchitis, unspecified[ICD10: J20.9] Judy Dunn MD, [facility] CPT-4: 44905 07/03/2016 ([id number]) 42717 EST. PATIENT, LEVEL IV Diagnosis: Essential (primary) hypertension[ICD10: I10] Diagnosis: Mixed hyperlipidemia[ICD10: E78.2] Diagnosis: Snoring[ICD10: R06.83] Aparna Dunn MD, [facility] CPT-4: 61417 05/02/2016 ([id number]) 16685 EST. PATIENT, LEVEL IV Diagnosis: Essential (primary) hypertension[ICD10: I10] Diagnosis: Mixed hyperlipidemia[ICD10: E78.2] Diagnosis: Encounter for immunization[ICD10: Z23] Aparna Dunn MD, [facility] CPT-4: 48809 11/02/2015 ([id number]) Miscellaneous no charge Diagnosis: Tick bite[ICD9: 919.4] Aparna Dunn MD, [facility] CPT-4: 44895 05/20/2015 ([id number]) OFFICE VISIT, NEW - LEVEL 4 Diagnosis: ESSENTIAL HYPERTENSION[ICD9: 401.9] Diagnosis: ENCNTR LONG-RX USE NEC[ICD9: V58.69] Diagnosis: HYPERLIPIDEMIA[ICD9: 272.4] Aparna Dunn MD, [facility] CPT-4: 09716 05/04/2015 Plan of Care Planned Activity Notes [...] assure normal liver response to medications. 02/27/2017 Patient Education: Patient Medication Summary Completed 02/27/2017 Patient Education: Hypertension Completed 02/27/2017 Visit Plan: Cellulitis - The patient was instructed in appropriate wound care. The patient was instructed to use the antibiotic ointment as per RX. The patient is to call for any change in symptoms, increase in size of the lesion, increase in pain. 02/02/2017 Appointment: Loretta Fountain WPtel: [phone] [facility] (30 min) Complex 02/02/2017 Patient Education: Patient Medication Summary Completed 02/02/2017 Visit Plan: Insomnia - Pt has been advised to increase the light in the house during the day, and start dimming the lights during the evening hours.Pt has been advised to cut out caffeine after 5pm.Daytime napping worsens night time insomnia. 11/22/2016 Appointment: Loretta Fountain WPtel: [phone] [facility] (15 min) Moderate 11/22/2016 Patient Education: [...] liver response to medications. 08/29/2016 Appointment: Aparna Dnun WPtel: [phone] [facility] (15 min) Moderate 08/29/2016 Patient Education: [...] pharmacy. 07/28/2016 Appointment: Judy Felix WPtel: [phone] [place] [phone] (10 min) Simple 07/28/2016 Patient Education: Patient [...] plan. 07/03/2016 Appointment: Judy Felix WPtel: [phone] [phone] (10 min) Simple 07/03/2016 Patient Education: [...] medications. 05/02/2016 Appointment: Aparna Dunn WPtel: [phone] [phone] (15 min) Moderate 05/02/2016 Patient Education: [...] today 11/02/2015 [phone] ([facility] 11/02/2015 Patient Education: [...] to medications. 05/04/2015 [facility] [phone] [facility] [place] [facility] New Patient 05/04/2015 [...]
--- OUTSIDE RECORDS SUMMARY | 2019-03-24 10:16 | XMS REPORT | CCD ---
Author Author [facility] Organization [facility] Address [address] [place] [address] Phone Care Team Providers Care Crew Director Name Role Phone PP Unavailable CCM Unavailable Summary Purpose Interface Exchange Insurance Providers Payer name Policy type / Coverage type Covered green party ID Effective Begin Date Effective End Date WPS Medicare Part B [id number] Unknown [facility] [id number] Unknown Family history Father Diagnosis Age At Onset Unknown Brother Diagnosis Age At Onset Diabetes mellitus Type 2 Unknown Mother Diagnosis Age At Onset car accident Unknown Social History Social History Element Codes Description Effective Dates Marital status Unknown for 16 years - for 16 years, then remarried 05/02/[address]: 194836931 Never smoker 05/02/[address]: 303884 Currently drinks alcohol 05/02/2016 Frequency of drinks SNOMED CT: 538617908 1- 4 drinks per week 1 per week 05/02/2016 Has the patient ever used illegal drugs? Unknown Has never used illegal drugs 05/02/2016 Number of children Unknown 0 05/04/2015 Allergies, Adverse Reactions, Alerts Allergies, Adverse Reactions, Alerts data not found Past Medical History Illness Codes Condition Status Onset Date Resolved Date Cellulitis of face ICD- 9: 682.0 ICD-10: L03.211 Active 02/02/2017 Unknown Other insomnia ICD-9: 327.09 ICD-10: G47.09 Active 11/22/2016 Unknown Essential (primary) hypertension ICD-9: 401.9 ICD-10: I10 Active 05/03/2015 Unknown Mixed hyperlipidemia ICD- 9: 272.4 ICD-10: E78.2 Active 05/03/2015 Unknown Acute laryngopharyngitis ICD-9: 465.0 ICD-10: J06.0 [...] Problems Condition Codes Effective Dates Condition Status Cellulitis of face ICD- 9: 682.0 ICD-10: L03.211 02/02/2017 Active Other insomnia ICD-9: 327.09 ICD-10: G47.09 11/22/2016 Active Essential (primary) hypertension ICD-9: 401.9 ICD-10: I10 05/03/2015 Active Mixed hyperlipidemia ICD- 9: 272.4 ICD-10: E78.2 05/03/2015 Active Acute laryngopharyngitis ICD-9: 465.0 ICD-10: J06.0 [...] Instructions mupirocin 2 % topical ointment RxNorm: 559460 1 Application TOP BID 02/02/2017 No Stop Date Active Bactrim DS 800 mg-160 mg tablet RxNorm: 397645 1 Tablet(s) PO BID 02/02/2017 02/11/2017 Inactive Xanax 0.25 mg tablet RxNorm: 040234 1/2 - 1 Tablet(s) PO QHS 12/25/2016 03/24/2017 Active Xanax 0.25 mg tablet RxNorm: 804783 1/2 - 1 Tablet(s) PO QHS 11/22/2016 No Stop Date Active trazodone 50 mg tablet RxNorm: 970206 1 Tablet(s) PO QPM 08/29/2016 10/22/2017 Active Maxzide-25mg 37.5 mg-25 mg tablet RxNorm: 11241 Tablet(s) 1 Tablet, 1 time per Day 08/29/2016 05/25/2017 Active amoxicillin 500 mg capsule RxNorm: 168719 1 Capsule(s) PO TID 07/28/2016 08/03/2016 Inactive cetirizine 10 mg tablet RxNorm: 1296293 1 Tablet(s) PO daily 07/28/2016 08/26/2016 Inactive Zithromax Z-Elías 250 mg tablet RxNorm: 660947 1 Tablet(s) PO UD 07/03/2016 07/07/2016 Inactive zpack Kenalog 40 mg/mL suspension for injection RxNorm: 3339215 Milliliter(s) Inj 07/03/2016 07/03/2016 Inactive pravastatin 20 mg tablet RxNorm: 287388 TAKE 1 TABLET BY MOUTH DAILY 05/31/2016 02/24/2017 Inactive trazodone 50 mg tablet RxNorm: 426988 1 Tablet(s) PO QPM 03/03/2016 06/30/2016 Inactive Maxzide-25mg 37.5 mg-25 mg tablet RxNorm: 39489 1 Tablet, 1 time per Day 12/06/2015 08/28/2016 Inactive trazodone 50 mg tablet RxNorm: 169560 1 Tablet(s) PO QPM 10/22/2015 03/02/2016 Inactive Maxzide-25mg 37.5 mg-25 mg tablet RxNorm: 49186 1 Tablet(s) PO daily 05/04/2015 12/05/2015 Inactive trazodone 50 mg tablet RxNorm: 416782 1/2 Tablet(s) PO QPM may increase up to a full pill if needed 05/04/2015 10/21/2015 Inactive pravastatin 20 mg tablet RxNorm: 355784 1 Tablet(s) PO daily 05/04/2015 04/27/2016 Inactive pravastatin 20 mg tablet RxNorm: 269990 1 Tablet(s) PO daily 03/03/2015 03/02/2015 Inactive pravastatin 20 mg tablet RxNorm: 943726 1 Tablet(s) PO daily 03/03/2015 05/03/2015 Inactive Centrum Silver tablet RxNorm: 1 Tablet(s) PO daily No Start Date Active [place] 3 Fish Oil oral RxNorm: 6185717 oral No Start Date Active Osteo Bi-Flex oral RxNorm: 0316587 oral No Start Date Active zolpidem 5 mg tablet RxNorm: 512024 1 Tablet(s) PO QHS as needed No Start Date 05/03/2015 Inactive Maxzide-25mg oral RxNorm: 33824 oral No Start Date 05/03/2015 Inactive Medication Administered Medication Codes Instructions Start Date Status Kenalog 40 mg/mL suspension for injection RxNorm: 5633933 Milliliter 07/03/2016 No longer Active Immunizations Vaccine Codes Date Status Pneumococcal (Adult) CVX: 133 11/02/2015 completed PPD Unknown 05/20/2015 completed Influenza CVX: 141 06/17/2014 completed Pneumococcal CVX: 33 08/24/2010 completed Zoster CVX: 121 07/23/2008 completed Tetanus, Diptheria, Pertussis CVX: 113 05/05/2008 completed Tetanus, Diptheria, Pertussis CVX: 113 05/05/2008 completed Tetanus/Diptheria CVX: 113 05/05/2008 completed Assessments Condition Codes Effective Dates Cellulitis of face ICD-10: L03.211 ICD-9: 682.0 02/02/2017 Other insomnia ICD-10: G47.09 ICD-9: 327.09 11/22/2016 Mixed hyperlipidemia ICD-10: E78.2 ICD-9: 272.4 08/29/2016 Essential (primary) hypertension ICD-10: I10 ICD-9: 401.9 08/29/2016 Acute laryngopharyngitis ICD-10: J06.0 ICD-9: 465.0 07/28/2016 [...] Visit Reason For Visit Effective Dates Notes rash 02/02/2017 insomnia 11/22/2016 hyperlipidemia 08/29/2016 cough 07/28/2016 cough 07/03/2016 hyperlipidemia 05/02/2016 hyperlipidemia 11/02/2015 blood pressure followup 05/04/2015 Results Observation Observation Code Item Item Code Result Date Tibc Ord40 Iron 69 ug/dl 02/27/2017 Tibc Ord40 UIBC 283 ug/dL 02/27/2017 Tibc Ord40 TIBC 352 ug/dL 02/27/2017 Tibc Ord40 Fe-%Sat 19.6 % 02/27/2017 Comp Metabolic Goi268 NA 137 mEq/L 08/29/2016 Comp Metabolic Whn867 K 4.0 mEq/L 08/29/2016 Comp Metabolic Wbk664 CL 100 mEq/L 08/29/2016 Comp Metabolic Rts475 CO2 32.0 mEq/L 08/29/2016 Comp Metabolic Vwr183 ANION GAP 9 08/29/2016 Comp Metabolic Sxb622 GLUCOSE 98 mg/dL 08/29/2016 Comp Metabolic Hzg245 Creat 1.0 mg/dL 08/29/2016 Comp Metabolic Tze177 eGFR 55 ml/min/1.73m2 08/29/2016 Comp Metabolic Cre147 BUN 19 mg/dL 08/29/2016 Comp Metabolic Tlg792 B/C Ratio 18.3 Ratio 08/29/2016 Comp Metabolic Rla956 CALCIUM 10.0 mg/dL 08/29/2016 Comp Metabolic Ytx800 ALK PHOS 51 U/L 08/29/2016 Comp Metabolic Sxp025 AST(SGOT) 21 U/L 08/29/2016 Comp Metabolic Iyh868 ALT(SGPT) 16 U/L 08/29/2016 Comp Metabolic Mgd059 BILI T 0.5 mg/dL 08/29/2016 Comp Metabolic Qsz033 ALBUMIN 4.5 g/dL 08/29/2016 Comp Metabolic Lkr850 TPRO 7.3 g/dL 08/29/2016 Comp Metabolic Uei547 GLOB 2.8 g/dL 08/29/2016 Comp Metabolic Sps841 A/G Ratio 1.6 Ratio 08/29/2016 Comp Metabolic Fux467 Osmo 276 mOsmo 08/29/2016 Lipid Ord30 CHOL [...] 89.8 fl 08/29/2016 Cbc With Differential Ord2 [place]% 7.8 % 08/29/2016 Cbc With Differential Ord2 [...] 2.31 K/ul 08/29/2016 Cbc With Differential Ord2 [place] ABS# 0.7 K/ul 08/29/2016 Cbc With Differential [...] 29.4 pg 05/02/2016 Cbc With Differential Ord2 [place]% 8.4 % 05/02/2016 Cbc With Differential Ord2 [...] 2.03 K/ul 05/02/2016 Cbc With Differential Ord2 [place] ABS# 0.7 K/ul 05/02/2016 Cbc With Differential Ord2 Eos ABS# 0.2 K/ul 05/02/2016 Cbc With Differential Ord2 Baso ABS# 0.1 K/ul 05/02/2016 Comp Metabolic Iux088 NA 136 mEq/L 05/02/2016 Comp Metabolic Dpd381 K 4.0 mEq/L 05/02/2016 Comp Metabolic Vcf175 CL 97 mEq/L 05/02/2016 Comp Metabolic Xts810 CO2 31.0 mEq/L 05/02/2016 Comp Metabolic Cie140 ANION GAP 12 05/02/2016 Comp Metabolic Yug309 GLUCOSE 97 mg/dL 05/02/2016 Comp Metabolic Xpo419 Creat 1.0 mg/dL 05/02/2016 Comp Metabolic Ewo937 eGFR 61 ml/min/1.73m2 05/02/2016 Comp Metabolic Zcl594 BUN 24 mg/dL 05/02/2016 Comp Metabolic Ltw767 B/C Ratio 25.0 Ratio 05/02/2016 Comp Metabolic Roe504 CALCIUM 9.6 mg/dL 05/02/2016 Comp Metabolic Dar692 ALK PHOS 55 U/L 05/02/2016 Comp Metabolic Cvt576 AST(SGOT) 18 U/L 05/02/2016 Comp Metabolic Muq606 ALT(SGPT) 20 U/L 05/02/2016 Comp Metabolic Wbi468 BILI T 0.5 mg/dL 05/02/2016 Comp Metabolic Ujf959 ALBUMIN 4.5 g/dL 05/02/2016 Comp Metabolic Saz219 TPRO 7.4 g/dL 05/02/2016 Comp Metabolic Ojx967 GLOB 2.9 g/dL 05/02/2016 Comp Metabolic Yje204 A/G Ratio 1.6 Ratio 05/02/2016 Comp Metabolic Etm405 Osmo 276 mOsmo 05/02/2016 Lipid Ord30 CHOL 197 mg/dL 11/02/2015 Lipid Ord30 HDL 43.0 mg/dl 11/02/2015 Lipid Ord30 TRIG 247 mg/dL 11/02/2015 Lipid Ord30 LDL 105 mg/dL 11/02/2015 Lipid Ord30 C/HDL 4.6 Ratio 11/02/2015 Comp Metabolic Arc526 NA 137 mEq/L 11/02/2015 Comp Metabolic Gcg048 K 3.9 mEq/L 11/02/2015 Comp Metabolic Zyd081 CL 96 mEq/L 11/02/2015 Comp Metabolic Tpe105 CO2 34.0 mEq/L 11/02/2015 Comp Metabolic Znv160 ANION GAP 11 11/02/2015 Comp Metabolic Elb679 GLUCOSE 97 mg/dL 11/02/2015 Comp Metabolic Jle487 Creat 1.1 mg/dL 11/02/2015 Comp Metabolic Iod106 eGFR 52 ml/min/1.73m2 11/02/2015 Comp Metabolic Ysq985 BUN 29 mg/dL 11/02/2015 Comp Metabolic Zan111 B/C Ratio 26.6 Ratio 11/02/2015 Comp Metabolic Uvg059 CALCIUM 9.8 mg/dL 11/02/2015 Comp Metabolic Vwq726 ALK PHOS 56 U/L 11/02/2015 Comp Metabolic Pwt410 AST(SGOT) 16 U/L 11/02/2015 Comp Metabolic Mfp317 ALT(SGPT) 13 U/L 11/02/2015 Comp Metabolic Kwj793 BILI T 0.4 mg/dL 11/02/2015 Comp Metabolic Xyj089 ALBUMIN 4.4 g/dL 11/02/2015 Comp Metabolic Uet455 TPRO 7.1 g/dL 11/02/2015 Comp Metabolic Onu982 GLOB 2.7 g/dL 11/02/2015 Comp Metabolic Jjs831 A/G Ratio 1.6 Ratio 11/02/2015 Comp Metabolic Toq341 Osmo 280 mOsmo 11/02/2015 Cbc With Differential [...] 29.0 pg 11/02/2015 Cbc With Differential Ord2 [place]% 9.0 % 11/02/2015 Cbc With Differential Ord2 [...] 2.16 K/ul 11/02/2015 Cbc With Differential Ord2 [place] ABS# 0.8 K/ul 11/02/2015 Cbc With Differential [...] Ord2 RDW 14.6 % 05/04/2015 Free T4 Hjp112 FREE T4 0.81 ng/dL 05/04/2015 Comp Metabolic Kkg836 NA 134 mEq/L 05/04/2015 Comp Metabolic Koi982 K 3.8 mEq/L 05/04/2015 Comp Metabolic Hnh216 CL 97 mEq/L 05/04/2015 Comp Metabolic Wxe271 CO2 31.0 mEq/L 05/04/2015 Comp Metabolic Wgb842 ANION GAP 10 05/04/2015 Comp Metabolic Plm248 GLUCOSE 88 mg/dL 05/04/2015 Comp Metabolic Bfe235 Creat 1.0 mg/dL 05/04/2015 Comp Metabolic Say351 eGFR 58 ml/min/1.73m2 05/04/2015 Comp Metabolic Zvt728 BUN 19 mg/dL 05/04/2015 Comp Metabolic Ogj872 B/C Ratio 19.0 Ratio 05/04/2015 Comp Metabolic Ehj644 CALCIUM 9.5 mg/dL 05/04/2015 Comp Metabolic Uvs970 ALK PHOS 60 U/L 05/04/2015 Comp Metabolic Dot822 AST(SGOT) 17 U/L 05/04/2015 Comp Metabolic Trn190 ALT(SGPT) 14 U/L 05/04/2015 Comp Metabolic Dwa430 BILI T 0.5 mg/dL 05/04/2015 Comp Metabolic Dba486 ALBUMIN 4.5 g/dL 05/04/2015 Comp Metabolic Jlz611 TPRO 7.1 g/dL 05/04/2015 Comp Metabolic Nqp095 GLOB 2.6 g/dL 05/04/2015 Comp Metabolic Jeu741 A/G Ratio 1.7 Ratio 05/04/2015 Comp Metabolic Lsm296 Osmo 270 mOsmo 05/04/2015 Lipid Ord30 CHOL 167 mg/dL 05/04/2015 Lipid Ord30 HDL 45.0 mg/dl 05/04/2015 Lipid Ord30 TRIG 179 mg/dL 05/04/2015 Lipid Ord30 LDL 86 mg/dL 05/04/2015 Lipid Ord30 C/HDL 3.7 Ratio 05/04/2015 Review of Systems System Result Effective Dates Constitutional No recent illness 02/02/2017 Constitutional No [...] Result Effective Dates Notes Full Exam - Dermatology Constitutional general appearance [...] Codes Date TRIAMCINOLONE ACET INJ NOS CPT-4: M9913Iotcitd 07/03/2016 PNEUMOCOCCAL VACC [address]: 19513485 CPT-4: 90342Rqeblnx 11/02/2015 IMMUNIZATION ADMIN CPT-4: 56225Eehierm 11/02/2015 Vital Signs Date Vital 02/02/2017 Blood Pressure 1: 142/76 Code: 8480-6 BMI: 26.3 Code: 18514-3 Heart Rate 1: 80 bpm Height: 5'2" SpO2: 97% Weight: 144 lbs 11/22/2016 Blood Pressure 1: 134/72 Code: 8480-6 BMI: 27.1 Code: 04103-7 Heart Rate 1: 76 bpm Height: 5'2" SpO2: 97% Weight: 148 lbs 08/29/2016 Blood Pressure 1: 120/80 Code: 8480-6 BMI: 26.0 Code: 25968-7 Heart Rate 1: 74 bpm Height: 5'2" SpO2: 97% Weight: 142 lbs 07/28/2016 Blood Pressure 1: 134/72 Code: 8480-6 BMI: 25.7 Code: 76608-0 Heart Rate 1: 81 bpm Height: 5'2" SpO2: 98% Temperature: 37.1 (C) / 98.7 (F) Weight: 140 lbs 8 oz 07/03/2016 Blood Pressure 1: 136/80 Code: 8480-6 Heart Rate 1: 86 bpm SpO2: 98% Temperature: 36.7 (C) / 98.0 (F) 05/02/2016 Blood Pressure 1: 124/78 Code: 8480-6 BMI: 26.3 Code: 21953-3 Heart Rate 1: 74 bpm Height: 5'2" SpO2: 98% Weight: 144 lbs 11/02/2015 Blood Pressure 1: 118/78 Code: 8480-6 BMI: 26.5 Code: 67406-7 Heart Rate 1: 79 bpm Height: 5'2" SpO2: 98% Weight: 145 lbs 05/04/2015 Blood Pressure 1: 132/64 Code: 8480-6 BMI: 25.2 Code: 20827-2 Heart Rate 1: 75 bpm Height: 5'2" SpO2: 97% Weight: 138 lbs Functional Status No Functional Status data History of Present Illness Symptom Name Status Result Effective Date Notes rash Location-Head/Neck on the right druze 02/02/2017 None rash Color red 02/02/2017 None [...] data Encounters Encounter Performer Location Codes Date 37787 EST. PATIENT, LEVEL III Diagnosis: Cellulitis of face[ICD10: L03.211] [facility] CPT-4: 31167 02/02/2017 [id number] EST. PATIENT, LEVEL III Diagnosis: Other insomnia[ICD10: G47.09] [facility], [facility] CPT-4: 43496 11/22/2016 ([id number]) 31449 EST. PATIENT, LEVEL IV Diagnosis: Essential (primary) hypertension[ICD10: I10] Diagnosis: Mixed hyperlipidemia[ICD10: E78.2] [facility] MD, [facility] CPT- 4: 25905 08/29/2016 55124 EST. PATIENT, LEVEL IV Diagnosis: Acute laryngopharyngitis[ICD10: J06.0] Diagnosis: Cough[ICD10: R05] [facility] MD, [facility] CPT-4: 46466 07/28/2016 ([id number]) 39191 EST. PATIENT, LEVEL III Diagnosis: Cough[ICD10: R05] Diagnosis: Acute bronchitis, unspecified[ICD10: J20.9] Judy [facility] MD, [facility] CPT-4: 13227 07/03/2016 ([id number]) 06854 EST. PATIENT, LEVEL IV Diagnosis: Essential (primary) hypertension[ICD10: I10] Diagnosis: Mixed hyperlipidemia[ICD10: E78.2] Diagnosis: Snoring[ICD10: R06.83] [facility] MD, [facility] CPT-4: 17560 05/02/2016 ([id number]) 94845 EST. PATIENT, LEVEL IV Diagnosis: Essential (primary) hypertension[ICD10: I10] Diagnosis: Mixed hyperlipidemia[ICD10: E78.2] Diagnosis: Encounter for immunization[ICD10: Z23] [facility] MD, [facility] CPT-4: 94495 11/02/2015 ([id number]) Miscellaneous no charge Diagnosis: Tick bite[ICD9: 919.4] [facility] CPT-4: 47118 05/20/2015 ([id number]) OFFICE VISIT, NEW - LEVEL 4 Diagnosis: ESSENTIAL HYPERTENSION[ICD9: 401.9] Diagnosis: ENCNTR LONG-RX USE NEC[ICD9: V58.69] Diagnosis: HYPERLIPIDEMIA[ICD9: 272.4] [facility] CPT-4: 17407 05/04/2015 Plan of Care Planned Activity Notes Codes Status Date Visit Plan: Cellulitis - The patient was instructed in appropriate wound care. The patient was instructed to use the antibiotic ointment as per RX. The patient is to call for any change in symptoms, increase in size of the lesion, increase in pain. 02/02/2017 Appointment: Loretta Fountain WPtel: [phone] [facility] (30 min) Complex 02/02/2017 Patient Education: Patient Medication Summary Completed 02/02/2017 Visit Plan: Insomnia - Pt has been advised to increase the light in the house during the day, and start dimming the lights during the evening hours.Pt has been advised to cut out caffeine after 5pm.Daytime napping worsens night time insomnia. 11/22/2016 Appointment: Loretta Fountain WPtel: [phone] [facility] (15 min) Moderate 11/22/2016 Patient Education: Patient [...] medications. 08/29/2016 Appointment: Aparna Dunn WPtel: [phone] [facility] (15 min) Moderate 08/29/2016 Patient Education: [...] pharmacy. 07/28/2016 Appointment: Judy Felix WPtel: [phone] [phone] (10 min) Simple 07/28/2016 Patient Education: Patient [...] plan. 07/03/2016 Appointment: Judy Felix WPtel: [phone] [phone] (10 min) Simple 07/03/2016 Patient Education: Patient [...] medications. 05/02/2016 Appointment: Aparna Dunn WPtel: [phone] [facility] (15 min) Moderate 05/02/2016 Patient Education: Patient [...] shot today 11/02/2015 [phone] ([facility] Complex 11/02/2015 Patient [...] to medications. 05/04/2015 [phone] [place] [facility] New Patient 05/04/2015 [...]
--- OUTSIDE RECORDS SUMMARY | 2019-03-24 10:18 | XMS REPORT | CCD ---
Author Author [facility] Organization [facility] Address [address] [place] [address] Phone Care Team Providers Care Sap Crm Developer Name Role Phone PP Unavailable CCM Unavailable Summary Purpose Interface Exchange Insurance Providers Payer name Policy type / Coverage type Covered republican ID Effective Begin Date Effective End Date WPS Medicare Part B [id number] 2017 Unknown AARP [id number] 2017 Unknown Family history Father Diagnosis Age At Onset Unknown Brother Diagnosis Age At Onset Diabetes mellitus Type 2 Unknown Mother Diagnosis Age At Onset car accident Unknown Social History Social History Element Codes Description Effective Dates Marital status Unknown for 16 years - for 16 years, then remarried 05/02/[address]: 360882535 Never smoker 05/02/[address]: 115629 Currently drinks alcohol 05/02/2016 Frequency of drinks SNOMED CT: 657551145 1- 4 drinks per week 1 per [...] Fill Instructions Xanax 0.25 mg tablet RxNorm: 125298 1/2 - 1 Tablet(s) PO QHS as needed 05/10/2018 07/08/2018 Inactive pravastatin 20 mg tablet RxNorm: 783714 Tablet(s) TAKE 1 TABLET BY MOUTH DAILY 03/27/2018 03/21/2019 Active Diflucan 150 mg tablet RxNorm: 911108 1 Tablet(s) PO daily 03/06/2018 03/10/2018 Inactive Diflucan 150 mg tablet RxNorm: 780470 1 Tablet(s) PO daily 03/06/2018 03/05/2018 Inactive ceftriaxone 500 mg solution for injection RxNorm: 4292326 1 Inj 02/26/2018 02/26/2018 Inactive cefdinir 300 mg capsule RxNorm: 937254 1 Capsule(s) PO BID 02/26/2018 03/04/2018 Inactive Kenalog 40 mg/mL suspension for injection RxNorm: 7923791 1 Milliliter(s) Inj 02/13/2018 02/13/2018 Inactive Zithromax Z-Elías 250 mg tablet RxNorm: 981471 1 Tablet(s) PO UD 02/04/2018 02/08/2018 Inactive zpack as directed Xanax 0.25 mg tablet RxNorm: 327757 1/2 - 1 Tablet(s) PO QHS as needed 10/30/2017 12/28/2017 Inactive Maxzide-25mg 37.5 mg-25 mg tablet RxNorm: 84519 Tablet(s) TAKE 1 TABLET BY MOUTH DAILY 10/10/2017 10/04/2018 Active acyclovir 5 % topical ointment RxNorm: 319186 1 Application TOP QID as needed cold sores 08/29/2017 12/26/2017 Inactive amoxicillin 500 mg capsule RxNorm: 977009 1 Capsule(s) PO TID 07/03/2017 07/09/2017 Inactive Maxzide-25mg 37.5 mg-25 mg tablet RxNorm: 58395 TAKE 1 TABLET BY MOUTH DAILY 06/04/2017 10/09/2017 Inactive Bactrim DS 800 mg-160 mg tablet RxNorm: 784770 1 Tablet(s) PO BID 05/14/2017 05/23/2017 Inactive Xanax 0.25 mg tablet RxNorm: 852178 1/2 - 1 Tablet(s) PO QHS 05/14/2017 10/29/2017 Inactive pravastatin 20 mg tablet RxNorm: 934429 TAKE 1 TABLET BY MOUTH DAILY 02/28/2017 02/22/2018 Inactive mupirocin 2 % topical ointment RxNorm: 022665 1 Application TOP BID 02/02/2017 No Stop Date Active Bactrim DS 800 mg-160 mg tablet RxNorm: 054627 1 Tablet(s) PO BID 02/02/2017 02/11/2017 Inactive Xanax 0.25 mg tablet RxNorm: 107848 1/2 - 1 Tablet(s) PO QHS 12/25/2016 10/29/2017 Inactive Xanax 0.25 mg tablet RxNorm: 073701 1/2 - 1 Tablet(s) PO QHS 11/22/2016 05/13/2017 Inactive trazodone 50 mg tablet RxNorm: 534478 1 Tablet(s) PO QPM 08/29/2016 10/22/2017 Inactive Maxzide-25mg 37.5 mg-25 mg tablet RxNorm: 34322 Tablet(s) 1 Tablet, 1 time per Day 08/29/2016 05/25/2017 Inactive amoxicillin 500 mg capsule RxNorm: 069321 1 Capsule(s) PO TID 07/28/2016 08/03/2016 Inactive cetirizine 10 mg tablet RxNorm: 4187294 1 Tablet(s) PO daily 07/28/2016 08/26/2016 Inactive Zithromax Z-Elías 250 mg tablet RxNorm: 691872 1 Tablet(s) PO UD 07/03/2016 07/07/2016 Inactive zpack Kenalog 40 mg/mL suspension for injection RxNorm: 2186450 Milliliter(s) Inj 07/03/2016 07/03/2016 Inactive pravastatin 20 mg tablet RxNorm: 504774 TAKE 1 TABLET BY MOUTH DAILY 05/31/2016 02/24/2017 Inactive trazodone 50 mg tablet RxNorm: 341060 1 Tablet(s) PO QPM 03/03/2016 06/30/2016 Inactive Maxzide-25mg 37.5 mg-25 mg tablet RxNorm: 00768 1 Tablet, 1 time per Day 12/06/2015 08/28/2016 Inactive trazodone 50 mg tablet RxNorm: 031656 1 Tablet(s) PO QPM 10/22/2015 03/02/2016 Inactive Maxzide-25mg 37.5 mg-25 mg tablet RxNorm: 18972 1 Tablet(s) PO daily 05/04/2015 12/05/2015 Inactive trazodone 50 mg tablet RxNorm: 486546 1/2 Tablet(s) PO QPM may increase up to a full pill if needed 05/04/2015 10/21/2015 Inactive pravastatin 20 mg tablet RxNorm: 386448 1 Tablet(s) PO daily 05/04/2015 04/27/2016 Inactive pravastatin 20 mg tablet RxNorm: 543022 1 Tablet(s) PO daily 03/03/2015 03/02/2015 Inactive pravastatin 20 mg tablet RxNorm: 198656 1 Tablet(s) PO daily 03/03/2015 05/03/2015 Inactive Eye Vitamin and Minerals oral RxNorm: 2837 oral No Start Date Active Centrum Silver tablet RxNorm: 1 Tablet(s) PO daily No Start Date Active [place] 3 Fish Oil oral RxNorm: 5924967 oral No Start Date Active Osteo Bi-Flex oral RxNorm: 8802783 oral No Start Date Active zolpidem 5 mg tablet RxNorm: 589865 1 Tablet(s) PO QHS as needed No Start Date 05/03/2015 Inactive Iron (ferrous sulfate) oral RxNorm: 12838 oral No Start Date 08/28/2017 Inactive Maxzide-25mg oral RxNorm: 39695 oral No Start Date 05/03/2015 Inactive Medication Administered Medication Codes Instructions Start Date Status ceftriaxone 500 mg solution for injection RxNorm: 5943895 1 02/26/2018 No longer Active Kenalog 40 mg/mL suspension for injection RxNorm: 6102928 1Milliliter 02/13/2018 No longer Active Kenalog 40 mg/mL suspension for injection RxNorm: 4710035 Milliliter 07/03/2016 No longer Active Immunizations Vaccine [...] Item Item Code Result Date Comp Metabolic Faj599 NA 140 mEq/L 08/20/2018 Comp Metabolic Zar924 K 3.7 mEq/L 08/20/2018 Comp Metabolic Iqc762 CL 99 mEq/L 08/20/2018 Comp Metabolic Rwo322 CO2 30.0 mEq/L 08/20/2018 Comp Metabolic Kag165 ANION GAP 15 08/20/2018 Comp Metabolic Pvk161 GLUCOSE 101 mg/dL 08/20/2018 Comp Metabolic Ybn627 Creat 1.0 mg/dL 08/20/2018 Comp Metabolic Uzu617 eGFR 56 ml/min/1.73m2 08/20/2018 Comp Metabolic Rxq083 BUN 20 mg/dL 08/20/2018 Comp Metabolic Gvl490 B/C Ratio 19.6 Ratio 08/20/2018 Comp Metabolic Ryu852 CALCIUM 9.9 mg/dL 08/20/2018 Comp Metabolic Wen807 ALK PHOS 50 U/L 08/20/2018 Comp Metabolic Qiv440 AST(SGOT) 16 U/L 08/20/2018 Comp Metabolic Wor972 ALT(SGPT) 17 U/L 08/20/2018 Comp Metabolic Vkg401 BILI T 0.5 mg/dL 08/20/2018 Comp Metabolic Eok546 ALBUMIN 4.2 g/dL 08/20/2018 Comp Metabolic Mag777 TPRO 6.4 g/dL 08/20/2018 Comp Metabolic Dzc373 GLOB 2.2 g/dL 08/20/2018 Comp Metabolic Pel861 A/G Ratio 2.0 Ratio 08/20/2018 Comp Metabolic Pty424 Osmo 282 mOsmo 08/20/2018 Cbc With Differential [...] 24.4 % 08/20/2018 Cbc With Differential Ord2 Gem% 7.2 % 08/20/2018 Cbc With Differential Ord2 MCH 29.5 pg 08/20/2018 Cbc With Differential Ord2 Eos% 2.3 % 08/20/2018 Cbc With Differential Ord2 MCHC 32.7 pg 08/20/2018 Cbc With Differential Ord2 PLT 241 K/ul 08/20/2018 Cbc With Differential Ord2 Baso% 0.7 % 08/20/2018 Cbc With Differential Ord2 Neut ABS# 5.86 K/ul 08/20/2018 Cbc With Differential Ord2 RDW 13.3 % 08/20/2018 Cbc With Differential Ord2 Lymph ABS# 2.19 K/ul 08/20/2018 Cbc With Differential Ord2 Gem ABS# 0.7 K/ul 08/20/2018 Cbc With Differential [...] Ord30 C/HDL 3.6 Ratio 08/29/2017 Comp Metabolic Mpg630 NA 140 mEq/L 08/29/2017 Comp Metabolic Iew420 K 4.2 mEq/L 08/29/2017 Comp Metabolic Oae522 CL 100 mEq/L 08/29/2017 Comp Metabolic Vut616 CO2 31.0 mEq/L 08/29/2017 Comp Metabolic Kwp270 ANION GAP 13 08/29/2017 Comp Metabolic Zbr711 GLUCOSE 95 mg/dL 08/29/2017 Comp Metabolic Lwf771 Creat 1.1 mg/dL 08/29/2017 Comp Metabolic Sxo445 eGFR 50 ml/min/1.73m2 08/29/2017 Comp Metabolic Wsh215 BUN 26 mg/dL 08/29/2017 Comp Metabolic Tmu164 B/C Ratio 22.8 Ratio 08/29/2017 Comp Metabolic Mrx481 CALCIUM 9.8 mg/dL 08/29/2017 Comp Metabolic Nwb889 ALK PHOS 45 U/L 08/29/2017 Comp Metabolic Est610 AST(SGOT) 21 U/L 08/29/2017 Comp Metabolic Pmu244 ALT(SGPT) 18 U/L 08/29/2017 Comp Metabolic Eah237 BILI T 0.5 mg/dL 08/29/2017 Comp Metabolic Yat892 ALBUMIN 4.3 g/dL 08/29/2017 Comp Metabolic Eei549 TPRO 6.7 g/dL 08/29/2017 Comp Metabolic Zgf125 GLOB 2.4 g/dL 08/29/2017 Comp Metabolic Mtb051 A/G Ratio 1.8 Ratio 08/29/2017 Comp Metabolic Dnv287 Osmo 284 mOsmo 08/29/2017 Tibc Ord40 Iron [...] 38.2 % 08/29/2017 Cbc With Differential Ord2 Lymph% 27.9 % 08/29/2017 Cbc With Differential Ord2 MCV 91.0 fl 08/29/2017 Cbc With Differential Ord2 Gem% 7.0 % 08/29/2017 Cbc With Differential Ord2 [...] 2.32 K/ul 08/29/2017 Cbc With Differential Ord2 Gem ABS# 0.6 K/ul 08/29/2017 Cbc With Differential [...] 27.2 % 03/01/2017 Cbc With Differential Ord2 Gem% 8.0 % 03/01/2017 Cbc With Differential Ord2 MCH 30.0 pg 03/01/2017 Cbc With Differential Ord2 MCHC 32.5 pg 03/01/2017 Cbc With Differential Ord2 Eos% 2.8 % 03/01/2017 Cbc With Differential Ord2 Baso% 0.5 % 03/01/2017 Cbc With Differential Ord2 PLT 227 K/ul 03/01/2017 Cbc With Differential Ord2 RDW 14.1 % 03/01/2017 Cbc With Differential Ord2 Neut ABS# 4.78 K/ul 03/01/2017 Cbc With Differential Ord2 Lymph ABS# 2.11 K/ul 03/01/2017 Cbc With Differential Ord2 Gem ABS# 0.6 K/ul 03/01/2017 Cbc With Differential Ord2 Eos ABS# 0.2 K/ul 03/01/2017 Cbc With Differential Ord2 Baso ABS# 0.0 K/ul 03/01/2017 Ferritin Ord22 FERRITIN 89.1 ng/mL 02/27/2017 Tibc Ord40 Iron 69 ug/dl 02/27/2017 Tibc Ord40 UIBC 283 ug/dL 02/27/2017 Tibc Ord40 TIBC 352 ug/dL 02/27/2017 Tibc Ord40 Fe-%Sat 19.6 % 02/27/2017 Comp Metabolic Vcg946 NA 137 mEq/L 08/29/2016 Comp Metabolic Fit927 K 4.0 mEq/L 08/29/2016 Comp Metabolic Hpf597 CL 100 mEq/L 08/29/2016 Comp Metabolic Rax451 CO2 32.0 mEq/L 08/29/2016 Comp Metabolic Hab971 ANION GAP 9 08/29/2016 Comp Metabolic Lyz835 GLUCOSE 98 mg/dL 08/29/2016 Comp Metabolic Ocb634 Creat 1.0 mg/dL 08/29/2016 Comp Metabolic Uyi462 eGFR 55 ml/min/1.73m2 08/29/2016 Comp Metabolic Xjz342 BUN 19 mg/dL 08/29/2016 Comp Metabolic Qqt592 B/C Ratio 18.3 Ratio 08/29/2016 Comp Metabolic Tuw237 CALCIUM 10.0 mg/dL 08/29/2016 Comp Metabolic Nam471 ALK PHOS 51 U/L 08/29/2016 Comp Metabolic Vbz454 AST(SGOT) 21 U/L 08/29/2016 Comp Metabolic Jtq650 ALT(SGPT) 16 U/L 08/29/2016 Comp Metabolic Trw358 BILI T 0.5 mg/dL 08/29/2016 Comp Metabolic Esp476 ALBUMIN 4.5 g/dL 08/29/2016 Comp Metabolic Cyp430 TPRO 7.3 g/dL 08/29/2016 Comp Metabolic Fbl497 GLOB 2.8 g/dL 08/29/2016 Comp Metabolic Dwp195 A/G Ratio 1.6 Ratio 08/29/2016 Comp Metabolic Tpt328 Osmo 276 mOsmo 08/29/2016 Lipid Ord30 CHOL [...] 27.4 % 08/29/2016 Cbc With Differential Ord2 Gem% 7.8 % 08/29/2016 Cbc With Differential Ord2 [...] 2.31 K/ul 08/29/2016 Cbc With Differential Ord2 Gem ABS# 0.7 K/ul 08/29/2016 Cbc With Differential [...] 29.4 pg 05/02/2016 Cbc With Differential Ord2 Gem% 8.4 % 05/02/2016 Cbc With Differential Ord2 Eos% 1.9 % 05/02/2016 Cbc With Differential Ord2 MCHC 32.4 pg 05/02/2016 Cbc With Differential Ord2 Baso% 0.6 % 05/02/2016 Cbc With Differential Ord2 PLT 259 K/ul 05/02/2016 Cbc With Differential Ord2 Neut ABS# 4.95 K/ul 05/02/2016 Cbc With Differential Ord2 RDW 14.1 % 05/02/2016 Cbc With Differential Ord2 Lymph ABS# 2.03 K/ul 05/02/2016 Cbc With Differential Ord2 Gem ABS# 0.7 K/ul 05/02/2016 Cbc With Differential Ord2 Eos ABS# 0.2 K/ul 05/02/2016 Cbc With Differential Ord2 Baso ABS# 0.1 K/ul 05/02/2016 Comp Metabolic Lsk981 NA 136 mEq/L 05/02/2016 Comp Metabolic Xsu917 K 4.0 mEq/L 05/02/2016 Comp Metabolic Jpa289 CL 97 mEq/L 05/02/2016 Comp Metabolic Wap509 CO2 31.0 mEq/L 05/02/2016 Comp Metabolic Whl546 ANION GAP 12 05/02/2016 Comp Metabolic Met747 GLUCOSE 97 mg/dL 05/02/2016 Comp Metabolic Heh410 Creat 1.0 mg/dL 05/02/2016 Comp Metabolic Snh876 eGFR 61 ml/min/1.73m2 05/02/2016 Comp Metabolic Qvm619 BUN 24 mg/dL 05/02/2016 Comp Metabolic Cbq534 B/C Ratio 25.0 Ratio 05/02/2016 Comp Metabolic Nhw364 CALCIUM 9.6 mg/dL 05/02/2016 Comp Metabolic Djs575 ALK PHOS 55 U/L 05/02/2016 Comp Metabolic Kxp195 AST(SGOT) 18 U/L 05/02/2016 Comp Metabolic Qhw301 ALT(SGPT) 20 U/L 05/02/2016 Comp Metabolic Thb425 BILI T 0.5 mg/dL 05/02/2016 Comp Metabolic Fye129 ALBUMIN 4.5 g/dL 05/02/2016 Comp Metabolic Rvu202 TPRO 7.4 g/dL 05/02/2016 Comp Metabolic Voq292 GLOB 2.9 g/dL 05/02/2016 Comp Metabolic Ahp334 A/G Ratio 1.6 Ratio 05/02/2016 Comp Metabolic Bdt712 Osmo 276 mOsmo 05/02/2016 Lipid Ord30 CHOL 197 mg/dL 11/02/2015 Lipid Ord30 HDL 43.0 mg/dl 11/02/2015 Lipid Ord30 TRIG 247 mg/dL 11/02/2015 Lipid Ord30 LDL 105 mg/dL 11/02/2015 Lipid Ord30 C/HDL 4.6 Ratio 11/02/2015 Comp Metabolic Scz035 NA 137 mEq/L 11/02/2015 Comp Metabolic Diu532 K 3.9 mEq/L 11/02/2015 Comp Metabolic Jau315 CL 96 mEq/L 11/02/2015 Comp Metabolic Jlz702 CO2 34.0 mEq/L 11/02/2015 Comp Metabolic Mdl460 ANION GAP 11 11/02/2015 Comp Metabolic Urj237 GLUCOSE 97 mg/dL 11/02/2015 Comp Metabolic Jex797 Creat 1.1 mg/dL 11/02/2015 Comp Metabolic Djk404 eGFR 52 ml/min/1.73m2 11/02/2015 Comp Metabolic Llg868 BUN 29 mg/dL 11/02/2015 Comp Metabolic Yui386 B/C Ratio 26.6 Ratio 11/02/2015 Comp Metabolic Wwp039 CALCIUM 9.8 mg/dL 11/02/2015 Comp Metabolic Rss828 ALK PHOS 56 U/L 11/02/2015 Comp Metabolic Ggx664 AST(SGOT) 16 U/L 11/02/2015 Comp Metabolic Lkc926 ALT(SGPT) 13 U/L 11/02/2015 Comp Metabolic Qtz693 BILI T 0.4 mg/dL 11/02/2015 Comp Metabolic Rch391 ALBUMIN 4.4 g/dL 11/02/2015 Comp Metabolic Xma368 TPRO 7.1 g/dL 11/02/2015 Comp Metabolic Qwp448 GLOB 2.7 g/dL 11/02/2015 Comp Metabolic Lor370 A/G Ratio 1.6 Ratio 11/02/2015 Comp Metabolic Mcg302 Osmo 280 mOsmo 11/02/2015 Cbc With Differential [...] 29.0 pg 11/02/2015 Cbc With Differential Ord2 Gem% 9.0 % 11/02/2015 Cbc With Differential Ord2 MCHC 32.0 pg 11/02/2015 Cbc With Differential Ord2 Eos% 2.7 % 11/02/2015 Cbc With Differential Ord2 Baso% 0.6 % 11/02/2015 Cbc With Differential Ord2 PLT 264 K/ul 11/02/2015 Cbc With Differential Ord2 RDW 13.8 % 11/02/2015 Cbc With Differential Ord2 Neut ABS# 5.26 K/ul 11/02/2015 Cbc With Differential Ord2 Lymph ABS# 2.16 K/ul 11/02/2015 Cbc With Differential Ord2 Gem ABS# 0.8 K/ul 11/02/2015 Cbc With Differential [...] Ord2 RDW 14.6 % 05/04/2015 Free T4 Ewi896 FREE T4 0.81 ng/dL 05/04/2015 Comp Metabolic Mfy686 NA 134 mEq/L 05/04/2015 Comp Metabolic Ryi808 K 3.8 mEq/L 05/04/2015 Comp Metabolic Ylt621 CL 97 mEq/L 05/04/2015 Comp Metabolic Vwb189 CO2 31.0 mEq/L 05/04/2015 Comp Metabolic Fde530 ANION GAP 10 05/04/2015 Comp Metabolic Kpj864 GLUCOSE 88 mg/dL 05/04/2015 Comp Metabolic Mqp355 Creat 1.0 mg/dL 05/04/2015 Comp Metabolic Xpz300 eGFR 58 ml/min/1.73m2 05/04/2015 Comp Metabolic Umg686 BUN 19 mg/dL 05/04/2015 Comp Metabolic Jai818 B/C Ratio 19.0 Ratio 05/04/2015 Comp Metabolic Rwe184 CALCIUM 9.5 mg/dL 05/04/2015 Comp Metabolic Xoi030 ALK PHOS 60 U/L 05/04/2015 Comp Metabolic Uhn308 AST(SGOT) 17 U/L 05/04/2015 Comp Metabolic Whj632 ALT(SGPT) 14 U/L 05/04/2015 Comp Metabolic Mtn832 BILI T 0.5 mg/dL 05/04/2015 Comp Metabolic Ugi201 ALBUMIN 4.5 g/dL 05/04/2015 Comp Metabolic Nie952 TPRO 7.1 g/dL 05/04/2015 Comp Metabolic Zwu446 GLOB 2.6 g/dL 05/04/2015 Comp Metabolic Dcj102 A/G Ratio 1.7 Ratio 05/04/2015 Comp Metabolic Pdf346 Osmo 270 mOsmo 05/04/2015 Lipid Ord30 CHOL [...] Codes Date ADMIN PNEUMOCOCCAL VACCINE SNOMED CT: 94820918 CPT-4: G0009 08/27/2018 Pneumococcal Polysaccharide Vaccine, 23-Valent, Ad CPT-4: 93379 08/27/2018 ROCEPHIN, PER 250 MG CPT- 4: J0696 02/26/2018 THER/PROPH/DIAG INJ SC/IM CPT-4: 25358 02/26/2018 TRIAMCINOLONE ACET INJ NOS CPT-4: J3301 02/13/2018 THER/PROPH/DIAG INJ SC/IM CPT-4: 56588 02/13/2018 TRIAMCINOLONE ACET INJ NOS CPT-4: J3301 07/03/2016 PNEUMOCOCCAL VACC [address]: 40051080 CPT-4: 66724 11/02/2015 IMMUNIZATION ADMIN CPT- 4: 57277 11/02/2015 Vital Signs Date Vital 08/27/2018 Blood Pressure 1: 146/82 Code: 8480-6 BMI: 25.8 Code: 14230-0 Heart Rate 1: 67 bpm Height: 5'2" SpO2: 97% Weight: 141 lbs 02/26/2018 Blood Pressure 1: 132/80 Code: 8480-6 BMI: 25.8 Code: 54908-8 Heart Rate 1: 76 bpm Height: 5'2" SpO2: 97% Temperature: 36.9 (C) / 98.4 (F) Weight: 141 lbs 02/13/2018 Blood Pressure 1: 130/78 Code: 8480-6 BMI: 26.3 Code: 71773-2 Heart Rate 1: 80 bpm Height: 5'2" SpO2: 93% Temperature: 36.9 (C) / 98.4 (F) Weight: 144 lbs 08/29/2017 Blood Pressure 1: 126/78 Code: 8480-6 BMI: 26.3 Code: 52774-0 Heart Rate 1: 80 bpm Height: 5'2" SpO2: 97% Weight: 144 lbs 05/14/2017 Blood Pressure 1: 128/70 Code: 8480-6 BMI: 26.5 Code: 25331-1 Heart Rate 1: 84 bpm Height: 5'2" SpO2: 97% Weight: 145 lbs 02/27/2017 Blood Pressure 1: 130/82 Code: 8480-6 BMI: 26.3 Code: 67593-2 Heart Rate 1: 82 bpm Height: 5'2" SpO2: 96% Weight: 144 lbs 02/02/2017 Blood Pressure 1: 142/76 Code: 8480-6 BMI: 26.3 Code: 88565-3 Heart Rate 1: 80 bpm Height: 5'2" SpO2: 97% Weight: 144 lbs 11/22/2016 Blood Pressure 1: 134/72 Code: 8480-6 BMI: 27.1 Code: 20484-0 Heart Rate 1: 76 bpm Height: 5'2" SpO2: 97% Weight: 148 lbs 08/29/2016 Blood Pressure 1: 120/80 Code: 8480-6 BMI: 26.0 Code: 81997-6 Heart Rate 1: 74 bpm Height: 5'2" SpO2: 97% Weight: 142 lbs 07/28/2016 Blood Pressure 1: 134/72 Code: 8480-6 BMI: 25.7 Code: 61039-8 Heart Rate 1: 81 bpm Height: 5'2" SpO2: 98% Temperature: 37.1 (C) / 98.7 (F) Weight: 140 lbs 8 oz 07/03/2016 Blood Pressure 1: 136/80 Code: 8480-6 Heart Rate 1: 86 bpm SpO2: 98% Temperature: 36.7 (C) / 98.0 (F) 05/02/2016 Blood Pressure 1: 124/78 Code: 8480-6 BMI: 26.3 Code: 95852-4 Heart Rate 1: 74 bpm Height: 5'2" SpO2: 98% Weight: 144 lbs 11/02/2015 Blood Pressure 1: 118/78 Code: 8480-6 BMI: 26.5 Code: 60721-9 Heart Rate 1: 79 bpm Height: 5'2" SpO2: 98% Weight: 145 lbs 05/04/2015 Blood Pressure 1: 132/64 Code: 8480-6 BMI: 25.2 Code: 94330-7 Heart Rate 1: 75 bpm Height: 5'2" [...] 02/27/2017 None rash Location-Head/Neck on the right methodist 02/02/2017 None rash Color red 02/02/2017 None [...] data Encounters Encounter Performer Location Codes Date ([id number]) 94620 EST. PATIENT, LEVEL IV Diagnosis: Essential (primary) hypertension[ICD10: I10] Diagnosis: Mixed hyperlipidemia[ICD10: E78.2] Diagnosis: Encounter for immunization[ICD10: Z23] [facility] CPT-4: 66769 08/27/2018 ([id number]) 98565 EST. PATIENT, LEVEL IV Diagnosis: Essential (primary) hypertension[ICD10: I10] Diagnosis: Mixed hyperlipidemia[ICD10: E78.2] Diagnosis: Cough[ICD10: R05] Diagnosis: Acute recurrent frontal sinusitis[ICD10: J01.11] Aparna Dunn MD, [facility] CPT-4: 24167 02/26/2018 [id number] EST. PATIENT, LEVEL IV Diagnosis: Other allergic rhinitis[ICD10: J30.89] Diagnosis: Acute laryngopharyngitis[ICD10: J06.0] Loretta Dunn MD, [facility] CPT- 4: 46728 02/13/2018 ([id number]) 55917 EST. PATIENT, LEVEL IV Diagnosis: Obstructive sleep apnea (adult) (pediatric)[ICD10: G47.33] Diagnosis: Iron deficiency[ICD10: E61.1] Diagnosis: Mixed hyperlipidemia[ICD10: E78.2] Diagnosis: Essential (primary) hypertension[ICD10: I10] Aparna Dunn MD, [facility] CPT-4: 24598 08/29/2017 [id number] EST. PATIENT, LEVEL III Diagnosis: Cellulitis of face[ICD10: L03.211] Loretta Dunn MD, [facility] CPT-4: 17976 05/14/2017 ([id number]) 47457 EST. PATIENT, LEVEL IV Diagnosis: Essential (primary) hypertension[ICD10: I10] Diagnosis: Mixed hyperlipidemia[ICD10: E78.2] Diagnosis: Obstructive sleep apnea (adult) (pediatric)[ICD10: G47.33] Aparna Dunn MD, [facility] CPT-4: 47205 02/27/2017 13911 EST. PATIENT, LEVEL III Diagnosis: Cellulitis of face[ICD10: L03.211] Loretta Dunn MD, [facility] CPT-4: 18273 02/02/2017 [id number] EST. PATIENT, LEVEL III Diagnosis: Other insomnia[ICD10: G47.09] Loretta Dunn MD, [facility] CPT-4: 66544 11/22/2016 ([id number]) 23457 EST. PATIENT, LEVEL IV Diagnosis: Essential (primary) hypertension[ICD10: I10] Diagnosis: Mixed hyperlipidemia[ICD10: E78.2] Aparna Dunn MD, [facility] CPT- 4: 37007 08/29/2016 79085 EST. PATIENT, LEVEL IV Diagnosis: Acute laryngopharyngitis[ICD10: J06.0] Diagnosis: Cough[ICD10: R05] Loretta Dunn MD, [facility] CPT-4: 55894 07/28/2016 ([id number]) 13134 EST. PATIENT, LEVEL III Diagnosis: Cough[ICD10: R05] Diagnosis: Acute bronchitis, unspecified[ICD10: J20.9] Judy Dunn MD, [facility] CPT-4: 16383 07/03/2016 ([id number]) 75473 EST. PATIENT, LEVEL IV Diagnosis: Essential (primary) hypertension[ICD10: I10] Diagnosis: Mixed hyperlipidemia[ICD10: E78.2] Diagnosis: Snoring[ICD10: R06.83] Aparna Dunn MD, [facility] CPT-4: 01149 05/02/2016 ([id number] 36632 EST. PATIENT, LEVEL IV Diagnosis: Essential (primary) hypertension[ICD10: I10] Diagnosis: Mixed hyperlipidemia[ICD10: E78.2] Diagnosis: Encounter for immunization[ICD10: Z23] Aparna Dunn MD, [facility] CPT-4: 63009 11/02/2015 ([id number]) Miscellaneous no charge Diagnosis: Tick bite[ICD9: 919.4] Aparna Dunn MD, [facility] CPT-4: 51405 05/20/2015 ([id number]) OFFICE VISIT, NEW - LEVEL 4 Diagnosis: ESSENTIAL HYPERTENSION[ICD9: 401.9] Diagnosis: ENCNTR LONG-RX USE NEC[ICD9: V58.69] Diagnosis: HYPERLIPIDEMIA[ICD9: 272.4] Aparna Dunn MD, [facility] CPT-4: 54990 05/04/2015 Plan of Care Planned Activity Notes Codes Status Date Patient Education: Patient Medication Summary Completed 09/24/2018 Care Plan: SCREENINGMAMMOGRAPHYDIGITAL LOINC : 99426-0 Pending 09/24/2018 Visit Plan: Hypertension - well [...] today 08/27/2018 Appointment: Aparna Dunn WPtel: [phone] [facility] (15 min) Moderate 08/27/2018 Patient Education: Patient [...] show improvement. 02/26/2018 Appointment: Aparna Dunn WPtel: [phone] [facility] (15 min) Moderate 02/26/2018 Patient Education: Patient [...] pharmacy. 02/13/2018 App[facility]ment[phone] (30 min) Complex 02/13/2018 Patient Education: [...] acyclovir 08/29/2017 Appointment: Aparna Dunn WPtel: [phone] [facility] (15 min) Moderate 08/29/2017 Patient Education: Patient [...] in pain. 05/14/2017 Appointment: [phone] (30 min) Complex 05/14/2017 Patient Education: [...] to medications. 02/27/2017 [phone] (15 min) Moderate 02/27/2017 Patient Education: Patient [...] in pain. 02/02/2017 Appointment: [phone] (30 min) Complex 02/02/2017 Patient Education: Patient Medication Summary Completed 02/02/2017 Visit Plan: Insomnia - Pt has been advised to increase the light in the house during the day, and start dimming the lights during the evening hours. Pt has been advised to cut out caffeine after 5pm. Daytime napping worsens night time insomnia. 11/22/2016 Appointment: [phone] (15 min) Moderate 11/22/2016 Patient Education: [...] to medications. 08/29/2016 Appointment: Aparna Dunn WPtel: [facility] (15 min) Moderate 08/29/2016 Patient Education: Patient [...] patient's pharmacy. 07/28/2016 Appointment: Judy Felix WPtel: [facility] [place] [phone] (10 min) Simple 07/28/2016 Patient Education: Patient [...] plan. 07/03/2016 Appointment: Judy Felix WPtel: [phone] [phone] (10 min) Simple 07/03/2016 Patient Education: [...] to medications. 05/02/2016 Appointment: [facility] Dunn [phone] (15 min) Moderate 05/02/2016 Patient Education: Patient [...] shot today 11/02/2015 Appointment: Apar[facility] Dunn [facility]el[phone] (30 min) Complex 11/02/2015 Patient Education: Patient [...] normal liver response to medications. 05/04/2015 Appointment: MonaAparna WPtel: [facility] [place] [place] New Patient 05/04/2015 Patient Education: [...]
--- OUTSIDE RECORDS SUMMARY | 2019-03-24 10:21 | XMS REPORT | CCD ---
Author Author [facility] Organization [facility] Address [address] [place] [address] Phone Care Team Providers Care Nail Tech Name Role Phone PP Unavailable CCM Unavailable Summary Purpose Interface Exchange Insurance Providers Payer name Policy type / Coverage type Covered republican ID Effective Begin Date Effective End Date WPS Medicare Part B [id number] 2017 Unknown AARP [id number] 2017 Unknown Family history Father Diagnosis Age At Onset Unknown Brother Diagnosis Age At Onset Diabetes mellitus Type 2 Unknown Mother Diagnosis Age At Onset car accident Unknown Social History Social History Element Codes Description Effective Dates Marital status Unknown for 16 years - for 16 years, then remarried 05/02/[address]: 825700832 Never smoker 05/02/[address]: 425628 Currently drinks alcohol 05/02/2016 Frequency of drinks SNOMED CT: 194072744 1- 4 drinks per week 1 per [...] Status Onset Date Resolved Date Encounter for immunization ICD-9: V03.82 ICD-10: Z23 [...] Codes Effective Dates Condition Status Encounter for immunization ICD-9: V03.82 ICD-10: Z23 [...] Fill Instructions Xanax 0.25 mg tablet RxNorm: 844324 1/2 - 1 Tablet(s) PO QHS as needed 05/10/2018 07/08/2018 Inactive pravastatin 20 mg tablet RxNorm: 094876 Tablet(s) TAKE 1 TABLET BY MOUTH DAILY 03/27/2018 03/21/2019 Active Diflucan 150 mg tablet RxNorm: 816365 1 Tablet(s) PO daily 03/06/2018 03/10/2018 Inactive Diflucan 150 mg tablet RxNorm: 095292 1 Tablet(s) PO daily 03/06/2018 03/05/2018 Inactive ceftriaxone 500 mg solution for injection RxNorm: 5091255 1 Inj 02/26/2018 02/26/2018 Inactive cefdinir 300 mg capsule RxNorm: 837852 1 Capsule(s) PO BID 02/26/2018 03/04/2018 Inactive Kenalog 40 mg/mL suspension for injection RxNorm: 4948953 1 Milliliter(s) Inj 02/13/2018 02/13/2018 Inactive Zithromax Z-Elías 250 mg tablet RxNorm: 247721 1 Tablet(s) PO UD 02/04/2018 02/08/2018 Inactive zpack as directed Xanax 0.25 mg tablet RxNorm: 879114 1/2 - 1 Tablet(s) PO QHS as needed 10/30/2017 12/28/2017 Inactive Maxzide-25mg 37.5 mg-25 mg tablet RxNorm: 23988 Tablet(s) TAKE 1 TABLET BY MOUTH DAILY 10/10/2017 10/04/2018 Active acyclovir 5 % topical ointment RxNorm: 346436 1 Application TOP QID as needed cold sores 08/29/2017 12/26/2017 Inactive amoxicillin 500 mg capsule RxNorm: 243767 1 Capsule(s) PO TID 07/03/2017 07/09/2017 Inactive Maxzide-25mg 37.5 mg-25 mg tablet RxNorm: 56699 TAKE 1 TABLET BY MOUTH DAILY 06/04/2017 10/09/2017 Inactive Bactrim DS 800 mg-160 mg tablet RxNorm: 108377 1 Tablet(s) PO BID 05/14/2017 05/23/2017 Inactive Xanax 0.25 mg tablet RxNorm: 476592 1/2 - 1 Tablet(s) PO QHS 05/14/2017 10/29/2017 Inactive pravastatin 20 mg tablet RxNorm: 097378 TAKE 1 TABLET BY MOUTH DAILY 02/28/2017 02/22/2018 Inactive mupirocin 2 % topical ointment RxNorm: 433637 1 Application TOP BID 02/02/2017 No Stop Date Active Bactrim DS 800 mg-160 mg tablet RxNorm: 022921 1 Tablet(s) PO BID 02/02/2017 02/11/2017 Inactive Xanax 0.25 mg tablet RxNorm: 799248 1/2 - 1 Tablet(s) PO QHS 12/25/2016 10/29/2017 Inactive Xanax 0.25 mg tablet RxNorm: 134233 1/2 - 1 Tablet(s) PO QHS 11/22/2016 05/13/2017 Inactive trazodone 50 mg tablet RxNorm: 758666 1 Tablet(s) PO QPM 08/29/2016 10/22/2017 Inactive Maxzide-25mg 37.5 mg-25 mg tablet RxNorm: 28971 Tablet(s) 1 Tablet, 1 time per Day 08/29/2016 05/25/2017 Inactive amoxicillin 500 mg capsule RxNorm: 639884 1 Capsule(s) PO TID 07/28/2016 08/03/2016 Inactive cetirizine 10 mg tablet RxNorm: 3177303 1 Tablet(s) PO daily 07/28/2016 08/26/2016 Inactive Zithromax Z-Elías 250 mg tablet RxNorm: 655137 1 Tablet(s) PO UD 07/03/2016 07/07/2016 Inactive zpack Kenalog 40 mg/mL suspension for injection RxNorm: 3107514 Milliliter(s) Inj 07/03/2016 07/03/2016 Inactive pravastatin 20 mg tablet RxNorm: 806505 TAKE 1 TABLET BY MOUTH DAILY 05/31/2016 02/24/2017 Inactive trazodone 50 mg tablet RxNorm: 057286 1 Tablet(s) PO QPM 03/03/2016 06/30/2016 Inactive Maxzide-25mg 37.5 mg-25 mg tablet RxNorm: 66299 1 Tablet, 1 time per Day 12/06/2015 08/28/2016 Inactive trazodone 50 mg tablet RxNorm: 851160 1 Tablet(s) PO QPM 10/22/2015 03/02/2016 Inactive Maxzide-25mg 37.5 mg-25 mg tablet RxNorm: 64123 1 Tablet(s) PO daily 05/04/2015 12/05/2015 Inactive trazodone 50 mg tablet RxNorm: 161542 1/2 Tablet(s) PO QPM may increase up to a full pill if needed 05/04/2015 10/21/2015 Inactive pravastatin 20 mg tablet RxNorm: 552730 1 Tablet(s) PO daily 05/04/2015 04/27/2016 Inactive pravastatin 20 mg tablet RxNorm: 162351 1 Tablet(s) PO daily 03/03/2015 03/02/2015 Inactive pravastatin 20 mg tablet RxNorm: 301017 1 Tablet(s) PO daily 03/03/2015 05/03/2015 Inactive Eye Vitamin and Minerals oral RxNorm: 2837 oral No Start Date Active Centrum Silver tablet RxNorm: 1 Tablet(s) PO daily No Start Date Active [place] 3 Fish Oil oral RxNorm: 9189834 oral No Start Date Active Osteo Bi-Flex oral RxNorm: 9340986 oral No Start Date Active zolpidem 5 mg tablet RxNorm: 146469 1 Tablet(s) PO QHS as needed No Start Date 05/03/2015 Inactive Iron (ferrous sulfate) oral RxNorm: 44156 oral No Start Date 08/28/2017 Inactive Maxzide-25mg oral RxNorm: 02154 oral No Start Date 05/03/2015 Inactive Medication Administered Medication Codes Instructions Start Date Status ceftriaxone 500 mg solution for injection RxNorm: 1576925 1 02/26/2018 No longer Active Kenalog 40 mg/mL suspension for injection RxNorm: 5097635 1Milliliter 02/13/2018 No longer Active Kenalog 40 mg/mL suspension for injection RxNorm: 4471806 Milliliter 07/03/2016 No longer Active Immunizations Vaccine [...] 05/05/2008 completed Assessments Condition Codes Effective Dates Essential (primary) hypertension ICD-10: I10 ICD-9: 401.9 [...] Item Item Code Result Date Comp Metabolic Hep617 NA 140 mEq/L 08/20/2018 Comp Metabolic Esh643 K 3.7 mEq/L 08/20/2018 Comp Metabolic Zve025 CL 99 mEq/L 08/20/2018 Comp Metabolic Xth082 CO2 30.0 mEq/L 08/20/2018 Comp Metabolic Lno085 ANION GAP 15 08/20/2018 Comp Metabolic Biu565 GLUCOSE 101 mg/dL 08/20/2018 Comp Metabolic Tyl758 Creat 1.0 mg/dL 08/20/2018 Comp Metabolic Mja297 eGFR 56 ml/min/1.73m2 08/20/2018 Comp Metabolic Nhm745 BUN 20 mg/dL 08/20/2018 Comp Metabolic Uyt595 B/C Ratio 19.6 Ratio 08/20/2018 Comp Metabolic Axu375 CALCIUM 9.9 mg/dL 08/20/2018 Comp Metabolic Gic321 ALK PHOS 50 U/L 08/20/2018 Comp Metabolic Ohy021 AST(SGOT) 16 U/L 08/20/2018 Comp Metabolic Ust942 ALT(SGPT) 17 U/L 08/20/2018 Comp Metabolic Nbr799 BILI T 0.5 mg/dL 08/20/2018 Comp Metabolic Coz370 ALBUMIN 4.2 g/dL 08/20/2018 Comp Metabolic Bvq840 TPRO 6.4 g/dL 08/20/2018 Comp Metabolic Cnu990 GLOB 2.2 g/dL 08/20/2018 Comp Metabolic Npt362 A/G Ratio 2.0 Ratio 08/20/2018 Comp Metabolic Sfr544 Osmo 282 mOsmo 08/20/2018 Cbc With Differential Ord2 WBC 8.97 K/ul 08/20/2018 Cbc With Differential Ord2 RBC 4.37 M/ul 08/20/2018 Cbc With Differential Ord2 HGB 12.9 g/dl 08/20/2018 Cbc With Differential Ord2 Neut% 65.4 % 08/20/2018 Cbc With Differential Ord2 HCT 39.5 % 08/20/2018 Cbc With Differential Ord2 MCV 90.4 fl 08/20/2018 Cbc With Differential Ord2 Lymph% 24.4 % 08/20/2018 Cbc With Differential Ord2 MCH 29.5 pg 08/20/2018 Cbc With Differential Ord2 Todd% 7.2 % 08/20/2018 Cbc With Differential Ord2 Eos% 2.3 % 08/20/2018 Cbc With Differential Ord2 MCHC 32.7 pg 08/20/2018 Cbc With Differential Ord2 PLT 241 K/ul 08/20/2018 Cbc With Differential Ord2 Baso% 0.7 % 08/20/2018 Cbc With Differential Ord2 Neut ABS# 5.86 K/ul 08/20/2018 Cbc With Differential Ord2 RDW 13.3 % 08/20/2018 Cbc With Differential Ord2 Lymph ABS# 2.19 K/ul 08/20/2018 Cbc With Differential Ord2 Todd ABS# 0.7 K/ul 08/20/2018 Cbc With Differential [...] Ord30 C/HDL 3.6 Ratio 08/29/2017 Comp Metabolic Bdf585 NA 140 mEq/L 08/29/2017 Comp Metabolic Odr913 K 4.2 mEq/L 08/29/2017 Comp Metabolic Bgk183 CL 100 mEq/L 08/29/2017 Comp Metabolic Dui040 CO2 31.0 mEq/L 08/29/2017 Comp Metabolic Zln392 ANION GAP 13 08/29/2017 Comp Metabolic Qon164 GLUCOSE 95 mg/dL 08/29/2017 Comp Metabolic Wzc595 Creat 1.1 mg/dL 08/29/2017 Comp Metabolic Nss297 eGFR 50 ml/min/1.73m2 08/29/2017 Comp Metabolic Vjx488 BUN 26 mg/dL 08/29/2017 Comp Metabolic Dfw744 B/C Ratio 22.8 Ratio 08/29/2017 Comp Metabolic Wmq475 CALCIUM 9.8 mg/dL 08/29/2017 Comp Metabolic Luf422 ALK PHOS 45 U/L 08/29/2017 Comp Metabolic Sez814 AST(SGOT) 21 U/L 08/29/2017 Comp Metabolic Udt590 ALT(SGPT) 18 U/L 08/29/2017 Comp Metabolic Nbh583 BILI T 0.5 mg/dL 08/29/2017 Comp Metabolic Cbw941 ALBUMIN 4.3 g/dL 08/29/2017 Comp Metabolic Lyb857 TPRO 6.7 g/dL 08/29/2017 Comp Metabolic Vwg409 GLOB 2.4 g/dL 08/29/2017 Comp Metabolic Foi285 A/G Ratio 1.8 Ratio 08/29/2017 Comp Metabolic Tll207 Osmo 284 mOsmo 08/29/2017 Tibc Ord40 Iron [...] 91.0 fl 08/29/2017 Cbc With Differential Ord2 Todd% 7.0 % 08/29/2017 Cbc With Differential Ord2 [...] 2.32 K/ul 08/29/2017 Cbc With Differential Ord2 Todd ABS# 0.6 K/ul 08/29/2017 Cbc With Differential [...] 27.2 % 03/01/2017 Cbc With Differential Ord2 Todd% 8.0 % 03/01/2017 Cbc With Differential Ord2 MCH 30.0 pg 03/01/2017 Cbc With Differential Ord2 MCHC 32.5 pg 03/01/2017 Cbc With Differential Ord2 Eos% 2.8 % 03/01/2017 Cbc With Differential Ord2 Baso% 0.5 % 03/01/2017 Cbc With Differential Ord2 PLT 227 K/ul 03/01/2017 Cbc With Differential Ord2 Neut ABS# 4.78 K/ul 03/01/2017 Cbc With Differential Ord2 RDW 14.1 % 03/01/2017 Cbc With Differential Ord2 Lymph ABS# 2.11 K/ul 03/01/2017 Cbc With Differential Ord2 Todd ABS# 0.6 K/ul 03/01/2017 Cbc With Differential Ord2 Eos ABS# 0.2 K/ul 03/01/2017 Cbc With Differential Ord2 Baso ABS# 0.0 K/ul 03/01/2017 Ferritin Ord22 FERRITIN 89.1 ng/mL 02/27/2017 Tibc Ord40 Iron 69 ug/dl 02/27/2017 Tibc Ord40 UIBC 283 ug/dL 02/27/2017 Tibc Ord40 TIBC 352 ug/dL 02/27/2017 Tibc Ord40 Fe-%Sat 19.6 % 02/27/2017 Comp Metabolic Dwq671 NA 137 mEq/L 08/29/2016 Comp Metabolic Ffa303 K 4.0 mEq/L 08/29/2016 Comp Metabolic Gbp590 CL 100 mEq/L 08/29/2016 Comp Metabolic Ubo099 CO2 32.0 mEq/L 08/29/2016 Comp Metabolic Hyl793 ANION GAP 9 08/29/2016 Comp Metabolic Jog922 GLUCOSE 98 mg/dL 08/29/2016 Comp Metabolic Zmj095 Creat 1.0 mg/dL 08/29/2016 Comp Metabolic Mem622 eGFR 55 ml/min/1.73m2 08/29/2016 Comp Metabolic Vqm631 BUN 19 mg/dL 08/29/2016 Comp Metabolic Yyx830 B/C Ratio 18.3 Ratio 08/29/2016 Comp Metabolic Ypi863 CALCIUM 10.0 mg/dL 08/29/2016 Comp Metabolic Juc837 ALK PHOS 51 U/L 08/29/2016 Comp Metabolic Tpv849 AST(SGOT) 21 U/L 08/29/2016 Comp Metabolic Pvf448 ALT(SGPT) 16 U/L 08/29/2016 Comp Metabolic Brc300 BILI T 0.5 mg/dL 08/29/2016 Comp Metabolic Ogy360 ALBUMIN 4.5 g/dL 08/29/2016 Comp Metabolic Fxu443 TPRO 7.3 g/dL 08/29/2016 Comp Metabolic Oud336 GLOB 2.8 g/dL 08/29/2016 Comp Metabolic Zbg997 A/G Ratio 1.6 Ratio 08/29/2016 Comp Metabolic Rnm157 Osmo 276 mOsmo 08/29/2016 Lipid Ord30 CHOL [...] 27.4 % 08/29/2016 Cbc With Differential Ord2 Todd% 7.8 % 08/29/2016 Cbc With Differential Ord2 [...] 2.31 K/ul 08/29/2016 Cbc With Differential Ord2 Todd ABS# 0.7 K/ul 08/29/2016 Cbc With Differential [...] 25.9 % 05/02/2016 Cbc With Differential Ord2 Todd% 8.4 % 05/02/2016 Cbc With Differential Ord2 MCH 29.4 pg 05/02/2016 Cbc With Differential Ord2 Eos% [...] 2.03 K/ul 05/02/2016 Cbc With Differential Ord2 Todd ABS# 0.7 K/ul 05/02/2016 Cbc With Differential Ord2 Eos ABS# 0.2 K/ul 05/02/2016 Cbc With Differential Ord2 Baso ABS# 0.1 K/ul 05/02/2016 Comp Metabolic Dbk819 NA 136 mEq/L 05/02/2016 Comp Metabolic Wgy399 K 4.0 mEq/L 05/02/2016 Comp Metabolic Elq788 CL 97 mEq/L 05/02/2016 Comp Metabolic Yze350 CO2 31.0 mEq/L 05/02/2016 Comp Metabolic Fjr401 ANION GAP 12 05/02/2016 Comp Metabolic Dmt277 GLUCOSE 97 mg/dL 05/02/2016 Comp Metabolic Irr644 Creat 1.0 mg/dL 05/02/2016 Comp Metabolic Tdi884 eGFR 61 ml/min/1.73m2 05/02/2016 Comp Metabolic Xee409 BUN 24 mg/dL 05/02/2016 Comp Metabolic Bmg609 B/C Ratio 25.0 Ratio 05/02/2016 Comp Metabolic Tvo319 CALCIUM 9.6 mg/dL 05/02/2016 Comp Metabolic Oyw615 ALK PHOS 55 U/L 05/02/2016 Comp Metabolic Fjy111 AST(SGOT) 18 U/L 05/02/2016 Comp Metabolic Evl467 ALT(SGPT) 20 U/L 05/02/2016 Comp Metabolic Wgx309 BILI T 0.5 mg/dL 05/02/2016 Comp Metabolic Sej903 ALBUMIN 4.5 g/dL 05/02/2016 Comp Metabolic Gdf100 TPRO 7.4 g/dL 05/02/2016 Comp Metabolic Kgl440 GLOB 2.9 g/dL 05/02/2016 Comp Metabolic Kuh443 A/G Ratio 1.6 Ratio 05/02/2016 Comp Metabolic Vyk736 Osmo 276 mOsmo 05/02/2016 Lipid Ord30 CHOL 197 mg/dL 11/02/2015 Lipid Ord30 HDL 43.0 mg/dl 11/02/2015 Lipid Ord30 TRIG 247 mg/dL 11/02/2015 Lipid Ord30 LDL 105 mg/dL 11/02/2015 Lipid Ord30 C/HDL 4.6 Ratio 11/02/2015 Comp Metabolic Tih321 NA 137 mEq/L 11/02/2015 Comp Metabolic Xgi388 K 3.9 mEq/L 11/02/2015 Comp Metabolic Mmu864 CL 96 mEq/L 11/02/2015 Comp Metabolic Uft014 CO2 34.0 mEq/L 11/02/2015 Comp Metabolic Cli959 ANION GAP 11 11/02/2015 Comp Metabolic Lpp355 GLUCOSE 97 mg/dL 11/02/2015 Comp Metabolic Aht502 Creat 1.1 mg/dL 11/02/2015 Comp Metabolic Jbx329 eGFR 52 ml/min/1.73m2 11/02/2015 Comp Metabolic Ryf847 BUN 29 mg/dL 11/02/2015 Comp Metabolic Ryw053 B/C Ratio 26.6 Ratio 11/02/2015 Comp Metabolic Tln534 CALCIUM 9.8 mg/dL 11/02/2015 Comp Metabolic Msf858 ALK PHOS 56 U/L 11/02/2015 Comp Metabolic Wzi334 AST(SGOT) 16 U/L 11/02/2015 Comp Metabolic Otp813 ALT(SGPT) 13 U/L 11/02/2015 Comp Metabolic Dln352 BILI T 0.4 mg/dL 11/02/2015 Comp Metabolic Kcs628 ALBUMIN 4.4 g/dL 11/02/2015 Comp Metabolic Gri651 TPRO 7.1 g/dL 11/02/2015 Comp Metabolic Ysb868 GLOB 2.7 g/dL 11/02/2015 Comp Metabolic Kqn360 A/G Ratio 1.6 Ratio 11/02/2015 Comp Metabolic Hvs458 Osmo 280 mOsmo 11/02/2015 Cbc With Differential Ord2 WBC 8.46 K/ul 11/02/2015 Cbc With Differential Ord2 RBC 4.55 M/ul 11/02/2015 Cbc With Differential Ord2 HGB 13.2 g/dl 11/02/2015 Cbc With Differential Ord2 Neut% 62.2 % 11/02/2015 Cbc With Differential Ord2 HCT 41.2 % 11/02/2015 Cbc With Differential Ord2 MCV 90.5 fl 11/02/2015 Cbc With Differential Ord2 Lymph% 25.5 % 11/02/2015 Cbc With Differential Ord2 MCH 29.0 pg 11/02/2015 Cbc With Differential Ord2 Todd% 9.0 % 11/02/2015 Cbc With Differential Ord2 [...] 2.16 K/ul 11/02/2015 Cbc With Differential Ord2 Todd ABS# 0.8 K/ul 11/02/2015 Cbc With Differential [...] Ord2 RDW 14.6 % 05/04/2015 Free T4 Xkp837 FREE T4 0.81 ng/dL 05/04/2015 Comp Metabolic Mxq961 NA 134 mEq/L 05/04/2015 Comp Metabolic Vhb810 K 3.8 mEq/L 05/04/2015 Comp Metabolic Nng300 CL 97 mEq/L 05/04/2015 Comp Metabolic Ykh668 CO2 31.0 mEq/L 05/04/2015 Comp Metabolic Mpq023 ANION GAP 10 05/04/2015 Comp Metabolic Hsc253 GLUCOSE 88 mg/dL 05/04/2015 Comp Metabolic Frm780 Creat 1.0 mg/dL 05/04/2015 Comp Metabolic Pmn770 eGFR 58 ml/min/1.73m2 05/04/2015 Comp Metabolic Usn974 BUN 19 mg/dL 05/04/2015 Comp Metabolic Qnd373 B/C Ratio 19.0 Ratio 05/04/2015 Comp Metabolic Vca837 CALCIUM 9.5 mg/dL 05/04/2015 Comp Metabolic Djt095 ALK PHOS 60 U/L 05/04/2015 Comp Metabolic Brf316 AST(SGOT) 17 U/L 05/04/2015 Comp Metabolic Ici210 ALT(SGPT) 14 U/L 05/04/2015 Comp Metabolic Vho253 BILI T 0.5 mg/dL 05/04/2015 Comp Metabolic Hlm485 ALBUMIN 4.5 g/dL 05/04/2015 Comp Metabolic Whj094 TPRO 7.1 g/dL 05/04/2015 Comp Metabolic Dwa832 GLOB 2.6 g/dL 05/04/2015 Comp Metabolic Ibm809 A/G Ratio 1.7 Ratio 05/04/2015 Comp Metabolic Xef102 Osmo 270 mOsmo 05/04/2015 Lipid Ord30 CHOL [...] Codes Date ADMIN PNEUMOCOCCAL VACCINE SNOMED CT: 60610695 CPT-4: G0009 08/27/2018 Pneumococcal Polysaccharide Vaccine, 23-Valent, Ad CPT-4: 45038 08/27/2018 ROCEPHIN, PER 250 MG CPT- 4: J0696 02/26/2018 THER/PROPH/DIAG INJ SC/IM CPT-4: 34693 02/26/2018 TRIAMCINOLONE ACET INJ NOS CPT-4: J3301 02/13/2018 THER/PROPH/DIAG INJ SC/IM CPT-4: 10306 02/13/2018 TRIAMCINOLONE ACET INJ NOS CPT-4: J3301 07/03/2016 PNEUMOCOCCAL VACC [address]: 47153313 CPT-4: 48148 11/02/2015 IMMUNIZATION ADMIN CPT- 4: 78452 11/02/2015 Vital Signs Date Vital 08/27/2018 Blood Pressure 1: 146/82 Code: 8480-6 BMI: 25.8 Code: 67370-3 Heart Rate 1: 67 bpm Height: 5'2" SpO2: 97% Weight: 141 lbs 02/26/2018 Blood Pressure 1: 132/80 Code: 8480-6 BMI: 25.8 Code: 49716-6 Heart Rate 1: 76 bpm Height: 5'2" SpO2: 97% Temperature: 36.9 (C) / 98.4 (F) Weight: 141 lbs 02/13/2018 Blood Pressure 1: 130/78 Code: 8480-6 BMI: 26.3 Code: 03233-7 Heart Rate 1: 80 bpm Height: 5'2" SpO2: 93% Temperature: 36.9 (C) / 98.4 (F) Weight: 144 lbs 08/29/2017 Blood Pressure 1: 126/78 Code: 8480-6 BMI: 26.3 Code: 00717-4 Heart Rate 1: 80 bpm Height: 5'2" SpO2: 97% Weight: 144 lbs 05/14/2017 Blood Pressure 1: 128/70 Code: 8480-6 BMI: 26.5 Code: 94337-1 Heart Rate 1: 84 bpm Height: 5'2" SpO2: 97% Weight: 145 lbs 02/27/2017 Blood Pressure 1: 130/82 Code: 8480-6 BMI: 26.3 Code: 19457-7 Heart Rate 1: 82 bpm Height: 5'2" SpO2: 96% Weight: 144 lbs 02/02/2017 Blood Pressure 1: 142/76 Code: 8480-6 BMI: 26.3 Code: 32095-4 Heart Rate 1: 80 bpm Height: 5'2" SpO2: 97% Weight: 144 lbs 11/22/2016 Blood Pressure 1: 134/72 Code: 8480-6 BMI: 27.1 Code: 85326-5 Heart Rate 1: 76 bpm Height: 5'2" SpO2: 97% Weight: 148 lbs 08/29/2016 Blood Pressure 1: 120/80 Code: 8480-6 BMI: 26.0 Code: 51360-9 Heart Rate 1: 74 bpm Height: 5'2" SpO2: 97% Weight: 142 lbs 07/28/2016 Blood Pressure 1: 134/72 Code: 8480-6 BMI: 25.7 Code: 20756-5 Heart Rate 1: 81 bpm Height: 5'2" SpO2: 98% Temperature: 37.1 (C) / 98.7 (F) Weight: 140 lbs 8 oz 07/03/2016 Blood Pressure 1: 136/80 Code: 8480-6 Heart Rate 1: 86 bpm SpO2: 98% Temperature: 36.7 (C) / 98.0 (F) 05/02/2016 Blood Pressure 1: 124/78 Code: 8480-6 BMI: 26.3 Code: 09590-7 Heart Rate 1: 74 bpm Height: 5'2" SpO2: 98% Weight: 144 lbs 11/02/2015 Blood Pressure 1: 118/78 Code: 8480-6 BMI: 26.5 Code: 08662-1 Heart Rate 1: 79 bpm Height: 5'2" SpO2: 98% Weight: 145 lbs 05/04/2015 Blood Pressure 1: 132/64 Code: 8480-6 BMI: 25.2 Code: 95109-3 Heart Rate 1: 75 bpm Height: 5'2" [...] 02/27/2017 None rash Location-Head/Neck on the right orthodoxy 02/02/2017 None rash Color red 02/02/2017 None [...] data Encounters Encounter Performer Location Codes Date ([id number]) 72935 EST. PATIENT, LEVEL IV Diagnosis: Essential (primary) hypertension[ICD10: I10] Diagnosis: Mixed hyperlipidemia[ICD10: E78.2] Diagnosis: Encounter for immunization[ICD10: Z23] [facility] CPT-4: 50387 08/27/2018 [id number]) 24210 EST. PATIENT, LEVEL IV Diagnosis: Essential (primary) hypertension[ICD10: I10] Diagnosis: Mixed hyperlipidemia[ICD10: E78.2] Diagnosis: Cough[ICD10: R05] Diagnosis: Acute recurrent frontal sinusitis[ICD10: J01.11] [facility] CPT-4: 96852 02/26/2018 23445 EST. PATIENT, LEVEL IV Diagnosis: Other allergic rhinitis[ICD10: J30.89] Diagnosis: Acute laryngopharyngitis[ICD10: J06.0] [facility] CPT- 4: 83685 02/13/2018 ([id number]) 36123 EST. PATIENT, LEVEL IV Diagnosis: Obstructive sleep apnea (adult) (pediatric)[ICD10: G47.33] Diagnosis: Iron deficiency[ICD10: E61.1] Diagnosis: Mixed hyperlipidemia[ICD10: E78.2] Diagnosis: Essential (primary) hypertension[ICD10: I10] [facility], [facility] CPT-4: 52917 08/29/2017 [id number] EST. PATIENT, LEVEL III Diagnosis: Cellulitis of face[ICD10: L03.211] Loretta Dunn MD, [facility] CPT-4: 13868 05/14/2017 ([id number]) 27244 EST. PATIENT, LEVEL IV Diagnosis: Essential (primary) hypertension[ICD10: I10] Diagnosis: Mixed hyperlipidemia[ICD10: E78.2] Diagnosis: Obstructive sleep apnea (adult) (pediatric)[ICD10: G47.33] [facility] MD, [facility] CPT-4: 06288 02/27/2017 99912 EST. PATIENT, LEVEL III Diagnosis: Cellulitis of face[ICD10: L03.211] Loretta Dunn MD, [facility] CPT-4: 86813 02/02/2017 36247 EST. PATIENT, LEVEL III Diagnosis: Other insomnia[ICD10: G47.09] [facility]oretta Dunn MD, [facility] CPT-4: 02567 11/22/2016 ([id number]) 32378 EST. PATIENT, LEVEL IV Diagnosis: Essential (primary) hypertension[ICD10: I10] Diagnosis: Mixed hyperlipidemia[ICD10: E78.2] [facility] MD, [facility] CPT- 4: 84974 08/29/2016 37503 EST. PATIENT, LEVEL IV Diagnosis: Acute laryngopharyngitis[ICD10: J06.0] Diagnosis: Cough[ICD10: R05] [facility] MD, [facility] CPT-4: 56031 07/28/2016 ([id number]) 06662 EST. PATIENT, LEVEL III Diagnosis: Cough[ICD10: R05] Diagnosis: Acute bronchitis, unspecified[ICD10: J20.9] Judy Dunn MD, [facility] CPT-4: 49251 07/03/2016 ([id number]) 04425 EST. PATIENT, LEVEL IV Diagnosis: Essential (primary) hypertension[ICD10: I10] Diagnosis: Mixed hyperlipidemia[ICD10: E78.2] Diagnosis: Snoring[ICD10: R06.83] [facility] MD, [facility] CPT-4: 78823 05/02/2016 ([id number]) 30270 EST. PATIENT, LEVEL IV Diagnosis: Essential (primary) hypertension[ICD10: I10] Diagnosis: Mixed hyperlipidemia[ICD10: E78.2] Diagnosis: Encounter for immunization[ICD10: Z23] [facility] CPT-4: 72695 11/02/2015 ([id number]) Miscellaneous no charge Diagnosis: Tick bite[ICD9: 919.4] [facility]na [facility] MD, [facility] CPT-4: 37940 05/20/2015 ([id number]) OFFICE VISIT, NEW - LEVEL 4 Diagnosis: ESSENTIAL HYPERTENSION[ICD9: 401.9] Diagnosis: ENCNTR LONG-RX USE NEC[ICD9: V58.69] Diagnosis: HYPERLIPIDEMIA[ICD9: 272.4] [facility] CPT-4: 75867 05/04/2015 Plan of Care Planned Activity Notes [...] shot today 08/27/2018 Appointment: Aparna Dunn WPtel: [address] [place], [place] [id number] (15 min) Moderate 08/27/2018 Patient Education: Patient [...] improvement. 02/26/2018 Appointment: Aparna Dunn WPtel: [phone] [facility] (15 min) Moderate 02/26/2018 Patient Education: [...] pharmacy. 02/13/2018 [phone] ([facility] min) Complex 02/13/2018 Patient Education: [...] refilled acyclovir 08/29/2017 Appointment: Aparna Dunn WPtel: [facility] (15 min) Moderate 08/29/2017 Patient Education: [...] in pain. 05/14/2017 Appointment: Loret[facility] Fountain [facility] ([facility] min) Complex 05/14/2017 Patient Education: [...] to medications. 02/27/2017 Appointment: Aparna Dunn WPtel: [phone] [facility] (15 min) Moderate 02/27/2017 Patient Education: Patient [...] in pain. 02/02/2017 Appointment: Loretta Fountain WPtel: [phone] [facility] (30 min) Complex 02/02/2017 Patient Education: Patient Medication Summary Completed 02/02/2017 Visit Plan: Insomnia - Pt has been advised to increase the light in the house during the day, and start dimming the lights during the evening hours. Pt has been advised to cut out caffeine after 5pm. Daytime napping worsens night time insomnia. 11/22/2016 Appointment: Loretta Fountain WPtel: [facility] (15 min) Moderate 11/22/2016 Patient Education: [...] to medications. 08/29/2016 Appointment: Aparna Dunn WPtel: [phone] [facility] (15 min) Moderate 08/29/2016 Patient Education: [...] pharmacy. 07/28/2016 Appointment: Judy Felix WPtel: [phone] (10 min) Simple 07/28/2016 Patient Education: Patient [...] plan. 07/03/2016 Appointment: Judy Felix WPtel: [phone] [id number] (10 min) Simple 07/03/2016 Patient Education: [...] liver response to medications. 05/02/2016 App[facility]ment[phone] (15 min) Moderate 05/02/2016 Patient Education: Patient [...] shot today 11/02/2015 Appointment: [facility] Dunn [facility]el[phone] (30 min) Complex 11/02/2015 Patient Education: [...] medications. 05/04/2015 Appointment: [facility] Dunn [facility]el[phone] [place] New Patient 05/04/2015 Patient [...]
--- OUTSIDE RECORDS SUMMARY | 2019-03-24 10:23 | XMS REPORT | CCD ---
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 Name Role Phone PP Unavailable CCM Unavailable Summary Purpose Interface Exchange Insurance Providers Payer name Policy type / Coverage type Covered green party ID Effective Begin Date Effective End Date WPS Medicare Part B [id number] 2017 Unknown AARP [id number] 2017 Unknown Family history Father Diagnosis Age At Onset Unknown Brother Diagnosis Age At Onset Diabetes mellitus Type 2 Unknown Mother Diagnosis Age At Onset car accident Unknown Social History Social History Element Codes Description Effective Dates Marital status Unknown for 16 years - for 16 years, then remarried 05/02/[address]: 739212009 Never smoker 05/02/[address]: 387828 Currently drinks alcohol 05/02/2016 Frequency of drinks SNOMED CT: 834049655 1- 4 drinks per week 1 per week 05/02/2016 Has the patient ever used illegal drugs? Unknown Has never used illegal drugs 05/02/2016 Number of children Unknown 0 05/04/2015 Allergies, Adverse Reactions, Alerts Substance Reaction Codes Entered Date Inactivated Date Status * NO KNOWN DRUG ALLERGIES Unknown 05/04/2015 No Inactive Date Active Past Medical History Illness Codes Condition Status Onset Date Resolved Date Acute recurrent frontal sinusitis ICD-9: 461.1 ICD-10: J01.11 Active 02/26/2018 Unknown Cough ICD-9: 786.2 ICD-10: R05 Active 07/27/2016 Unknown Essential (primary) hypertension ICD-9: 401.9 ICD-10: [...] Problems Condition Codes Effective Dates Condition Status Acute recurrent frontal sinusitis ICD-9: 461.1 ICD-10: J01.11 02/26/2018 Active Cough ICD-9: 786.2 ICD-10: R05 07/27/2016 Active Essential (primary) hypertension ICD-9: 401.9 ICD-10: [...] Fill Instructions Xanax 0.25 mg tablet RxNorm: 852362 1/2 - 1 Tablet(s) PO QHS as needed 05/10/2018 07/08/2018 Inactive pravastatin 20 mg tablet RxNorm: 499619 Tablet(s) TAKE 1 TABLET BY MOUTH DAILY 03/27/2018 03/21/2019 Active Diflucan 150 mg tablet RxNorm: 069522 1 Tablet(s) PO daily 03/06/2018 03/10/2018 Inactive Diflucan 150 mg tablet RxNorm: 454317 1 Tablet(s) PO daily 03/06/2018 03/05/2018 Inactive ceftriaxone 500 mg solution for injection RxNorm: 2887356 1 Inj 02/26/2018 02/26/2018 Inactive cefdinir 300 mg capsule RxNorm: 864450 1 Capsule(s) PO BID 02/26/2018 03/04/2018 Inactive Kenalog 40 mg/mL suspension for injection RxNorm: 4088948 1 Milliliter(s) Inj 02/13/2018 02/13/2018 Inactive Zithromax Z-Elías 250 mg tablet RxNorm: 217915 1 Tablet(s) PO UD 02/04/2018 02/08/2018 Inactive zpack as directed Xanax 0.25 mg tablet RxNorm: 396521 1/2 - 1 Tablet(s) PO QHS as needed 10/30/2017 12/28/2017 Inactive Maxzide-25mg 37.5 mg-25 mg tablet RxNorm: 33035 Tablet(s) TAKE 1 TABLET BY MOUTH DAILY 10/10/2017 10/04/2018 Active acyclovir 5 % topical ointment RxNorm: 633074 1 Application TOP QID as needed cold sores 08/29/2017 12/26/2017 Inactive amoxicillin 500 mg capsule RxNorm: 641257 1 Capsule(s) PO TID 07/03/2017 07/09/2017 Inactive Maxzide-25mg 37.5 mg-25 mg tablet RxNorm: 59566 TAKE 1 TABLET BY MOUTH DAILY 06/04/2017 10/09/2017 Inactive Bactrim DS 800 mg-160 mg tablet RxNorm: 870740 1 Tablet(s) PO BID 05/14/2017 05/23/2017 Inactive Xanax 0.25 mg tablet RxNorm: 088942 1/2 - 1 Tablet(s) PO QHS 05/14/2017 10/29/2017 Inactive pravastatin 20 mg tablet RxNorm: 613832 TAKE 1 TABLET BY MOUTH DAILY 02/28/2017 02/22/2018 Inactive mupirocin 2 % topical ointment RxNorm: 739939 1 Application TOP BID 02/02/2017 No Stop Date Active Bactrim DS 800 mg-160 mg tablet RxNorm: 290468 1 Tablet(s) PO BID 02/02/2017 02/11/2017 Inactive Xanax 0.25 mg tablet RxNorm: 919031 1/2 - 1 Tablet(s) PO QHS 12/25/2016 10/29/2017 Inactive Xanax 0.25 mg tablet RxNorm: 712515 1/2 - 1 Tablet(s) PO QHS 11/22/2016 05/13/2017 Inactive trazodone 50 mg tablet RxNorm: 548965 1 Tablet(s) PO QPM 08/29/2016 10/22/2017 Inactive Maxzide-25mg 37.5 mg-25 mg tablet RxNorm: 24572 Tablet(s) 1 Tablet, 1 time per Day 08/29/2016 05/25/2017 Inactive amoxicillin 500 mg capsule RxNorm: 962217 1 Capsule(s) PO TID 07/28/2016 08/03/2016 Inactive cetirizine 10 mg tablet RxNorm: 2381921 1 Tablet(s) PO daily 07/28/2016 08/26/2016 Inactive Zithromax Z-Elías 250 mg tablet RxNorm: 012600 1 Tablet(s) PO UD 07/03/2016 07/07/2016 Inactive angela Kenalog 40 mg/mL suspension for injection RxNorm: 4423717 Milliliter(s) Inj 07/03/2016 07/03/2016 Inactive pravastatin 20 mg tablet RxNorm: 898590 TAKE 1 TABLET BY MOUTH DAILY 05/31/2016 02/24/2017 Inactive trazodone 50 mg tablet RxNorm: 237599 1 Tablet(s) PO QPM 03/03/2016 06/30/2016 Inactive Maxzide-25mg 37.5 mg-25 mg tablet RxNorm: 57005 1 Tablet, 1 time per Day 12/06/2015 08/28/2016 Inactive trazodone 50 mg tablet RxNorm: 273200 1 Tablet(s) PO QPM 10/22/2015 03/02/2016 Inactive Maxzide-25mg 37.5 mg-25 mg tablet RxNorm: 64058 1 Tablet(s) PO daily 05/04/2015 12/05/2015 Inactive trazodone 50 mg tablet RxNorm: 660392 1/2 Tablet(s) PO QPM may increase up to a full pill if needed 05/04/2015 10/21/2015 Inactive pravastatin 20 mg tablet RxNorm: 536354 1 Tablet(s) PO daily 05/04/2015 04/27/2016 Inactive pravastatin 20 mg tablet RxNorm: 329674 1 Tablet(s) PO daily 03/03/2015 03/02/2015 Inactive pravastatin 20 mg tablet RxNorm: 329350 1 Tablet(s) PO daily 03/03/2015 05/03/2015 Inactive Eye Vitamin and Minerals oral RxNorm: 2837 oral No Start Date Active Centrum Silver tablet RxNorm: 1 Tablet(s) PO daily No Start Date Active [place] 3 Fish Oil oral RxNorm: 1914909 oral No Start Date Active Osteo Bi-Flex oral RxNorm: 1620262 oral No Start Date Active zolpidem 5 mg tablet RxNorm: 348165 1 Tablet(s) PO QHS as needed No Start Date 05/03/2015 Inactive Iron (ferrous sulfate) oral RxNorm: 46881 oral No Start Date 08/28/2017 Inactive Maxzide-25mg oral RxNorm: 76793 oral No Start Date 05/03/2015 Inactive Medication Administered Medication Codes Instructions Start Date Status ceftriaxone 500 mg solution for injection RxNorm: 6884293 1 02/26/2018 No longer Active Kenalog 40 mg/mL suspension for injection RxNorm: 7445892 1Milliliter 02/13/2018 No longer Active Kenalog 40 mg/mL suspension for injection RxNorm: 0479205 Milliliter 07/03/2016 No longer Active Immunizations Vaccine Codes Date Status Influenza CVX: 141 07/12/2018 completed Pneumococcal (Adult) CVX: 133 11/02/2015 completed PPD Unknown 05/20/2015 completed Influenza CVX: 141 06/17/2014 completed Pneumococcal CVX: 33 08/24/2010 completed Zoster CVX: 121 07/23/2008 completed Tetanus, Diptheria, Pertussis CVX: 113 05/05/2008 completed Tetanus, Diptheria, Pertussis CVX: 113 05/05/2008 completed Tetanus/Diptheria CVX: 113 05/05/2008 completed Assessments Condition Codes Effective Dates Acute recurrent frontal sinusitis ICD-10: J01.11 ICD-9: 461.1 02/26/2018 Essential (primary) hypertension ICD-10: I10 ICD-9: 401.9 02/26/2018 Cough ICD-10: R05 ICD-9: 786.2 02/26/2018 Mixed hyperlipidemia ICD-10: E78.2 ICD-9: 272.4 02/26/2018 Acute laryngopharyngitis ICD-10: J06.0 ICD-9: 465.0 [...] Reason For Visit Effective Dates Notes hyperlipidemia 02/26/2018 cough 02/13/2018 hyperlipidemia 08/29/2017 rash 05/14/2017 hyperlipidemia 02/27/2017 rash 02/02/2017 insomnia 11/22/2016 hyperlipidemia 08/29/2016 cough 07/28/2016 cough 07/03/2016 hyperlipidemia 05/02/2016 hyperlipidemia 11/02/2015 blood pressure followup 05/04/2015 Results Observation Observation Code Item Item Code Result Date Cbc With Differential Ord2 WBC 8.97 K/ul [...] 29.5 pg 08/20/2018 Cbc With Differential Ord2 Linn% 7.2 % 08/20/2018 Cbc With Differential Ord2 [...] 2.19 K/ul 08/20/2018 Cbc With Differential Ord2 [place]inn ABS# 0.7 K/ul 08/20/2018 Cbc With Differential Ord2 Eos ABS# 0.2 K/ul 08/20/2018 Cbc With Differential Ord2 Baso ABS# 0.1 K/ul 08/20/2018 Lipid Ord30 CHOL 161 mg/dL 08/29/2017 Lipid Ord30 HDL 45.0 mg/dl 08/29/2017 Lipid Ord30 TRIG 198 mg/dL 08/29/2017 Lipid Ord30 LDL 76 mg/dL 08/29/2017 Lipid Ord30 C/HDL 3.6 Ratio 08/29/2017 Comp Metabolic Gnz130 NA 140 mEq/L 08/29/2017 Comp Metabolic Dav569 K 4.2 mEq/L 08/29/2017 Comp Metabolic Bue679 CL 100 mEq/L 08/29/2017 Comp Metabolic Mai994 CO2 31.0 mEq/L 08/29/2017 Comp Metabolic Ogm131 ANION GAP 13 08/29/2017 Comp Metabolic Nax591 GLUCOSE 95 mg/dL 08/29/2017 Comp Metabolic Lki080 Creat 1.1 mg/dL 08/29/2017 Comp Metabolic Yce501 eGFR 50 ml/min/1.73m2 08/29/2017 Comp Metabolic Jaf540 BUN 26 mg/dL 08/29/2017 Comp Metabolic Ihu329 B/C Ratio 22.8 Ratio 08/29/2017 Comp Metabolic Iqk567 CALCIUM 9.8 mg/dL 08/29/2017 Comp Metabolic Avr833 ALK PHOS 45 U/L 08/29/2017 Comp Metabolic Rif367 AST(SGOT) 21 U/L 08/29/2017 Comp Metabolic Lzs354 ALT(SGPT) 18 U/L 08/29/2017 Comp Metabolic Otj705 BILI T 0.5 mg/dL 08/29/2017 Comp Metabolic Nrl446 ALBUMIN 4.3 g/dL 08/29/2017 Comp Metabolic Vqs612 TPRO 6.7 g/dL 08/29/2017 Comp Metabolic Fzj875 GLOB 2.4 g/dL 08/29/2017 Comp Metabolic Aua876 A/G Ratio 1.8 Ratio 08/29/2017 Comp Metabolic Tyt906 Osmo 284 mOsmo 08/29/2017 Tibc Ord40 Iron [...] 91.0 fl 08/29/2017 Cbc With Differential Ord2 Linn% 7.0 % 08/29/2017 Cbc With Differential Ord2 [...] 2.32 K/ul 08/29/2017 Cbc With Differential Ord2 [place] ABS# 0.6 K/ul 08/29/2017 Cbc With Differential [...] 27.2 % 03/01/2017 Cbc With Differential Ord2 [place]% 8.0 % 03/01/2017 Cbc With Differential Ord2 [...] 2.11 K/ul 03/01/2017 Cbc With Differential Ord2 [place] ABS# 0.6 K/ul 03/01/2017 Cbc With Differential Ord2 Eos ABS# 0.2 K/ul 03/01/2017 Cbc With Differential Ord2 Baso ABS# 0.0 K/ul 03/01/2017 Ferritin Ord22 FERRITIN 89.1 ng/mL 02/27/2017 Tibc Ord40 Iron 69 ug/dl 02/27/2017 Tibc Ord40 UIBC 283 ug/dL 02/27/2017 Tibc Ord40 TIBC 352 ug/dL 02/27/2017 Tibc Ord40 Fe-%Sat 19.6 % 02/27/2017 Comp Metabolic Unf728 NA 137 mEq/L 08/29/2016 Comp Metabolic Whg496 K 4.0 mEq/L 08/29/2016 Comp Metabolic Akk779 CL 100 mEq/L 08/29/2016 Comp Metabolic Krv357 CO2 32.0 mEq/L 08/29/2016 Comp Metabolic Qtj062 ANION GAP 9 08/29/2016 Comp Metabolic Xsc528 GLUCOSE 98 mg/dL 08/29/2016 Comp Metabolic Jbl781 Creat 1.0 mg/dL 08/29/2016 Comp Metabolic Les219 eGFR 55 ml/min/1.73m2 08/29/2016 Comp Metabolic Clb811 BUN 19 mg/dL 08/29/2016 Comp Metabolic Wcr247 B/C Ratio 18.3 Ratio 08/29/2016 Comp Metabolic Hmf006 CALCIUM 10.0 mg/dL 08/29/2016 Comp Metabolic Ucy772 ALK PHOS 51 U/L 08/29/2016 Comp Metabolic Aia687 AST(SGOT) 21 U/L 08/29/2016 Comp Metabolic Wmu870 ALT(SGPT) 16 U/L 08/29/2016 Comp Metabolic Sre862 BILI T 0.5 mg/dL 08/29/2016 Comp Metabolic Xuy099 ALBUMIN 4.5 g/dL 08/29/2016 Comp Metabolic Dpa333 TPRO 7.3 g/dL 08/29/2016 Comp Metabolic Nqk381 GLOB 2.8 g/dL 08/29/2016 Comp Metabolic Syz629 A/G Ratio 1.6 Ratio 08/29/2016 Comp Metabolic Bxp894 Osmo 276 mOsmo 08/29/2016 Lipid Ord30 CHOL [...] 29.6 pg 08/29/2016 Cbc With Differential Ord2 [place]% 7.8 % 08/29/2016 Cbc With Differential Ord2 [...] 2.31 K/ul 08/29/2016 Cbc With Differential Ord2 [place] ABS# 0.7 K/ul 08/29/2016 Cbc With Differential [...] 29.4 pg 05/02/2016 Cbc With Differential Ord2 [place]inn% 8.4 % 05/02/2016 Cbc With Differential Ord2 [...] 2.03 K/ul 05/02/2016 Cbc With Differential Ord2 [place] ABS# 0.7 K/ul 05/02/2016 Cbc With Differential Ord2 Eos ABS# 0.2 K/ul 05/02/2016 Cbc With Differential Ord2 Baso ABS# 0.1 K/ul 05/02/2016 Comp Metabolic Aci845 NA 136 mEq/L 05/02/2016 Comp Metabolic Uhe933 K 4.0 mEq/L 05/02/2016 Comp Metabolic Yll496 CL 97 mEq/L 05/02/2016 Comp Metabolic Dza063 CO2 31.0 mEq/L 05/02/2016 Comp Metabolic Gix576 ANION GAP 12 05/02/2016 Comp Metabolic Fhg222 GLUCOSE 97 mg/dL 05/02/2016 Comp Metabolic Bsn370 Creat 1.0 mg/dL 05/02/2016 Comp Metabolic Few418 eGFR 61 ml/min/1.73m2 05/02/2016 Comp Metabolic Txs837 BUN 24 mg/dL 05/02/2016 Comp Metabolic Lxz650 B/C Ratio 25.0 Ratio 05/02/2016 Comp Metabolic Aly027 CALCIUM 9.6 mg/dL 05/02/2016 Comp Metabolic Toe669 ALK PHOS 55 U/L 05/02/2016 Comp Metabolic Dae880 AST(SGOT) 18 U/L 05/02/2016 Comp Metabolic Bgh288 ALT(SGPT) 20 U/L 05/02/2016 Comp Metabolic Iti691 BILI T 0.5 mg/dL 05/02/2016 Comp Metabolic Oss544 ALBUMIN 4.5 g/dL 05/02/2016 Comp Metabolic Utc082 TPRO 7.4 g/dL 05/02/2016 Comp Metabolic Fuv121 GLOB 2.9 g/dL 05/02/2016 Comp Metabolic Kbs804 A/G Ratio 1.6 Ratio 05/02/2016 Comp Metabolic Tdy381 Osmo 276 mOsmo 05/02/2016 Lipid Ord30 CHOL 197 mg/dL 11/02/2015 Lipid Ord30 HDL 43.0 mg/dl 11/02/2015 Lipid Ord30 TRIG 247 mg/dL 11/02/2015 Lipid Ord30 LDL 105 mg/dL 11/02/2015 Lipid Ord30 C/HDL 4.6 Ratio 11/02/2015 Comp Metabolic Pax894 NA 137 mEq/L 11/02/2015 Comp Metabolic Ovp243 K 3.9 mEq/L 11/02/2015 Comp Metabolic Azx499 CL 96 mEq/L 11/02/2015 Comp Metabolic Uch448 CO2 34.0 mEq/L 11/02/2015 Comp Metabolic Wcs027 ANION GAP 11 11/02/2015 Comp Metabolic Qax726 GLUCOSE 97 mg/dL 11/02/2015 Comp Metabolic Omk975 Creat 1.1 mg/dL 11/02/2015 Comp Metabolic Ivn312 eGFR 52 ml/min/1.73m2 11/02/2015 Comp Metabolic Ihr160 BUN 29 mg/dL 11/02/2015 Comp Metabolic Zar455 B/C Ratio 26.6 Ratio 11/02/2015 Comp Metabolic Yiv620 CALCIUM 9.8 mg/dL 11/02/2015 Comp Metabolic Vtd462 ALK PHOS 56 U/L 11/02/2015 Comp Metabolic Anr105 AST(SGOT) 16 U/L 11/02/2015 Comp Metabolic Vzt631 ALT(SGPT) 13 U/L 11/02/2015 Comp Metabolic Ayc188 BILI T 0.4 mg/dL 11/02/2015 Comp Metabolic Wmn539 ALBUMIN 4.4 g/dL 11/02/2015 Comp Metabolic Vgs221 TPRO 7.1 g/dL 11/02/2015 Comp Metabolic Cts810 GLOB 2.7 g/dL 11/02/2015 Comp Metabolic Vhe215 A/G Ratio 1.6 Ratio 11/02/2015 Comp Metabolic Twa038 Osmo 280 mOsmo 11/02/2015 Cbc With Differential [...] 29.0 pg 11/02/2015 Cbc With Differential Ord2 [place]% 9.0 % 11/02/2015 Cbc With Differential Ord2 [...] 2.16 K/ul 11/02/2015 Cbc With Differential Ord2 [place] ABS# 0.8 K/ul 11/02/2015 Cbc With Differential [...] Ord2 RDW 14.6 % 05/04/2015 Free T4 Rxt732 FREE T4 0.81 ng/dL 05/04/2015 Comp Metabolic Ldh270 NA 134 mEq/L 05/04/2015 Comp Metabolic Zgw696 K 3.8 mEq/L 05/04/2015 Comp Metabolic Bcw386 CL 97 mEq/L 05/04/2015 Comp Metabolic Bcl231 CO2 31.0 mEq/L 05/04/2015 Comp Metabolic Mrv449 ANION GAP 10 05/04/2015 Comp Metabolic Fwu337 GLUCOSE 88 mg/dL 05/04/2015 Comp Metabolic Fad147 Creat 1.0 mg/dL 05/04/2015 Comp Metabolic Puv332 eGFR 58 ml/min/1.73m2 05/04/2015 Comp Metabolic Lmx826 BUN 19 mg/dL 05/04/2015 Comp Metabolic Rjo322 B/C Ratio 19.0 Ratio 05/04/2015 Comp Metabolic Yqe504 CALCIUM 9.5 mg/dL 05/04/2015 Comp Metabolic Ath592 ALK PHOS 60 U/L 05/04/2015 Comp Metabolic Wxc997 AST(SGOT) 17 U/L 05/04/2015 Comp Metabolic Cfs821 ALT(SGPT) 14 U/L 05/04/2015 Comp Metabolic Ydv713 BILI T 0.5 mg/dL 05/04/2015 Comp Metabolic Dte357 ALBUMIN 4.5 g/dL 05/04/2015 Comp Metabolic Rxm907 TPRO 7.1 g/dL 05/04/2015 Comp Metabolic Rgw331 GLOB 2.6 g/dL 05/04/2015 Comp Metabolic Odf098 A/G Ratio 1.7 Ratio 05/04/2015 Comp Metabolic Ksf766 Osmo 270 mOsmo 05/04/2015 Lipid Ord30 CHOL 167 mg/dL 05/04/2015 Lipid Ord30 HDL 45.0 mg/dl 05/04/2015 Lipid Ord30 TRIG 179 mg/dL 05/04/2015 Lipid Ord30 LDL 86 mg/dL 05/04/2015 Lipid Ord30 C/HDL 3.7 Ratio 05/04/2015 Review of Systems System Result Effective Dates Constitutional No chills 02/26/2018 Constitutional No diaphoresis [...] benign 05/04/2015 None Procedures Procedure Codes Date ROCEPHIN, PER 250 MG CPT- 4: J0696 02/26/2018 THER/PROPH/DIAG INJ SC/IM CPT-4: 36952 02/26/2018 TRIAMCINOLONE ACET INJ NOS CPT-4: J3301 02/13/2018 THER/PROPH/DIAG INJ SC/IM CPT-4: 32556 02/13/2018 TRIAMCINOLONE ACET INJ NOS CPT-4: J3301 07/03/2016 PNEUMOCOCCAL VACC [address]: 36147902 CPT-4: 37918 11/02/2015 IMMUNIZATION ADMIN CPT- 4: 55242 11/02/2015 Vital Signs Date Vital 02/26/2018 Blood Pressure 1: 132/80 Code: 8480-6 BMI: 25.8 Code: 66169-6 Heart Rate 1: 76 bpm Height: 5'2" SpO2: 97% Temperature: 36.9 (C) / 98.4 (F) Weight: 141 lbs 02/13/2018 Blood Pressure 1: 130/78 Code: 8480-6 BMI: 26.3 Code: 50104-9 Heart Rate 1: 80 bpm Height: 5'2" SpO2: 93% Temperature: 36.9 (C) / 98.4 (F) Weight: 144 lbs 08/29/2017 Blood Pressure 1: 126/78 Code: 8480-6 BMI: 26.3 Code: 83280-0 Heart Rate 1: 80 bpm Height: 5'2" SpO2: 97% Weight: 144 lbs 05/14/2017 Blood Pressure 1: 128/70 Code: 8480-6 BMI: 26.5 Code: 51823-0 Heart Rate 1: 84 bpm Height: 5'2" SpO2: 97% Weight: 145 lbs 02/27/2017 Blood Pressure 1: 130/82 Code: 8480-6 BMI: 26.3 Code: 27931-9 Heart Rate 1: 82 bpm Height: 5'2" SpO2: 96% Weight: 144 lbs 02/02/2017 Blood Pressure 1: 142/76 Code: 8480-6 BMI: 26.3 Code: 00658-7 Heart Rate 1: 80 bpm Height: 5'2" SpO2: 97% Weight: 144 lbs 11/22/2016 Blood Pressure 1: 134/72 Code: 8480-6 BMI: 27.1 Code: 29307-3 Heart Rate 1: 76 bpm Height: 5'2" SpO2: 97% Weight: 148 lbs 08/29/2016 Blood Pressure 1: 120/80 Code: 8480-6 BMI: 26.0 Code: 33027-8 Heart Rate 1: 74 bpm Height: 5'2" SpO2: 97% Weight: 142 lbs 07/28/2016 Blood Pressure 1: 134/72 Code: 8480-6 BMI: 25.7 Code: 30909-1 Heart Rate 1: 81 bpm Height: 5'2" SpO2: 98% Temperature: 37.1 (C) / 98.7 (F) Weight: 140 lbs 8 oz 07/03/2016 Blood Pressure 1: 136/80 Code: 8480-6 Heart Rate 1: 86 bpm SpO2: 98% Temperature: 36.7 (C) / 98.0 (F) 05/02/2016 Blood Pressure 1: 124/78 Code: 8480-6 BMI: 26.3 Code: 31384-9 Heart Rate 1: 74 bpm Height: 5'2" SpO2: 98% Weight: 144 lbs 11/02/2015 Blood Pressure 1: 118/78 Code: 8480-6 BMI: 26.5 Code: 78317-0 Heart Rate 1: 79 bpm Height: 5'2" SpO2: 98% Weight: 145 lbs 05/04/2015 Blood Pressure 1: 132/64 Code: 8480-6 BMI: 25.2 Code: 73902-5 Heart Rate 1: 75 bpm Height: 5'2" [...] 02/27/2017 None rash Location-Head/Neck on the right roman catholic 02/02/2017 None rash Color red 02/02/2017 None [...] data Encounters Encounter Performer Location Codes Date ([id number]) 68616 EST. PATIENT, LEVEL IV Diagnosis: Essential (primary) hypertension[ICD10: I10] Diagnosis: Mixed hyperlipidemia[ICD10: E78.2] Diagnosis: Cough[ICD10: R05] Diagnosis: Acute recurrent frontal sinusitis[ICD10: J01.11] [facility] CPT-4: 40232 02/26/2018 01600 EST. PATIENT, LEVEL IV Diagnosis: Other allergic rhinitis[ICD10: J30.89] Diagnosis: Acute laryngopharyngitis[ICD10: J06.0] [facility] CPT- 4: 58600 02/13/2018 ([id number]) 42762 EST. PATIENT, LEVEL IV Diagnosis: Obstructive sleep apnea (adult) (pediatric)[ICD10: G47.33] Diagnosis: Iron deficiency[ICD10: E61.1] Diagnosis: Mixed hyperlipidemia[ICD10: E78.2] Diagnosis: Essential (primary) hypertension[ICD10: I10] [facility] CPT-4: 39692 08/29/2017 53011 EST. PATIENT, LEVEL III Diagnosis: Cellulitis of face[ICD10: L03.211] [facility] CPT-4: 19171 05/14/2017 ([id number]) 71080 EST. PATIENT, LEVEL IV Diagnosis: Essential (primary) hypertension[ICD10: I10] Diagnosis: Mixed hyperlipidemia[ICD10: E78.2] Diagnosis: Obstructive sleep apnea (adult) (pediatric)[ICD10: G47.33] [facility]parna Dunn MD, [facility] CPT-4: 81054 02/27/2017 00196 EST. PATIENT, LEVEL III Diagnosis: Cellulitis of face[ICD10: L03.211] Loretta Dunn MD, [facility] CPT-4: 36365 02/02/2017 67908 EST. PATIENT, LEVEL III Diagnosis: Other insomnia[ICD10: G47.09] Loretta Dunn MD, [facility] CPT-4: 11128 11/22/2016 ([id number]) 27055 EST. PATIENT, LEVEL IV Diagnosis: Essential (primary) hypertension[ICD10: I10] Diagnosis: Mixed hyperlipidemia[ICD10: E78.2] Aparna Dunn MD, [facility] CPT- 4: 44842 08/29/2016 11825 EST. PATIENT, LEVEL IV Diagnosis: Acute laryngopharyngitis[ICD10: J06.0] Diagnosis: Cough[ICD10: R05] Loretta Dunn MD, [facility] CPT-4: 31564 07/28/2016 ([id number]) 65311 EST. PATIENT, LEVEL III Diagnosis: Cough[ICD10: R05] Diagnosis: Acute bronchitis, unspecified[ICD10: J20.9] Judy Dunn MD, [facility] CPT-4: 48970 07/03/2016 ([id number]) 01805 EST. PATIENT, LEVEL IV Diagnosis: Essential (primary) hypertension[ICD10: I10] Diagnosis: Mixed hyperlipidemia[ICD10: E78.2] Diagnosis: Snoring[ICD10: R06.83] Aparna Dunn MD, [facility] CPT-4: 47642 05/02/2016 ([id number]) 52223 EST. PATIENT, LEVEL IV Diagnosis: Essential (primary) hypertension[ICD10: I10] Diagnosis: Mixed hyperlipidemia[ICD10: E78.2] Diagnosis: Encounter for immunization[ICD10: Z23] Aprana Dunn MD, [facility] CPT-4: 37036 11/02/2015 ([id number]) Miscellaneous no charge Diagnosis: Tick bite[ICD9: 919.4] [facility]EDRO [facility]ABLO Johansen MD CPT-4: 42802 05/20/2015 ([id number]) OFFICE VISIT, NEW - LEVEL 4 Diagnosis: ESSENTIAL HYPERTENSION[ICD9: 401.9] Diagnosis: ENCNTR LONG-RX USE NEC[ICD9: V58.69] Diagnosis: HYPERLIPIDEMIA[ICD9: 272.4] Aparna Dunn MD, [facility] CPT-4: 62045 05/04/2015 Plan of Care Planned Activity Notes [...] show improvement. 02/26/2018 Appointment: Aparna Dunn WPtel: [address] [place], [place] [address] (15 min) Moderate 02/26/2018 Patient Education: Patient [...] patient's pharmacy. 02/13/2018 Appointment: Loretta Fountain WPtel: [phone] [facility] (30 min) Complex [...] refilled acyclovir 08/29/2017 Appointment: Aparna Dunn WPtel: [phone] [facility] (15 min) Moderate 08/29/2017 Patient Education: Patient [...] pain. 05/14/2017 Appointment: Loretta Fountain WPtel: [phone] [facility] (30 min) Complex 05/14/2017 Patient Education: Patient [...] to medications. 02/27/2017 Appointment: Aparna Dunn WPtel: [phone] [facility] (15 min) Moderate 02/27/2017 Patient Education: Patient [...] in pain. 02/02/2017 Appointment: Loretta Fountain [facility]Ptel[facility] ([facility] min) Complex 02/02/2017 Patient Education: Patient Medication Summary Completed 02/02/2017 Visit Plan: Insomnia - Pt has been advised to increase the light in the house during the day, and start dimming the lights during the evening hours. Pt has been advised to cut out caffeine after 5pm. Daytime napping worsens night time insomnia. 11/22/2016 Appointment: [facility] [phone] [facility] (15 min) Moderate 11/22/2016 Patient Education: [...] medications. 08/29/2016 Appointment: Aparna Dunn WPtel: [phone] (15 min) Moderate 08/29/2016 Patient Education: [...] [phone] (10 min) Simple 07/03/2016 Patient Education: Patient [...] medications. 05/02/2016 Appointment: [phone] (15 min) Moderate 05/02/2016 Patient Education: Patient [...] today 11/02/2015 Appointment: [phone] (30 min) Complex 11/02/2015 Patient Education: Patient [...] medications. 05/04/2015 Appointment: [phone] [place] New Patient 05/04/2015 Patient Education: [...]
--- OUTSIDE RECORDS SUMMARY | 2019-03-24 10:26 | XMS REPORT | Continuity of Care Document ---
Author Organization Unknown Address Unknown Allergies Active Description Code Type Severity Reaction Onset Reported/Identified Relationship to Patient Clinical Status Yes No Known Drug Allergies [id number] Drug Allergy Unknown N/A 03/17/2019 Medications There is no data. Problems Date Dx Coded Attending Type Code Diagnosis Diagnosed By 08/12/2012 Ot 272.4 HYPERLIPIDEMIA NEC/NOS 08/12/2012 Ot 733.90 BONE CARTILAGE DIS NOS 08/12/2012 Ot 735.2 HALLUX RIGIDUS 08/12/2012 Ot V58.69 OTH MED,LT,CURRENT USE 08/18/2014 Ot V76.12 08/18/2014 Ot V76.12 08/18/2014 Ot 735.2 08/18/2014 Ot V72.83 08/18/2014 Ot V74.8 08/18/2014 XENIA HAN, RACQUEL Moses Ot V76.12 09/09/2014 RACQUEL MICHAELS MD Ot [...] Ot Z12.31 09/14/2016 Ot V76.12 OTH SCREEN MAMMO- MALIGN NEOPLASM OF MIKEY 09/14/2016 Ot V76.12 OTH SCREEN MAMMO- MALIGN NEOPLASM OF MIKEY 09/14/2016 Ot 735.2 HALLUX RIGIDUS 09/14/2016 Ot V72.83 EXAM PRE-OPERATIVE NEC 09/14/2016 Ot V74.8 SCREEN-BACTERIAL DIS NEC 09/14/2016 XENIA HAN, RACQUEL Moses Ot V76.12 OTH SCREEN MAMMO-MALIGN NEOPLASM OF MIKEY 09/14/2016 RACQUEL MICHAELS MD Ot V76.12 OTH SCREEN MAMMO-MALIGN NEOPLASM OF MIKEY 09/14/2016 CATHY GOMEZ TRACK PATROL Ot Z12.31 ENCNTR SCREEN MAMMOGRAM FOR MALIGNANT NE 09/14/2016 CATHY GOMEZ TRACK PATROL Ot Z12.31 ENCNTR SCREEN MAMMOGRAM FOR MALIGNANT NE 09/14/2016 CATHY GOMEZ TRACK PATROL Ot Z12.31 ENCNTR SCREEN MAMMOGRAM FOR MALIGNANT NE 09/15/2016 CATHY GOMEZ TRACK PATROL Ot Z12.31 ENCNTR SCREEN MAMMOGRAM FOR MALIGNANT NE 09/15/2016 CATHY GOMEZ TRACK PATROL Ot Z12.31 ENCNTR SCREEN MAMMOGRAM FOR MALIGNANT NE 10/05/2016 CATHY GOMEZ TRACK PATROL Ot Z12.31 ENCNTR SCREEN MAMMOGRAM FOR MALIGNANT [...] MALIGNANT NE 09/12/2017 Ot V76.12 OTH SCREEN MAMMO- MALIGN NEOPLASM OF MIKEY 09/12/2017 Ot 735.2 HALLUX RIGIDUS 09/12/2017 Ot V72.83 EXAM PRE-OPERATIVE NEC 09/12/2017 Ot V74.8 SCREEN-BACTERIAL DIS NEC 09/12/2017 XENIA HAN, RACQUEL Moses Ot V76.12 OTH SCREEN MAMMO-MALIGN NEOPLASM OF MIKEY 09/12/2017 XENIA HAN, RACQUEL Moses Ot V76.12 OTH SCREEN MAMMO-MALIGN NEOPLASM OF MIKEY 09/12/2017 CATHY GOMEZ TRACK PATROL Ot Z12.31 ENCNTR SCREEN MAMMOGRAM FOR MALIGNANT NE 09/12/2017 CATHY GOMEZ TRACK PATROL Ot Z12.31 ENCNTR SCREEN MAMMOGRAM FOR MALIGNANT [...] MALIGNANT NE 12/17/2017 Ot V76.12 OTH SCREEN MAMMO- MALIGN NEOPLASM OF MIKEY 12/17/2017 Ot 735.2 HALLUX RIGIDUS 12/17/2017 Ot V72.83 EXAM PRE-OPERATIVE NEC 12/17/2017 Ot V74.8 SCREEN-BACTERIAL DIS NEC 12/17/2017 RACQUEL MICHAELS MD Ot V76.12 OTH SCREEN MAMMO-MALIGN NEOPLASM OF MIKEY 12/17/2017 RACQUEL MICHAELS MD Ot V76.12 OTH SCREEN MAMMO-MALIGN NEOPLASM OF MIKEY 12/17/2017 CATHY GOMEZ TRACK PATROL Ot Z12.31 ENCNTR SCREEN MAMMOGRAM FOR MALIGNANT NE 12/17/2017 CATHY GOMEZ TRACK PATROL Ot Z12.31 ENCNTR SCREEN MAMMOGRAM FOR MALIGNANT NE 12/17/2017 JONNIE BHATT MD Ot Z12.31 ENCNTR SCREEN MAMMOGRAM FOR MALIGNANT NE 12/17/2017 VENKAT HULL MD Ot C44.311 BASAL CELL CARCINOMA OF SKIN OF NOSE 12/17/2017 VENKAT HULL MD Ot Z01.810 ENCOUNTER FOR PREPROCEDURAL CARDIOVASCUL 12/17/2017 VENKAT HULL MD Ot Z01.812 ENCOUNTER FOR PREPROCEDURAL LABORATORY E 12/17/2017 VENKAT HULL MD Ot Z11.2 ENCOUNTER FOR SCREENING FOR OTHER BACTER 12/18/2017 VENKAT HULL MD Ot C44.311 BASAL CELL CARCINOMA OF SKIN OF NOSE 12/18/2017 VENKAT HULL MD Ot Z01.810 ENCOUNTER FOR PREPROCEDURAL CARDIOVASCUL 12/18/2017 VENKAT HULL MD Ot Z01.812 ENCOUNTER FOR PREPROCEDURAL LABORATORY E 12/18/2017 VENKAT HULL MD Ot Z11.2 ENCOUNTER FOR SCREENING FOR OTHER BACTER 12/28/2017 Ot V76.12 OTH SCREEN MAMMO- MALIGN NEOPLASM OF MIKEY 12/28/2017 Ot 735.2 HALLUX RIGIDUS 12/28/2017 Ot V72.83 EXAM PRE-OPERATIVE NEC 12/28/2017 Ot V74.8 SCREEN-BACTERIAL DIS NEC 12/28/2017 RACQUEL MICHAELS MD Ot V76.12 OTH SCREEN MAMMO-MALIGN NEOPLASM OF MIKEY 12/28/2017 RACQUEL MICHAELS MD Ot V76.12 OTH SCREEN MAMMO-MALIGN NEOPLASM OF MIKEY 12/28/2017 CATHY GOMEZ TRACK PATROL Ot Z12.31 ENCNTR SCREEN MAMMOGRAM FOR MALIGNANT NE 12/28/2017 CATHY GOMEZ TRACK PATROL Ot Z12.31 ENCNTR SCREEN MAMMOGRAM FOR MALIGNANT NE 12/28/2017 JONNIE BHATT MD Ot Z12.31 ENCNTR SCREEN MAMMOGRAM FOR MALIGNANT NE 12/28/2017 VENKAT HULL MD Ot C44.311 BASAL CELL CARCINOMA OF SKIN OF NOSE 12/28/2017 VENKAT HULL MD Ot E78.00 PURE HYPERCHOLESTEROLEMIA, UNSPECIFIED 12/28/2017 VENKAT HULL MD Ot I10 ESSENTIAL (PRIMARY) HYPERTENSION 12/28/2017 VENKAT HULL MD Ot Z79.899 OTHER USP (CURRENT) DRUG THERAPY 01/01/2018 VENKAT HULL MD P Ot C44.311 BASAL CELL CARCINOMA OF SKIN OF NOSE 01/01/2018 VENKAT HULL MD P Ot E78.00 PURE HYPERCHOLESTEROLEMIA, UNSPECIFIED 01/01/2018 VENKAT HULL MD P Ot I10 ESSENTIAL (PRIMARY) HYPERTENSION 01/01/2018 VENKAT HULL MD P Ot Z79.899 OTHER USP (CURRENT) DRUG THERAPY 01/01/2018 VENKAT HULL MD P Ot C44.311 BASAL CELL CARCINOMA OF SKIN OF NOSE 01/01/2018 KURTIS HAN VENKAT P Ot E78.00 PURE HYPERCHOLESTEROLEMIA, UNSPECIFIED 01/01/2018 KURTIS HAN VENKAT P Ot I10 ESSENTIAL (PRIMARY) HYPERTENSION 01/01/2018 VENKAT HULL MD P Ot Z79.899 OTHER NEON SIGN MECHANIC (CURRENT) DRUG THERAPY 01/18/2018 VENKAT HULL MD P Ot C44.311 BASAL CELL CARCINOMA OF SKIN OF NOSE 01/18/2018 VENKAT HULL MD P Ot E78.00 PURE HYPERCHOLESTEROLEMIA, UNSPECIFIED 01/18/2018 VENKAT HULL MD P Ot I10 ESSENTIAL (PRIMARY) HYPERTENSION 01/18/2018 VENKAT HULL MD P Ot Z79.899 OTHER NEON SIGN MECHANIC (CURRENT) DRUG THERAPY 06/14/2018 JONNIE BHATT MD Ot Z12.31 ENCNTR SCREEN MAMMOGRAM FOR MALIGNANT NE 08/27/2018 CATHY GOMEZ TRACK PATROL Ot Z12.31 ENCNTR SCREEN MAMMOGRAM FOR MALIGNANT NE 09/23/2018 RACQUEL MICHAELS MD Ot V76.12 OTH SCREEN MAMMO-MALIGN NEOPLASM OF MIKEY 09/23/2018 RACQUEL MICHAELS MD Ot V76.12 OTH SCREEN MAMMO-MALIGN NEOPLASM OF MIKEY 09/23/2018 CATHY GOMEZ TRACK PATROL Ot Z12.31 ENCNTR SCREEN MAMMOGRAM FOR MALIGNANT NE 09/23/2018 CATHY GOMEZ TRACK PATROL Ot Z12.31 ENCNTR SCREEN MAMMOGRAM FOR MALIGNANT NE 09/23/2018 JONNIE BHATT MD Ot Z12.31 ENCNTR SCREEN MAMMOGRAM FOR MALIGNANT NE 09/23/2018 CATHY GOMEZ TRACK PATROL Ot Z12.31 ENCNTR SCREEN MAMMOGRAM FOR MALIGNANT NE 09/24/2018 CATHY GOMEZ TRACK PATROL Ot Z12.31 ENCNTR SCREEN MAMMOGRAM FOR MALIGNANT NE 10/17/2018 CATHY GOMEZ TRACK PATROL Ot Z12.31 ENCNTR SCREEN MAMMOGRAM FOR MALIGNANT NE 03/17/2019 PRISCILLA HE, MONICA B Ot Z01.818 ENCOUNTER FOR OTHER PREPROCEDURAL EXAMIN 03/18/2019 MONICA WELLS DO B Ot Z01.818 ENCOUNTER FOR OTHER PREPROCEDURAL EXAMIN 03/19/2019 XENIA HAN, RACQUEL Aurelia Ot V76.12 OTH SCREEN MAMMO-MALIGN NEOPLASM OF MIKEY 03/19/2019 CATHY GOMEZ TRACK PATROL Ot Z12.31 ENCNTR SCREEN MAMMOGRAM FOR MALIGNANT NE 03/19/2019 CATHY GOMEZ TRACK PATROL Ot Z12.31 ENCNTR SCREEN MAMMOGRAM FOR MALIGNANT NE 03/19/2019 MILLER HAN, JONNIE Bloom Ot Z12.31 ENCNTR SCREEN MAMMOGRAM FOR MALIGNANT NE 03/19/2019 CATHY GOMEZ TRACK PATROL Ot Z12.31 ENCNTR SCREEN MAMMOGRAM FOR MALIGNANT NE Procedures There is no data. Results Test Result Range Methicillin resistant Staphylococcus aureus (MRSA) screening culture - 12/17/17 13:10 Methicillin resistant Staphylococcus aureus (MRSA) screening [...] Automated erythrocyte mean corpuscular hemoglobin concentration measurement (mass/volume) 33 g/dL 32-36 Automated erythrocyte distribution width ratio 13.5 % 10.0- 14.5 Automated blood platelet count (count/volume) 240 10*3/uL [...] Blood monocytes automated count (number/volume) 0.6 10*3 0.0- 1.0 Automated eosinophil count 0.1 10*3/uL 0.0-0.3 Automated [...] Status Pt. Type Provider Facility Loc./Unit Complaint [id number] 03/17/2019 05:50:00 03/17/2019 13:25:00 DIS Outpatient MONICA WELLS DO [facility] PREOP COLONOSCOPY [id number] 09/23/2018 09:45:00 09/23/2018 23:59:59 CLS Outpatient CATHY GOMEZ APRN [facility] RAD SCREENING [id number] 12/28/2017 06:49:00 12/28/2017 12:15:00 DIS Outpatient VENKAT HULL MD [facility] SDC BASAL CELL NASAL TIP [id number] 12/17/2017 12:36:00 12/17/2017 14:59:00 DIS Outpatient KURTIS HAN, VENKAT Thurman [facility] PREOP EXCISION NOSE LESION WITH SKIN GRAFT FROM LEFT NEC [id number] 09/18/2017 10:01:00 09/18/2017 23:59:59 CLS Outpatient JONNIE BHATT MD [facility] RAD SCREENING [id number] 01/30/2017 19:50:00 01/31/2017 04:55:00 DIS Outpatient REED LICONA 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 PLANT 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 [facility] SLEEP URIAH [id number] 11/28/2016 12:50:00 11/28/2016 13:55:00 DIS Outpatient JONNIE BHATT MD [facility] SLEEP SNORING, [id number] 09/14/2016 10:49:00 09/14/2016 23:59:59 CLS Outpatient CATHY GOMEZ APRN [facility] RAD SCREENING [id number] 09/14/2015 10:31:00 09/14/2015 23:59:59 CLS Outpatient CATHY GOMEZ APRN [facility] RAD SCREENING [id number] 09/07/2014 09:52:00 09/07/2014 23:59:59 CLS Outpatient RACQUEL MICHAELS MD [facility] RAD ROUTINE [id number] 09/04/2013 09:27:00 09/04/2013 23:59:59 CLS Outpatient RACQUEL MICHAELS MD [facility] RAD SCREENING [id number] 03/24/2019 11:40:00 PEN Preadmit MONICA WELLS DO [facility] ENDO SCREENING [id number] 09/02/2012 09:33:00 Document Registration [id number] 08/12/2012 06:19:00 Document Registration [id number] 08/07/2012 12:15:00 Document Registration [id number] 08/08/2011 08:35:00 Document Registration [id number] 06/07/2017 08:01:34 06/07/2017 23:59:59 CLS Outpatient
[2019-03-24] MEDS ORDERED: proPOfol 200 MG/20 ML (DIPRIVAN) VIAL IV ONE ×2 (10:45→11:22)
[2019-03-24] MEDS ORDERED: LIDOCAINE PF 2% 5 ML (XYLOCAINE) VIAL ONE (10:46)
[2019-03-24] MEDS ORDERED: MIDAZOLAM 2 MG/2 ML (VERSED) VIAL ONE (10:46)
--- NOTE | 2019-03-24 10:50 | Progress Note-Pre Operative ---
Pre-Operative Progress Note H&P Reviewed The H&P was reviewed, patient examined and no changes noted. Time Seen by Provider: 10:47 Date H&P Reviewed: Mar 24, 2019 Time H&P Reviewed: 10:48 Pre-Operative Diagnosis: Screening colonoscopy MONICA WELLS DO Mar 24, 2019 10:50
--- NOTE | 2019-03-24 11:35 | Progress Note-Post Operative ---
Post-Operative Progess Note Surgeon (s)/Teaching Young (s) Surgeon MONICA WELLS DO Teaching Young: none Pre-Operative Diagnosis Screening colonoscopy Post-Operative Diagnosis Colonic Ulcer Internal Hemorrhoids Procedure & Operative Findings Date of Procedure 03/24/19 Procedure Performed/Findings Colon with cold bx Anesthesia Type IV sedation by GLUER MACHINE OPERATOR Estimated Blood Loss Estimated blood loss (mL): scant Specimens/Packing Specimens Removed Ascending colon bx MONICA WELLS DO Mar 24, 2019 11:34
--- NOTE | 2019-03-24 11:36 | Endoscopy Discharge Instruct ---
Endo Procedure/Findings Findings 1.: Other Findings (Colonic ulcer) 2.: Internal Hemorrhoids Discharge Instructions - Activity: You might feel a little sleepy until tomorrow. This is due to the medicine you received to relax you. Until tomorrow, you should: NOT drive a car, operate machinery or power tools. NOT drink any alcoholic beverages. NOT make any important decisions or sign importortant papers. Do not return to work until tomorrow, unless otherwise instructed. Resume previous activities tomorrow. Diet: Start by taking liquids. If you tolerate liquids, advance to solid food. make an appointment for one week Notify Physician - If you experience excessive bleeding, unusual abdominal pain, fever, or chest pain, contact your doctor immediately. Follow-Up: - I have received and understand the above instructions and will call my doctor if I have any further questions. Patient Signature Date Nurse Signature Other (Relationship) MONICA WELLS DO Mar 24, 2019 11:36
[2019-03-24 11:45] VITALS: BP 126/71
[2019-03-24 12:15] VITALS: BP 121/71
[2019-03-24 12:20] VITALS: BP 121/71
--- NOTE | 2019-03-24 16:22 | OPERATIVE REPORT ---
DATE OF SERVICE: 03/24/2019 PREOPERATIVE DIAGNOSIS: Screening colonoscopy. POSTOPERATIVE DIAGNOSES: 1. Colon ulcer. 2. Internal hemorrhoids. PROCEDURE: Colonoscopy with cold biopsy. SURGEON: Ra Waite DO TI[employer] FAB[employer]IC IMPREGNATING RANGE TENDER: None. ANESTHESIA: IV sedation by the PASTA PRESS OPERATOR. SPECIMEN: Biopsy from the ascending colon. BLOOD LOSS: Scant. FLUIDS: Per anesthesia. POSTOPERATIVE CONDITION: Stable. INDICATION FOR PROCEDURE: The patient is a 73-year-old female, who has not had a colonoscopy in over 12 years and needs one for screening. FINDINGS: The patient had what looked like an ulcer in the ascending colon. Picture taken. Biopsy performed. She also had some minimal internal hemorrhoids, but no other obvious pathology. PROCEDURE NOTE: After informed consent was obtained, the patient was brought to the endoscopy suite and placed in the left lateral decubitus position. She was administered IV sedation by the PASTA PRESS OPERATOR, who then monitored her vitals the entire time, heart rate, blood pressure and pulse ox and the scope was inserted, pushed all the way to 150 cm, able to get to the cecum, took a picture of the appendiceal orifice, noted the ileocecal valve and then slowly withdrew the scope insufflating to look circumferentially at the marshall, looking at the cecum and then up into the ascending colon and in the ascending colon, saw what looked like ulcer, took a picture of this and then did a cold biopsy and then continued up the ascending colon to the hepatic flexure, then down the transverse colon, the splenic flexure, into the descending colon, down into the sigmoid colon and finally into the rectum, retroflexed the rectal vault, saw some internal hemorrhoids, took a picture of this and then removed the scope. The patient was recovered in endoscopy suite. She tolerated the procedure well. Job ID: [id number] DocumentID: [id number] Dictated Date: 03/24/2019 11:43:29 Tractor Sweeper Driver Date: 03/24/2019 16:21:53 Dictated By: RA WAITE DO
== END 2019-03-24 12:20 | disposition home or self-care (01) ==
LOC: ENDO 09:55
PROVIDERS: ATTEND Surgery
DX: Z12.11 Encounter for screening for malignant neoplasm of colon (principal); K63.3 Ulcer of intestine; K64.8 Other hemorrhoids; E78.5 Hyperlipidemia, unspecified; I10 Essential (primary) hypertension

== ENCOUNTER → 2019-09-24 | Outpatient (CLI) | payer MEDICARE ==
--- NOTE | 2019-09-24 12:58 | Diagnostic Imaging Report ---
Indication: Routine screening. Comparison is made with prior mammogram 09/23/2018 and 09/18/2017. 2-D and 3-D bilateral screening mammography was performed with CAD. Both breasts remain heterogeneously dense, limiting the sensitivity of mammography. Circumscribed densities in both breasts are stable. No spiculated mass or malignant appearing microcalcifications are seen. There are benign calcifications. Axillae are unremarkable. IMPRESSION: BI-RADS Category 2 No mammographic features suspicious for malignancy are identified. ACR BI-RADS Category 2: Benign findings. Result letter will be mailed to the patient. Note: At least 10% of breast cancer is not imaged by mammography. Dictated by: Dictated on workstation # [id number]
== END ==
LOC: RAD 10:38
PROVIDERS: ATTEND Nurse Practitioner Family
DX: Z12.31 Encounter for screening mammogram for malignant neoplasm of breast (principal)
CPT/HCPCS: 77067

== ENCOUNTER → 2020-11-09 | Outpatient (CLI) | payer MEDICARE ==
[~2020-11-09] MED LIST changes: +ACHD5005 PO; -HYDR-3812 PO
--- NOTE | 2020-11-10 10:06 | Diagnostic Imaging Report ---
INDICATION: Routine screening. COMPARISON: 09/24/2019 and 09/23/2018. TECHNIQUE: 2D and 3D bilateral screening mammography was performed with CAD. FINDINGS: Both breasts are heterogeneously dense, limiting the sensitivity of mammography. Circumscribed nodules in both breasts are stable. No new mass or malignant appearing microcalcifications are seen. Axillae are unremarkable. IMPRESSION: No mammographic features suspicious for malignancy are identified. ACR BI-RADS Category 2: Benign findings. Result letter will be mailed to the patient. Note: At least 10% of breast cancer is not imaged by mammography. Dictated by: Dictated on workstation # [id number]
== END ==
LOC: RAD 15:00
PROVIDERS: ATTEND Family Medicine
DX: Z12.31 Encounter for screening mammogram for malignant neoplasm of breast (principal)
CPT/HCPCS: 77063; 77067

== ENCOUNTER → 2021-09-23 | Outpatient (CLI) | payer MEDICARE | LOC: LAB FS 10:24 | PROVIDERS: ATTEND Emergency Medicine | DX: Z01.812 Encounter for preprocedural laboratory examination (principal); Z20.822 Contact with and (suspected) exposure to COVID-19 | CPT/HCPCS: 87635 ==

== ENCOUNTER → 2021-12-07 | Outpatient (CLI) | payer MEDICARE ==
--- NOTE | 2021-12-07 12:35 | Diagnostic Imaging Report ---
INDICATION: Routine screening. COMPARISON is made with prior mammograms 11/09/2020 and 09/24/2019. 2-D and 3-D bilateral screening mammography was performed with CAD. Both breasts are heterogeneously dense, limiting the sensitivity of mammography. Circumscribed nodules in the upper outer aspects of both breasts appear stable. No new mass or malignant-appearing microcalcifications are seen. Axillae are unremarkable. IMPRESSION: BI-RADS Category 2 No mammographic features suspicious for malignancy are identified. ACR BI-RADS Category 2: Benign findings. Result letter will be mailed to the patient. Note: At least 10% of breast cancer is not imaged by mammography. Dictated by: Dictated on workstation # [id number]
== END ==
LOC: RAD 11:00
PROVIDERS: ATTEND Family Medicine
DX: Z12.31 Encounter for screening mammogram for malignant neoplasm of breast (principal)
CPT/HCPCS: 77063; 77067

== ENCOUNTER → 2022-03-17 | Outpatient (CLI) | payer MEDICARE ==
--- NOTE | 2022-03-17 11:05 | Diagnostic Imaging Report ---
INDICATION: Cough. Time of Exam: 10:48 AM No prior studies are available for comparison. FINDINGS: The heart size is normal. The pulmonary vascularity is unremarkable. The lungs are clear. No infiltrate, effusion or pneumothorax is detected. IMPRESSION: No acute cardiopulmonary process is detected. Dictated by: Dictated on workstation # [id number]
== END ==
LOC: RAD 10:35
PROVIDERS: ATTEND Nurse Practitioner Family
DX: R07.9 Chest pain, unspecified (principal); R06.00 Dyspnea, unspecified; R05.9 Cough, unspecified
CPT/HCPCS: 71046

== ENCOUNTER → 2022-12-08 | Outpatient (CLI) | payer MEDICARE ==
--- NOTE | 2022-12-08 13:38 | Diagnostic Imaging Report ---
INDICATION: Routine screening. Comparison is made with prior mammogram from 12/07/2021 and 11/09/2020. 2-D and 3-D bilateral screening mammography was performed with CAD. Both breasts are heterogeneously dense, limiting the sensitivity of mammography. Circumscribed nodules in the upper outer aspect both breasts are stable and consistent with intraparenchymal lymph nodes. No spiculated mass or malignant-appearing microcalcifications are seen. Axillae are unremarkable. IMPRESSION: No mammographic features suspicious for malignancy are identified. ACR BI-RADS Category 2: Benign findings. Result letter will be mailed to the patient. Note: At least 10% of breast cancer is not imaged by mammography. BI-RADS Category 2 Dictated by: Dictated on workstation # [id number]
== END ==
LOC: RAD 10:02
PROVIDERS: ATTEND Nurse Practitioner Family
DX: Z12.31 Encounter for screening mammogram for malignant neoplasm of breast (principal)
CPT/HCPCS: 77063; 77067